=== PATIENT | male | born 1950 | race Caucasian/White ===

== ENCOUNTER 2017-12-17 17:07 | Emergency (ER) | payer OTHER, MEDICARE ==
[2017-12-17] MEDS ORDERED: Sodium Chloride 0.9% 1000 ML 1,000 ML IV STA (17:53)
[2017-12-17] MEDS ORDERED: Sodium Chloride 0.9% 1000 ML 1,000 ML ONE (17:56)
--- NOTE | 2017-12-17 17:59 | ERPHSYRPT ---
- History of Present Illness Source: patient Exam Limitations: no limitations Patient Subjective Stated Complaint: Pt states "I was diagnosed with the flu and it is just getting worse. I have 2 of those flu pills left and I am not any better." Triage Nursing Assessment: Pt alert and oriented X 3, skin pwd. Pt ambulates with an upright steady gait, able to speak in clear full sentences. no apparent respiratory distress Timing/Duration: day(s) (4 days) Severity: moderate Modifying Factors: Improves With: nothing Associated Symptoms: loss of appetite, malaise, weakness, No nausea, No vomiting , No abdominal pain, No shortness of breath, No heartburn, No diaphoresis, No cough, No chills, No chest pain, No fever, No headaches, No rash, No syncope, No seizure Hx Tetanus, Diphtheria Vaccination/Date Given: Yes Hx Influenza Vaccination/Date Given: No Hx Pneumococcal Vaccination/Date Given: No Immunizations Up to Date: Yes <RITO GLASGOW - Last Filed: 12/17/17 19:05> <KELSIE GILLETTE - Last Filed: 12/17/17 21:12> - History of Present Illness Time Seen by Provider: 12/17/17 17:53 Physician History: 67-year-old white male who states that he was diagnosed with the flu approximately 4 days ago arrives stating that he just doesn't feel good he states he feels weak he feels like he is getting worse as compared to better after taking flu medication. He states he is not short of breath he has no abdominal pain he is not vomiting he states he is not nauseous he has no chest pain he states he has no fevers. He states he just doesn't feel good and his wonders whether he is dehydrated. Patient has 2 of his Tamiflu tablets left. Past medical history includes diabetes, coronary artery disease, high blood pressure. Past surgical history includes CABG and pacer (RITO GLASGOW) Allergies/Adverse Reactions: No Known Drug Allergies Allergy (Unverified 12/17/17 17:26) Home Medications: Amlodipine Besylate 10 mg [Norvasc 10 MG] 10 mg PO DAILY 12/17/17 [History] Aspirin 81 mg PO DAILY 12/17/17 [History] Atorvastatin Calcium [Lipitor] 80 mg PO DAILY 12/17/17 [History] Clopidogrel Bisulfate 75 mg [PLAVIX 75 MG Tablet] 75 mg PO DAILY 12/17/17 [History] Esomeprazole Magnesium [Nexium 24Hr] 20 mg PO DAILY 12/17/17 [History] Ferrous Sulfate 325 mg [Feosol 325 mg] 325 mg PO DAILY 12/17/17 [History] Glipizide 5 mg [Glucotrol 5 MG] 5 mg PO DAILY 12/17/17 [History] Metformin HCl 500 mg [Glucophage 500 MG] 500 mg PO BIDWM 12/17/17 [History ] Metoprolol Tartrate 25 mg PO DAILY 12/17/17 [History] Potassium Gluconate 99 mg PO DAILY 12/17/17 [History] Ramipril [Altace] 10 mg PO DAILY 12/17/17 [History] Triamterene/Hydrochlorothiazid [Triamterene-Hctz 37.5-25 mg Tb] 1 each PO DAILY 12/17/17 [History] - Review of Systems Constitutional: Malaise, Weakness, No Fever, No Chills, No Fatigue, No Lethargy , No Night Sweats, No Weight Loss Eyes: No Symptoms Ears, Nose, & Throat: No Symptoms, No Ear Pain, No Ear Discharge, No Hearing Changes, No Tinnitus, No Nose Pain, No Nose Congestion, No Nose Discharge, No Sinus Drainage, No Epistaxis, No Mouth Pain, No Mouth Swelling, No Loose Teeth, No Throat Pain, No Throat Swelling, No Hoarse, No Painful Swallowing, No Snoring , No Stridor Respiratory: No Cough, No Dyspnea Cardiac: No Chest Pain, No Edema, No Syncope Abdominal/Gastrointestinal: Other (patient states he just doesn't feel like eating), No Abdominal Pain, No Nausea, No Vomiting, No Diarrhea, No Constipation , No Hematemesis, No Hematochezia, No Melena, No Dysphagia, No Appetite Changes Genitourinary Symptoms: No Dysuria Musculoskeletal: No Back Pain, No Neck Pain Skin: No Rash Neurological: No Dizziness, No Focal Weakness, No Sensory Changes Psychological: No Symptoms Endocrine: No Symptoms All Other Systems: Reviewed and Negative <RITO GLASGOW - Last Filed: 12/17/17 19:05> - Past Medical History Pertinent Past Medical History: Yes Neurological History: No Pertinent History ENT History: No Pertinent History Cardiac History: Coronary Artery Disease, Hypertension Respiratory History: No Pertinent History Endocrine Medical History: Diabetes Type II Musculoskeletal History: No Pertinent History GI Medical History: No Pertinent History History: No Pertinent History Psycho-Social History: No Pertinent History Male Reproductive Disorders: No Pertinent History - Past Surgical History Past Surgical History: Yes Other Surgical History: cabg. pacemaker - Social History Smoking Status: Former smoker Exposure to second hand smoke: Yes Drug Use: none Patient Lives Alone: No <RITO GLASGOW Filed: 12/17/17 19:05> - Physical Exam General Appearance: no apparent distress, alert Eye Exam: PERRL/EOMI, eyes nml inspection Ears, Nose, Throat Exam: normal ENT inspection, TMs normal, pharynx normal, moist mucous membranes Neck Exam: normal inspection, non-tender, supple, full range of motion Respiratory Exam: normal breath sounds, lungs clear, No respiratory distress Cardiovascular Exam: regular rate/rhythm, normal heart sounds, normal peripheral pulses Gastrointestinal/Abdomen Exam: soft, normal bowel sounds, No tenderness, No mass Back Exam: normal inspection, normal range of motion, No CVA tenderness, No vertebral tenderness Extremity Exam: normal inspection, normal range of motion, pelvis stable Neurologic Exam: alert, oriented x 3, cooperative, normal mood/affect, nml cerebellar function, nml station & gait, sensation nml, No motor deficits Skin Exam: normal color, warm, dry, No rash Lymphatic Exam: No adenopathy SpO2 Interpretation: normal (94%) SpO2: 94 Oxygen Delivery: Room Air <RITO GLASGOW - [place] Filed: 12/17/17 19:05> - Nursing Vital Signs Nursing Vital Signs: Initial Vital Signs Temperature 97.3 F 12/17/17 17:19 Pulse Rate 82 12/17/17 17:19 Respiratory Rate 20 12/17/17 17:19 Blood Pressure 149/90 12/17/17 17:19 O2 Sat by Pulse Oximetry 94 L 12/17/17 17:19 Pain Scale Pain Intensity 0 - Course Nursing assessment & vital signs reviewed: Yes EKG Interpreted by Me: RATE (68 bpm), Other (av pacemaker 68 bm, no acute changes) - Radiology Exams Chest X-ray Interpretation: Interpreted by me, Other (no acute disease process) <RITO GLASGOW Last Filed: 12/17/17 19:05> Ordered Tests: Active Orders 24 hr Category Date Time Status EKG-ER Only STAT Care 12/17/17 17:53 Active IV Insertion STAT Care 12/17/17 17:53 Active CHEST 1 VIEW (PORTABLE) Stat Exams 12/17/17 17:53 Completed CBC W DIFF Stat Lab 12/17/17 18:05 Completed CMP Stat Lab 12/17/17 18:05 Completed TROPONIN Q3H Lab 12/17/17 18:05 Completed TROPONIN Q3H Lab 12/17/17 21:15 Ordered TROPONIN Q3H Lab 12/18/17 00:15 Ordered TROPONIN Q3H Lab 12/18/17 03:15 Ordered TROPONIN Q3H Lab 12/18/17 06:15 Ordered UA W/ MICROSCOPIC Stat Lab 12/17/17 20:30 Completed Medication Summary Discontinued Medications Generic Name Dose Route Start Last Admin Trade Name Freq PRN Reason Stop Dose Admin Sodium Chloride 1,000 mls @ 999 mls/hr 12/17/17 17:53 12/17/17 18:07 Sodium Chloride 0.9% 1000 Ml IV 12/17/17 18:53 999 mls/hr .Q1H1M STA Administration Sodium Chloride Confirm 12/17/17 17:56 Sodium Chloride 0.9% 1000 Ml Administered 12/17/17 17:57 Dose 1,000 mls @ ud .ROUTE .STK-MED ONE Lab/Rad Data: Laboratory Result Diagrams 12/17/17 18:05 12/17/17 18:05 Laboratory Results 12/17/17 12/17/17 12/17/17 Range/Units 20:30 18:05 18:05 WBC (4.0-10.5) K/mm3 RBC (4.1-5.6) M/mm3 Hgb (12.5-18.0) gm/dl Hct (42-50) % MCV (78-100) fl MCH (26-32) pg MCHC (32-36) g/dl RDW (11.5-14.0) % Plt Count (150-450) K/mm3 MPV (6-9.5) fl Gran % (36.0-66.0) % Lymphocytes % (24.0-44.0) % Monocytes % (0.0-12.0) % Eosinophils % (0.00-5.0) % Basophils % (0.0-0.4) % Basophils # (0-0.4) Sodium 136 (136-145) mEq/L Potassium 3.7 (3.5-5.1) mEq/L Chloride 105 (98-107) mEq/L Carbon Dioxide 22.5 (21-32) mEq/L Anion Gap 12.6 (5-15) MEQ/L BUN 28 H (9-20) mg/dL Creatinine 1.36 H (0.55-1.30) mg/dl Estimated GFR 56 ML/MIN Glucose 99 (70-110) MG/DL Calcium 9.5 (8.5-10.1) mg/dL Total Bilirubin 0.60 (0.2-1.0) mg/dL AST 20 (15-37) U/L ALT 17 (12-78) U/L Alkaline Phosphatase 87 (46-116) U/L Troponin I < 0.017 (0.000-0.056) ng/ml Serum Total Protein 7.0 (6.4-8.2) gm/dL Albumin 3.5 (3.4-5.0) g/dL Ur Collection Type CCMS Urine Color YELLOW (YELLOW) Urine Appearance CLEAR (CLEAR) Urine pH 6.0 (5-6) Ur Specific [place] 1.010 (1.005-1.025) Urine Protein 30 (Negative) Urine Ketones NEGATIVE (NEGATIVE) Urine Blood NEGATIVE (0-5) Cristobal/ul Urine Nitrite NEGATIVE (NEGATIVE) Urine Bilirubin NEGATIVE (NEGATIVE) Urine Urobilinogen NORMAL (0-1) mg/dL Ur Leukocyte Esterase NEGATIVE (NEGATIVE) Urine Microscopic WBC 0-2 (0-5) /HPF Hyaline Casts 2-5 (0-2) /LPF Urine Mucus SLIGHT (NEGATIVE) /HPF Urine Sperm PRESENT (NEGATIVE) /HPF Urine Culture Reflexed NO (NO) Urine Glucose NEGATIVE (NEGATIVE) mg/dL Specimen Received 12-17-17204912/17/17 Range/Units 18:05 WBC 6.7 (4.0-10.5) K/mm3 RBC 4.80 (4.1-5.6) M/mm3 Hgb 14.7 (12.5-18.0) gm/dl Hct 42.9 (42-50) % MCV 89.4 (78-100) fl MCH 30.6 (26-32) pg MCHC 34.3 (32-36) g/dl RDW 13.1 (11.5-14.0) % Plt Count 170 (150-450) K/mm3 MPV 10.4 H (6-9.5) fl Gran % 64.1 (36.0-66.0) % Lymphocytes % 24.8 (24.0-44.0) % Monocytes % 9.2 (0.0-12.0) % Eosinophils % 1.8 (0.00-5.0) % Basophils % 0.1 (0.0-0.4) % Basophils # 0.01 (0-0.4) Sodium (136-145) mEq/L Potassium (3.5-5.1) mEq/L Chloride (98-107) mEq/L Carbon Dioxide (21-32) mEq/L Anion Gap (5-15) MEQ/L BUN (9-20) mg/dL Creatinine (0.55-1.30) mg/dl Estimated GFR ML/MIN Glucose (70-110) MG/DL Calcium (8.5-10.1) mg/dL Total Bilirubin (0.2-1.0) mg/dL AST (15-37) U/L ALT (12-78) U/L Alkaline Phosphatase (46-116) U/L Troponin I (0.000-0.056) ng/ml Serum Total Protein (6.4-8.2) gm/dL Albumin (3.4-5.0) g/dL Ur Collection Type Urine Color (YELLOW) Urine Appearance (CLEAR) Urine pH (5-6) Ur Specific [place] (1.005-1.025) Urine Protein (Negative) Urine Ketones (NEGATIVE) Urine Blood (0-5) Cristobal/ul Urine Nitrite (NEGATIVE) Urine Bilirubin (NEGATIVE) Urine Urobilinogen (0-1) mg/dL Ur Leukocyte Esterase (NEGATIVE) Urine Microscopic WBC (0-5) /HPF Hyaline Casts (0-2) /LPF Urine Mucus (NEGATIVE) /HPF Urine Sperm (NEGATIVE) /HPF Urine Culture Reflexed (NO) Urine Glucose (NEGATIVE) mg/dL Specimen Received - Progress Progress: improved <RITO GLASGOW - Last Filed: 12/17/17 19:05> <KELSIE GILLETTE - Last Filed: 12/17/17 21:12> - Progress Progress Note: 12/17/17 17:57 This is a 67-year-old white male with history of diabetes coronary artery disease, high blood pressure he arrives with complaint of general malaise myalgias symptoms going on for 4 days. He was diagnosed with the flu 4 days ago he was placed on Tamiflu he feels like he is not improving. He denies shortness of breath denies chest pain he is not coughing he is not nauseous he has no vomiting he does state that he just doesn't feel like eating he doesn't feel good and he aches all over. Patient has 2 Tamiflu tablets left. Will go ahead and obtain CBC CMP urinalysis EKG and a chest Will give patient 1 L of normal saline he does feel like he is dehydrated 12/17/17 19:04 Patient's labs essentially normal EKG no acute changes paced rhythm chest x-ray no acute disease process noted. Patient still has not produced a urine has told the nurse that he will produce one when he is ready. Patient will be turned over to Dr. Gillette secondary to shift change. (RITO GLASGOW) 12/17/17 21:10 The UA is within normal limits. The patient feels better after receiving NS fluids. I have explained to the patient that the weakness was secondary to influenza. Pt was advised to increase water intake and finish the tamiflu. ( KELSIE GILLETTE) <RITO GLASGOW - Last Filed: 12/17/17 19:05> - Departure Time of Disposition: 21:11 Departure Disposition: Home Critical Care Time: No <KELSIE GILLETTE - Last Filed: 12/17/17 21:12> - Departure Clinical Impression: Influenza Condition: Stable Referrals: VICTORIA WALTON [Primary Care Provider] - Instructions: Flu, Adult (DC) Additional Instructions: Follow up with your primary care doctor if you should continue to feel weak. Stay well hydrated and finish the tamiflu.
[2017-12-17 18:11] LABS: BASOPHIL % 0.1 % (0.0-0.4); Basophil (Absolute #) 0.01 (0-0.4); Eosinophil % 1.8 % (0.00-5.0); Eosinophil (Absolute #) 0.12 (0-0.5); Granulocyte Absolute (ANC) 4.32 (1.4-6.9); Granulocytes % 64.1 % (36.0-66.0); Hematocrit 42.9 % (42-50); Hemoglobin 14.7 gm/dl (12.5-18.0); Lymphocyte (Absolute #) 1.67 (1.0-4.6); Lymphocytes % 24.8 % (24.0-44.0); Mean Cell Volume 89.4 fl (78-100); Mean Corpuscular Hemoglobin 30.6 pg (26-32); Mean Corpuscular Hgb Concent. 34.3 g/dl (32-36); Mean Platelet Volume 10.4 fl (6-9.5); Monocyte (Absolute #) 0.62 (0.0-1.3); Monocytes % 9.2 % (0.0-12.0); Platelet Count 170 K/mm3 (150-450); Red Cell Distribution Width 13.1 % (11.5-14.0); White Blood Count 6.7 K/mm3 (4.0-10.5)
[2017-12-17 18:12] VITALS: PULSE 88
[2017-12-17 18:40] LABS: ALBUMIN 3.5 g/dL (3.4-5.0); ANION GAP 12.6 MEQ/L (5-15); BILIRUBIN,TOTAL 0.6 mg/dL (0.2-1.0); Calcium 9.5 mg/dL (8.5-10.1); Carbon Dioxide 22.5 mEq/L (21-32); Creatinine 1 1.36 mg/dl (0.55-1.30); Potassium 3.7 mEq/L (3.5-5.1)
--- NOTE | 2017-12-17 20:42 | XRAY ---
Indication: Flu symptoms. Comparison: December 13, 2017. Portable chest less inflated today crowding the lung bases. Remaining lungs clear. Heart is not enlarged again with left-sided dual-lead pacemaker. Impression: Nonacute chest.
[2017-12-17 20:52] LABS: Appearance CLEAR (CLEAR); Bilirubin NEGATIVE (NEGATIVE); Blood NEGATIVE Ery/ul (0-5); Glucose NEGATIVE (NEGATIVE); Ketones NEGATIVE (NEGATIVE); Leukocyte Esterase NEGATIVE (NEGATIVE); Nitrite NEGATIVE (NEGATIVE); Protein,Urine Dip 30 (Negative); Urobilinogen NORMAL mg/dL (0-1)
[2017-12-17 20:53] LABS: Mucus SLIGHT /HPF (NEGATIVE); Sperm PRESENT /HPF (NEGATIVE); WBC 0-2 /HPF (0-5)
[2017-12-17 21:12] VITALS: BP 132/90; O2SAT 98
== END 2017-12-17 21:19 | disposition expired ==
LOC: ED 17:07
DX: J11.1 Influenza due to unidentified influenza virus with other respiratory manifestations (principal); I10 Essential (primary) hypertension; E11.9 Type 2 diabetes mellitus without complications; Z79.4 Long term (current) use of insulin; I25.810 Atherosclerosis of coronary artery bypass graft(s) without angina pectoris; Z95.0 Presence of cardiac pacemaker; Z79.899 Other long term (current) drug therapy
CPT/HCPCS: 36000; 36415; 71045; 80053; 81000; 84484; 85025; 93005; 96360; 99284

== ENCOUNTER 2022-05-27 09:15 | Day surgery (SDC) | payer MEDICARE, OTHER ==
--- NOTE | 2022-05-21 13:04 | HP ---
DATE OF SURGERY: 05/27/2022 HISTORY OF PRESENT ILLNESS: The patient is a 71-year-old male presented with complaints of bright red rectal bleeding for a couple months. It happens with bowel movements. He has had some abdominal pain. He went to the emergency room and had some diverticulitis. He reports that the pain is better now. He has been on some Carafate. He had CT scan showing some gastric thickening. His last colonoscopy was in 1996. PAST MEDICAL HISTORY: Hypertension, diabetes, pacemaker, coronary artery disease, diabetes. PAST SURGICAL HISTORY: Coronary artery bypass graft. Right inguinal hernia repair. Umbilical hernia repair. ALLERGIES: NKDA. MEDICATIONS: Ramipril, terazosin, atorvastatin, magnesium, metoprolol, Zetia, amlodipine, aspirin, Xarelto, sucralfate, Fenofibrate, pantoprazole, metformin, glipizide. FAMILY HISTORY: Heart disease, hypertension, diabetes. SOCIAL HISTORY: Former smoker. REVIEW OF SYSTEMS: CONSTITUTIONAL: Denies fever or chills. CHEST: Denies shortness of breath. CVS: Denies chest pain. ABDOMEN: Denies abdominal pain. PHYSICAL EXAMINATION: GENERAL: No acute distress. CHEST: Nonlabored. No shortness of breath. CVS: Regular rate and rhythm. ABDOMEN: Soft. IMPRESSION: Bright red rectal bleeding, abnormal CT scan with gastric thickening and recent episode of diverticulitis. PLAN: EGD and colonoscopy with Dr. Porter Matson. As dictated by Ginette Moore NP.
[2022-05-27] MEDS: Lactated Ringers 1,000 ML IV SCH ×2 (09:40→10:58)
[2022-05-27] MEDS ORDERED: Lactated Ringers 1,000 ML IV ONE ×2 (10:56→11:58)
[2022-05-27] MEDS ORDERED: DIPRIVAN 200 MG/20 ML IV ONE (11:56)
[2022-05-27] MEDS ORDERED: Versed 2 MG/2 ML Injection ONE (11:56)
[2022-05-27 13:15] VITALS: BP 161/75; PULSE 66; O2SAT 99
--- NOTE | 2022-05-28 07:53 | OP ---
SURGERY DATE/TIME: 05/27/2022 1200 PREOPERATIVE DIAGNOSIS: 1) Recent diverticulitis. 2) Recent blood per rectum. 3) Ultrasound showing gastric wall thickening. POSTOPERATIVE DIAGNOSES: 1) EGD a 1 inch hiatal hernia, presbyesophagus. 2) Colonoscopy limited to 40 cm because of severe diverticulosis. 3) A 4 cm rectal polyp taken with a hot snare. PROCEDURES: 1) EGD. 2) Colonoscopy complete to cecum with hot polypectomy x2. Anticipated follow up exam in five years. SURGEON: Porter Matson M.D. ANESTHESIA: General. COMPLICATIONS: None. CONDITION: Stable. INDICATION: The patient presents for above indications. DESCRIPTION OF PROCEDURE: Patient taken to endoscopy. Left lateral decubitus position. Scope introduced. Pharyngoesophageal junction normal. Esophagus normal down to gastroesophageal junction. A 1 inch hiatal hernia. There was presbyesophagus. There were no contractions to the esophagus today. Fundus, body, antrum normal. Pylorus normal. Duodenal bulb normal. Second portion normal. The scope withdrawn looped upon itself. A 1 inch hiatal hernia. Anal digital examination satisfactory. Scope introduced. Scope advanced 40 cm to the cecum. There was marked annulation. There was severe diverticulosis. Pulling the scope back out there was a 4 cm rectal polyp. It was taken with a hot snare totally taken off. We await the pathology of this. We will probably order a barium enema at some point after the rectal thing has healed up. The patient tolerated the procedure satisfactorily.
== END 2022-05-27 13:18 | disposition home or self-care (01) ==
LOC: SDC 09:15
PROVIDERS: ATTEND Surgery
DX: K57.30 Diverticulosis of large intestine without perforation or abscess without bleeding (principal); K62.1 Rectal polyp; K44.9 Diaphragmatic hernia without obstruction or gangrene; K57.92 Diverticulitis of intestine, part unspecified, without perforation or abscess without bleeding; K92.1 Melena; K31.89 Other diseases of stomach and duodenum; E11.9 Type 2 diabetes mellitus without complications; K22.89 Other specified disease of esophagus
CPT/HCPCS: 82947; 88305; J2250; J2704

== ENCOUNTER 2022-06-03 22:55 | Observation (INO) | payer MEDICARE, OTHER ==
[2022-06-03] MEDS ORDERED: MORPHINE SULFATE 4 MG INJ IV ONE (23:16)
[2022-06-03] MEDS ORDERED: Zofran 4 MG/2 ML VIAL IV ONE (23:16)
--- NOTE | 2022-06-03 23:25 | ERPHSYRPT ---
- History of Present Illness Time Seen by Provider: 06/03/22 22:58 Historian: patient, family Exam Limitations: no limitations Patient Subjective Stated Complaint: pt states he has been having abdominal pain x2 days. he was diagnosed with diverticulitis 04/12/[address] [facility]. states he ate a meal consisting of corn two days ago, and since then has had abdominal pain, nausea and indigestion Triage Nursing Assessment: pt is alert and oriented. abdomen is soft but tender when palpated on middle abdominal area. pt states he has pain 10/10 in abdomen and is nauseated and is experiencing indigestion. Physician History: 71 years old male with history of coronary artery disease status post CABG, pacemaker placement currently on Xarelto, hypertension, hyperlipidemia, diabetes mellitus, recent EGD/colonoscopy, off-and-on abdominal pain for 3 weeks and had a diverticulitis almost a month and a half presented with lower abdominal pain for 2 days dull cramping moderate intensity without any significant aggravating or relieving factors and located with nausea/dry heaving but no vomiting. Denies any constipation or diarrhea. No hematochezia/melena. Timing/Duration: day(s) (2), constant, gradual onset, worse Activities at Onset: rest Quality: cramping Abdominal Pain Onset Location: LLQ, suprapubic Pain Radiation: no radiation Severity of Pain-Max: moderate Severity of Pain-Current: moderate Modifying Factors: Improves With: nothing Associated Symptoms: nausea Allergies/Adverse Reactions: No Known Drug Allergies Allergy (Verified 05/27/22 09:38) Home Medications: Amlodipine Besylate 10 mg [Norvasc 10 MG] 5 mg PO BID 12/17/17 [History] Atorvastatin Calcium [Lipitor] 80 mg PO DAILY 12/17/17 [History] Glipizide 5 mg [Glucotrol 5 MG] 5 mg PO DAILY 12/17/17 [History] Metformin HCl 500 mg [Glucophage 500 MG] 500 mg PO DAILY 12/17/17 [History] Metoprolol Tartrate 3 tab PO BID 12/17/17 [History] ramipriL [Altace] 10 mg PO BID 12/17/17 [History] Fenofibrate 48 mg PO DAILY 05/18/22 [History] Magnesium Oxide 400 mg [Mag-Ox 400] 400 mg PO BID 05/18/22 [History] PANTOPRAZOLE 40 mg Tablet [Protonix 40MG Tablet] 40 mg PO DAILY 05/18/22 [History] Sucralfate 1 gm [Carafate 1 GM] 1 gm PO QID 05/18/22 [History] Terazosin HCl 5 mg PO BID 05/18/22 [History] Hx Tetanus, Diphtheria Vaccination/Date Given: Yes Hx Influenza Vaccination/Date Given: No Hx Pneumococcal Vaccination/Date Given: No Travel Risk - International Travel Have you traveled outside of the country in past 3 weeks: No - Coronavirus Screening Are you exhibiting any of the following symptoms?: No - Vaccine Status Have you recieved a Covid-19 vaccination: No - Review of Systems Constitutional: No Symptoms Eyes: No Symptoms Ears, Nose, & Throat: No Symptoms Respiratory: No Symptoms Cardiac: No Symptoms Abdominal/Gastrointestinal: Abdominal Pain, Nausea Genitourinary Symptoms: No Symptoms Musculoskeletal: No Symptoms Skin: No Symptoms, Skin Lesions Endocrine: No Symptoms Hematologic/Lymphatic: No Symptoms Immunological/Allergic: No Symptoms - Past Medical History Pertinent Past Medical History: Yes Neurological History: No Pertinent History ENT History: No Pertinent History Cardiac History: Coronary Artery Disease, Hypertension Respiratory History: No Pertinent History Endocrine Medical History: Diabetes Type II Musculoskeletal History: No Pertinent History GI Medical History: No Pertinent History History: No Pertinent History Psycho-Social History: No Pertinent History Male Reproductive Disorders: No Pertinent History - Past Surgical History Past Surgical History: Yes Neuro Surgical History: No Pertinent History Cardiac: CABG, Pacemaker Respiratory: No Pertinent History Gastrointestinal: Hernia Repair Genitourinary: No Pertinent History Male Surgical History: No Pertinent History Other Surgical History: cabg. pacemaker - Social History Smoking Status: Former smoker Exposure to second hand smoke: No Drug Use: none Patient Lives Alone: No - Nursing Vital Signs Nursing Vital Signs: Initial Vital Signs Temperature 97.4 F 06/03/22 23:01 Pulse Rate 78 06/03/22 23:01 Respiratory Rate 18 06/03/22 23:01 Blood Pressure 190/90 06/03/22 23:01 O2 Sat by Pulse Oximetry 99 06/03/22 23:01 Pain Scale Pain Intensity 10 - Physical Exam General Appearance: no apparent distress, alert Eye Exam: PERRL/EOMI Ears, Nose, Throat Exam: normal ENT inspection Neck Exam: normal inspection, supple, full range of motion Respiratory Exam: normal breath sounds, lungs clear Cardiovascular Exam: regular rate/rhythm, normal heart sounds Gastrointestinal/Abdomen Exam: soft, normal bowel sounds, tenderness (Left lower quadrant/suprapubic area) Back Exam: normal inspection Extremity Exam: normal inspection, normal range of motion Neurologic Exam: alert, oriented x 3, cooperative Skin Exam: normal color SpO2 Interpretation: normal SpO2: 99 O2 Delivery: Room Air Ordered Tests: Active Orders 24 hr Category Date Time Status IV Insertion STAT Care 06/03/22 23:16 Ordered NPO (ED) STAT Care 06/03/22 23:16 Ordered ABDOMEN AND PELVIS W/0 CONTRAS [CT] Stat Exams 06/03/22 23:16 Ordered CBC W DIFF Stat Lab 06/03/22 23:16 Ordered CMP Stat Lab 06/03/22 23:16 Ordered LIPASE Stat Lab 06/03/22 23:16 Ordered Lactic Acid Stat Lab 06/03/22 23:16 Ordered UA W/RFX CULTURE Stat Lab 06/03/22 Ordered Medication Summary Discontinued Medications Generic Name Dose Route Start Last Admin Trade Name Cyq PRN Reason Stop Dose Admin Morphine Sulfate 4 mg 06/03/22 23:16 Morphine Sulfate 4 Mg/Ml Injection IV 06/03/22 23:17 STAT ONE Ondansetron HCl 4 mg 06/03/22 23:16 Ondansetron Hcl 4 Mg/2 Ml Vial IV 06/03/22 23:17 STAT ONE - Departure Referrals: VICTORIA WALTON [Primary Care Provider] - Follow up/PCP as directed
[2022-06-03] MEDS ORDERED: Zofran 4 MG/2 ML VIAL ONE (23:26)
[2022-06-03] MEDS ORDERED: MORPHINE SULFATE 4 MG INJ ONE (23:27)
[2022-06-03 23:33] LABS: Absolute Neutrophil Ct (ANC) 3.21 x10^3/uL (1.4-6.9); Basophil (Absolute #) 0.02 x10^3/uL (0-0.4); Eosinophil % 0.5 % (0.00-5.0); Eosinophil (Absolute #) 0.02 x10^3/uL (0-0.5); Hematocrit 32.6 % (42-50); Hemoglobin 10.6 g/dL (12.5-18.0); Lymphocytes % 20.9 % (24.0-44.0); Mean Corpuscular Hemoglobin 30.9 pg (26-32); Mean Corpuscular Hgb Concent. 32.5 g/dL (32-36); Mean Platelet Volume 10.1 fL (7.5-11.0); Monocyte (Absolute #) 0.15 x10^3/uL (0.0-1.3); Monocytes % 3.5 % (0.0-12.0); Neutrophil % 74.4 % (36.0-66.0); Platelet Count 182 x10^3/uL (150-450); Red Blood Count 3.43 x10^6/uL (4.1-5.6); Red Cell Distribution Width 13.2 % (11.5-14.0); White Blood Count 4.3 x10^3/uL (4.0-10.5)
[2022-06-03 23:46] LABS: ALBUMIN 3.6 g/dL (3.5-5.0); ALKALINE PHOSPHATASE 70 U/L (38-126); ANION GAP 11.4 MEQ/L (5-15); BLOOD UREA NITROGEN 10 mg/dL (9-20); CHLORIDE 104 mmol/L (98-107); Calcium 9.7 mg/dL (8.4-10.2); Carbon Dioxide 25 mmol/L (22-30); Creatinine 1 0.86 mg/dL (0.66-1.25); EST GLOMERULAR FILTRATION RATE > 60.0 ML/MIN; Glucose 123 mg/dL (74-106); LIPASE 646 U/L (23-300); Potassium 3.6 mmol/L (3.5-5.1); SGOT/AST 17 U/L (17-59); SGPT/ALT 11 U/L (0-50); SODIUM 137 mmol/L (137-145); Total Protein 6.3 g/dL (6.3-8.2)
[2022-06-04 00:05] LABS: Appearance CLEAR (CLEAR); Bilirubin NEGATIVE (NEGATIVE); Glucose NEGATIVE (NEGATIVE); Ketones NEGATIVE (NEGATIVE)
[2022-06-04 00:06] LABS: Dipstick done @ ? MAIN LAB; Nitrite NEGATIVE (NEGATIVE); Ph 7.5 (5-6); Protein,Urine Dip 100 (Negative); RBC NEGATIVE Ery/ul (0-5); Specific Gravity >=1.030 (1.005-1.025); Urobilinogen 0.2 mg/dL (0-1)
[2022-06-04 00:07] LABS: Epithelial Cells RARE /HPF (FEW); Mucus SLIGHT /HPF (NEGATIVE); RBC 0-2 /HPF (0-2)
[2022-06-04 00:18] LABS: Bacteria NONE SEEN /HPF (NEGATIVE); Urine Cultured Indicated? NO
[2022-06-04] MEDS ORDERED: PIPERACILLIN/TAZOBACTAM IV ONE (02:03)
[2022-06-04] MEDS ORDERED: MORPHINE SULFATE 4 MG INJ ONE (02:03)
[2022-06-04] MEDS ORDERED: Sodium Chloride 100ML MINI-BAG PLUS 100 ML IV ONE (02:04)
[2022-06-04 03:05] LABS: INFLUENZA A NEGATIVE (NEGATIVE); INFLUENZA B NEGATIVE (NEGATIVE); RESPIRATORY SYNCTIAL VIRUS NEGATIVE (Negative); SARS-CoV-2 Xpert Express NEGATIVE (NEGATIVE)
[2022-06-04] MEDS ORDERED: Zofran 4 MG/2 ML VIAL IV PRN (03:56)
[2022-06-04] MEDS ORDERED: TYLENOL 325 MG PO PRN (03:58)
[2022-06-04] MEDS ORDERED: PROTONIX 40 MG IV IV SCH (04:00)
[2022-06-04] MEDS: Sodium Chloride 0.9% 1000 ML 1,000 ML IV SCH ×2 (04:52→14:01)
[2022-06-04] MEDS ORDERED: HUMULIN R SQ PRN (07:30)
[2022-06-04] MEDS: MORPHINE SULFATE 4 MG INJ IV PRN (07:55)
[2022-06-04] MEDS: PIPERACILLIN/TAZOBACTAM 3.375 GM in Sodium Chloride 100ML MINI-BAG PLUS 100 ML IV SCH ×3 (08:01→18:27)
--- NOTE | 2022-06-04 09:19 | XRAY ---
Indication: Abdomen pain and blood in stool. Status post "polyp removal" one week ago. History diverticulitis. Multiple contiguous axial images obtained through the abdomen and pelvis without contrast. Comparison: None Lung bases demonstrates pulmonary emphysema, mild pulmonary edema, and small bibasilar effusions. Heart is enlarged concerning for cardiac decompensation/CHF. Small fluid-filled hiatal hernia favoring GERD. Stomach is mildly fluid distended. Greater curvature of the stomach demonstrates wall thickening up to 2 cm in thickness either incomplete distention versus gastritis versus mass. Noncontrasted stomach and bowel loops appear nonobstructed with normal air-filled appendix. Scattered descending and sigmoid diverticulosis. Mid to proximal sigmoid colon demonstrates circumferential wall thickening with minimal pericolonic stranding either diverticulitis/colitis versus mass. Tiny pelvic and abdominal free fluid. No walled off fluid collection or free air. Gallbladder normally distended with a few tiny gallstones. Incidental tiny splenic calcified granulomas, nonobstructing bilateral renal micro-calculi, and left renal cysts largest 2.2 cm upper pole. Enlarged prostate gland impresses on the base of the bladder. Remaining liver, pancreas, spleen, adrenal glands, kidneys, ureters, and bladder are unremarkable for noncontrast exam. Extensive diffuse scattered vascular calcifications including intrarenal arteries. No AAA. Osseous structures intact with mild osteopenia and mild degenerative changes throughout the thoracolumbar spine and both hips. Impression: 1. Scattered colonic diverticulosis. Sigmoid bowel wall thickening with minimal pericolonic stranding either diverticulitis/colitis versus mass. 2. Fluid filled stomach with greater curvature wall thickening either incomplete distention versus gastritis versus mass. Endoscopy may yield further information. 3. Cardiomegaly with pulmonary edema and small bibasilar effusions favoring cardiac decompensation/CHF. Tiny abdomen/pelvic free fluid may be related. Superimposed pneumonia not completely excluded. 4. Small fluid-filled hiatal hernia favoring GERD. 5. Incidental gallstones, nonobstructing bilateral renal micro-calculi, left renal cysts, enlarged prostate gland, extensive arteriosclerotic disease, and chronic bony findings. Comment: Preliminary interpretation made by [facility]. No critical discrepancy.
--- NOTE | 2022-06-04 11:05 | XRAY ---
Indication: Abdomen pain. Two-dimensional gallbladder sonogram performed. Comparison: None Pancreas not well-seen due to overlying bowel gas. Gallbladder normally distended with a few small gallstones, largest 1.5 cm. No abnormal gallbladder wall thickening or pericholecystic fluid. Common bile duct measures 4.7 mm. Remaining visualized liver and right kidney are sonographically unremarkable. Right kidney measures 9.8 cm in length. Impression: Cholelithiasis without cholecystitis. Nonvisualization pancreas.
[2022-06-04] MEDS: FLAGYL 500 MG IVPB 500 MG/100 ML BAG IV SCH ×3 (12:14→23:44)
[2022-06-04] MEDS: ZOCOR 20MG PO SCH (14:02)
[2022-06-04] MEDS: Lopressor 25MG Tab PO SCH ×2 (14:02→21:33)
[2022-06-04] MEDS: HYTRIN 1 MG PO SCH ×2 (14:02→21:31)
[2022-06-04] MEDS: MAG-OX 400 PO SCH ×2 (14:03→21:33)
[2022-06-04] MEDS: XARELTO 10 MG TABLET PO SCH (14:03)
[2022-06-04] MEDS: Carafate 1 GM PO SCH ×3 (14:04→21:33)
[2022-06-04] MEDS: NORVASC 5 MG PO SCH ×2 (14:04→21:33)
[2022-06-04] MEDS: Glucotrol 5 MG PO SCH (14:05)
[2022-06-04] MEDS: Glucophage 500 MG PO SCH (14:05)
[2022-06-04] MEDS: Tricor 145 MG PO SCH (15:51)
[2022-06-04] MEDS ORDERED: NON-FORMULARY ITEM (Ramipril [Altace] 10 MG Capsule) PO SCH (22:00)
[2022-06-04] MEDS ORDERED: NON-FORMULARY ITEM (Terazosin Hcl [Terazosin Hcl] 5 MG Capsule) PO SCH (22:00)
[2022-06-04] MEDS ORDERED: NON-FORMULARY ITEM (Amlodipine Besylate 10 Mg [Norvasc 10 Mg] 10 MG Tablet) PO SCH (22:00)
[2022-06-05] MEDS: PIPERACILLIN/TAZOBACTAM 3.375 GM in Sodium Chloride 100ML MINI-BAG PLUS 100 ML IV SCH ×4 (00:40→19:28)
[2022-06-05] MEDS: MORPHINE SULFATE 4 MG INJ IV PRN (00:51)
[2022-06-05] MEDS: Sodium Chloride 0.9% 1000 ML 1,000 ML IV SCH ×3 (03:32→23:46)
[2022-06-05 04:49] LABS: Hematocrit 30.8 % (42-50); Mean Cell Volume 93.3 fL (78-100); Mean Corpuscular Hemoglobin 30.3 pg (26-32); Mean Corpuscular Hgb Concent. 32.5 g/dL (32-36); Platelet Count 171 x10^3/uL (150-450); Red Cell Distribution Width 13.6 % (11.5-14.0); White Blood Count 4.2 x10^3/uL (4.0-10.5)
[2022-06-05 05:26] LABS: ALBUMIN 2.9 g/dL (3.5-5.0); ALKALINE PHOSPHATASE 56 U/L (38-126); ANION GAP 9.4 MEQ/L (5-15); BLOOD UREA NITROGEN 11 mg/dL (9-20); CHLORIDE 110 mmol/L (98-107); Calcium 9.1 mg/dL (8.4-10.2); Carbon Dioxide 22 mmol/L (22-30); Creatinine 1 1.06 mg/dL (0.66-1.25); EST GLOMERULAR FILTRATION RATE > 60.0 ML/MIN; Glucose 81 mg/dL (74-106); LIPASE 1110 U/L (23-300); Potassium 3.4 mmol/L (3.5-5.1); SGOT/AST 13 U/L (17-59); SGPT/ALT 8 U/L (0-50); SODIUM 137 mmol/L (137-145); Total Protein 5.3 g/dL (6.3-8.2)
[2022-06-05] MEDS: FLAGYL 500 MG IVPB 500 MG/100 ML BAG IV SCH ×4 (06:34→23:19)
[2022-06-05] MEDS: Glucophage 500 MG PO SCH (08:31)
[2022-06-05] MEDS: Glucotrol 5 MG PO SCH (08:31)
--- NOTE | 2022-06-05 09:52 | PCM.NOTE ---
Date and Time: 06/05/22950 Subjective Assessment: Patient admitted for tx diverticulitis. Lipase =1,110 today. OBJECTIVE DATA Vital Signs: Vital Signs - 24 hr Temp Pulse Resp BP Pulse Ox 06/05/22 08:00 98.2 F 73 19 162/74 93 L 06/05/22 04:00 98.6 F 67 18 162/72 96 06/04/22 23:34 98.2 F 62 18 144/67 96 06/04/22 19:19 98.0 F 61 20 139/67 95 06/04/22 16:00 97.8 F 63 20 146/69 94 L 06/04/22 12:00 97.7 F 61 20 164/74 95 Pain Assessment - Last Documented Pain Intensity 0 Pain Scale Used 0-10 Pain Scale Intake and Output: Intake & Output 06/02/22 06/03/22 06/04/22 06/05/22 11:59 11:59 11:59 11:59 Intake Total 0 3913 Output Total 900 3550 Balance -900 363 Weight 73.8 kg 72.8 kg Lab Results: Lab Results-Last 24 Hours 06/04/22 06/04/22 06/04/22 Range/Units 09:38 09:38 11:24 WBC (4.0-10.5) x10^3/uL RBC (4.1-5.6) x10^6/uL Hgb (12.5-18.0) g/dL Hct (42-50) % MCV (78-100) fL MCH (26-32) pg MCHC (32-36) g/dL RDW (11.5-14.0) % Plt Count (150-450) x10^3/uL MPV (7.5-11.0) fL Sodium (137-145) mmol/L Potassium (3.5-5.1) mmol/L Chloride (98-107) mmol/L Carbon Dioxide (22-30) mmol/L Anion Gap (5-15) MEQ/L BUN (9-20) mg/dL Creatinine (0.66-1.25) mg/dL Estimated GFR ML/MIN Glucose (74-106) mg/dL POC Glucometer 76 (74 to 106) mg/dL Hemoglobin A1c 7.05 H (4.5-6.0) % Calcium (8.4-10.2) mg/dL Total Bilirubin (0.2-1.3) mg/dL AST (17-59) U/L ALT (0-50) U/L Alkaline Phosphatase (38-126) U/L Serum Total Protein (6.3-8.2) g/dL Albumin (3.5-5.0) g/dL Lipase 446 H (23-300) U/L 06/04/22 06/04/22 06/05/22 Range/Units 15:51 20:52 04:30 WBC 4.2 (4.0-10.5) x10^3/uL RBC 3.30 L (4.1-5.6) x10^6/uL Hgb 10.0 L (12.5-18.0) g/dL Hct 30.8 L (42-50) % MCV 93.3 (78-100) fL MCH 30.3 (26-32) pg MCHC 32.5 (32-36) g/dL RDW 13.6 (11.5-14.0) % Plt Count 171 (150-450) x10^3/uL MPV 10.0 (7.5-11.0) fL Sodium (137-145) mmol/L Potassium (3.5-5.1) mmol/L Chloride (98-107) mmol/L Carbon Dioxide (22-30) mmol/L Anion Gap (5-15) MEQ/L BUN (9-20) mg/dL Creatinine (0.66-1.25) mg/dL Estimated GFR ML/MIN Glucose (74-106) mg/dL POC Glucometer 81 84 (74 to 106) mg/dL Hemoglobin A1c (4.5-6.0) % Calcium (8.4-10.2) mg/dL Total Bilirubin (0.2-1.3) mg/dL AST (17-59) U/L ALT (0-50) U/L Alkaline Phosphatase (38-126) U/L Serum Total Protein (6.3-8.2) g/dL Albumin (3.5-5.0) g/dL Lipase (23-300) U/L 06/05/22 06/05/22 Range/Units 04:30 07:50 WBC (4.0-10.5) x10^3/uL RBC (4.1-5.6) x10^6/uL Hgb (12.5-18.0) g/dL Hct (42-50) % MCV (78-100) fL MCH (26-32) pg MCHC (32-36) g/dL RDW (11.5-14.0) % Plt Count (150-450) x10^3/uL MPV (7.5-11.0) fL Sodium 137 (137-145) mmol/L Potassium 3.4 L (3.5-5.1) mmol/L Chloride 110 H (98-107) mmol/L Carbon Dioxide 22 (22-30) mmol/L Anion Gap 9.4 (5-15) MEQ/L BUN 11 (9-20) mg/dL Creatinine 1.06 (0.66-1.25) mg/dL Estimated GFR > 60.0 ML/MIN Glucose 81 (74-106) mg/dL POC Glucometer 82 (74 to 106) mg/dL Hemoglobin A1c (4.5-6.0) % Calcium 9.1 (8.4-10.2) mg/dL Total Bilirubin 0.50 (0.2-1.3) mg/dL AST 13 L (17-59) U/L ALT 8 (0-50) U/L Alkaline Phosphatase 56 (38-126) U/L Serum Total Protein 5.3 L (6.3-8.2) g/dL Albumin 2.9 L (3.5-5.0) g/dL Lipase 1110 H (23-300) U/L Radiology Exams: Radiology Procedures Category Date Time Status ABDOMEN AND PELVIS W/0 CONTRAS [CT] Stat Exams 06/03/22 23:36 Completed GALLBLADDER [US] Urgent Exams 06/04/22 11:29 Completed
[2022-06-05] MEDS ORDERED: PROTONIX 40 MG IV IV SCH (10:00)
[2022-06-05] MEDS ORDERED: NON-FORMULARY ITEM (Atorvastatin Calcium [Lipitor] 80 MG Tablet) PO SCH (10:00)
[2022-06-05] MEDS ORDERED: NON-FORMULARY ITEM (Rivaroxaban [Xarelto] 15 MG Tablet) PO SCH (10:00)
[2022-06-05] MEDS ORDERED: FENOFIBRATE 50 MG PO SCH (10:00)
[2022-06-05] MEDS: XARELTO 10 MG TABLET PO SCH (10:02)
[2022-06-05] MEDS: ZOCOR 20MG PO SCH (10:02)
[2022-06-05] MEDS: Tricor 145 MG PO SCH (10:04)
[2022-06-05] MEDS: NORVASC 5 MG PO SCH ×2 (10:07→21:17)
[2022-06-05] MEDS: Lopressor 25MG Tab PO SCH ×2 (10:07→21:19)
[2022-06-05] MEDS: Protonix 40MG Tablet PO SCH (10:07)
[2022-06-05] MEDS: MAG-OX 400 PO SCH ×2 (10:07→21:17)
[2022-06-05] MEDS: Carafate 1 GM PO SCH ×4 (10:07→21:17)
[2022-06-05] MEDS: HYTRIN 1 MG PO SCH ×2 (10:18→21:17)
[2022-06-05] MEDS ORDERED: Sodium Chloride 0.9% W/ 20 mEq KCl/LITER 1,000 ML IV SCH (23:45)
[2022-06-06] MEDS: PIPERACILLIN/TAZOBACTAM 3.375 GM in Sodium Chloride 100ML MINI-BAG PLUS 100 ML IV SCH ×3 (00:28→12:21)
[2022-06-06 05:18] LABS: Absolute Neutrophil Ct (ANC) 3.27 x10^3/uL (1.4-6.9); Basophil (Absolute #) 0.02 x10^3/uL (0-0.4); Eosinophil % 3.6 % (0.00-5.0); Eosinophil (Absolute #) 0.17 x10^3/uL (0-0.5); Hematocrit 29.8 % (42-50); Hemoglobin 9.7 g/dL (12.5-18.0); Lymphocyte (Absolute #) 0.82 x10^3/uL (1.0-4.6); Lymphocytes % 17.6 % (24.0-44.0); Mean Corpuscular Hemoglobin 30.6 pg (26-32); Mean Corpuscular Hgb Concent. 32.6 g/dL (32-36); Monocyte (Absolute #) 0.37 x10^3/uL (0.0-1.3); Monocytes % 7.9 % (0.0-12.0); Neutrophil % 70.3 % (36.0-66.0); Platelet Count 169 x10^3/uL (150-450); Red Blood Count 3.17 x10^6/uL (4.1-5.6); Red Cell Distribution Width 13.4 % (11.5-14.0); White Blood Count 4.7 x10^3/uL (4.0-10.5)
[2022-06-06 05:24] LABS: ALBUMIN 2.8 g/dL (3.5-5.0); ALKALINE PHOSPHATASE 53 U/L (38-126); AMYLASE 201 U/L (30-110); ANION GAP 10.2 MEQ/L (5-15); BLOOD UREA NITROGEN 10 mg/dL (9-20); CHLORIDE 111 mmol/L (98-107); Calcium 8.9 mg/dL (8.4-10.2); Carbon Dioxide 19 mmol/L (22-30); Creatinine 1 1.03 mg/dL (0.66-1.25); EST GLOMERULAR FILTRATION RATE > 60.0 ML/MIN; Glucose 70 mg/dL (74-106); LIPASE 767 U/L (23-300); Potassium 3.2 mmol/L (3.5-5.1); SGOT/AST 12 U/L (17-59); SGPT/ALT 7 U/L (0-50); SODIUM 138 mmol/L (137-145); Total Protein 5.3 g/dL (6.3-8.2)
[2022-06-06] MEDS: FLAGYL 500 MG IVPB 500 MG/100 ML BAG IV SCH ×2 (05:35→12:21)
[2022-06-06] MEDS: Carafate 1 GM PO SCH ×2 (06:46→11:45)
[2022-06-06] MEDS: MAG-OX 400 PO SCH (09:02)
[2022-06-06] MEDS: XARELTO 10 MG TABLET PO SCH (09:02)
[2022-06-06] MEDS: Glucophage 500 MG PO SCH (09:03)
[2022-06-06] MEDS: Lopressor 25MG Tab PO SCH (09:03)
[2022-06-06] MEDS: Protonix 40MG Tablet PO SCH (09:03)
[2022-06-06] MEDS: NORVASC 5 MG PO SCH (09:03)
[2022-06-06] MEDS: Tricor 145 MG PO SCH (09:03)
[2022-06-06] MEDS: Glucotrol 5 MG PO SCH (09:03)
[2022-06-06] MEDS: ZOCOR 20MG PO SCH (09:03)
--- NOTE | 2022-06-06 10:38 | PCM.DS ---
Discharge Summary Date of Admission: 06/04/22 03:17 Date of Discharge: 06/06/22 Admitting Physician: HUMAIRA WALKER Consults: Consults on Case 06/05/22 10:03 Consult Surgery ROUTINE Primary Care Provider: VICTORIA WALTON Allergies Allergies No Known Drug Allergies Allergy (Verified 05/27/22 09:38) Hospital Summary - Vitals & Intake/Output Vital Signs: Vital Signs Temperature 97.8 F 06/06/22 07:33 Pulse Rate 69 06/06/22 07:33 Respiratory Rate 18 06/06/22 07:33 Blood Pressure 156/72 06/06/22 07:33 O2 Sat by Pulse Oximetry 95 06/06/22 07:33 Intake & Output: Intake & Output 06/03/22 06/04/22 06/05/22 06/06/22 11:59 11:59 11:59 11:59 Intake Total 0 3913 4120 Output Total 900 3550 2350 Balance -772 803 7901 Weight 73.8 kg 72.8 kg 74.7 kg - Lab Result Diagrams: 06/06/22 04:35 06/06/22 04:35 Lab Results-Last 24 Hrs: Lab Results-Last 24 Hours 06/05/22 06/05/22 06/05/22 Range/Units 12:13 16:42 20:53 WBC (4.0-10.5) x10^3/uL RBC (4.1-5.6) x10^6/uL Hgb (12.5-18.0) g/dL Hct (42-50) % MCV (78-100) fL MCH (26-32) pg MCHC (32-36) g/dL RDW (11.5-14.0) % Plt Count (150-450) x10^3/uL MPV (7.5-11.0) fL Gran % (36.0-66.0) % Immature Gran % (Auto) (0.00-0.4) % Nucleat RBC Rel Count (0.00-0.1) % Eos # (Auto) (0-0.5) x10^3/uL Immature Gran # (Auto) (0.00-0.03) x10^3u/L Absolute Lymphs (auto) (1.0-4.6) x10^3/uL Absolute Monos (auto) (0.0-1.3) x10^3/uL Absolute Nucleated RBC (0.00-0.01) x10^3u/L Lymphocytes % (24.0-44.0) % Monocytes % (0.0-12.0) % Eosinophils % (0.00-5.0) % Basophils % (0.0-0.4) % Absolute Granulocytes (1.4-6.9) x10^3/uL Basophils # (0-0.4) x10^3/uL Sodium (137-145) mmol/L Potassium (3.5-5.1) mmol/L Chloride (98-107) mmol/L Carbon Dioxide (22-30) mmol/L Anion Gap (5-15) MEQ/L BUN (9-20) mg/dL Creatinine (0.66-1.25) mg/dL Estimated GFR ML/MIN Glucose (74-106) mg/dL POC Glucometer 51 L 63 L 94 (74 to 106) mg/dL Calcium (8.4-10.2) mg/dL Total Bilirubin (0.2-1.3) mg/dL AST (17-59) U/L ALT (0-50) U/L Alkaline Phosphatase (38-126) U/L Serum Total Protein (6.3-8.2) g/dL Albumin (3.5-5.0) g/dL Amylase (30-110) U/L Lipase (23-300) U/L 06/06/22 06/06/22 06/06/22 Range/Units 04:35 04:35 06:49 WBC 4.7 (4.0-10.5) x10^3/uL RBC 3.17 L (4.1-5.6) x10^6/uL Hgb 9.7 L (12.5-18.0) g/dL Hct 29.8 L (42-50) % MCV 94.0 (78-100) fL MCH 30.6 (26-32) pg MCHC 32.6 (32-36) g/dL RDW 13.4 (11.5-14.0) % Plt Count 169 (150-450) x10^3/uL MPV 10.0 (7.5-11.0) fL Gran % 70.3 H (36.0-66.0) % Immature Gran % (Auto) 0.2 (0.00-0.4) % Nucleat RBC Rel Count 0.0 (0.00-0.1) % Eos # (Auto) 0.17 (0-0.5) x10^3/uL Immature Gran # (Auto) 0.01 (0.00-0.03) x10^3u/L Absolute Lymphs (auto) 0.82 L (1.0-4.6) x10^3/uL Absolute Monos (auto) 0.37 (0.0-1.3) x10^3/uL Absolute Nucleated RBC 0.00 (0.00-0.01) x10^3u/L Lymphocytes % 17.6 L (24.0-44.0) % Monocytes % 7.9 (0.0-12.0) % Eosinophils % 3.6 (0.00-5.0) % Basophils % 0.4 (0.0-0.4) % Absolute Granulocytes 3.27 (1.4-6.9) x10^3/uL Basophils # 0.02 (0-0.4) x10^3/uL Sodium 138 (137-145) mmol/L Potassium 3.2 L (3.5-5.1) mmol/L Chloride 111 H (98-107) mmol/L Carbon Dioxide 19 L (22-30) mmol/L Anion Gap 10.2 (5-15) MEQ/L BUN 10 (9-20) mg/dL Creatinine 1.03 (0.66-1.25) mg/dL Estimated GFR > 60.0 ML/MIN Glucose 70 L (74-106) mg/dL POC Glucometer 73 L (74 to 106) mg/dL Calcium 8.9 (8.4-10.2) mg/dL Total Bilirubin 0.40 (0.2-1.3) mg/dL AST 12 L (17-59) U/L ALT 7 (0-50) U/L Alkaline Phosphatase 53 (38-126) U/L Serum Total Protein 5.3 L (6.3-8.2) g/dL Albumin 2.8 L (3.5-5.0) g/dL Amylase 201 H (30-110) U/L Lipase 767 H (23-300) U/L Micro Results-Entire Visit: Accuchecks Date 06/06/22 Time 06:49 - Radiology Exams Ordered Rad Exams-Entire Visit: Radiology Procedures Category Date Time Status GALLBLADDER [US] Urgent Exams 06/04/22 11:29 Completed - Discharge Disposition: Home, Self-Care Condition: Fair Prescriptions: No Action Metformin HCl 500 mg [Glucophage 500 MG] 500 mg PO DAILY ramipriL [Altace] 10 mg PO BID Metoprolol Tartrate 75 mg PO BID Glipizide 5 mg [Glucotrol 5 MG] 5 mg PO DAILY Atorvastatin Calcium [Lipitor] 80 mg PO DAILY Amlodipine Besylate 10 mg [Norvasc 10 MG] 5 mg PO BID Fenofibrate 48 mg PO DAILY Sucralfate 1 gm [Carafate 1 GM] 1 gm PO QID Magnesium Oxide 400 mg [Mag-Ox 400] 400 mg PO BID Terazosin HCl 5 mg PO BID PANTOPRAZOLE 40 mg Tablet [Protonix 40MG Tablet] 40 mg PO DAILY Rivaroxaban [Xarelto] 15 mg PO DAILY #0 Follow up with: VICTORIA WALTON [Primary Care Provider] -
[2022-06-06] MEDS: HYTRIN 1 MG PO SCH (10:54)
[2022-06-06 11:24] VITALS: BP 158/72; PULSE 62; O2SAT 94
--- NOTE | 2022-06-07 11:36 | CONS ---
CONSULT DATE: 06/06/2022 HISTORY: Macho Garsia is seen on 06/06/2022 at bedside. He was feeling much better. He is on full liquids. His abdomen is soft. He initially had quite a bit of lower abdominal discomfort. His lipase has went up to, I believe, a 1,000. He is on Xarelto. He does have stone disease. He is not particularly anxious about discontinuing his anticoagulation a few days and getting his gallbladder out. He is more interested in probably getting this as an outpatient. His case was discussed with Dr. Rod on cell phone. IMPRESSION: I believe the patient probably did have sigmoid diverticulitis initially. He subsequently had pancreatitis. He does have gallstones so this is probably a gallstone pancreatitis. His bilirubin is normal. He is on anticoagulation. There is not a bailon for his gallbladder to come out although it probably should come out within the next few months. We will see how he does. He can either have this done when he is in the hospital or he can go home and stop his anticoagulation and have this done as an outpatient.
== END 2022-06-06 12:37 | disposition home or self-care (01) ==
LOC: ED 22:55 → MED SURG 06-04 03:17
PROVIDERS: ADMIT Family Medicine; ATTEND Family Medicine
DX: K57.92 Diverticulitis of intestine, part unspecified, without perforation or abscess without bleeding (principal); K85.90 Acute pancreatitis without necrosis or infection, unspecified; I25.10 Atherosclerotic heart disease of native coronary artery without angina pectoris; I10 Essential (primary) hypertension; E11.9 Type 2 diabetes mellitus without complications; Z79.01 Long term (current) use of anticoagulants; Z79.899 Other long term (current) drug therapy; Z20.828 Contact with and (suspected) exposure to other viral communicable diseases
CPT/HCPCS: 0241U; 36000; 36415; 74176; 76705; 80053; 81015; 82150; 82947; 83036; 83605; 83690; 85025; 85027; 96374; 96375; 99283; G0378; J2270; J2405; A9270-GY

== ENCOUNTER 2023-03-14 16:55 | Emergency (ER) | payer MEDICARE, OTHER ==
--- NOTE | 2023-03-14 16:58 | ERPHSYRPT ---
- History of Present Illness Time Seen by Provider: 03/14/23 16:58 Source: patient Exam Limitations: no limitations Physician History: This is a 72-year-old white male who has had a feeding tube in place for several months. It was placed for feeding at nighttime. It is a GJ feeding tube this 18 Singaporean. The family called Dr. Lee out of [facility] who is patient's doctor caring for this patient. I spoke with Dr. Lee and he stated that it was an 18 Singaporean GJ-tube that was placed by radiology. The patient's spouse called yesterday when the feeding tube was dislodged and they told them to put the tube back in which they did. They were expecting a follow- up call today and no call came so they came to this emergency room assuming that we were going to formally put a tube in place. I spoke with Dr. Delarosa he was hopeful that we could just place an 18 Singaporean tube to keep the tract open and he will have the office call the patient tomorrow. To set up a procedure to perform a placement of a more formal feeding tube. Patient has a history of h ypertension, hyperlipidemia, diabetes, gastroesophageal reflux disease and coronary artery disease. Timing/Duration: yesterday Severity: mild Associated Symptoms: denies symptoms Allergies/Adverse Reactions: No Known Drug Allergies Allergy (Verified 03/14/23 17:09) Home Medications: Amlodipine Besylate 10 mg [Norvasc 10 MG] 5 mg PO BID 12/17/17 [History] Atorvastatin Calcium [Lipitor] 80 mg PO DAILY 12/17/17 [History] Glipizide 5 mg [Glucotrol 5 MG] 5 mg PO DAILY 12/17/17 [History] Metformin HCl 500 mg [Glucophage 500 MG] 500 mg PO DAILY 12/17/17 [History] Metoprolol Tartrate 75 mg PO BID 12/17/17 [History] ramipriL [Altace] 10 mg PO BID 12/17/17 [History] Fenofibrate 48 mg PO DAILY 05/18/22 [History] Magnesium Oxide 400 mg [Mag-Ox 400] 400 mg PO BID 05/18/22 [History] PANTOPRAZOLE 40 mg Tablet [Protonix 40MG Tablet] 40 mg PO DAILY 05/18/22 [History] Sucralfate 1 gm [Carafate 1 GM] 1 gm PO QID 05/18/22 [History] Terazosin HCl 5 mg PO BID 05/18/22 [History] Hx Tetanus, Diphtheria Vaccination/Date Given: Yes Hx Influenza Vaccination/Date Given: No Hx Pneumococcal Vaccination/Date Given: No Travel Risk - International Travel Have you traveled outside of the country in past 3 weeks: No - Coronavirus Screening Are you exhibiting any of the following symptoms?: No Close contact with a COVID-19 positive Pt in past 14-21 Days: No - Vaccine Status Have you recieved a Covid-19 vaccination: No - Review of Systems Constitutional: No Symptoms Eyes: No Symptoms Ears, Nose, & Throat: No Symptoms Respiratory: No Symptoms Cardiac: No Symptoms Abdominal/Gastrointestinal: No Symptoms, Other (Feeding tube ostomy opening without drainage or cellulitis) Genitourinary Symptoms: No Symptoms Musculoskeletal: No Symptoms Skin: No Symptoms Neurological: No Symptoms Psychological: No Symptoms Endocrine: No Symptoms Hematologic/Lymphatic: No Symptoms Immunological/Allergic: No Symptoms All Other Systems: Reviewed and Negative - Past Medical History Pertinent Past Medical History: Yes Neurological History: No Pertinent History ENT History: No Pertinent History Cardiac History: Coronary Artery Disease, Hypertension Respiratory History: No Pertinent History Endocrine Medical History: Diabetes Type II Musculoskeletal History: No Pertinent History GI Medical History: No Pertinent History History: No Pertinent History Psycho-Social History: No Pertinent History Male Reproductive Disorders: No Pertinent History - Past Surgical History Past Surgical History: Yes Neuro Surgical History: No Pertinent History Cardiac: CABG, Pacemaker Respiratory: No Pertinent History Gastrointestinal: Hernia Repair Genitourinary: No Pertinent History Male Surgical History: No Pertinent History Other Surgical History: cabg. pacemaker - Social History Smoking Status: Former smoker Exposure to second hand smoke: No Drug Use: none Patient Lives Alone: No - Nursing Vital Signs Nursing Vital Signs: Initial Vital Signs Temperature 98 F 03/14/23 17:10 Pulse Rate 63 03/14/23 17:10 Respiratory Rate 18 03/14/23 17:10 Blood Pressure 110/64 03/14/23 17:10 O2 Sat by Pulse Oximetry 99 03/14/23 17:10 Pain Scale Pain Intensity 0 - Physical Exam General Appearance: no apparent distress, alert, anxiety Eye Exam: PERRL/EOMI, eyes nml inspection Ears, Nose, Throat Exam: normal ENT inspection, moist mucous membranes Neck Exam: normal inspection, non-tender, supple, full range of motion Respiratory Exam: normal breath sounds, lungs clear, airway intact, No chest tenderness, No respiratory distress Gastrointestinal/Abdomen Exam: soft, normal bowel sounds, tenderness, other (Feeding tube ostomy site left upper quadrant without cellulitis or gastric/intestinal content.) Rectal Exam: not done Back Exam: normal inspection, normal range of motion, No CVA tenderness, No vertebral tenderness Extremity Exam: normal inspection, normal range of motion, pelvis stable Neurologic Exam: alert, oriented x 3, cooperative, intelligence specialist II-XII nml as tested, normal mood/affect, nml cerebellar function, nml station & gait, sensation nml Skin Exam: normal color, warm, dry Lymphatic Exam: No adenopathy SpO2 Interpretation: normal O2 Delivery: Room Air Procedures - Additional Procedures Additional Procedures: gastric tube replacement Ordered Tests: Active Orders 24 hr Category Date Time Status KUB Stat Exams 03/14/23 18:13 Ordered - Progress Progress: re-examined Progress Note: 03/14/23 18:18 This patient's medical issue is 1 of low complexity. The level of complexity and the work-up performed was based on review of the patient's past medical history, medication list, drug allergy list, history of present illness and the findings on physical examination. The feeding tube that was present and nearly completely sticking out of the patient's ostomy in the left upper quadrant was removed and we swiftly placed an 18 Singaporean Ji catheter and inflated the balloon with 5 mL of water. We flushed the catheter and it flowed readily and we were able to remove fluid readily as well. I am awaiting the KUB with 10 to 15 mL contrast infusion through the feeding tube. The feeding tube is secured to the skin with a feeding tube security system. Patient and his spouse were told to call the office of Dr. Kovacs tomorrow morning between 9 and 10 if they do not hear from them this evening or first thing in the morning. 03/14/23 18:30 KUB performed and interpreted by me with instillation of 25 mL of Gastrografin shows that the Ji catheter is in the intestinal track without extravasation. Patient's was told that he could start back the tube feeds tonight at a low rate 50 to 75 mL/h and he may infuse his hydrocodone liquid pain medicine. Counseled pt/family regarding: diagnosis, need for follow-up, rad results Medical Desision Making - Independent Historian Additional History obtained from: Spouse - Diagnostic Testing Radiological Interpretation: Interpreted by me - Risk of complications Low Risk: Low risk of morbidity from additional dx testing or treatment - Departure Departure Disposition: Home Clinical Impression: Feeding tube dysfunction Condition: Stable Critical Care Time: No Referrals: VICTORIA WALTON [Primary Care Provider] - Follow up/PCP as directed Additional Instructions: ProTect of the feeding tube. May use low rate and low volume feeds tonight. Give 50 to 75 mL instead of the 405 mL tube feeds tonight. May also infuse/instill hydrocodone liquid pain medicine as prescribed. Follow-up with Dr. Kovacs at his office tomorrow morning 03/15/2023 for further management and further instructions.
[2023-03-14 18:15] VITALS: BP 162/74; PULSE 60; O2SAT 98
--- NOTE | 2023-03-15 08:39 | XRAY ---
Indication: PEG tube replacement. Limited KUB obtained following 25 cc injection of Gastrografin through PEG tube. Gastrografin collects in gastric lumen and descending duodenum confirming balloon tip in gastric lumen. No abnormal extravasation.
== END 2023-03-14 18:51 | disposition home or self-care (01) ==
LOC: ED 16:55
DX: K94.23 Gastrostomy malfunction (principal); I10 Essential (primary) hypertension; E78.5 Hyperlipidemia, unspecified; E11.9 Type 2 diabetes mellitus without complications; Z79.84 Long term (current) use of oral hypoglycemic drugs; Z79.899 Other long term (current) drug therapy; Z28.310 Unvaccinated for COVID-19
CPT/HCPCS: 43762; 74018; 99283; L0625

== ENCOUNTER 2023-05-18 06:30 | Emergency (ER) | payer MEDICARE, OTHER ==
[2023-05-18 07:36] LABS: Absolute Neutrophil Ct (ANC) 7.41 x10^3/uL (1.4-6.9); BASOPHIL % 0.1 % (0.0-0.4); Basophil (Absolute #) 0.01 x10^3/uL (0-0.4); Eosinophil % 0.4 % (0.00-5.0); Eosinophil (Absolute #) 0.03 x10^3/uL (0-0.5); Hematocrit 32.5 % (42-50); Hemoglobin 10.8 g/dL (12.5-18.0); IMMATURE GRAN # 0.05 x10^3u/L (0.00-0.03); IMMATURE GRAN % 0.6 % (0.00-0.4); Lymphocyte (Absolute #) 0.53 x10^3/uL (1.0-4.6); Lymphocytes % 6.3 % (24.0-44.0); Mean Cell Volume 95.3 fL (78-100); Mean Corpuscular Hemoglobin 31.7 pg (26-32); Mean Corpuscular Hgb Concent. 33.2 g/dL (32-36); Mean Platelet Volume 9.8 fL (7.5-11.0); Monocyte (Absolute #) 0.45 x10^3/uL (0.0-1.3); Monocytes % 5.3 % (0.0-12.0); Neutrophil % 87.3 % (36.0-66.0); Platelet Count 172 x10^3/uL (150-450); Red Blood Count 3.41 x10^6/uL (4.1-5.6); Red Cell Distribution Width 13.2 % (11.5-14.0); White Blood Count 8.5 x10^3/uL (4.0-10.5)
[2023-05-18 07:50] LABS: ALBUMIN 3.4 g/dL (3.5-5.0); ALKALINE PHOSPHATASE 69 U/L (38-126); AMYLASE 38 U/L (30-110); ANION GAP 13.7 MEQ/L (5-15); BLOOD UREA NITROGEN 37 mg/dL (9-20); CHLORIDE 104 mmol/L (98-107); CK-Creatinine Phosphokinase 30 U/L (55-170); Calcium 9.1 mg/dL (8.4-10.2); Carbon Dioxide 26 mmol/L (22-30); Creatinine 1 0.89 mg/dL (0.66-1.25); EST GLOMERULAR FILTRATION RATE > 60.0 ML/MIN; Glucose 143 mg/dL (74-106); LIPASE 54 U/L (23-300); Potassium 4.1 mmol/L (3.5-5.1); SGOT/AST 28 U/L (17-59); SGPT/ALT 26 U/L (0-50); SODIUM 139 mmol/L (137-145); Total Protein 6.1 g/dL (6.3-8.2)
[2023-05-18 07:51] LABS: INR 1.08 (0.8-3.0); PROTIME 11.7 SECONDS (9.4-12.5); PTT 25.4 SECONDS (25.1-36.5)
--- NOTE | 2023-05-18 07:55 | ERPHSYRPT ---
- History of Present Illness Source: patient Exam Limitations: other (Poor historian) Patient Subjective Stated Complaint: fall, back pain Triage Nursing Assessment: Pt brought in by ems, alert and oriented x3, pt is very rosebud. Pt fell at approx 0230 when getting up to bathroom and laid on the floor until 0530 when his found him. and son got pt up off the floor. Pt c/o mid back pain. Pt also has a total of 4 skin tears to Rt forearm. #1 3 cm x 1 cm. #2 0.8 cm x 0.3 cm. #3 0.2 cm x 0.2 cm. #4 1.2 cm x 0.5 cm to rt medial forearm Physician History: 72 yo WM brought into ER by [facility] presents w fall between 1:30-2:30AM while getting up to use the restroom. Pt states that he lost his balance. He laid on the kitchen floor until found by . Pt complains of T and L-spine pain which is moderate. He does not know if there was LOC but does deny GIL. Chest pain/focal weakness/fever/abdominal pain/dysuria/hematuria/melena/hematochezia are all denied. Pt has multiple medical problems, including DM/HTN/Pacer/CABG/FL/chronic pancreatitis/G-tube. Occurred: other (1:30-2:30AM) Reason for Fall: lost balance Injuries/Pain Location: back Loss of Consciousness: other (Unknown) Quality: aching Severity of Pain-Max: moderate Severity of Pain-Current: moderate Modifying Factors: Improves With: movement Associated Symptoms (Fall): denies symptoms Allergies/Adverse Reactions: No Known Drug Allergies Allergy (Verified 05/18/23 07:00) Home Medications: Amlodipine Besylate 10 mg [Norvasc 10 MG] 2.5 mg PO DAILY 12/17/17 [History] Atorvastatin Calcium [Lipitor] 80 mg PO DAILY 12/17/17 [History] Glipizide 5 mg [Glucotrol 5 MG] 5 mg PO DAILY 12/17/17 [History] Metformin HCl 500 mg [Glucophage 500 MG] 500 mg PO DAILY 12/17/17 [Histor y] Metoprolol Tartrate 100 mg PO DAILY 12/17/17 [History] ramipriL [Altace] 10 mg PO BID 12/17/17 [History] Fenofibrate 48 mg PO DAILY 05/18/22 [History] Magnesium Oxide 400 mg [Mag-Ox 400] 400 mg PO BID 05/18/22 [History] Terazosin HCl 5 mg PO BID 05/18/22 [History] Hx Tetanus, Diphtheria Vaccination/Date Given: Yes Hx Influenza Vaccination/Date Given: Yes Hx Pneumococcal Vaccination/Date Given: No Travel Risk - International Travel Have you traveled outside of the country in past 3 weeks: No - Coronavirus Screening Are you exhibiting any of the following symptoms?: No Close contact with a COVID-19 positive Pt in past 14-21 Days: No - Vaccine Status Have you recieved a Covid-19 vaccination: No - Review of Systems Constitutional: No Symptoms Eyes: No Symptoms Ears, Nose, & Throat: No Symptoms Respiratory: No Symptoms Cardiac: No Symptoms Abdominal/Gastrointestinal: No Symptoms Genitourinary Symptoms: No Symptoms Musculoskeletal: No Symptoms, Back Pain Skin: No Symptoms Neurological: No Symptoms Psychological: No Symptoms Endocrine: No Symptoms Hematologic/Lymphatic: No Symptoms Immunological/Allergic: No Symptoms - Past Medical History Pertinent Past Medical History: Yes Neurological History: No Pertinent History ENT History: No Pertinent History Cardiac History: Coronary Artery Disease, Hypertension, Myocardial Infarction ([place]) Respiratory History: No Pertinent History Endocrine Medical History: Diabetes Type II Musculoskeletal History: No Pertinent History GI Medical History: Pancreatitis History: No Pertinent History Psycho-Social History: No Pertinent History Male Reproductive Disorders: No Pertinent History - Past Surgical History Past Surgical History: Yes Neuro Surgical History: No Pertinent History Cardiac: CABG, Pacemaker Respiratory: No Pertinent History Gastrointestinal: Hernia Repair Genitourinary: No Pertinent History Male Surgical History: No Pertinent History Other Surgical History: cabg. pacemaker - Social History Smoking Status: Former smoker How long have you smoked: 50 yrs Exposure to second hand smoke: No Drug Use: none Patient Lives Alone: No - Nursing Vital Signs Nursing Vital Signs: Initial Vital Signs Temperature 97.1 F 05/18/23 06:42 Pulse Rate 78 05/18/23 06:42 Respiratory Rate 20 05/18/23 06:42 Blood Pressure 165/78 05/18/23 06:42 O2 Sat by Pulse Oximetry 97 05/18/23 06:42 Pain Scale Pain Intensity 7 Hypertensive - Melly Coma Score Best Eye Response ([place]): (4) open spontaneously Best Verbal Response ([place]): (5) oriented Best Motor Response ([place]): (6) obeys commands Melly Total: 15 - Physical Exam General Appearance: no apparent distress Head Injury: no evidence of injury Eye Exam: PERRL/EOMI, eyes nml inspection ENT Exam: airway nml, evidence of ENT injury, No clear fluid (ears), No clear fluid (nose) Neck Exam: supple, trachea midline, full range of motion, other (C-spine NTTP) Respiratory/Chest Exam: chest tenderness, normal breath sounds, No respiratory distress Cardiovascular Exam: normal heart sounds, regular rate/rhythm, normal peripheral pulses, No murmur Gastrointestinal Exam: soft, normal bowel sounds, other (G-tube in place), No tenderness Back Exam: vertebral tenderness (Mild T and L-spine TTP) Extremity Exam: pelvis stable Peripheral Pulses: carotid (R): 2+, carotid (L): 2+ Neurologic Exam: alert, oriented x 3, cooperative, probation agent II-XII nml as tested, normal mood/affect, sensation nml Skin Exam: normal color, warm, dry SpO2 Interpretation: normal SpO2: 97 O2 Delivery: Room Air - Course Nursing assessment & vital signs reviewed: Yes EKG Interpreted by Me: RATE (NSR/Prolonged QT-QTc/RBBB/1st degree AV block/No acute ST segment changes) - CT Exams Head CT Interpretation: Discussed w/radiologist (Nothing acute) Cervical Spine CT Interpretation: Discussed w/radiologist (CT C-spine nothing acute) Chest CT Interpretation: Discussed w/radiologist (T12 compression fx) Abdomen/Pelvis CT Interpretation: Discussed w/radiologist (T12 compresion fx's) Ordered Tests: Active Orders 24 hr Category Date Time Status EKG-ER Only STAT Care 05/18/23 07:17 Completed ABDOMEN AND PELVIS W/0 CONTRAS [CT] Stat Exams 05/18/23 07:16 Completed CERVICAL SPINE WO CONTRAST [CT] Stat Exams 05/18/23 07:16 Completed CHEST WITHOUT CONTRAST [CT] Stat Exams 05/18/23 07:16 Completed HEAD WITHOUT CONTRAST [CT] Stat Exams 05/18/23 07:16 Completed KNEE (3 VIEWS) Stat Exams 05/18/23 10:03 Completed KNEE (3 VIEWS) Stat Exams 05/18/23 10:03 Completed AMYLASE Stat Lab 05/18/23 07:30 Completed CBC W DIFF Stat Lab 05/18/23 07:30 Completed CK-Creatinine Phosphokinase Stat Lab 05/18/23 07:30 Completed CMP Stat Lab 05/18/23 07:30 Completed LIPASE Stat Lab 05/18/23 07:30 Completed PROTIME WITH INR Stat Lab 05/18/23 07:30 Completed PTT Stat Lab 05/18/23 07:30 Completed TROPONIN Q4H Lab 05/18/23 07:30 Completed TROPONIN Q4H Lab 05/18/23 10:00 Completed TROPONIN Q4H Lab 05/18/23 15:30 Ordered UA W/RFX UR CULTURE Stat Lab 05/18/23 10:42 Completed Urine Triage Profile Stat Lab 05/18/23 10:42 Completed Medication Summary Discontinued Medications Generic Name Dose Route Start Last Admin Trade Name Freq PRN Reason Stop Dose Admin Fentanyl Citrate 25 mcg 05/18/23 10:44 05/18/23 10:46 Fentanyl Citrate 100 Mcg/2 Ml* Vial IV 05/18/23 10:45 25 mcg STAT ONE Administration Fentanyl Citrate Confirm 05/18/23 10:45 Fentanyl Citrate 100 Mcg/2 Ml* Vial Administered 05/18/23 10:46 Dose 100 mcg .ROUTE .STK-MED ONE Ondansetron HCl 4 mg 05/18/23 10:44 05/18/23 10:46 Ondansetron Hcl 4 Mg/2 Ml Vial IV 05/18/23 10:45 4 mg STAT ONE Administration Ondansetron HCl Confirm 05/18/23 10:45 Ondansetron Hcl 4 Mg/2 Ml Vial Administered 05/18/23 10:46 Dose 4 mg .ROUTE .STK-MED ONE Lab/Rad Data: Laboratory Result Diagrams 05/18/23 07:30 05/18/23 07:30 Laboratory Results 05/18/23 05/18/23 05/18/23 Range/Units 10:42 10:42 10:00 WBC (4.0-10.5) x10^3/uL RBC (4.1-5.6) x10^6/uL Hgb (12.5-18.0) g/dL Hct (42-50) % MCV (78-100) fL MCH (26-32) pg MCHC (32-36) g/dL RDW (11.5-14.0) % Plt Count (150-450) x10^3/uL MPV (7.5-11.0) fL Gran % (36.0-66.0) % Immature Gran % (Auto) (0.00-0.4) % Nucleat RBC Rel Count (0.00-0.1) % Eos # (Auto) (0-0.5) x10^3/uL Immature Gran # (Auto) (0.00-0.03) x10^3u/L Absolute Lymphs (auto) (1.0-4.6) x10^3/uL Absolute Monos (auto) (0.0-1.3) x10^3/uL Absolute Nucleated RBC (0.00-0.01) x10^3u/L Lymphocytes % (24.0-44.0) % Monocytes % (0.0-12.0) % Eosinophils % (0.00-5.0) % Basophils % (0.0-0.4) % Absolute Granulocytes (1.4-6.9) x10^3/uL Basophils # (0-0.4) x10^3/uL PT (9.4-12.5) SECONDS INR (0.8-3.0) APTT (25.1-36.5) SECONDS Sodium (137-145) mmol/L Potassium (3.5-5.1) mmol/L Chloride (98-107) mmol/L Carbon Dioxide (22-30) mmol/L Anion Gap (5-15) MEQ/L BUN (9-20) mg/dL Creatinine (0.66-1.25) mg/dL Estimated GFR ML/MIN Glucose (74-106) mg/dL Calcium (8.4-10.2) mg/dL Total Bilirubin (0.2-1.3) mg/dL AST (17-59) U/L ALT (0-50) U/L Alkaline Phosphatase (38-126) U/L Creatine Kinase (55-170) U/L Troponin I 0.017 (0.000-0.034) ng/mL Serum Total Protein (6.3-8.2) g/dL Albumin (3.5-5.0) g/dL Amylase (30-110) U/L Lipase (23-300) U/L Urine Color Yellow (Yellow) Urine Appearance Clear (Clear) Urine pH 6.0 (4.6-8.0) Ur Specific [place] 1.020 (1.005-1.030) Urine Protein 100 A (Negative) Urine Glucose (UA) Negative (Negative) mg/dL Urine Ketones Trace A (Negative) Urine Blood Negative (Negative) Urine Nitrite Negative (Negative) Urine Bilirubin Negative (Negative) Urine Urobilinogen 1.0 A (0.2) mg/dL Ur Leukocyte Esterase Negative (Negative) U Hyaline Cast (Auto) NONE SEEN (0-2) /LPF Urine Microscopic RBC 0-2 (0-5) /HPF Urine Microscopic WBC 0-2 (0-5) /HPF Ur Epithelial Cells None Seen (None Seen) /HPF Urine Bacteria None Seen (None Seen) /HPF Urine Culture Reflexed NO (NO) Urine Opiates Level NEGATIVE (NEGATIVE) Ur Methadone NEGATIVE (NEGATIVE) Urine Barbiturates NEGATIVE (NEGATIVE) Ur Phencyclidine (PCP) NEGATIVE (NEGATIVE) Urine Amphetamine NEGATIVE (NEGATIVE) U Benzodiazepine Level NEGATIVE (NEGATIVE) Urine Cocaine NEGATIVE (NEGATIVE) Urine Marijuana (THC) NEGATIVE (NEGATIVE) Slides for Path Review 05/18/23 05/18/23 05/18/23 Range/Units 07:30 07:30 07:30 WBC (4.0-10.5) x10^3/uL RBC (4.1-5.6) x10^6/uL Hgb (12.5-18.0) g/dL Hct (42-50) % MCV (78-100) fL MCH (26-32) pg MCHC (32-36) g/dL RDW (11.5-14.0) % Plt Count (150-450) x10^3/uL MPV (7.5-11.0) fL Gran % (36.0-66.0) % Immature Gran % (Auto) (0.00-0.4) % Nucleat RBC Rel Count (0.00-0.1) % Eos # (Auto) (0-0.5) x10^3/uL Immature Gran # (Auto) (0.00-0.03) x10^3u/L Absolute Lymphs (auto) (1.0-4.6) x10^3/uL Absolute Monos (auto) (0.0-1.3) x10^3/uL Absolute Nucleated RBC (0.00-0.01) x10^3u/L Lymphocytes % (24.0-44.0) % Monocytes % (0.0-12.0) % Eosinophils % (0.00-5.0) % Basophils % (0.0-0.4) % Absolute Granulocytes (1.4-6.9) x10^3/uL Basophils # (0-0.4) x10^3/uL PT 11.7 (9.4-12.5) SECONDS INR 1.08 (0.8-3.0) APTT 25.4 (25.1-36.5) SECONDS Sodium 139 (137-145) mmol/L Potassium 4.1 (3.5-5.1) mmol/L Chloride 104 (98-107) mmol/L Carbon Dioxide 26 (22-30) mmol/L Anion Gap 13.7 (5-15) MEQ/L BUN 37 H (9-20) mg/dL Creatinine 0.89 (0.66-1.25) mg/dL Estimated GFR > 60.0 ML/MIN Glucose 143 H (74-106) mg/dL Calcium 9.1 (8.4-10.2) mg/dL Total Bilirubin 0.70 (0.2-1.3) mg/dL AST 28 (17-59) U/L ALT 26 (0-50) U/L Alkaline Phosphatase 69 (38-126) U/L Creatine Kinase 30 L (55-170) U/L Troponin I 0.017 (0.000-0.034) ng/mL Serum Total Protein 6.1 L (6.3-8.2) g/dL Albumin 3.4 L (3.5-5.0) g/dL Amylase 38 (30-110) U/L Lipase 54 (23-300) U/L Urine Color (Yellow) Urine Appearance (Clear) Urine pH (4.6-8.0) Ur Specific [place] (1.005-1.030) Urine Protein (Negative) Urine Glucose (UA) (Negative) mg/dL Urine Ketones (Negative) Urine Blood (Negative) Urine Nitrite (Negative) Urine Bilirubin (Negative) Urine Urobilinogen (0.2) mg/dL Ur Leukocyte Esterase (Negative) U Hyaline Cast (Auto) (0-2) /LPF Urine Microscopic RBC (0-5) /HPF Urine Microscopic WBC (0-5) /HPF Ur Epithelial Cells (None Seen) /HPF Urine Bacteria (None Seen) /HPF Urine Culture Reflexed (NO) Urine Opiates Level (NEGATIVE) Ur Methadone (NEGATIVE) Urine Barbiturates (NEGATIVE) Ur Phencyclidine (PCP) (NEGATIVE) Urine Amphetamine (NEGATIVE) U Benzodiazepine Level (NEGATIVE) Urine Cocaine (NEGATIVE) Urine Marijuana (THC) (NEGATIVE) Slides for Path Review 05/18/23 Range/Units 07:30 WBC 8.5 (4.0-10.5) x10^3/uL RBC 3.41 L (4.1-5.6) x10^6/uL Hgb 10.8 L (12.5-18.0) g/dL Hct 32.5 L (42-50) % MCV 95.3 (78-100) fL MCH 31.7 (26-32) pg MCHC 33.2 (32-36) g/dL RDW 13.2 (11.5-14.0) % Plt Count 172 (150-450) x10^3/uL MPV 9.8 (7.5-11.0) fL Gran % 87.3 H (36.0-66.0) % Immature Gran % (Auto) 0.6 H (0.00-0.4) % Nucleat RBC Rel Count 0.0 (0.00-0.1) % Eos # (Auto) 0.03 (0-0.5) x10^3/uL Immature Gran # (Auto) 0.05 H (0.00-0.03) x10^3u/L Absolute Lymphs (auto) 0.53 L (1.0-4.6) x10^3/uL Absolute Monos (auto) 0.45 (0.0-1.3) x10^3/uL Absolute Nucleated RBC 0.00 (0.00-0.01) x10^3u/L Lymphocytes % 6.3 L (24.0-44.0) % Monocytes % 5.3 (0.0-12.0) % Eosinophils % 0.4 (0.00-5.0) % Basophils % 0.1 (0.0-0.4) % Absolute Granulocytes 7.41 H (1.4-6.9) x10^3/uL Basophils # 0.01 (0-0.4) x10^3/uL PT (9.4-12.5) SECONDS INR (0.8-3.0) APTT (25.1-36.5) SECONDS Sodium (137-145) mmol/L Potassium (3.5-5.1) mmol/L Chloride (98-107) mmol/L Carbon Dioxide (22-30) mmol/L Anion Gap (5-15) MEQ/L BUN (9-20) mg/dL Creatinine (0.66-1.25) mg/dL Estimated GFR ML/MIN Glucose (74-106) mg/dL Calcium (8.4-10.2) mg/dL Total Bilirubin (0.2-1.3) mg/dL AST (17-59) U/L ALT (0-50) U/L Alkaline Phosphatase (38-126) U/L Creatine Kinase (55-170) U/L Troponin I (0.000-0.034) ng/mL Serum Total Protein (6.3-8.2) g/dL Albumin (3.5-5.0) g/dL Amylase (30-110) U/L Lipase (23-300) U/L Urine Color (Yellow) Urine Appearance (Clear) Urine pH (4.6-8.0) Ur Specific [place] (1.005-1.030) Urine Protein (Negative) Urine Glucose (UA) (Negative) mg/dL Urine Ketones (Negative) Urine Blood (Negative) Urine Nitrite (Negative) Urine Bilirubin (Negative) Urine Urobilinogen (0.2) mg/dL Ur Leukocyte Esterase (Negative) U Hyaline Cast (Auto) (0-2) /LPF Urine Microscopic RBC (0-5) /HPF Urine Microscopic WBC (0-5) /HPF Ur Epithelial Cells (None Seen) /HPF Urine Bacteria (None Seen) /HPF Urine Culture Reflexed (NO) Urine Opiates Level (NEGATIVE) Ur Methadone (NEGATIVE) Urine Barbiturates (NEGATIVE) Ur Phencyclidine (PCP) (NEGATIVE) Urine Amphetamine (NEGATIVE) U Benzodiazepine Level (NEGATIVE) Urine Cocaine (NEGATIVE) Urine Marijuana (THC) (NEGATIVE) Slides for Path Review YES - Progress Progress Note: 05/18/23 11:11 Nursing note and vital signs reviewed No food or housing insecurities noted All labs reviewed and shared w pt All CT results reviewed and shared w pt XR results reviewed and shared w pt Additional history per 1L NS bolus started by EMS and finished in ER 25mcg IV Fentanyl/4mg IV Zofran Pt takes 5mg Oxycodone/5ml prn prescribed in [place] but is out at this time. He was given Hydrocodone 30ml Rx but told that he would have to call his pain physician for Oxycodone refill. 05/18/23 13:38 Counseled pt/family regarding: lab results, diagnosis, need for follow-up, rad results - Departure Departure Disposition: Home Clinical Impression: Compression fracture of body of thoracic vertebra Condition: Stable Critical Care Time: No Referrals: VICTORIA WALTON [Primary Care Provider] - Follow up/PCP as directed Instructions: Vertebral Compression Fracture (DC), Preventing falls in adults Additional Instructions: Pain meds as needed(Call your physician to re-new your pain meds) Stool softener with pain meds Ice to contused areas for 12-24 hours Follow up with your family Prescriptions: Oxycodone HCl 5 mg PO BID PRN PRN #30 ml MDD 10 PRN Reason: Pain
--- NOTE | 2023-05-18 08:44 | XRAY ---
Indication: Status post fall. Multiple contiguous axial images obtained through the head without contrast. Comparison: None Age-appropriate global atrophy. No acute intracranial hemorrhage, abnormal extra-axial fluid collection, or mass effect. Fourth ventricle is midline without hydrocephalus. Bony calvarium intact. Visualized paranasal sinuses and mastoid air cells are clear. Impression: Normal CT head without contrast exam for patient's age.
--- NOTE | 2023-05-18 08:48 | XRAY ---
Indication: Status post fall. Multiple contiguous axial images obtained through the cervical spine. Sagittal and coronal reformatted images obtained. Comparison: None Osseous structures demineralized. Incidental 5 mm T1 bone island. Axial images are negative for acute fracture, suspicious bony lesions, or spinal canal stenosis. Mild/moderate C3-C7 degenerative endplate spurring and mild/moderate multilevel bilateral degenerative facet arthropathy. Additional moderate atlantoaxial degenerative changes. Sagittal and coronal reformatted images demonstrates C5-C7 disc space narrowing and 1-2 mm C7 anterolisthesis on T1. No acute compression fracture or jumped facet. Normal appearing craniocervical junction. Visualized noncontrasted soft tissues demonstrates moderate bilateral carotid and minimal right vertebral artery calcifications. CT head and CT chest reported separately. Impression: 1. Negative acute fracture. 2. Chronic findings including osteopenia, multilevel degenerative spondylosis, minimal grade 1 C7 listhesis, T1 bone island, and arteriosclerotic calcifications.
--- NOTE | 2023-05-18 08:52 | XRAY ---
Indication: Status post fall. Multiple contiguous axial images obtained through the chest without contrast. Comparison: None Lungs demonstrates mild pulmonary emphysema, tiny right lower lobe calcified granuloma, with mild bilateral dependent atelectasis. No suspicious pulmonary mass/nodule, infiltrate, effusion, or pneumothorax. Heart not enlarged with CABG and left dual-lead pacemaker. Aorta is moderately arteriosclerotic without aneurysm. No pathologic mediastinal lymphadenopathy. Bony thorax intact demonstrates T12 superior/inferior acute endplate fractures with approximately 25-50% height loss. No spinal canal or foraminal encroachment. Elsewhere osteopenia, minimal degenerative changes throughout the spine, and sternotomy wires. CT abdomen/pelvis reported separately. Impression: 1. T12 acute fracture as detailed. 2. Chronic findings including pulmonary emphysema, arteriosclerotic disease, chronic bony findings, and old granulomatous disease.
--- NOTE | 2023-05-18 09:00 | XRAY ---
Indication: Status post fall. Multiple contiguous axial images obtained through the abdomen and pelvis without contrast. Comparison: June 03, 2022 CT chest reported separately. New PEG tube with balloon in gastric lumen. Tip of the tube terminates in proximal jejunum. Noncontrasted stomach and bowel loops appear nonobstructed. Again scattered descending and sigmoid diverticulosis without diverticulitis. Interval cholecystectomy. No free fluid/air. Stable left renal cysts, enlarged prostate gland, and splenic calcified granulomas. Again extensive scattered arteriosclerotic calcifications including both main renal and intrarenal arteries. No AAA. Remaining liver, pancreas, spleen, adrenal glands, kidneys, ureters, and bladder are unremarkable for noncontrast exam. Osseous structures demonstrate new superior/inferior T12 endplate fracture with approximately 25-50% height loss. No spinal canal or foraminal encroachment. Elsewhere stable osteopenia and mild degenerative changes both hips. Impression: 1. New T12 acute fracture as detailed. 2. New PEG tube with tip terminating in proximal jejunum. 3. Chronic findings including colonic diverticulosis, left renal cysts, enlarged prostate gland, arteriosclerotic disease, chronic bony findings, and old granulomatous disease.
[2023-05-18 09:08] LABS: Slide Review 1 YES
--- NOTE | 2023-05-18 10:30 | XRAY ---
Indication: Pain following fall. Comparison: None 3 view left knee demonstrates osteopenia, mild tricompartmental degenerative changes, extensive vascular calcifications, and proximal lower leg vascular clips. No other bony, articular, or soft tissue abnormalities.
--- NOTE | 2023-05-18 10:33 | XRAY ---
Indication: Pain following fall. Comparison: None 3 view right knee demonstrates osteopenia, mild tricompartmental degenerative changes, and extensive vascular calcifications. No other bony, articular, or soft tissue abnormalities.
[2023-05-18] MEDS ORDERED: Zofran 4 MG/2 ML VIAL IV ONE (10:44)
[2023-05-18] MEDS ORDERED: SUBLIMAZE 100 MCG/2 ML IV ONE (10:44)
[2023-05-18] MEDS ORDERED: Zofran 4 MG/2 ML VIAL ONE (10:45)
[2023-05-18] MEDS ORDERED: SUBLIMAZE 100 MCG/2 ML ONE (10:45)
[2023-05-18 10:51] VITALS: O2SAT 97
[2023-05-18 11:21] VITALS: BP 183/91; PULSE 80
[2023-05-18 12:26] LABS: Appearance Clear (Clear); Bacteria None Seen /HPF (None Seen); Bilirubin Negative (Negative); Blood Negative (Negative); Epithelial Cells None Seen /HPF (None Seen); Glucose, Urine Negative (Negative); Hyaline Casts NONE SEEN /LPF (0-2); Ketones Trace (Negative); Leukocyte Esterase Negative (Negative); Nitrite Negative (Negative); Protein,Urine Dip 100 (Negative); RBC 0-2 /HPF (0-5); WBC 0-2 /HPF (0-5)
[2023-05-18 12:28] LABS: ADD URINE CULTURE? NO (NO)
[2023-05-18 12:45] LABS: Amphetamine,Urine NEGATIVE (NEGATIVE); Barbiturate,Urine NEGATIVE (NEGATIVE); Benzodiazepine,Urine NEGATIVE (NEGATIVE); Cocaine,Urine NEGATIVE (NEGATIVE); Methadone,Urine NEGATIVE (NEGATIVE); Opiate,Urine NEGATIVE (NEGATIVE); PCP,Urine NEGATIVE (NEGATIVE); THC,Urine NEGATIVE (NEGATIVE)
== END 2023-05-18 11:15 | disposition home or self-care (01) ==
LOC: ED 06:30
DX: S22.088A Other fracture of T11-T12 vertebra, initial encounter for closed fracture (principal); W01.0XXA Fall on same level from slipping, tripping and stumbling without subsequent striking against object, initial encounter; Y92.000 Kitchen of unspecified non-institutional (private) residence as the place of occurrence of the external cause; M54.6 Pain in thoracic spine; M54.50 Low back pain, unspecified; E11.9 Type 2 diabetes mellitus without complications; I10 Essential (primary) hypertension; Z79.84 Long term (current) use of oral hypoglycemic drugs; Z79.891 Long term (current) use of opiate analgesic; Z79.899 Other long term (current) drug therapy; Z93.1 Gastrostomy status; Z28.310 Unvaccinated for COVID-19; I25.10 Atherosclerotic heart disease of native coronary artery without angina pectoris; I25.2 Old myocardial infarction
CPT/HCPCS: 36000; 36415; 70450; 71250; 72125; 73562; 74176; 80053; 80307; 81001; 82150; 82550; 83690; 84484; 85025; 85610; 85730; 93005; 96374; 96375; 99284; J2405; J3010

== ENCOUNTER 2023-09-11 10:03 | Emergency (ER) | payer MEDICARE, OTHER ==
[2023-09-11 10:34] VITALS: TEMP 97.7
--- NOTE | 2023-09-11 10:51 | ERPHSYRPT ---
- History of Present Illness Time Seen by Provider: 09/11/23 10:35 Source: patient, family Exam Limitations: no limitations Patient Subjective Stated Complaint: Patient states that he rolled over on his feeding tube yesterday around 12noon and pulled it out of his abdomen. Patient attempted to place in back in himself but couldn't get it in past the partially inflated bulb. He has not used his tube for his enteral feedings yesterday or today. He states he took a drink of water earlier and it leaked out of his abdomen around the tube. Triage Nursing Assessment: Patient brought back to ER in a W/C. He was able to transfer self from chair to bed. He is alert and oriented; hard of hearing with one hearing aid present. Tube (22 belarusian with 7-10cc bulb) taped to abdomen with gauze dressing intact around insertion site of abdomen. Dressing is currently C/D/I. Tube is currently displaced; bulb is laying on outer abdomen of patient and is not anoched inside of abdomen. Skin tone normal. Physician History: 73yo M presents to the ED after pulling his GJ tube out. Patient states that he rolled over on his feeding tube yesterday around noon and pulled it out of his abdomen. Patient attempted to place in back in himself but couldn't get it in past the partially inflated bulb. He has not used his tube for his enteral feedings yesterday or today. He states he took a drink of water earlier and it leaked out of his abdomen around the tube. No bleeding from the opening. There is some drainage from the area. No erythema surrounding the site. Timing/Duration: yesterday Associated Symptoms: denies symptoms Allergies/Adverse Reactions: No Known Drug Allergies Allergy (Verified 09/11/23 10:20) Home Medications: Amlodipine Besylate 10 mg [Norvasc 10 MG] 2.5 mg PO DAILY 12/17/17 [History] Atorvastatin Calcium [Lipitor] 80 mg PO DAILY 12/17/17 [History] Glipizide 5 mg [Glucotrol 5 MG] 5 mg PO DAILY 12/17/17 [History] Metformin HCl 500 mg [Glucophage 500 MG] 500 mg PO DAILY 12/17/17 [History] Metoprolol Tartrate 100 mg PO DAILY 12/17/17 [History] ramipriL [Altace] 10 mg PO BID 12/17/17 [History] Fenofibrate 48 mg PO DAILY 05/18/22 [History] Magnesium Oxide 400 mg [Mag-Ox 400] 400 mg PO BID 05/18/22 [History] Terazosin HCl 5 mg PO BID 05/18/22 [History] Hx Tetanus, Diphtheria Vaccination/Date Given: Yes Hx Influenza Vaccination/Date Given: Yes Hx Pneumococcal Vaccination/Date Given: No (unsure) Immunizations Up to Date: Yes Travel Risk - International Travel Have you traveled outside of the country in past 3 weeks: No - Coronavirus Screening Are you exhibiting any of the following symptoms?: No Close contact with a COVID-19 positive Pt in past 14-21 Days: No - Vaccine Status Have you recieved a Covid-19 vaccination: No - Review of Systems All Other Systems: Reviewed and Negative - Past Medical History Pertinent Past Medical History: Yes Neurological History: No Pertinent History ENT History: No Pertinent History Cardiac History: Coronary Artery Disease, Hypertension, Myocardial Infarction (DC) Respiratory History: No Pertinent History Endocrine Medical History: Diabetes Type II Musculoskeletal History: No Pertinent History GI Medical History: Pancreatitis History: No Pertinent History Psycho-Social History: No Pertinent History Male Reproductive Disorders: No Pertinent History - Past Surgical History Past Surgical History: Yes Neuro Surgical History: No Pertinent History Cardiac: CABG, Pacemaker Respiratory: No Pertinent History Gastrointestinal: Hernia Repair Genitourinary: No Pertinent History Male Surgical History: No Pertinent History Other Surgical History: cabg, feeding tube placement (still current) by Dr. Delarosa ([facility]), pacemaker - Social History Smoking Status: Former smoker How long have you smoked: 50 yrs Exposure to second hand smoke: No Drug Use: none Patient Lives Alone: No - Nursing Vital Signs Nursing Vital Signs: Initial Vital Signs Temperature 97.7 F 09/11/23 10:04 Pulse Rate 71 09/11/23 10:04 Respiratory Rate 12 09/11/23 10:04 Blood Pressure 181/87 09/11/23 10:04 O2 Sat by Pulse Oximetry 99 09/11/23 10:04 Pain Scale Pain Intensity 5 - Physical Exam General Appearance: no apparent distress Respiratory Exam: airway intact, No respiratory distress Cardiovascular Exam: capillary refill <2 sec, No edema Gastrointestinal/Abdomen Exam: soft, other (GJ tube dislodged, no bleeding, no signs of infection), No tenderness SpO2: 100 Procedures - Additional Procedures Additional Procedures: gastric tube replacement Progress: GJ tube removal/G tube replacement 10cc slip tip syringe used to fully deflate balloon. After balloon was deflated the remaining tube was removed and inspected to ensure that it remained intact which it was. After removal a 20 belarusian G tube was then placed w/o difficulty and 20cc of NaCl was injected into the balloon port to fully inflate the balloon per claim professional protocol. After inflated the balloon was retracted up against the wall of the stomach and the external flange was moved flush with the skin to hold the tube in place. - Course Nursing assessment & vital signs reviewed: Yes - Progress Progress: improved Progress Note: is under the care of Dr. Lee at GI. Dr. Espinosa was correspondence school teacher for the GI group and returned my call reguarding the patient. He discussed the case with Dr. Lee who asked that we remove the current tube and replace with a G tube to keep the opening patent. Patient tolerated the exchange well and will f/u with Dr. Lee at the beginning of the week. Discussed with Dr.: Other (Jesús, GI) Counseled pt/family regarding: need for follow-up Medical Desision Making - Diagnostic Testing Diagnostic test were ordered, analyzed, and reviewed by me: No - Risk of complications Low Risk: Low risk of morbidity from additional dx testing or treatment - Departure Departure Disposition: Home Clinical Impression: Dislodged gastrostomy tube, Feeding tube dysfunction Condition: Good Critical Care Time: No Referrals: VICTORIA WALTON [Primary Care Provider] - Follow up/PCP as directed Instructions: How to Care for Your Gastrostomy Tube
[2023-09-11 11:05] VITALS: BP 179/80; PULSE 65; RESP 8
[2023-09-11 11:53] VITALS: O2SAT 100
== END 2023-09-11 12:00 | disposition home or self-care (01) ==
LOC: ED 10:03
DX: K94.23 Gastrostomy malfunction (principal); I10 Essential (primary) hypertension; E11.9 Type 2 diabetes mellitus without complications; Z79.84 Long term (current) use of oral hypoglycemic drugs; Z79.899 Other long term (current) drug therapy; Z28.310 Unvaccinated for COVID-19
CPT/HCPCS: 43762; 99281

== ENCOUNTER 2023-12-01 15:11 | Inpatient (IN) | payer MEDICARE, OTHER ==
[2023-12-01] MEDS ORDERED: DUONEB 0.5-3 MG/3 ml Neb IH ONE ×2 (15:19→15:30)
[2023-12-01] MEDS ORDERED: Lasix 40 MG/4 ML IV ONE (15:35)
--- NOTE | 2023-12-01 15:52 | XRAY ---
Indication: Short of breath. Comparison: December 17, 2017 Portable chest again demonstrates CABG with left pacemaker, osteopenia, and bony degenerative changes. New cardiomegaly, central vascular congestion, pulmonary edema, and small bibasilar effusions favoring cardiac decompensation/CHF. Superimposed pneumonia not completely excluded.
[2023-12-01 16:10] LABS: Absolute Neutrophil Ct (ANC) 3.46 x10^3/uL (1.4-6.9); BASOPHIL % 0.4 % (0.0-0.4); Basophil (Absolute #) 0.02 x10^3/uL (0-0.4); Eosinophil % 1.6 % (0.00-5.0); Eosinophil (Absolute #) 0.08 x10^3/uL (0-0.5); Hematocrit 28.1 % (42-50); Hemoglobin 8.6 g/dL (12.5-18.0); IMMATURE GRAN # 0.03 x10^3u/L (0.00-0.03); IMMATURE GRAN % 0.6 % (0.00-0.4); Lymphocyte (Absolute #) 0.97 x10^3/uL (1.0-4.6); Lymphocytes % 19.9 % (24.0-44.0); Mean Cell Volume 100.7 fL (78-100); Mean Corpuscular Hemoglobin 30.8 pg (26-32); Mean Corpuscular Hgb Concent. 30.6 g/dL (32-36); Mean Platelet Volume 9.8 fL (7.5-11.0); Monocyte (Absolute #) 0.31 x10^3/uL (0.0-1.3); Monocytes % 6.4 % (0.0-12.0); Neutrophil % 71.1 % (36.0-66.0); Platelet Count 247 x10^3/uL (150-450); Red Blood Count 2.79 x10^6/uL (4.1-5.6); Red Cell Distribution Width 14.4 % (11.5-14.0); White Blood Count 4.9 x10^3/uL (4.0-10.5)
[2023-12-01 16:32] LABS: ALBUMIN 3.3 g/dL (3.5-5.0); ANION GAP 10.4 MEQ/L (5-15); BILIRUBIN,TOTAL 0.7 mg/dL (0.2-1.3); Calcium 9.3 mg/dL (8.4-10.2); Creatinine 1 1.02 mg/dL (0.66-1.25); EST GLOMERULAR FILTRATION RATE 78.1 ML/MIN; MAGNESIUM 1.8 mg/dL (1.6-2.3); Total Protein 6.2 g/dL (6.3-8.2)
--- NOTE | 2023-12-01 16:44 | XRAY ---
Indication: Left-sided pain. Multiple contiguous axial images obtained through the abdomen and pelvis without contrast. Comparison: May 18, 2023 Lung bases now demonstrates cardiomegaly and incompletely visualized moderate bilateral effusions with bibasilar compressive atelectasis favoring cardiac decompensation/CHF. Also new diffuse anasarca. Noncontrasted stomach and bowel loops appear nonobstructed. Previous PEG tube has been removed. Again scattered descending and sigmoid diverticulosis. Mid to distal sigmoid colon now demonstrates mild bowel wall thickening with intraluminal narrowing that warrants additional workup for colonic mass. New small perihepatic fluid. No walled off fluid collection or free air. Stable chronic pancreatitis calcifications, left renal cysts, enlarged prostate gland, and tiny hepatic/splenic calcified granulomas. Again extensive arteriosclerotic calcifications including both main and intrarenal arteries. No AAA. Remaining liver, pancreas, spleen, adrenal glands, kidneys, ureters, and bladder are unremarkable for noncontrast exam. Osseous structures again demonstrates osteopenia, progressive worsening remote T12 compression fracture, and mild degenerative changes both hips. Impression: 1. New cardiomegaly, bilateral pleural effusions, and diffuse anasarca favoring cardiac decompensation/CHF. Tiny perihepatic fluid may be related. 2. New sigmoid colon bowel wall thickening with intraluminal narrowing. Malignancy not complete excluded. Direct endoscopy recommended. 3. Again chronic findings including colonic diverticulosis, left renal cysts, enlarged prostate gland, extensive arteriosclerotic disease, chronic bony findings, and old granulomatous disease.
[2023-12-01 16:47] LABS: INFLUENZA A NEGATIVE (NEGATIVE); INFLUENZA B NEGATIVE (NEGATIVE); RESPIRATORY SYNCTIAL VIRUS NEGATIVE (NEGATIVE); SARS-CoV-2 Xpert Express NEGATIVE (NEGATIVE)
[2023-12-01] MEDS ORDERED: Lasix 40 MG/4 ML ONE (17:18)
[2023-12-01] MEDS ORDERED: Lasix 20 MG/2 ML ONE (17:23)
--- NOTE | 2023-12-01 17:25 | ERPHSYRPT ---
- History of Present Illness Time Seen by Provider: 12/01/23 15:18 Source: patient, family Exam Limitations: no limitations Patient Subjective Stated Complaint: pt c/o of shortness of breath, kenneth lower ext edema, LLQ pain Triage Nursing Assessment: Pt brought to the ER by his , hypertensive, hypoxic, rates pain in abdomen as an 8/10, placed pt on 2L NC upon arrival due to sat's at 89%, kenneth lower ext edema which is a new problem, pulses normal, skin n/w/d, pain in the LLQ, pt had a feeding tube up until around giving, has gained approx 40 lbs since Physician History: 73 years old male with multiple medical problems including coronary artery disease CABG, pacemaker placement, congestive heart failure on Xarelto, hypertension, hyperlipidemia, COPD presented in the ER with chief complaint of increasing shortness of breath and bilateral lower extremity swelling. Patient reports shortness of breath getting worse with activity initially and now short of breath even resting. Patient oxygen saturation is around 89% on presentation, placed on 2 L oxygen and is around 94%. Patient reports a weight gain of almost 35 to 40 pounds over the course of a week and a half. Patient reports diffuse swelling of lower extremities and also having pain left lower quadrant area for the last few days without any nausea vomiting or diarrhea. Denies any chest pain or palpitations. No fever chills or sick contact reported. Allergies/Adverse Reactions: No Known Drug Allergies Allergy (Verified 12/01/23 15:38) Home Medications: Amlodipine Besylate 10 mg [Norvasc 10 MG] 2.5 mg PO DAILY 12/17/17 [History] Atorvastatin Calcium [Lipitor] 80 mg PO DAILY 12/17/17 [History] ramipriL [Altace] 10 mg PO BID 12/17/17 [History] Fenofibrate 48 mg PO DAILY 05/18/22 [History] Magnesium Oxide 400 mg [Mag-Ox 400] 400 mg PO BID 05/18/22 [History] Terazosin HCl 5 mg PO BID 05/18/22 [History] Escitalopram Oxalate [Lexapro] 10 mg PO DAILY 12/01/23 [History] Ezetimibe [Zetia] 10 mg PO DAILY 12/01/23 [History] Lipase/Protease/Amylase [Jelani Christie 36,000 Units Capsule] 1 each PO BIDPRN PRN 12/01/23 [History] Lipase/Protease/Amylase [Jelani Christie 36,000 Units Capsule] 2 each PO TIDWMEALS 12/01/23 [History] Metformin HCl [Metformin HCl ER] 500 mg PO DAILY 12/01/23 [History] Metoprolol Succinate 100 mg [Toprol Xl 100 MG] 100 mg PO DAILY 12/01/23 [History] Oxycodone HCl/Acetaminophen [Oxycodone-Acetaminophen 5-325] 1 each PO TIDPRN PRN 12/01/23 [History] Rivaroxaban [Xarelto] 15 mg PO HS 12/01/23 [History] Hx Tetanus, Diphtheria Vaccination/Date Given: Yes Hx Influenza Vaccination/Date Given: Yes Hx Pneumococcal Vaccination/Date Given: No Travel Risk - International Travel Have you traveled outside of the country in past 3 weeks: No - Coronavirus Screening Are you exhibiting any of the following symptoms?: No Close contact with a COVID-19 positive Pt in past 14-21 Days: No - Vaccine Status Have you recieved a Covid-19 vaccination: No - Review of Systems Constitutional: Fatigue Eyes: No Symptoms Ears, Nose, & Throat: No Symptoms Respiratory: Dyspnea, Dyspnea on Exertion (HO) Cardiac: Edema Abdominal/Gastrointestinal: Abdominal Pain Genitourinary Symptoms: No Symptoms Musculoskeletal: Arthralgias Skin: No Symptoms Neurological: No Symptoms Endocrine: No Symptoms Hematologic/Lymphatic: No Symptoms - Past Medical History Pertinent Past Medical History: Yes Neurological History: No Pertinent History ENT History: No Pertinent History Cardiac History: Coronary Artery Disease, Hypertension, Myocardial Infarction (NH) Respiratory History: No Pertinent History Endocrine Medical History: Diabetes Type II Musculoskeletal History: No Pertinent History GI Medical History: Pancreatitis History: No Pertinent History Psycho-Social History: No Pertinent History Male Reproductive Disorders: No Pertinent History - Past Surgical History Past Surgical History: Yes Neuro Surgical History: No Pertinent History Cardiac: CABG, Pacemaker Respiratory: No Pertinent History Gastrointestinal: Hernia Repair Genitourinary: No Pertinent History Male Surgical History: No Pertinent History Other Surgical History: feeding tube placement and removal - Social History Smoking Status: Former smoker How long have you smoked: 50 yrs Exposure to second hand smoke: No Drug Use: none Patient Lives Alone: No - Nursing Vital Signs Nursing Vital Signs: Initial Vital Signs Temperature 97.6 F 12/01/23 15:17 Pulse Rate 81 12/01/23 15:17 Blood Pressure 180/92 12/01/23 15:17 O2 Sat by Pulse Oximetry 89 L 12/01/23 15:17 Pain Scale Pain Intensity 0 - Rye Coma Score Best Eye Response (Rye): (4) open spontaneously Best Verbal Response (Melly): (5) oriented Best Motor Response (Rye): (6) obeys commands Melly Total: 15 - Physical Exam General Appearance: no apparent distress, alert Head Injury: no evidence of injury Eye Exam: bilateral eye: normal inspection, PERRL, EOMI ENT Exam: airway nml, No evidence of ENT injury, No dental injury Neck Exam: supple, trachea midline, full range of motion Cardiovascular/Respiratory Exam: regular rate/rhythm, no respiratory distress, decreased breath sounds Gastrointestinal/Abdominal Exam: soft, no distention, guarding, tenderness (Left lower quadrant) Back Exam: normal inspection Extremity Exam: pedal edema (3+ bilaterally), swelling Mental Status Exam: alert, oriented x 3, 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 Exam: normal speech, PERRL Motor/Sensory Exam: no motor deficit Skin Exam: normal color SpO2 Interpretation: O2 applied SpO2: 95 O2 Delivery: Nasal Cannula Ordered Tests: Medication Summary Generic Name Dose Route Start Last Admin Trade Name Freq PRN Reason Stop Dose Admin Ezetimibe 10 mg 12/02/23 10:00 12/03/23 10:58 Ezetimibe 10 Mg Tab PO 01/01/24 09:59 10 mg DAILY GURU Administration Escitalopram Oxalate 10 mg 12/02/23 10:00 12/03/23 10:58 Escitalopram Oxalate 10 Mg Tablet PO 01/01/24 09:59 10 mg DAILY GURU Administration Fenofibrate 72.5 mg 12/02/23 10:00 12/03/23 10:58 Fenofibrate,Micronized 145 Mg Tablet PO 01/01/24 09:59 72.5 mg DAILY GURU Administration Furosemide 40 mg 12/04/23 10:00 Furosemide 40 Mg/4 Ml Vial IV 01/03/24 09:59 DAILY GURU Hydralazine HCl 5 mg 12/03/23 16:42 12/03/23 17:16 Hydralazine Hcl 20 Mg/Ml Vial IV 01/02/24 16:41 5 mg [id number] PRN Administration HYPERTENSION Insulin Human Lispro 0 unit 12/02/23 05:27 Insulin Lispro 1 Unit SQ 01/01/24 05:26 UD PRN HYPERGLYCEMIA Lisinopril 40 mg 12/02/23 10:00 12/03/23 10:57 Lisinopril 20 Mg Tablet PO 01/01/24 09:59 40 mg BID GURU Administration Magnesium Oxide 400 mg 12/02/23 10:00 12/03/23 10:58 Magnesium Oxide 400 Mg Tablet PO 01/01/24 09:59 400 mg BID GURU Administration Metoprolol Succinate 100 mg 12/02/23 10:00 12/03/23 10:58 Metoprolol Succinate 100 Mg Tablet.Sa PO 01/01/24 09:59 100 mg DAILY GURU Administration Ondansetron HCl 4 mg 12/02/23 13:26 12/03/23 16:28 Ondansetron Hcl 4 Mg/2 Ml Vial IV 01/01/24 13:25 4 mg Q6H PRN PRN Administration NAUSEA/VOMITING Oxycodone/Acetaminophen 1 tab 12/02/23 17:03 12/03/23 16:27 Oxycodone Hcl/Apap 5 Mg/325 Mg Tablet PO 12/07/23 17:02 1 tab Q6H/PRN PRN Administration PAIN Creon 36,000 Unit 2 each 12/02/23 12:00 12/03/23 17:52 Capsule PO 01/01/24 11:59 Not Given TIDWM [facility] Potassium Chloride 20 meq 12/02/23 10:00 12/03/23 10:59 Potassium Chloride Tab 10 Meq Tab PO 01/01/24 09:59 20 meq BID GURU Administration Prochlorperazine Edisylate 10 mg 12/03/23 16:47 Prochlorperazine Edisylate 10 Mg/2 Ml Vial IV 01/02/24 16:46 Q6H PRN PRN NAUSEA/VOMITING Rivaroxaban 15 mg 12/02/23 22:00 12/02/23 21:17 Rivaroxaban 10 Mg Tablet PO 01/01/24 21:59 15 mg HS GURU Administration Simvastatin 40 mg 12/02/23 10:00 12/03/23 10:58 Simvastatin 20 Mg Tablet PO 01/01/24 09:59 40 mg DAILY GURU Administration Terazosin HCl 5 mg 12/02/23 10:00 12/03/23 10:58 Terazosin Hcl 1 Mg Cap PO 01/01/24 09:59 5 mg BID GURU Administration Discontinued Medications Generic Name Dose Route Start Last Admin Trade Name Missy PRN Reason Stop Dose Admin Albuterol/Ipratropium 3 ml 12/01/23 15:19 12/01/23 15:35 Ipratropium/Albuterol Sulfate 3 Ml Ampul.Neb IH 12/01/23 15:20 3 ml STAT ONE Administration Albuterol/Ipratropium Confirm 12/01/23 15:30 Ipratropium/Albuterol Sulfate 3 Ml Ampul.Neb Administered 12/01/23 15:31 Dose 3 ml IH .STK-MED ONE Amlodipine Besylate 2.5 mg 12/02/23 10:00 12/02/23 10:17 Amlodipine Besylate 5 Mg Tablet PO 01/01/24 09:59 2.5 mg DAILY GURU Administration Furosemide 40 mg 12/01/23 15:35 12/01/23 17:19 Furosemide 40 Mg/4 Ml Vial IV 12/01/23 15:36 40 mg STAT ONE Administration Furosemide 20 mg 12/02/23 10:00 12/01/23 17:23 Furosemide 20 Mg/Vial IV 01/01/24 09:59 20 mg DAILY GURU Administration Furosemide Confirm 12/01/23 17:18 Furosemide 40 Mg/4 Ml Vial Administered 12/01/23 17:19 Dose 40 mg .ROUTE .STK-MED ONE Furosemide Confirm 12/01/23 17:23 Furosemide 20 Mg/Vial Administered 12/01/23 17:24 Dose 20 mg .ROUTE .STK-MED ONE Furosemide 40 mg 12/01/23 23:45 12/02/23 04:25 Furosemide 40 Mg/4 Ml Vial IV 12/31/23 23:44 Not Given Q12H GURU Furosemide 40 mg 12/02/23 10:00 12/03/23 11:02 Furosemide 40 Mg/4 Ml Vial IV 12/31/23 23:44 40 mg Q12HT GURU Administration Miscellaneous Information 1 each 12/02/23 07:30 Medication Intervention 1 Each Each 01/01/24 07:29 .RN TO CHECK GURU Non-Formulary Medication 500 mg 12/02/23 10:00 Metformin Hcl PO 02/11/24 09:59 DAILY GURU Oxycodone/Acetaminophen 1 tab 12/01/23 23:31 12/02/23 09:38 Oxycodone Hcl/Apap 5 Mg/325 Mg Tablet PO 12/06/23 23:30 1 tab TIDPRN PRN Administration PAIN Polyethylene Glycol/Electrolytes 4,000 ml 12/02/23 16:45 12/02/23 17:20 Sod Sulf/Sod/Nahco3/Kcl/Peg's 4000 Ml Bottle PO 12/02/23 16:46 4,000 ml ONCE@1400 ONE Administration Lab/Rad Data: Laboratory Result Diagrams 12/02/23 04:30 12/02/23 04:30 Laboratory Results 12/02/23 12/02/23 12/02/23 Range/Units 04:50 04:30 04:30 WBC 4.6 (4.0-10.5) x10^3/uL RBC 2.62 L (4.1-5.6) x10^6/uL Hgb 8.0 L (12.5-18.0) g/dL Hct 26.2 L (42-50) % MCV 100.0 (78-100) fL MCH 30.5 (26-32) pg MCHC 30.5 L (32-36) g/dL RDW 14.3 H (11.5-14.0) % Plt Count 214 (150-450) x10^3/uL MPV 9.5 (7.5-11.0) fL Gran % 70.9 H (36.0-66.0) % Immature Gran % (Auto) 0.4 (0.00-0.4) % Nucleat RBC Rel Count 0.0 (0.00-0.1) % Eos # (Auto) 0.06 (0-0.5) x10^3/uL Immature Gran # (Auto) 0.02 (0.00-0.03) x10^3u/L Absolute Lymphs (auto) 0.89 L (1.0-4.6) x10^3/uL Absolute Monos (auto) 0.35 (0.0-1.3) x10^3/uL Absolute Nucleated RBC 0.00 (0.00-0.01) x10^3u/L Lymphocytes % 19.4 L (24.0-44.0) % Monocytes % 7.6 (0.0-12.0) % Eosinophils % 1.3 (0.00-5.0) % Basophils % 0.4 (0.0-0.4) % Absolute Granulocytes 3.24 (1.4-6.9) x10^3/uL Basophils # 0.02 (0-0.4) x10^3/uL Sodium (137-145) mmol/L Potassium (3.5-5.1) mmol/L Chloride (98-107) mmol/L Carbon Dioxide (22-30) mmol/L Anion Gap (5-15) MEQ/L BUN (9-20) mg/dL Creatinine (0.66-1.25) mg/dL Estimated GFR ML/MIN Glucose (74-106) mg/dL POC Glucometer (74 to 106) mg/dL Hemoglobin A1c 6.19 H (4.5-6.0) % Lactic Acid (0.4-2.0) Calcium (8.4-10.2) mg/dL Magnesium 1.8 (1.6-2.3) mg/dL Total Bilirubin (0.2-1.3) mg/dL AST (17-59) U/L ALT (0-50) U/L Alkaline Phosphatase (38-126) U/L Troponin I (0.000-0.034) ng/mL NT-Pro-B Natriuret Pep (<300) pg/mL Serum Total Protein (6.3-8.2) g/dL Albumin (3.5-5.0) g/dL Influenza Type A Ag (NEGATIVE) Influenza Type B Ag (NEGATIVE) RSV (PCR) (NEGATIVE) SARS-CoV-2 (PCR) (NEGATIVE) 12/02/23 12/01/23 12/01/23 Range/Units 04:30 23:45 21:44 WBC (4.0-10.5) x10^3/uL RBC (4.1-5.6) x10^6/uL Hgb (12.5-18.0) g/dL Hct (42-50) % MCV (78-100) fL MCH (26-32) pg MCHC (32-36) g/dL RDW (11.5-14.0) % Plt Count (150-450) x10^3/uL MPV (7.5-11.0) fL Gran % (36.0-66.0) % Immature Gran % (Auto) (0.00-0.4) % Nucleat RBC Rel Count (0.00-0.1) % Eos # (Auto) (0-0.5) x10^3/uL Immature Gran # (Auto) (0.00-0.03) x10^3u/L Absolute Lymphs (auto) (1.0-4.6) x10^3/uL Absolute Monos (auto) (0.0-1.3) x10^3/uL Absolute Nucleated RBC (0.00-0.01) x10^3u/L Lymphocytes % (24.0-44.0) % Monocytes % (0.0-12.0) % Eosinophils % (0.00-5.0) % Basophils % (0.0-0.4) % Absolute Granulocytes (1.4-6.9) x10^3/uL Basophils # (0-0.4) x10^3/uL Sodium 135 L (137-145) mmol/L Potassium 3.7 (3.5-5.1) mmol/L Chloride 107 (98-107) mmol/L Carbon Dioxide 23 (22-30) mmol/L Anion Gap 8.9 (5-15) MEQ/L BUN 18 (9-20) mg/dL Creatinine 1.10 (0.66-1.25) mg/dL Estimated GFR 71.3 ML/MIN Glucose 107 H (74-106) mg/dL POC Glucometer 134 H (74 to 106) mg/dL Hemoglobin A1c (4.5-6.0) % Lactic Acid (0.4-2.0) Calcium 9.0 (8.4-10.2) mg/dL Magnesium (1.6-2.3) mg/dL Total Bilirubin 0.60 (0.2-1.3) mg/dL AST 15 L (17-59) U/L ALT 9 (0-50) U/L Alkaline Phosphatase 68 (38-126) U/L Troponin I < 0.012 (0.000-0.034) ng/mL NT-Pro-B Natriuret Pep (<300) pg/mL Serum Total Protein 5.3 L (6.3-8.2) g/dL Albumin 2.9 L (3.5-5.0) g/dL Influenza Type A Ag (NEGATIVE) Influenza Type B Ag (NEGATIVE) RSV (PCR) (NEGATIVE) SARS-CoV-2 (PCR) (NEGATIVE) 12/01/23 12/01/23 12/01/23 Range/Units 20:05 15:53 15:45 WBC (4.0-10.5) x10^3/uL RBC (4.1-5.6) x10^6/uL Hgb (12.5-18.0) g/dL Hct (42-50) % MCV (78-100) fL MCH (26-32) pg MCHC (32-36) g/dL RDW (11.5-14.0) % Plt Count (150-450) x10^3/uL MPV (7.5-11.0) fL Gran % (36.0-66.0) % Immature Gran % (Auto) (0.00-0.4) % Nucleat RBC Rel Count (0.00-0.1) % Eos # (Auto) (0-0.5) x10^3/uL Immature Gran # (Auto) (0.00-0.03) x10^3u/L Absolute Lymphs (auto) (1.0-4.6) x10^3/uL Absolute Monos (auto) (0.0-1.3) x10^3/uL Absolute Nucleated RBC (0.00-0.01) x10^3u/L Lymphocytes % (24.0-44.0) % Monocytes % (0.0-12.0) % Eosinophils % (0.00-5.0) % Basophils % (0.0-0.4) % Absolute Granulocytes (1.4-6.9) x10^3/uL Basophils # (0-0.4) x10^3/uL Sodium (137-145) mmol/L Potassium (3.5-5.1) mmol/L Chloride (98-107) mmol/L Carbon Dioxide (22-30) mmol/L Anion Gap (5-15) MEQ/L BUN (9-20) mg/dL Creatinine (0.66-1.25) mg/dL Estimated GFR ML/MIN Glucose (74-106) mg/dL POC Glucometer (74 to 106) mg/dL Hemoglobin A1c (4.5-6.0) % Lactic Acid (0.4-2.0) Calcium (8.4-10.2) mg/dL Magnesium (1.6-2.3) mg/dL Total Bilirubin (0.2-1.3) mg/dL AST (17-59) U/L ALT (0-50) U/L Alkaline Phosphatase (38-126) U/L Troponin I < 0.012 < 0.012 (0.000-0.034) ng/mL NT-Pro-B Natriuret Pep (<300) pg/mL Serum Total Protein (6.3-8.2) g/dL Albumin (3.5-5.0) g/dL Influenza Type A Ag NEGATIVE (NEGATIVE) Influenza Type B Ag NEGATIVE (NEGATIVE) RSV (PCR) NEGATIVE (NEGATIVE) SARS-CoV-2 (PCR) NEGATIVE (NEGATIVE) 12/01/23 12/01/23 12/01/23 Range/Units 15:45 15:45 15:38 WBC 4.9 (4.0-10.5) x10^3/uL RBC 2.79 L (4.1-5.6) x10^6/uL Hgb 8.6 L (12.5-18.0) g/dL Hct 28.1 L (42-50) % MCV 100.7 H (78-100) fL MCH 30.8 (26-32) pg MCHC 30.6 L (32-36) g/dL RDW 14.4 H (11.5-14.0) % Plt Count 247 (150-450) x10^3/uL MPV 9.8 (7.5-11.0) fL Gran % 71.1 H (36.0-66.0) % Immature Gran % (Auto) 0.6 H (0.00-0.4) % Nucleat RBC Rel Count 0.0 (0.00-0.1) % Eos # (Auto) 0.08 (0-0.5) x10^3/uL Immature Gran # (Auto) 0.03 (0.00-0.03) x10^3u/L Absolute Lymphs (auto) 0.97 L (1.0-4.6) x10^3/uL Absolute Monos (auto) 0.31 (0.0-1.3) x10^3/uL Absolute Nucleated RBC 0.00 (0.00-0.01) x10^3u/L Lymphocytes % 19.9 L (24.0-44.0) % Monocytes % 6.4 (0.0-12.0) % Eosinophils % 1.6 (0.00-5.0) % Basophils % 0.4 (0.0-0.4) % Absolute Granulocytes 3.46 (1.4-6.9) x10^3/uL Basophils # 0.02 (0-0.4) x10^3/uL Sodium 137 (137-145) mmol/L Potassium 4.0 (3.5-5.1) mmol/L Chloride 109 H (98-107) mmol/L Carbon Dioxide 21 L (22-30) mmol/L Anion Gap 10.4 (5-15) MEQ/L BUN 18 (9-20) mg/dL Creatinine 1.02 (0.66-1.25) mg/dL Estimated GFR 78.1 ML/MIN Glucose 108 H (74-106) mg/dL POC Glucometer (74 to 106) mg/dL Hemoglobin A1c (4.5-6.0) % Lactic Acid 1.2 (0.4-2.0) Calcium 9.3 (8.4-10.2) mg/dL Magnesium 1.8 (1.6-2.3) mg/dL Total Bilirubin 0.70 (0.2-1.3) mg/dL AST 20 (17-59) U/L ALT 10 (0-50) U/L Alkaline Phosphatase 74 (38-126) U/L Troponin I (0.000-0.034) ng/mL NT-Pro-B Natriuret Pep 62768 (<300) pg/mL Serum Total Protein 6.2 L (6.3-8.2) g/dL Albumin 3.3 L (3.5-5.0) g/dL Influenza Type A Ag (NEGATIVE) Influenza Type B Ag (NEGATIVE) RSV (PCR) (NEGATIVE) SARS-CoV-2 (PCR) (NEGATIVE) - Progress Progress: improved, re-examined Progress Note: 12/01/23 17:35 33 years old is evaluated for increasing shortness of breath and bilateral lower extremity swelling with a weight gain of almost 35 to 40 pounds in the last week and a half. Patient was borderline hypoxic with sats around 89% on presentation, placed on 2 L oxygen and is around 94%. He is also given breathing treatment. Patient has bilateral lower extremity 3+ pitting edema and also some swelling of the abdominal wall. He is having anasarca kind of picture and given 60 of IV Lasix. Chest x-ray showed decompensated CHF cardiomegaly. I have obtained CT abdomen pelvis as well which showed findings of CHF and anasarca and also some sigmoid wall thickening/narrowing of the lumen which could be a malignancy which needs further evaluation with scope. Patient is feeling better on reevaluation. Workup showed normal white count, hemoglobin of 8.6 with a baseline around 10 which I believe is secondary to hemodilution. Chemistries fairly unremarkable with normal troponin but a BNP of 20 K. Patient is anticoagulated on Xarelto, do not think needs PE workup. Discussed with Dr. Estrada, reviewed history, workup and agreed with admission. I have discussed the results of workup with patient and family hand plan of admission which they understand and agree. 12/01/23 17:[address] Other (Dr. Estrada hospitalist) Will see patient in: hospital (observation) Counseled pt/family regarding: lab results, diagnosis, rad results Medical Desision Making - Independent Historian Additional History obtained from: Spouse - Discussion of managment Care discussed with:: hospitalist Reviewed:: Test results Agreed on:: Treatment plan, place in obs Will see patient: in hospital - Diagnostic Testing Diagnostic test were ordered, analyzed, and reviewed by me: Yes Radiological Interpretation: Reviewed by me - Risk of complications The pt has a high risk of morbidity or mortality based on: Decision regarding hospitilization or escalation of hosp level of care - Departure Departure Disposition: Observation Clinical Impression: CHF exacerbation, Colonic mass, Anasarca Condition: Stable Critical Care Time: No
--- NOTE | 2023-12-01 23:27 | PCM.HP ---
History of Present Illness - Chief Complaint Chief Complaint: Acute CHF Exacerbation Date: 12/01/23 History of Present Illness: Mr. Garsia is a 73 year-old gentleman with CAD s/p CABG, HTN, HLD, DM2, COPD, chornic anemia and CHF (unknown diastolic/diastolic, EF) who presents wt acute hypoxemic respiratory failure. He admits to four days of progressive shortness of breath (both at rest and with exertion) along with weight gain and lower extremity swelling. He also admits to several days of LLQ pain. Upon arrival, his laboratory data was remarkable for anemia while imaging revealed diffuse anasarca, volume overload, and sigmoid colon thickening. On my examination, he is resting comfortably denying any current fevers, chills, nausea, vomiting, diarrhea, syncope, presyncope, visual changes, orthopnea, PND, odynophagia, dysphagia, chest pain, shortness of breath, belly pain, dysuria, hematuria, melena, hematochezia, or neurological changes. All other systems were reviewed and were negative. - Review of Systems Constitutional: No Fever, No Chills Eyes: No Symptoms Ears, Nose, & Throat: No Symptoms Respiratory: No Cough, No Short Of Breath Cardiac: No Chest Pain, No Edema, No Syncope Abdominal/Gastrointestinal: No Abdominal Pain, No Nausea, No Vomiting, No Diarrhea Genitourinary Symptoms: No Dysuria Musculoskeletal: No Back Pain, No Neck Pain Skin: No Rash Neurological: No Dizziness, No Focal Weakness, No Sensory Changes Psychological: No Symptoms Endocrine: No Symptoms Hematologic/Lymphatic: No Symptoms Immunological/Allergic: No Symptoms Medications & Allergies Home Medications: Home Medication List Amlodipine Besylate 10 mg [Norvasc 10 MG] 2.5 mg PO DAILY 12/17/17 [History Confirmed 12/01/23] Atorvastatin Calcium [Lipitor] 80 mg PO DAILY 12/17/17 [History Confirmed 12/01/23] ramipriL [Altace] 10 mg PO BID 12/17/17 [History Confirmed 12/01/23] Fenofibrate 48 mg PO DAILY 05/18/22 [History Confirmed 12/01/23] Magnesium Oxide 400 mg [Mag-Ox 400] 400 mg PO BID 05/18/22 [History Confirmed 12/01/23] Terazosin HCl 5 mg PO BID 05/18/22 [History Confirmed 12/01/23] Escitalopram Oxalate [Lexapro] 10 mg PO DAILY 12/01/23 [History Confirmed 12/01/23] Ezetimibe [Zetia] 10 mg PO DAILY 12/01/23 [History Confirmed 12/01/23] Lipase/Protease/Amylase [Jelani Christie 36,000 Units Capsule] 1 each PO BIDPRN PRN 12/01/23 [History Confirmed 12/01/23] Lipase/Protease/Amylase [Jelani Christie 36,000 Units Capsule] 2 each PO TIDWMEALS 12/01/23 [History Confirmed 12/01/23] Metformin HCl [Metformin HCl ER] 500 mg PO DAILY 12/01/23 [History Confirmed 12/01/23] Metoprolol Succinate 100 mg [Toprol Xl 100 MG] 100 mg PO DAILY 12/01/23 [History Confirmed 12/01/23] Oxycodone HCl/Acetaminophen [Oxycodone-Acetaminophen 5-325] 1 each PO TIDPRN PRN 12/01/23 [History Confirmed 12/01/23] Rivaroxaban [Xarelto] 15 mg PO HS 12/01/23 [History Confirmed 12/01/23] Allergies/Adverse Reactions: Allergies Allergy/AdvReac Type Severity Reaction Status Date / Time No Known Drug Allergies Allergy Verified 12/01/23 15:38 - Past Medical History Past Medical History: Yes Neurological History: No Pertinent History ENT History: Cataracts Cardiac History: Coronary Artery Disease, Hypertension, Myocardial Infarction (NE) Respiratory History: Sleep Apnea Endocrine Medical History: Diabetes Type II Musculoskelatal History: No Pertinent History GI Medical History: Pancreatitis History: No Pertinent History Pyscho-Social History: No Pertinent History Male Reproductive Disorders: No Pertinent History - Past Surgical History Past Surgical History: Yes Neuro Surgical History: No Pertinent History Cardiac History: CABG, Pacemaker Respiratory Surgery: No Pertinent History GI Surgical History: Cholecystectomy, Hernia Repair Genitourinary Surgical Hx: No Pertinent History Musculskeletal Surgical Hx: Other Male Surgical History: No Pertinent History Other Surgical History: Feeding tube placement and removal, left arm surgery. - Social History Smoking Status: Former smoker How long have you smoked: 50 yrs Exposure to second hand smoke: No Alcohol: None Drug Use: none - Physical Exam Vital Signs: Vital Signs - 24 hr Temp Pulse Resp BP BP Pulse Ox 12/01/23 20:00 97.3 F 95 H 19 160/81 94 L 12/01/23 19:07 79 18 96 12/01/23 18:32 92 L 12/01/23 18:17 97.2 F 97 H 20 158/82 91 L 12/01/23 17:39 95 12/01/23 17:30 26 H 162/89 91 L 12/01/23 17:22 77 18 171/90 91 L 12/01/23 17:21 81 18 94 L 12/01/23 17:20 86 28 H 93 L 12/01/23 17:10 75 18 94 L 12/01/23 17:00 86 23 92 L 12/01/23 16:50 78 24 92 L 12/01/23 16:42 77 16 95 12/01/23 15:46 89 18 93 L 12/01/23 15:20 89 L 12/01/23 15:17 97.6 F 81 180/92 89 L General Appearance: no apparent distress, alert Neurologic Exam: alert, oriented x 3, cooperative, normal mood/affect, nml cerebellar function, nml station & gait, sensation nml, No motor deficits Eye Exam: PERRL/EOMI, eyes nml inspection Ears, Nose, Throat Exam: normal ENT inspection, TMs normal, pharynx normal, moist mucous membranes Neck Exam: normal inspection, non-tender, supple, full range of motion Respiratory Exam: normal breath sounds, lungs clear, No respiratory distress Cardiovascular Exam: regular rate/rhythm, normal heart sounds, normal peripheral pulses Gastrointestinal/Abdomen Exam: soft, normal bowel sounds, tenderness, No mass Back Exam: normal inspection, normal range of motion, No CVA tenderness, No vertebral tenderness Extremity Exam: normal inspection, normal range of motion, pelvis stable, other (2+ PITTING EDEMA) Skin Exam: normal color, warm, dry, No rash Lymphatic Exam: No adenopathy Results - Labs Lab/Micro Results: Lab Results-Last 24 Hours 12/01/23 12/01/23 12/01/23 Range/Units 15:38 15:45 15:45 WBC 4.9 (4.0-10.5) x10^3/uL RBC 2.79 L (4.1-5.6) x10^6/uL Hgb 8.6 L (12.5-18.0) g/dL Hct 28.1 L (42-50) % MCV 100.7 H (78-100) fL MCH 30.8 (26-32) pg MCHC 30.6 L (32-36) g/dL RDW 14.4 H (11.5-14.0) % Plt Count 247 (150-450) x10^3/uL MPV 9.8 (7.5-11.0) fL Gran % 71.1 H (36.0-66.0) % Immature Gran % (Auto) 0.6 H (0.00-0.4) % Nucleat RBC Rel Count 0.0 (0.00-0.1) % Eos # (Auto) 0.08 (0-0.5) x10^3/uL Immature Gran # (Auto) 0.03 (0.00-0.03) x10^3u/L Absolute Lymphs (auto) 0.97 L (1.0-4.6) x10^3/uL Absolute Monos (auto) 0.31 (0.0-1.3) x10^3/uL Absolute Nucleated RBC 0.00 (0.00-0.01) x10^3u/L Lymphocytes % 19.9 L (24.0-44.0) % Monocytes % 6.4 (0.0-12.0) % Eosinophils % 1.6 (0.00-5.0) % Basophils % 0.4 (0.0-0.4) % Absolute Granulocytes 3.46 (1.4-6.9) x10^3/uL Basophils # 0.02 (0-0.4) x10^3/uL Sodium 137 (137-145) mmol/L Potassium 4.0 (3.5-5.1) mmol/L Chloride 109 H (98-107) mmol/L Carbon Dioxide 21 L (22-30) mmol/L Anion Gap 10.4 (5-15) MEQ/L BUN 18 (9-20) mg/dL Creatinine 1.02 (0.66-1.25) mg/dL Estimated GFR 78.1 ML/MIN Glucose 108 H (74-106) mg/dL POC Glucometer (74 to 106) mg/dL Lactic Acid 1.2 (0.4-2.0) Calcium 9.3 (8.4-10.2) mg/dL Magnesium 1.8 (1.6-2.3) mg/dL Total Bilirubin 0.70 (0.2-1.3) mg/dL AST 20 (17-59) U/L ALT 10 (0-50) U/L Alkaline Phosphatase 74 (38-126) U/L Troponin I (0.000-0.034) ng/mL NT-Pro-B Natriuret Pep 91060 (<300) pg/mL Serum Total Protein 6.2 L (6.3-8.2) g/dL Albumin 3.3 L (3.5-5.0) g/dL Influenza Type A Ag (NEGATIVE) Influenza Type B Ag (NEGATIVE) RSV (PCR) (NEGATIVE) SARS-CoV-2 (PCR) (NEGATIVE) 12/01/23 12/01/23 12/01/23 Range/Units 15:45 15:53 20:05 WBC (4.0-10.5) x10^3/uL RBC (4.1-5.6) x10^6/uL Hgb (12.5-18.0) g/dL Hct (42-50) % MCV (78-100) fL MCH (26-32) pg MCHC (32-36) g/dL RDW (11.5-14.0) % Plt Count (150-450) x10^3/uL MPV (7.5-11.0) fL Gran % (36.0-66.0) % Immature Gran % (Auto) (0.00-0.4) % Nucleat RBC Rel Count (0.00-0.1) % Eos # (Auto) (0-0.5) x10^3/uL Immature Gran # (Auto) (0.00-0.03) x10^3u/L Absolute Lymphs (auto) (1.0-4.6) x10^3/uL Absolute Monos (auto) (0.0-1.3) x10^3/uL Absolute Nucleated RBC (0.00-0.01) x10^3u/L Lymphocytes % (24.0-44.0) % Monocytes % (0.0-12.0) % Eosinophils % (0.00-5.0) % Basophils % (0.0-0.4) % Absolute Granulocytes (1.4-6.9) x10^3/uL Basophils # (0-0.4) x10^3/uL Sodium (137-145) mmol/L Potassium (3.5-5.1) mmol/L Chloride (98-107) mmol/L Carbon Dioxide (22-30) mmol/L Anion Gap (5-15) MEQ/L BUN (9-20) mg/dL Creatinine (0.66-1.25) mg/dL Estimated GFR ML/MIN Glucose (74-106) mg/dL POC Glucometer (74 to 106) mg/dL Lactic Acid (0.4-2.0) Calcium (8.4-10.2) mg/dL Magnesium (1.6-2.3) mg/dL Total Bilirubin (0.2-1.3) mg/dL AST (17-59) U/L ALT (0-50) U/L Alkaline Phosphatase (38-126) U/L Troponin I < 0.012 < 0.012 (0.000-0.034) ng/mL NT-Pro-B Natriuret Pep (<300) pg/mL Serum Total Protein (6.3-8.2) g/dL Albumin (3.5-5.0) g/dL Influenza Type A Ag NEGATIVE (NEGATIVE) Influenza Type B Ag NEGATIVE (NEGATIVE) RSV (PCR) NEGATIVE (NEGATIVE) SARS-CoV-2 (PCR) NEGATIVE (NEGATIVE) 12/01/23 Range/Units 21:44 WBC (4.0-10.5) x10^3/uL RBC (4.1-5.6) x10^6/uL Hgb (12.5-18.0) g/dL Hct (42-50) % MCV (78-100) fL MCH (26-32) pg MCHC (32-36) g/dL RDW (11.5-14.0) % Plt Count (150-450) x10^3/uL MPV (7.5-11.0) fL Gran % (36.0-66.0) % Immature Gran % (Auto) (0.00-0.4) % Nucleat RBC Rel Count (0.00-0.1) % Eos # (Auto) (0-0.5) x10^3/uL Immature Gran # (Auto) (0.00-0.03) x10^3u/L Absolute Lymphs (auto) (1.0-4.6) x10^3/uL Absolute Monos (auto) (0.0-1.3) x10^3/uL Absolute Nucleated RBC (0.00-0.01) x10^3u/L Lymphocytes % (24.0-44.0) % Monocytes % (0.0-12.0) % Eosinophils % (0.00-5.0) % Basophils % (0.0-0.4) % Absolute Granulocytes (1.4-6.9) x10^3/uL Basophils # (0-0.4) x10^3/uL Sodium (137-145) mmol/L Potassium (3.5-5.1) mmol/L Chloride (98-107) mmol/L Carbon Dioxide (22-30) mmol/L Anion Gap (5-15) MEQ/L BUN (9-20) mg/dL Creatinine (0.66-1.25) mg/dL Estimated GFR ML/MIN Glucose (74-106) mg/dL POC Glucometer 134 H (74 to 106) mg/dL Lactic Acid (0.4-2.0) Calcium (8.4-10.2) mg/dL Magnesium (1.6-2.3) mg/dL Total Bilirubin (0.2-1.3) mg/dL AST (17-59) U/L ALT (0-50) U/L Alkaline Phosphatase (38-126) U/L Troponin I (0.000-0.034) ng/mL NT-Pro-B Natriuret Pep (<300) pg/mL Serum Total Protein (6.3-8.2) g/dL Albumin (3.5-5.0) g/dL Influenza Type A Ag (NEGATIVE) Influenza Type B Ag (NEGATIVE) RSV (PCR) (NEGATIVE) SARS-CoV-2 (PCR) (NEGATIVE) - Radiology Impressions Radiology Exams & Impressions: Radiology Procedures Category Date Time Status ABDOMEN AND PELVIS W/0 CONTRAS [CT] Stat Exams 12/01/23 16:05 Completed CHEST 1 VIEW (PORTABLE) Stat Exams 12/01/23 15:19 Completed - Other Procedures and Tests Respiratory Therapy 12/01/23 18:06 Oxygen Nasal Cannula 2 lpm Assessment/Plan (1) CHF exacerbation Current Visit: Yes Status: Acute Assessment & Plan: ASSESSMENT 1. Acute Hypoxemic Respiratory Failure 2. Acute CHF Exacerbation 3. Non-Anion Gap Metabolic Acidosis 4. Sigmoid Colon Thickening 5. Coronary Artery Disease s/p CABG 6. Type II Diabetes Mellitus 7. Hypertension 8. Hyperlipidemia 9. COPD 10. Chronic Anemia PLAN 1. Diuresis; strict I/O; 1500cc fluid restriction 2. Monitor Cr and HCO3 3. Echo in AM 4. Sigmoid colon thickening needs follow-up with possible GI involvement; no GI symptoms 5. Continue cardiac medications 6. Continue diabetic regimen Xarelto The entirety of this encounter was done via telemedicine Kamari Bond MD Pulmonary and Critical Care Medicine Code(s): I50.9 - HEART FAILURE, UNSPECIFIED Telemedicine Encounter - Telemedicine Encounter Telemedicine Encounter: The entirety of this encounter was performed via Telemedicine"
[2023-12-01] MEDS ORDERED: PERCOCET TABLET 5/325MG PO PRN (23:31)
[2023-12-01] MEDS ORDERED: Lasix 40 MG/4 ML IV SCH (23:45)
[2023-12-02 04:53] LABS: Absolute Neutrophil Ct (ANC) 3.24 x10^3/uL (1.4-6.9); BASOPHIL % 0.4 % (0.0-0.4); Basophil (Absolute #) 0.02 x10^3/uL (0-0.4); Eosinophil % 1.3 % (0.00-5.0); Eosinophil (Absolute #) 0.06 x10^3/uL (0-0.5); Hematocrit 26.2 % (42-50); IMMATURE GRAN # 0.02 x10^3u/L (0.00-0.03); IMMATURE GRAN % 0.4 % (0.00-0.4); Lymphocyte (Absolute #) 0.89 x10^3/uL (1.0-4.6); Lymphocytes % 19.4 % (24.0-44.0); Mean Corpuscular Hemoglobin 30.5 pg (26-32); Mean Corpuscular Hgb Concent. 30.5 g/dL (32-36); Mean Platelet Volume 9.5 fL (7.5-11.0); Monocyte (Absolute #) 0.35 x10^3/uL (0.0-1.3); Monocytes % 7.6 % (0.0-12.0); Neutrophil % 70.9 % (36.0-66.0); Platelet Count 214 x10^3/uL (150-450); Red Blood Count 2.62 x10^6/uL (4.1-5.6); Red Cell Distribution Width 14.3 % (11.5-14.0); White Blood Count 4.6 x10^3/uL (4.0-10.5)
--- NOTE | 2023-12-02 05:20 | PCM.NOTE ---
Date and Time: 12/02/23512 Subjective Assessment: Mr. Garsia is a 73 year-old gentleman with CAD s/p CABG, HTN, HLD, DM2, COPD, chornic anemia and CHF (unknown diastolic/diastolic, EF) who presents wtih acute hypoxemic respiratory failure. He admits to four days of progressive shortness of breath (both at rest and with exertion) along with weight gain and lower extremity swelling. He also admits to several days of LLQ pain. Upon arrival, his laboratory data was remarkable for anemia while imaging revealed diffuse anasarca, volume overload, and sigmoid colon thickening. Patient admitted for acute CHF exacerbation with anasarca. CT imaging New cardiomegaly, bilateral pleural effusions, and diffuse anasarca favoring cardiac decompensation/CHF. Tiny perihepatic fluid may be related.New sigmoid colon bowel wall thickening with intraluminal narrowing. Malignancy not complete excluded. Direct endoscopy recommended. Surgery has been consulted for evaluation and possible scopes. 12/02: Met with patient bedside. Endorses continued LLQ pain and shortness of breath. Patient is RA at baseline now requiring 2L NC with spo2 @ 92%. Lung sounds coarse on auscultation. BLE with noted 2+ pitting edema. Discussed CT findings showing CHF with anasarca as well as bowel thickening. Surgery [place] [id number]. Plan for aggressive diuresis, abd US. Cardiology has been consulted as well, will obtain records. <RADAMES LUGO - Last Filed: 12/02/23 12:08> Date and Time: 12/02/232302 <WAYNE ROCHA - Last Filed: 12/02/23 23:05> - Review of Systems Constitutional: Weakness Eyes: No Symptoms Ears, Nose, & Throat: No Symptoms Respiratory: Cough, Short Of Breath Cardiac: Edema (BLE +2 pitting) Abdominal/Gastrointestinal: Abdominal Pain (LLQ) Genitourinary Symptoms: No Symptoms Musculoskeletal: No Symptoms Skin: No Symptoms Neurological: No Symptoms Psychological: No Symptoms Endocrine: No Symptoms Hematologic/Lymphatic: Anemia <RADAMES LUGO - Last Filed: 12/02/23 12:08> Objective Exam General Appearance: no apparent distress Neurologic Exam: alert, oriented x 3, cooperative Skin Exam: normal color, other (BLE 2+ pitting edema) Eye Exam: PERRL Ears, Nose, Throat Exam: normal ENT inspection Neck Exam: normal inspection Respiratory Exam: crackles/rales (coarse bilaterally) Cardiovascular Exam: regular rate/rhythm, normal heart sounds, edema (BLE +2 pitting) Gastrointestinal/Abdomen Exam: soft, normal bowel sounds, tenderness (TTP LLQ) Extremity Exam: swelling Back Exam: normal inspection Male Genitalia Exam: deferred Rectal Exam: deferred <RADAMES LUGO - Last Filed: 12/02/23 12:08> OBJECTIVE DATA Vital Signs: Vital Signs - 24 hr Temp Pulse Resp BP BP Pulse Ox 12/02/23 04:00 97.7 F 97 H 21 172/76 95 12/02/23 00:00 98.2 F 97 H 24 174/80 94 L 12/01/23 20:00 97.3 F 95 H 19 160/81 94 L 12/01/23 19:07 79 18 96 12/01/23 18:32 92 L 12/01/23 18:17 97.2 F 97 H 20 158/82 91 L 12/01/23 17:39 95 12/01/23 17:30 26 H 162/89 91 L 12/01/23 17:22 77 18 171/90 91 L 12/01/23 17:21 81 18 94 L 12/01/23 17:20 86 28 H 93 L 12/01/23 17:10 75 18 94 L 12/01/23 17:00 86 23 92 L 12/01/23 16:50 78 24 92 L 12/01/23 16:42 77 16 95 12/01/23 15:46 89 18 93 L 12/01/23 15:20 89 L 12/01/23 15:17 97.6 F 81 180/92 89 L Pain Assessment - Last Documented Pain Intensity 0 Intake and Output: Intake & Output 11/29/23 11/30/23 12/01/23 12/02/23 11:59 11:59 11:59 11:59 Output Total 1450 Balance -1450 Weight 76.7 kg Lab Results: Lab Results-Last 24 Hours 12/01/23 12/01/23 12/01/23 Range/Units 15:38 15:45 15:45 WBC 4.9 (4.0-10.5) x10^3/uL RBC 2.79 L (4.1-5.6) x10^6/uL Hgb 8.6 L (12.5-18.0) g/dL Hct 28.1 L (42-50) % MCV 100.7 H (78-100) fL MCH 30.8 (26-32) pg MCHC 30.6 L (32-36) g/dL RDW 14.4 H (11.5-14.0) % Plt Count 247 (150-450) x10^3/uL MPV 9.8 (7.5-11.0) fL Gran % 71.1 H (36.0-66.0) % Immature Gran % (Auto) 0.6 H (0.00-0.4) % Nucleat RBC Rel Count 0.0 (0.00-0.1) % Eos # (Auto) 0.08 (0-0.5) x10^3/uL Immature Gran # (Auto) 0.03 (0.00-0.03) x10^3u/L Absolute Lymphs (auto) 0.97 L (1.0-4.6) x10^3/uL Absolute Monos (auto) 0.31 (0.0-1.3) x10^3/uL Absolute Nucleated RBC 0.00 (0.00-0.01) x10^3u/L Lymphocytes % 19.9 L (24.0-44.0) % Monocytes % 6.4 (0.0-12.0) % Eosinophils % 1.6 (0.00-5.0) % Basophils % 0.4 (0.0-0.4) % Absolute Granulocytes 3.46 (1.4-6.9) x10^3/uL Basophils # 0.02 (0-0.4) x10^3/uL Sodium 137 (137-145) mmol/L Potassium 4.0 (3.5-5.1) mmol/L Chloride 109 H (98-107) mmol/L Carbon Dioxide 21 L (22-30) mmol/L Anion Gap 10.4 (5-15) MEQ/L BUN 18 (9-20) mg/dL Creatinine 1.02 (0.66-1.25) mg/dL Estimated GFR 78.1 ML/MIN Glucose 108 H (74-106) mg/dL POC Glucometer (74 to 106) mg/dL Lactic Acid 1.2 (0.4-2.0) Calcium 9.3 (8.4-10.2) mg/dL Magnesium 1.8 (1.6-2.3) mg/dL Total Bilirubin 0.70 (0.2-1.3) mg/dL AST 20 (17-59) U/L ALT 10 (0-50) U/L Alkaline Phosphatase 74 (38-126) U/L Troponin I (0.000-0.034) ng/mL NT-Pro-B Natriuret Pep 20042 (<300) pg/mL Serum Total Protein 6.2 L (6.3-8.2) g/dL Albumin 3.3 L (3.5-5.0) g/dL Influenza Type A Ag (NEGATIVE) Influenza Type B Ag (NEGATIVE) RSV (PCR) (NEGATIVE) SARS-CoV-2 (PCR) (NEGATIVE) 12/01/23 12/01/23 12/01/23 Range/Units 15:45 15:53 20:05 WBC (4.0-10.5) x10^3/uL RBC (4.1-5.6) x10^6/uL Hgb (12.5-18.0) g/dL Hct (42-50) % MCV (78-100) fL MCH (26-32) pg MCHC (32-36) g/dL RDW (11.5-14.0) % Plt Count (150-450) x10^3/uL MPV (7.5-11.0) fL Gran % (36.0-66.0) % Immature Gran % (Auto) (0.00-0.4) % Nucleat RBC Rel Count (0.00-0.1) % Eos # (Auto) (0-0.5) x10^3/uL Immature Gran # (Auto) (0.00-0.03) x10^3u/L Absolute Lymphs (auto) (1.0-4.6) x10^3/uL Absolute Monos (auto) (0.0-1.3) x10^3/uL Absolute Nucleated RBC (0.00-0.01) x10^3u/L Lymphocytes % (24.0-44.0) % Monocytes % (0.0-12.0) % Eosinophils % (0.00-5.0) % Basophils % (0.0-0.4) % Absolute Granulocytes (1.4-6.9) x10^3/uL Basophils # (0-0.4) x10^3/uL Sodium (137-145) mmol/L Potassium (3.5-5.1) mmol/L Chloride (98-107) mmol/L Carbon Dioxide (22-30) mmol/L Anion Gap (5-15) MEQ/L BUN (9-20) mg/dL Creatinine (0.66-1.25) mg/dL Estimated GFR ML/MIN Glucose (74-106) mg/dL POC Glucometer (74 to 106) mg/dL Lactic Acid (0.4-2.0) Calcium (8.4-10.2) mg/dL Magnesium (1.6-2.3) mg/dL Total Bilirubin (0.2-1.3) mg/dL AST (17-59) U/L ALT (0-50) U/L Alkaline Phosphatase (38-126) U/L Troponin I < 0.012 < 0.012 (0.000-0.034) ng/mL NT-Pro-B Natriuret Pep (<300) pg/mL Serum Total Protein (6.3-8.2) g/dL Albumin (3.5-5.0) g/dL Influenza Type A Ag NEGATIVE (NEGATIVE) Influenza Type B Ag NEGATIVE (NEGATIVE) RSV (PCR) NEGATIVE (NEGATIVE) SARS-CoV-2 (PCR) NEGATIVE (NEGATIVE) 12/01/23 12/01/23 12/02/23 Range/Units 21:44 23:45 04:30 WBC 4.6 (4.0-10.5) x10^3/uL RBC 2.62 L (4.1-5.6) x10^6/uL Hgb 8.0 L (12.5-18.0) g/dL Hct 26.2 L (42-50) % MCV 100.0 (78-100) fL MCH 30.5 (26-32) pg MCHC 30.5 L (32-36) g/dL RDW 14.3 H (11.5-14.0) % Plt Count 214 (150-450) x10^3/uL MPV 9.5 (7.5-11.0) fL Gran % 70.9 H (36.0-66.0) % Immature Gran % (Auto) 0.4 (0.00-0.4) % Nucleat RBC Rel Count 0.0 (0.00-0.1) % Eos # (Auto) 0.06 (0-0.5) x10^3/uL Immature Gran # (Auto) 0.02 (0.00-0.03) x10^3u/L Absolute Lymphs (auto) 0.89 L (1.0-4.6) x10^3/uL Absolute Monos (auto) 0.35 (0.0-1.3) x10^3/uL Absolute Nucleated RBC 0.00 (0.00-0.01) x10^3u/L Lymphocytes % 19.4 L (24.0-44.0) % Monocytes % 7.6 (0.0-12.0) % Eosinophils % 1.3 (0.00-5.0) % Basophils % 0.4 (0.0-0.4) % Absolute Granulocytes 3.24 (1.4-6.9) x10^3/uL Basophils # 0.02 (0-0.4) x10^3/uL Sodium (137-145) mmol/L Potassium (3.5-5.1) mmol/L Chloride (98-107) mmol/L Carbon Dioxide (22-30) mmol/L Anion Gap (5-15) MEQ/L BUN (9-20) mg/dL Creatinine (0.66-1.25) mg/dL Estimated GFR ML/MIN Glucose (74-106) mg/dL POC Glucometer 134 H (74 to 106) mg/dL Lactic Acid (0.4-2.0) Calcium (8.4-10.2) mg/dL Magnesium (1.6-2.3) mg/dL Total Bilirubin (0.2-1.3) mg/dL AST (17-59) U/L ALT (0-50) U/L Alkaline Phosphatase (38-126) U/L Troponin I < 0.012 (0.000-0.034) ng/mL NT-Pro-B Natriuret Pep (<300) pg/mL Serum Total Protein (6.3-8.2) g/dL Albumin (3.5-5.0) g/dL Influenza Type A Ag (NEGATIVE) Influenza Type B Ag (NEGATIVE) RSV (PCR) (NEGATIVE) SARS-CoV-2 (PCR) (NEGATIVE) Radiology Exams: Radiology Procedures Category Date Time Status ABDOMEN AND PELVIS W/0 CONTRAS [CT] Stat Exams 12/01/23 16:05 Completed CHEST 1 VIEW (PORTABLE) Stat Exams 12/01/23 15:19 Completed ECHO W/2D AND DOPPLER [US] Routine Exams 12/01/23 23:34 Ordered <RADAMES LUGO - Last Filed: 12/02/23 12:08> Vital Signs: Vital Signs - 24 hr Temp Pulse Resp BP Pulse Ox 12/02/23 19:48 97.7 F 77 19 187/79 90 L 12/02/23 19:05 93 L 12/02/23 16:00 98.1 F 80 16 144/70 94 L 12/02/23 11:47 97.8 F 82 16 165/78 96 12/02/23 07:32 92 L 12/02/23 06:53 98.4 F 84 16 147/69 93 L 12/02/23 04:00 97.7 F 97 H 21 172/76 95 12/02/23 00:00 98.2 F 97 H 24 174/80 94 L Pain Assessment - Last Documented Pain Intensity 0 Pain Scale Used 0-10 Pain Scale Intake and Output: Intake & Output 11/30/23 12/01/23 12/02/23 12/03/23 11:59 11:59 11:59 11:59 Intake Total 600 1110 Output Total 4400 1050 Balance -3800 60 Weight 72.5 kg Lab Results: Lab Results-Last 24 Hours 12/01/23 12/02/23 12/02/23 Range/Units 23:45 04:30 04:30 WBC 4.6 (4.0-10.5) x10^3/uL RBC 2.62 L (4.1-5.6) x10^6/uL Hgb 8.0 L (12.5-18.0) g/dL Hct 26.2 L (42-50) % MCV 100.0 (78-100) fL MCH 30.5 (26-32) pg MCHC 30.5 L (32-36) g/dL RDW 14.3 H (11.5-14.0) % Plt Count 214 (150-450) x10^3/uL MPV 9.5 (7.5-11.0) fL Gran % 70.9 H (36.0-66.0) % Immature Gran % (Auto) 0.4 (0.00-0.4) % Nucleat RBC Rel Count 0.0 (0.00-0.1) % Eos # (Auto) 0.06 (0-0.5) x10^3/uL Immature Gran # (Auto) 0.02 (0.00-0.03) x10^3u/L Absolute Lymphs (auto) 0.89 L (1.0-4.6) x10^3/uL Absolute Monos (auto) 0.35 (0.0-1.3) x10^3/uL Absolute Nucleated RBC 0.00 (0.00-0.01) x10^3u/L Lymphocytes % 19.4 L (24.0-44.0) % Monocytes % 7.6 (0.0-12.0) % Eosinophils % 1.3 (0.00-5.0) % Basophils % 0.4 (0.0-0.4) % Absolute Granulocytes 3.24 (1.4-6.9) x10^3/uL Basophils # 0.02 (0-0.4) x10^3/uL Sodium 135 L (137-145) mmol/L Potassium 3.7 (3.5-5.1) mmol/L Chloride 107 (98-107) mmol/L Carbon Dioxide 23 (22-30) mmol/L Anion Gap 8.9 (5-15) MEQ/L BUN 18 (9-20) mg/dL Creatinine 1.10 (0.66-1.25) mg/dL Estimated GFR 71.3 ML/MIN Glucose 107 H (74-106) mg/dL POC Glucometer (74 to 106) mg/dL Hemoglobin A1c (4.5-6.0) % Calcium 9.0 (8.4-10.2) mg/dL Magnesium (1.6-2.3) mg/dL Total Bilirubin 0.60 (0.2-1.3) mg/dL AST 15 L (17-59) U/L ALT 9 (0-50) U/L Alkaline Phosphatase 68 (38-126) U/L Troponin I < 0.012 (0.000-0.034) ng/mL Serum Total Protein 5.3 L (6.3-8.2) g/dL Albumin 2.9 L (3.5-5.0) g/dL 12/02/23 12/02/23 12/02/23 Range/Units 04:30 04:50 07:27 WBC (4.0-10.5) x10^3/uL RBC (4.1-5.6) x10^6/uL Hgb (12.5-18.0) g/dL Hct (42-50) % MCV (78-100) fL MCH (26-32) pg MCHC (32-36) g/dL RDW (11.5-14.0) % Plt Count (150-450) x10^3/uL MPV (7.5-11.0) fL Gran % (36.0-66.0) % Immature Gran % (Auto) (0.00-0.4) % Nucleat RBC Rel Count (0.00-0.1) % Eos # (Auto) (0-0.5) x10^3/uL Immature Gran # (Auto) (0.00-0.03) x10^3u/L Absolute Lymphs (auto) (1.0-4.6) x10^3/uL Absolute Monos (auto) (0.0-1.3) x10^3/uL Absolute Nucleated RBC (0.00-0.01) x10^3u/L Lymphocytes % (24.0-44.0) % Monocytes % (0.0-12.0) % Eosinophils % (0.00-5.0) % Basophils % (0.0-0.4) % Absolute Granulocytes (1.4-6.9) x10^3/uL Basophils # (0-0.4) x10^3/uL Sodium (137-145) mmol/L Potassium (3.5-5.1) mmol/L Chloride (98-107) mmol/L Carbon Dioxide (22-30) mmol/L Anion Gap (5-15) MEQ/L BUN (9-20) mg/dL Creatinine (0.66-1.25) mg/dL Estimated GFR ML/MIN Glucose (74-106) mg/dL POC Glucometer 103 (74 to 106) mg/dL Hemoglobin A1c 6.19 H (4.5-6.0) % Calcium (8.4-10.2) mg/dL Magnesium 1.8 (1.6-2.3) mg/dL Total Bilirubin (0.2-1.3) mg/dL AST (17-59) U/L ALT (0-50) U/L Alkaline Phosphatase (38-126) U/L Troponin I (0.000-0.034) ng/mL Serum Total Protein (6.3-8.2) g/dL Albumin (3.5-5.0) g/dL 12/02/23 12/02/23 12/02/23 Range/Units 11:22 16:10 21:05 WBC (4.0-10.5) x10^3/uL RBC (4.1-5.6) x10^6/uL Hgb (12.5-18.0) g/dL Hct (42-50) % MCV (78-100) fL MCH (26-32) pg MCHC (32-36) g/dL RDW (11.5-14.0) % Plt Count (150-450) x10^3/uL MPV (7.5-11.0) fL Gran % (36.0-66.0) % Immature Gran % (Auto) (0.00-0.4) % Nucleat RBC Rel Count (0.00-0.1) % Eos # (Auto) (0-0.5) x10^3/uL Immature Gran # (Auto) (0.00-0.03) x10^3u/L Absolute Lymphs (auto) (1.0-4.6) x10^3/uL Absolute Monos (auto) (0.0-1.3) x10^3/uL Absolute Nucleated RBC (0.00-0.01) x10^3u/L Lymphocytes % (24.0-44.0) % Monocytes % (0.0-12.0) % Eosinophils % (0.00-5.0) % Basophils % (0.0-0.4) % Absolute Granulocytes (1.4-6.9) x10^3/uL Basophils # (0-0.4) x10^3/uL Sodium (137-145) mmol/L Potassium (3.5-5.1) mmol/L Chloride (98-107) mmol/L Carbon Dioxide (22-30) mmol/L Anion Gap (5-15) MEQ/L BUN (9-20) mg/dL Creatinine (0.66-1.25) mg/dL Estimated GFR ML/MIN Glucose (74-106) mg/dL POC Glucometer 108 H 141 H 134 H (74 to 106) mg/dL Hemoglobin A1c (4.5-6.0) % Calcium (8.4-10.2) mg/dL Magnesium (1.6-2.3) mg/dL Total Bilirubin (0.2-1.3) mg/dL AST (17-59) U/L ALT (0-50) U/L Alkaline Phosphatase (38-126) U/L Troponin I (0.000-0.034) ng/mL Serum Total Protein (6.3-8.2) g/dL Albumin (3.5-5.0) g/dL Radiology Exams: Radiology Procedures Category Date Time Status ABDOMEN AND PELVIS W/0 CONTRAS [CT] Stat Exams 12/01/23 16:05 Completed CHEST 1 VIEW (PORTABLE) Stat Exams 12/01/23 15:19 Completed ECHO W/2D AND DOPPLER [US] Routine Exams 12/02/23 10:18 Taken Multi-Disciplinary Progress Notes: Multi-Disciplinary Progress Notes 12/02/23 15:03 Case Management Note by Rosemarie Webster IF PATIENT REQUIRES OXYGEN AT DC- HE WOULD LIKE TO USE SEGUNDO- ORDER FORM PLACED ON CHART FOR WEEKEND USE Initialized on 12/02/23 15:03 - END OF NOTE <WAYNE ROCHA - Last Filed: 12/02/23 23:05> Assessment/Plan (1) CHF exacerbation Current Visit: Yes Status: Acute Assessment & Plan: -. Diuresis; strict I/O; 1500cc fluid restriction -BNP [id number] -Consult cardiology -optimize electrolytes K>4 Mg>2 -Echo pending -supplemental oxygen for goal spo2 >92%, RA at baseline Continue cardiac medications Code(s): I50.9 - HEART FAILURE, UNSPECIFIED (2) Anasarca Current Visit: Yes Status: Acute Assessment & Plan: -Most likely secondary to CHF exac -CT showing Impression: 1. New cardiomegaly, bilateral pleural effusions, and diffuse anasarca favoring cardiac decompensation/CHF. Tiny perihepatic fluid may be related. 2. New sigmoid colon bowel wall thickening with intraluminal narrowing. Malignancy not complete excluded. Direct endoscopy recommended. 3. Again chronic findings including colonic diverticulosis, left renal cysts, enlarged prostate gland, extensive arteriosclerotic disease, chronic bony findings, and old granulomatous disease -Continue aggressive diuresis -fluid restriction Code(s): R60.1 - GENERALIZED EDEMA (3) Acute hypoxic respiratory failure Current Visit: Yes Status: Acute Assessment & Plan: -supplemental oxygen with goal >92% -RT consult -nebs/inh Code(s): J96.01 - ACUTE RESPIRATORY FAILURE WITH HYPOXIA (4) CAD (coronary artery disease) Current Visit: Yes Status: Acute Assessment & Plan: -noted, continue home meds Code(s): I25.10 - ATHSCL HEART DISEASE OF [place]' CORONARY ARTERY W/O ANG PCTRS (5) Diabetes mellitus Current Visit: Yes Status: Acute Assessment & Plan: -SSI -Hold metformin due to ct -ADA diet -A1c Code(s): E11.9 - TYPE 2 DIABETES MELLITUS WITHOUT COMPLICATIONS (6) HTN (hypertension) Current Visit: Yes Status: Acute Assessment & Plan: -continue appropriate home meds Code(s): I10 - ESSENTIAL (PRIMARY) HYPERTENSION (7) HLD (hyperlipidemia) Current Visit: Yes Status: Acute Assessment & Plan: -continue home meds Code(s): E78.5 - HYPERLIPIDEMIA, UNSPECIFIED (8) Anemia Current Visit: Yes Status: Acute Assessment & Plan: -Monitor hgb daily, transfuse if hgb <7 Code(s): D64.9 - ANEMIA, UNSPECIFIED (9) Colonic mass Current Visit: Yes Status: Acute Assessment & Plan: CT findings with New sigmoid colon bowel wall thickening with intraluminal narrowing. Malignancy not complete excluded. Direct endoscopy recommended. -Surgery consult Code(s): K63.89 - OTHER SPECIFIED DISEASES OF INTESTINE <RADAMES LUGO - Last Filed: 12/02/23 12:08> URIEL Encounter - URIEL Encounter Attestation URIEL Encounter Attestation: "IhavepersonallyseenandSHEYLA Sesay andhavediscussed pertinent aspects of their care with Radames Pineda agree with the history, physical exam (any modifications based on my personal exam will be noted below), assessment, and plan as outlined in original note. Please see immediately below for my summary of findings and additional assessment and plan along with any meaningful corrections/explanations to the Subjective/Objective portions of the URIEL note will be noted." My portion of the encounter took place via telemedicine. -Lower extremity swelling is improving with less dyspnea. H/o EF 25-30% few years ago but denies any hospitalization for exacerbations. Obtain last outpatient cardiology note and consult cardiology. Continue diuresis. <WAYNE ROCHA - Last Filed: 12/02/23 23:05>
[2023-12-02] MEDS ORDERED: HUMALOG SQ PRN (05:27)
[2023-12-02 05:33] LABS: ALBUMIN 2.9 g/dL (3.5-5.0); ANION GAP 8.9 MEQ/L (5-15); BILIRUBIN,TOTAL 0.6 mg/dL (0.2-1.3); Creatinine 1 1.1 mg/dL (0.66-1.25); EST GLOMERULAR FILTRATION RATE 71.3 ML/MIN; Potassium 3.7 mmol/L (3.5-5.1); Total Protein 5.3 g/dL (6.3-8.2)
[2023-12-02] MEDS ORDERED: MEDICATION INTERVENTION MC SCH (07:30)
[2023-12-02] MEDS ORDERED: NON-FORMULARY ITEM (Lipase/Protease/Amylase [Creon Dr 36,000 Unit Capsule] 1 EACH Capsule. PO SCH (08:00)
[2023-12-02] MEDS ORDERED: NON-FORMULARY ITEM (Metformin Hcl 500 MG Tab.Er.24h) PO SCH (10:00)
[2023-12-02] MEDS ORDERED: NORVASC 5 MG PO SCH (10:00)
[2023-12-02] MEDS ORDERED: Lasix 20 MG/2 ML IV SCH (10:00)
[2023-12-02] MEDS: Klor Con PO SCH ×2 (10:16→21:19)
[2023-12-02] MEDS: HYTRIN 1 MG PO SCH ×2 (10:16→21:18)
[2023-12-02] MEDS: Tricor 145 MG PO SCH (10:17)
[2023-12-02] MEDS: Toprol Xl 100 MG PO SCH (10:17)
[2023-12-02] MEDS: Zestril 20 MG PO SCH ×2 (10:17→20:14)
[2023-12-02] MEDS: Lexapro PO SCH (10:17)
[2023-12-02] MEDS: MAG-OX 400 PO SCH ×2 (10:17→21:17)
[2023-12-02] MEDS: ZOCOR 20MG PO SCH (10:17)
[2023-12-02] MEDS: Zetia 10 MG PO SCH (10:18)
[2023-12-02] MEDS: Lasix 40 MG/4 ML IV SCH ×2 (10:21→21:19)
[2023-12-02] MEDS: PATIENT OWN MEDICATION PO SCH ×2 (11:45→16:32)
[2023-12-02] MEDS: Zofran 4 MG/2 ML VIAL IV PRN (13:33)
[2023-12-02] MEDS ORDERED: Golytely Solution 4000 ML PO ONE (16:45)
[2023-12-02] MEDS: PERCOCET TABLET 5/325MG PO PRN (17:14)
[2023-12-02] MEDS: XARELTO 10 MG TABLET PO SCH (21:17)
--- NOTE | 2023-12-03 05:09 | PCM.NOTE ---
Date and Time: 12/03/23 0507 Subjective Assessment: Mr. Garsia is a 73 year-old gentleman with CAD s/p CABG, HTN, HLD, DM2, COPD, chornic anemia and CHF (unknown diastolic/diastolic, EF) who presents wtih acute hypoxemic respiratory failure. He admits to four days of progressive shortness of breath (both at rest and with exertion) along with weight gain and lower extremity swelling. He also admits to several days of LLQ pain. Upon arrival, his laboratory data was remarkable for anemia while imaging revealed diffuse anasarca, volume overload, and sigmoid colon thickening. Patient admitted for acute CHF exacerbation with anasarca. CT imaging New cardiomegaly, bilateral pleural effusions, and diffuse anasarca favoring cardiac decompensation/CHF. Tiny perihepatic fluid may be related.New sigmoid colon bowel wall thickening with intraluminal narrowing. Malignancy not complete excluded. Direct endoscopy recommended. Surgery has been consulted for evaluation and possible scopes. 12/02: Met with patient bedside. Endorses continued LLQ pain and shortness of breath. Patient is RA at baseline now requiring 2L NC with spo2 @ 92%. Lung sounds coarse on auscultation. BLE with noted 2+ pitting edema. Discussed CT findings showing CHF with anasarca as well as bowel thickening. Surgery [place] [address]. Plan for aggressive diuresis. Cardiology has been consulted as well, will obtain records. 12/03: Patient endorsing improvement in shortness of breath and BLE. Still with LLQ pain which he rates 6/10 on numerical pain scale. Lung sounds diminished, no longer coarse on auscultation. He is requiring 2L of oxygen. Surgery consulted, plan for possible scopes today. Patient has been prepped. <RADAMES LUGO - Last Filed: 12/03/23 08:54> Date and Time: 12/03/232209 <WAYNE ROCHA - Last Filed: 12/03/23 22:12> - Review of Systems Constitutional: No Symptoms Eyes: No Symptoms Ears, Nose, & Throat: No Symptoms Respiratory: Short Of Breath Cardiac: No Symptoms Abdominal/Gastrointestinal: Abdominal Pain Genitourinary Symptoms: No Symptoms Musculoskeletal: No Symptoms Neurological: No Symptoms Psychological: No Symptoms Endocrine: No Symptoms Hematologic/Lymphatic: No Symptoms Immunological/Allergic: No Symptoms <RADAMES LUGO - Last Filed: 12/03/23 08:54> Objective Exam General Appearance: no apparent distress Neurologic Exam: alert, oriented x 3, cooperative Skin Exam: normal color Eye Exam: PERRL Ears, Nose, Throat Exam: normal ENT inspection, moist mucous membranes Neck Exam: normal inspection Respiratory Exam: diminished breath sounds Cardiovascular Exam: regular rate/rhythm, normal heart sounds Gastrointestinal/Abdomen Exam: soft, normal bowel sounds Extremity Exam: normal inspection Back Exam: normal inspection <RADAMES LUGO - Last Filed: 12/03/23 08:54> OBJECTIVE DATA Vital Signs: Vital Signs - 24 hr Temp Pulse Resp BP Pulse Ox 12/03/23 03:36 97.3 F 72 18 148/71 93 L 12/02/23 23:34 98.5 F 82 19 168/74 92 L 12/02/23 19:48 97.7 F 77 19 187/79 90 L 12/02/23 19:05 93 L 12/02/23 16:00 98.1 F 80 16 144/70 94 L 12/02/23 11:47 97.8 F 82 16 165/78 96 12/02/23 07:32 92 L 12/02/23 06:53 98.4 F 84 16 147/69 93 L Pain Assessment - Last Documented Pain Intensity 3 Pain Scale Used 0-10 Pain Scale Intake and Output: Intake & Output 11/30/23 12/01/23 12/02/23 12/03/23 11:59 11:59 11:59 11:59 Intake Total 600 1110 Output Total 4400 1350 Balance -3800 -240 Weight 72.5 kg Lab Results: Lab Results-Last 24 Hours 12/02/23 12/02/23 12/02/23 Range/Units 04:30 04:30 04:50 Sodium 135 L (137-145) mmol/L Potassium 3.7 (3.5-5.1) mmol/L Chloride 107 (98-107) mmol/L Carbon Dioxide 23 (22-30) mmol/L Anion Gap 8.9 (5-15) MEQ/L BUN 18 (9-20) mg/dL Creatinine 1.10 (0.66-1.25) mg/dL Estimated GFR 71.3 ML/MIN Glucose 107 H (74-106) mg/dL POC Glucometer (74 to 106) mg/dL Hemoglobin A1c 6.19 H (4.5-6.0) % Calcium 9.0 (8.4-10.2) mg/dL Magnesium 1.8 (1.6-2.3) mg/dL Total Bilirubin 0.60 (0.2-1.3) mg/dL AST 15 L (17-59) U/L ALT 9 (0-50) U/L Alkaline Phosphatase 68 (38-126) U/L Serum Total Protein 5.3 L (6.3-8.2) g/dL Albumin 2.9 L (3.5-5.0) g/dL 12/02/23 12/02/23 12/02/23 Range/Units 07:27 11:22 16:10 Sodium (137-145) mmol/L Potassium (3.5-5.1) mmol/L Chloride (98-107) mmol/L Carbon Dioxide (22-30) mmol/L Anion Gap (5-15) MEQ/L BUN (9-20) mg/dL Creatinine (0.66-1.25) mg/dL Estimated GFR ML/MIN Glucose (74-106) mg/dL POC Glucometer 103 108 H 141 H (74 to 106) mg/dL Hemoglobin A1c (4.5-6.0) % Calcium (8.4-10.2) mg/dL Magnesium (1.6-2.3) mg/dL Total Bilirubin (0.2-1.3) mg/dL AST (17-59) U/L ALT (0-50) U/L Alkaline Phosphatase (38-126) U/L Serum Total Protein (6.3-8.2) g/dL Albumin (3.5-5.0) g/dL 12/02/23 Range/Units 21:05 Sodium (137-145) mmol/L Potassium (3.5-5.1) mmol/L Chloride (98-107) mmol/L Carbon Dioxide (22-30) mmol/L Anion Gap (5-15) MEQ/L BUN (9-20) mg/dL Creatinine (0.66-1.25) mg/dL Estimated GFR ML/MIN Glucose (74-106) mg/dL POC Glucometer 134 H (74 to 106) mg/dL Hemoglobin A1c (4.5-6.0) % Calcium (8.4-10.2) mg/dL Magnesium (1.6-2.3) mg/dL Total Bilirubin (0.2-1.3) mg/dL AST (17-59) U/L ALT (0-50) U/L Alkaline Phosphatase (38-126) U/L Serum Total Protein (6.3-8.2) g/dL Albumin (3.5-5.0) g/dL Radiology Exams: Radiology Procedures Category Date Time Status ABDOMEN AND PELVIS W/0 CONTRAS [CT] Stat Exams 12/01/23 16:05 Completed CHEST 1 VIEW (PORTABLE) Stat Exams 12/01/23 15:19 Completed ECHO W/2D AND DOPPLER [US] Routine Exams 12/02/23 10:18 Taken Multi-Disciplinary Progress Notes: Multi-Disciplinary Progress Notes 12/02/23 15:03 Case Management Note by Rosemarie Webster IF PATIENT REQUIRES OXYGEN AT DC- HE WOULD LIKE TO USE [facility]- ORDER FORM PLACED ON CHART FOR WEEKEND USE Initialized on 12/02/23 15:03 - END OF NOTE <RADAMES LUGO - Last Filed: 12/03/23 08:54> Vital Signs: Vital Signs - 24 hr Temp Pulse Resp BP Pulse Ox 12/03/23 20:00 97.7 F 73 18 140/65 92 L 12/03/23 19:23 95 12/03/23 18:45 95 12/03/23 16:00 97.5 F 82 18 183/85 94 L 12/03/23 12:00 97.3 F 89 14 156/78 91 L 12/03/23 10:56 94 L 12/03/23 08:10 90 L 12/03/23 08:00 97.9 F 74 13 165/74 90 L 12/03/23 07:47 97.3 F 72 18 148/71 93 L 12/03/23 03:36 97.3 F 72 18 148/71 93 L 12/02/23 23:34 98.5 F 82 19 168/74 92 L Pain Assessment - Last Documented Pain Intensity 4 Pain Scale Used 0-10 Pain Scale Intake and Output: Intake & Output 12/01/23 12/02/23 12/03/23 12/04/23 11:59 11:59 11:59 11:59 Intake Total 600 1110 480 Output Total 4400 1700 550 Balance -3800 -590 -70 Weight 72.5 kg 72.5 kg Lab Results: Lab Results-Last 24 Hours 12/03/23 12/03/23 12/03/23 Range/Units 05:23 05:23 05:23 WBC 5.5 (4.0-10.5) x10^3/uL RBC 2.82 L (4.1-5.6) x10^6/uL Hgb 8.6 L (12.5-18.0) g/dL Hct 28.2 L (42-50) % MCV 100.0 (78-100) fL MCH 30.5 (26-32) pg MCHC 30.5 L (32-36) g/dL RDW 14.4 H (11.5-14.0) % Plt Count 244 (150-450) x10^3/uL MPV 9.8 (7.5-11.0) fL Gran % 67.6 H (36.0-66.0) % Immature Gran % (Auto) 0.4 (0.00-0.4) % Nucleat RBC Rel Count 0.0 (0.00-0.1) % Eos # (Auto) 0.09 (0-0.5) x10^3/uL Immature Gran # (Auto) 0.02 (0.00-0.03) x10^3u/L Absolute Lymphs (auto) 1.29 (1.0-4.6) x10^3/uL Absolute Monos (auto) 0.37 (0.0-1.3) x10^3/uL Absolute Nucleated RBC 0.00 (0.00-0.01) x10^3u/L Lymphocytes % 23.3 L (24.0-44.0) % Monocytes % 6.7 (0.0-12.0) % Eosinophils % 1.6 (0.00-5.0) % Basophils % 0.4 (0.0-0.4) % Absolute Granulocytes 3.74 (1.4-6.9) x10^3/uL Basophils # 0.02 (0-0.4) x10^3/uL Sodium 137 (137-145) mmol/L Potassium 3.4 L (3.5-5.1) mmol/L Chloride 106 (98-107) mmol/L Carbon Dioxide 25 (22-30) mmol/L Anion Gap 8.9 (5-15) MEQ/L BUN 17 (9-20) mg/dL Creatinine 1.10 (0.66-1.25) mg/dL Estimated GFR 71.3 ML/MIN Glucose 101 (74-106) mg/dL POC Glucometer (74 to 106) mg/dL Calcium 9.0 (8.4-10.2) mg/dL Magnesium 1.9 (1.6-2.3) mg/dL Total Bilirubin 0.70 (0.2-1.3) mg/dL AST 18 (17-59) U/L ALT 10 (0-50) U/L Alkaline Phosphatase 71 (38-126) U/L Serum Total Protein 5.8 L (6.3-8.2) g/dL Albumin 3.2 L (3.5-5.0) g/dL 12/03/23 12/03/23 12/03/23 Range/Units 07:49 11:38 16:33 WBC (4.0-10.5) x10^3/uL RBC (4.1-5.6) x10^6/uL Hgb (12.5-18.0) g/dL Hct (42-50) % MCV (78-100) fL MCH (26-32) pg MCHC (32-36) g/dL RDW (11.5-14.0) % Plt Count (150-450) x10^3/uL MPV (7.5-11.0) fL Gran % (36.0-66.0) % Immature Gran % (Auto) (0.00-0.4) % Nucleat RBC Rel Count (0.00-0.1) % Eos # (Auto) (0-0.5) x10^3/uL Immature Gran # (Auto) (0.00-0.03) x10^3u/L Absolute Lymphs (auto) (1.0-4.6) x10^3/uL Absolute Monos (auto) (0.0-1.3) x10^3/uL Absolute Nucleated RBC (0.00-0.01) x10^3u/L Lymphocytes % (24.0-44.0) % Monocytes % (0.0-12.0) % Eosinophils % (0.00-5.0) % Basophils % (0.0-0.4) % Absolute Granulocytes (1.4-6.9) x10^3/uL Basophils # (0-0.4) x10^3/uL Sodium (137-145) mmol/L Potassium (3.5-5.1) mmol/L Chloride (98-107) mmol/L Carbon Dioxide (22-30) mmol/L Anion Gap (5-15) MEQ/L BUN (9-20) mg/dL Creatinine (0.66-1.25) mg/dL Estimated GFR ML/MIN Glucose (74-106) mg/dL POC Glucometer 96 112 H 144 H (74 to 106) mg/dL Calcium (8.4-10.2) mg/dL Magnesium (1.6-2.3) mg/dL Total Bilirubin (0.2-1.3) mg/dL AST (17-59) U/L ALT (0-50) U/L Alkaline Phosphatase (38-126) U/L Serum Total Protein (6.3-8.2) g/dL Albumin (3.5-5.0) g/dL 12/03/23 Range/Units 21:27 WBC (4.0-10.5) x10^3/uL RBC (4.1-5.6) x10^6/uL Hgb (12.5-18.0) g/dL Hct (42-50) % MCV (78-100) fL MCH (26-32) pg MCHC (32-36) g/dL RDW (11.5-14.0) % Plt Count (150-450) x10^3/uL MPV (7.5-11.0) fL Gran % (36.0-66.0) % Immature Gran % (Auto) (0.00-0.4) % Nucleat RBC Rel Count (0.00-0.1) % Eos # (Auto) (0-0.5) x10^3/uL Immature Gran # (Auto) (0.00-0.03) x10^3u/L Absolute Lymphs (auto) (1.0-4.6) x10^3/uL Absolute Monos (auto) (0.0-1.3) x10^3/uL Absolute Nucleated RBC (0.00-0.01) x10^3u/L Lymphocytes % (24.0-44.0) % Monocytes % (0.0-12.0) % Eosinophils % (0.00-5.0) % Basophils % (0.0-0.4) % Absolute Granulocytes (1.4-6.9) x10^3/uL Basophils # (0-0.4) x10^3/uL Sodium (137-145) mmol/L Potassium (3.5-5.1) mmol/L Chloride (98-107) mmol/L Carbon Dioxide (22-30) mmol/L Anion Gap (5-15) MEQ/L BUN (9-20) mg/dL Creatinine (0.66-1.25) mg/dL Estimated GFR ML/MIN Glucose (74-106) mg/dL POC Glucometer 97 (74 to 106) mg/dL Calcium (8.4-10.2) mg/dL Magnesium (1.6-2.3) mg/dL Total Bilirubin (0.2-1.3) mg/dL AST (17-59) U/L ALT (0-50) U/L Alkaline Phosphatase (38-126) U/L Serum Total Protein (6.3-8.2) g/dL Albumin (3.5-5.0) g/dL Radiology Exams: Radiology Procedures Category Date Time Status CHEST 2 VIEWS (PA AND LAT) Routine Exams 12/04/23 07:00 Ordered ECHO W/2D AND DOPPLER [US] Routine Exams 12/02/23 10:18 Taken <WAYNE ROCHA - Last Filed: 12/03/23 22:12> Assessment/Plan (1) CHF exacerbation Current Visit: Yes Status: Acute Assessment & Plan: -History of EF 20-25% -. Diuresis; strict I/O; 1500cc fluid restriction -BNP -Consult cardiology -optimize electrolytes K>4 Mg>2 -Echo pending -supplemental oxygen for goal spo2 >92%, RA at baseline Continue cardiac medications 12/03: -Cardiology consulted, will continue diuresis/fluid restriction -BLE edema improved Code(s): I50.9 - HEART FAILURE, UNSPECIFIED (2) Anasarca Current Visit: Yes Status: Acute Assessment & Plan: -Most likely secondary to CHF exac -CT showing Impression: 1. New cardiomegaly, bilateral pleural effusions, and diffuse anasarca favoring cardiac decompensation/CHF. Tiny perihepatic fluid may be related. 2. New sigmoid colon bowel wall thickening with intraluminal narrowing. Malignancy not complete excluded. Direct endoscopy recommended. 3. Again chronic findings including colonic diverticulosis, left renal cysts, enlarged prostate gland, extensive arteriosclerotic disease, chronic bony findings, and old granulomatous disease -Continue aggressive diuresis -fluid restriction Code(s): R60.1 - GENERALIZED EDEMA (3) Acute hypoxic respiratory failure Current Visit: Yes Status: Acute Assessment & Plan: -supplemental oxygen with goal >92% -RT consult -nebs/inh Code(s): J96.01 - ACUTE RESPIRATORY FAILURE WITH HYPOXIA (4) CAD (coronary artery disease) Current Visit: Yes Status: Acute Assessment & Plan: -noted, continue home meds Code(s): I25.10 - ATHSCL HEART DISEASE OF [place] CORONARY ARTERY W/O ANG PCTRS (5) Diabetes mellitus Current Visit: Yes Status: Acute Assessment & Plan: -SSI -Hold metformin due to ct -ADA diet -A1c 12/03: -A1c at 6.19, blood glucose levels controlled, patient NPO will monitor blood glucose levels Code(s): E11.9 - TYPE 2 DIABETES MELLITUS WITHOUT COMPLICATIONS (6) HTN (hypertension) Current Visit: Yes Status: Acute Assessment & Plan: -continue appropriate home meds Code(s): I10 - ESSENTIAL (PRIMARY) HYPERTENSION (7) HLD (hyperlipidemia) Current Visit: Yes Status: Acute Assessment & Plan: -continue home meds Code(s): E78.5 - HYPERLIPIDEMIA, UNSPECIFIED (8) Anemia Current Visit: Yes Status: Acute Assessment & Plan: -Monitor hgb daily, transfuse if hgb <7 12/03: -Stable Code(s): D64.9 - ANEMIA, UNSPECIFIED (9) Colonic mass Current Visit: Yes Status: Acute Assessment & Plan: CT findings with New sigmoid colon bowel wall thickening with intraluminal narrowing. Malignancy not complete excluded. Direct endoscopy recommended. -Surgery consult 12/03: -Plan for EGD/colonoscopy today Code(s): I50.9 - HEART FAILURE, UNSPECIFIED (2) Anasarca Current Visit: Yes Status: Acute Code(s): R60.1 - GENERALIZED EDEMA (3) Acute hypoxic respiratory failure Current Visit: Yes Status: Acute Code(s): J96.01 - ACUTE RESPIRATORY FAILURE WITH HYPOXIA (4) CAD (coronary artery disease) Current Visit: Yes Status: Acute Code(s): I25.10 - ATHSCL HEART DISEASE OF [place] CORONARY ARTERY W/O ANG PCTRS (5) Diabetes mellitus Current Visit: Yes Status: Acute Code(s): E11.9 - TYPE 2 DIABETES MELLITUS WITHOUT COMPLICATIONS (6) HTN (hypertension) Current Visit: Yes Status: Acute Code(s): I10 - ESSENTIAL (PRIMARY) HYPERTENSION (7) HLD (hyperlipidemia) Current Visit: Yes Status: Acute Code(s): E78.5 - HYPERLIPIDEMIA, UNSPECIFIED (8) Anemia Current Visit: Yes Status: Acute Code(s): D64.9 - ANEMIA, UNSPECIFIED (9) Colonic mass Current Visit: Yes Status: Acute Code(s): K63.89 - OTHER SPECIFIED DISEASES OF INTESTINE <RADAMES LUGO - Last Filed: 12/03/23 08:54> URIEL Encounter - URIEL Encounter Attestation URIEL Encounter Attestation: "YannickpersonalSHEYLA Lewis andhavediscussed pertinent aspects of their care with Radames Pineda agree with the history, physical exam (any modifications based on my personal exam will be noted below), assessment, and plan as outlined in original note. Please see immediately below for my summary of findings and additional assessment and plan along with any meaningful corrections/explanations to the Subjective/Objective portions of the URIEL note will be noted." My portion of the encounter took place via telemedicine. -Feels good today with improved breathing and decreased lower extremity edema. I think we can switch him to oral diuretic tomorrow. Surgery evaluating him for colonic thickening seen on CT. <WAYNE ROCHA - Last Filed: 12/03/23 22:12>
[2023-12-03 07:42] LABS: Absolute Neutrophil Ct (ANC) 3.74 x10^3/uL (1.4-6.9); BASOPHIL % 0.4 % (0.0-0.4); Basophil (Absolute #) 0.02 x10^3/uL (0-0.4); Eosinophil % 1.6 % (0.00-5.0); Eosinophil (Absolute #) 0.09 x10^3/uL (0-0.5); Hematocrit 28.2 % (42-50); Hemoglobin 8.6 g/dL (12.5-18.0); IMMATURE GRAN # 0.02 x10^3u/L (0.00-0.03); IMMATURE GRAN % 0.4 % (0.00-0.4); Lymphocyte (Absolute #) 1.29 x10^3/uL (1.0-4.6); Lymphocytes % 23.3 % (24.0-44.0); Mean Corpuscular Hemoglobin 30.5 pg (26-32); Mean Corpuscular Hgb Concent. 30.5 g/dL (32-36); Mean Platelet Volume 9.8 fL (7.5-11.0); Monocyte (Absolute #) 0.37 x10^3/uL (0.0-1.3); Monocytes % 6.7 % (0.0-12.0); Neutrophil % 67.6 % (36.0-66.0); Platelet Count 244 x10^3/uL (150-450); Red Blood Count 2.82 x10^6/uL (4.1-5.6); Red Cell Distribution Width 14.4 % (11.5-14.0); White Blood Count 5.5 x10^3/uL (4.0-10.5)
[2023-12-03 07:51] LABS: ALBUMIN 3.2 g/dL (3.5-5.0); ANION GAP 8.9 MEQ/L (5-15); BILIRUBIN,TOTAL 0.7 mg/dL (0.2-1.3); Creatinine 1 1.1 mg/dL (0.66-1.25); EST GLOMERULAR FILTRATION RATE 71.3 ML/MIN; Potassium 3.4 mmol/L (3.5-5.1); Total Protein 5.8 g/dL (6.3-8.2)
[2023-12-03] MEDS: PATIENT OWN MEDICATION PO SCH ×4 (08:23→17:52)
[2023-12-03] MEDS: PERCOCET TABLET 5/325MG PO PRN ×3 (08:32→22:41)
[2023-12-03] MEDS: Zofran 4 MG/2 ML VIAL IV PRN ×2 (10:12→16:28)
[2023-12-03] MEDS: Zestril 20 MG PO SCH ×2 (10:57→22:39)
[2023-12-03] MEDS: HYTRIN 1 MG PO SCH ×2 (10:58→22:38)
[2023-12-03] MEDS: Toprol Xl 100 MG PO SCH (10:58)
[2023-12-03] MEDS: MAG-OX 400 PO SCH ×2 (10:58→22:38)
[2023-12-03] MEDS: Zetia 10 MG PO SCH (10:58)
[2023-12-03] MEDS: Tricor 145 MG PO SCH (10:58)
[2023-12-03] MEDS: Lexapro PO SCH (10:58)
[2023-12-03] MEDS: ZOCOR 20MG PO SCH (10:58)
[2023-12-03] MEDS: Klor Con PO SCH ×2 (10:59→22:39)
[2023-12-03] MEDS: Lasix 40 MG/4 ML IV SCH (11:02)
[2023-12-03] MEDS ORDERED: APRESOLINE 20 MG/ML INJ IV PRN (16:42)
[2023-12-03] MEDS ORDERED: Compazine 10 MG/2 ML IV PRN (16:47)
--- NOTE | 2023-12-03 19:58 | PCM.CONS ---
History of Present Illness - Reason for Consult Chief Complaint: CHF, ANASARCA, COLON MASS Requesting Provider: WAYNE ROCHA MD Consulting Provider: SAMANTHA ROBLES MD History of Present Illness: is a 73 year old male. hx per chart review, d/w RN and patient. 73yo male difficult to get a precise history from him he was diagnosed with chronic pancreatitic in [place] and had cholecystectomy around 2 years ago. since that time he has chronic abdominal pain only better with narcotic where he can do activities of daily living with the pain pill but it hurts too bad otherwise. he also endorses LLQ abdominal pain over that entire period and presents with abdominal pain and swelling. he can't really differentiate this pain from the pain previously. he states he had a colonoscopy around 2 years ago without anything concerning found. since admission he is down 5kg he was in [facility] CHF. he recently got repeat echo which has not been read and recent televisit with cardiology and the note is not available to us. no ilya blood per rectum. 73yo male presents with SOB, edematous, some llq abdominal pain. initial imaging with thickening at sigmoid colon. he has been able to move his bowels. is not frankly having bloody bowel movements in the hsopital. he has multiple liter diuresis so far. "- History of Present Illness Time Seen by Provider: 12/01/23 15:18 Source: patient, family Exam Limitations: no limitations Patient Subjective Stated Complaint: pt c/o of shortness of breath, kenneth lower ext edema, LLQ pain Triage Nursing Assessment: Pt brought to the ER by his , hypertensive, hypoxic, rates pain in abdomen as an 8/10, placed pt on 2L NC upon arrival due to sat's at 89%, kenneth lower ext edema which is a new problem, pulses normal, skin n/w/d, pain in the LLQ, pt had a feeding tube up until around Thanksgiving, has gained approx 40 lbs since Physician History: 73 years old male with multiple medical problems including coronary artery disease CABG, pacemaker placement, congestive heart failure on Xarelto, hypertension, hyperlipidemia, COPD presented in the ER with chief complaint of increasing shortness of breath and bilateral lower extremity swelling. Patient reports shortness of breath getting worse with activity initially and now short of breath even resting. Patient oxygen saturation is around 89% on presentation, placed on 2 L oxygen and is around 94%. Patient reports a weight gain of almost 35 to 40 pounds over the course of a week and a half. Patient reports diffuse swelling of lower extremities and also having pain left lower quadrant area for the last few days without any nausea vomiting or diarrhea. Denies any chest pain or palpitations. No fever chills or sick contact reported. Allergies/Adverse Reactions: No Known Drug Allergies Allergy (Verified 12/01/23 15:38) Home Medications: Amlodipine Besylate 10 mg [Norvasc 10 MG] 2.5 mg PO DAILY 12/17/17 [History] Atorvastatin Calcium [Lipitor] 80 mg PO DAILY 12/17/17 [History] ramipriL [Altace] 10 mg PO BID 12/17/17 [History] Fenofibrate 48 mg PO DAILY 05/18/22 [History] Magnesium Oxide 400 mg [Mag-Ox 400] 400 mg PO BID 05/18/22 [History] Terazosin HCl 5 mg PO BID 05/18/22 [History] Escitalopram Oxalate [Lexapro] 10 mg PO DAILY 12/01/23 [History] Ezetimibe [Zetia] 10 mg PO DAILY 12/01/23 [History] Lipase/Protease/Amylase [Jelani Christie 36,000 Units Capsule] 1 each PO BIDPRN PRN [History] Lipase/Protease/Amylase [Jelani Dr 36,000 Units Capsule] 2 each PO TIDWMEALS 12/01/23 [History] Metformin HCl [Metformin HCl ER] 500 mg PO DAILY 12/01/23 [History] Metoprolol Succinate 100 mg [Toprol Xl 100 MG] 100 mg PO DAILY 12/01/23 [History] Oxycodone HCl/Acetaminophen [Oxycodone-Acetaminophen 5-325] 1 each PO TIDPRN PRN 12/01/23 [History] Rivaroxaban [Xarelto] 15 mg PO HS 12/01/23 [History] Hx Tetanus, Diphtheria Vaccination/Date Given: Yes Hx Influenza Vaccination/Date Given: Yes Hx Pneumococcal Vaccination/Date Given: No Travel Risk - International Travel Have you traveled outside of the country in past 3 weeks: No - Coronavirus Screening Are you exhibiting any of the following symptoms?: No Close contact with a COVID-19 positive Pt in past 14-21 Days: No - Vaccine Status Have you recieved a Covid-19 vaccination: No - Review of Systems Constitutional: Fatigue Eyes: No Symptoms Ears, Nose, & Throat: No Symptoms Respiratory: Dyspnea, Dyspnea on Exertion (HO) Cardiac: Edema Abdominal/Gastrointestinal: Abdominal Pain Genitourinary Symptoms: No Symptoms Musculoskeletal: Arthralgias Skin: No Symptoms Neurological: No Symptoms Endocrine: No Symptoms Hematologic/Lymphatic: No Symptoms - Past Medical History Pertinent Past Medical History: Yes Neurological History: No Pertinent History ENT History: No Pertinent History Cardiac History: Coronary Artery Disease, Hypertension, Myocardial Infarction ([place]) Respiratory History: No Pertinent History Endocrine Medical History: Diabetes Type II Musculoskeletal History: No Pertinent History GI Medical History: Pancreatitis History: No Pertinent History Psycho-Social History: No Pertinent History Male Reproductive Disorders: No Pertinent History - Past Surgical History Past Surgical History: Yes Neuro Surgical History: No Pertinent History Cardiac: CABG, Pacemaker Respiratory: No Pertinent History Gastrointestinal: Hernia Repair Genitourinary: No Pertinent History Male Surgical History: No Pertinent History Other Surgical History: feeding tube placement and removal - Social History Smoking Status: Former smoker How long have you smoked: 50 yrs Exposure to second hand smoke: No Drug Use: none Patient Lives Alone: No - Nursing Vital Signs Nursing Vital Signs: " Medications & Allergies Home Medications: Home Medication List Amlodipine Besylate 10 mg [Norvasc 10 MG] 2.5 mg PO DAILY 12/17/17 [History Confirmed 12/01/23] Atorvastatin Calcium [Lipitor] 80 mg PO DAILY 12/17/17 [History Confirmed 12/01/23] ramipriL [Altace] 10 mg PO BID 12/17/17 [History Confirmed 12/01/23] Fenofibrate 48 mg PO DAILY 05/18/22 [History Confirmed 12/01/23] Magnesium Oxide 400 mg [Mag-Ox 400] 400 mg PO BID 05/18/22 [History Conf irmed 12/01/23] Terazosin HCl 5 mg PO BID 05/18/22 [History Confirmed 12/01/23] Escitalopram Oxalate [Lexapro] 10 mg PO DAILY 12/01/23 [History Confirmed 12/01/23] Ezetimibe [Zetia] 10 mg PO DAILY 12/01/23 [History Confirmed 12/01/23] Lipase/Protease/Amylase [Jelani Christie 36,000 Units Capsule] 1 each PO BIDPRN PRN 12/01/23 [History Confirmed 12/01/23] Lipase/Protease/Amylase [Jelani Christie 36,000 Units Capsule] 2 each PO TIDWMEALS 12/01/23 [History Confirmed 12/01/23] Metformin HCl [Metformin HCl ER] 500 mg PO DAILY 12/01/23 [History Confirmed 12/01/23] Metoprolol Succinate 100 mg [Toprol Xl 100 MG] 100 mg PO DAILY 12/01/23 [History Confirmed 12/01/23] Oxycodone HCl/Acetaminophen [Oxycodone-Acetaminophen 5-325] 1 each PO TIDPRN PRN 12/01/23 [History Confirmed 12/01/23] Rivaroxaban [Xarelto] 15 mg PO HS 12/01/23 [History Confirmed 12/01/23] Allergies/Adverse Reactions: Allergies Allergy/AdvReac Type Severity Reaction Status Date / Time No Known Drug Allergies Allergy Verified 12/01/23 15:38 - Past Medical History Past Medical History: Yes Neurological History: No Pertinent History ENT History: No Pertinent History Cardiac History: Coronary Artery Disease, Hypertension, Myocardial Infarction ([place]) Respiratory History: No Pertinent History Endocrine Medical History: Diabetes Type II Musculoskelatal History: No Pertinent History GI Medical History: Pancreatitis History: No Pertinent History Pyscho-Social History: No Pertinent History Male Reproductive Disorders: No Pertinent History - Past Surgical History Past Surgical History: Yes Neuro Surgical History: No Pertinent History Cardiac History: CABG, Pacemaker Respiratory Surgery: No Pertinent History GI Surgical History: Hernia Repair Genitourinary Surgical Hx: No Pertinent History Musculskeletal Surgical Hx: Other Male Surgical History: No Pertinent History Other Surgical History: feeding tube placement and removal - Social History Smoking Status: Former smoker How long have you smoked: 50 yrs Exposure to second hand smoke: No Alcohol: None Drug Use: none - Physical Exam Vital Signs: Vital Signs - 24 hr Temp Pulse Resp BP Pulse Ox 12/03/23 19:23 95 12/03/23 18:45 95 12/03/23 16:00 97.5 F 82 18 183/85 94 L 12/03/23 12:00 97.3 F 89 14 156/78 91 L 12/03/23 10:56 94 L 12/03/23 08:10 90 L 12/03/23 08:00 97.9 F 74 13 165/74 90 L 12/03/23 07:47 97.3 F 72 18 148/71 93 L 12/03/23 03:36 97.3 F 72 18 148/71 93 L 12/02/23 23:34 98.5 F 82 19 168/74 92 L General Appearance: no apparent distress Neurologic Exam: alert, oriented x 3 Eye Exam: eyes nml inspection, No scleral icterus Gastrointestinal/Abdomen Exam: soft Male Genitalia Exam: normal genitalia Rectal Exam: deferred Skin Exam: normal color, warm, dry (2+ edema. abd nd, soft, mild ttp llq and eipgastrium/hepatic. no r/g.) Results - Labs Lab/Micro Results: Lab Results-Last 24 Hours 12/02/23 12/03/23 12/03/23 Range/Units 21:05 05:23 05:23 WBC 5.5 (4.0-10.5) x10^3/uL RBC 2.82 L (4.1-5.6) x10^6/uL Hgb 8.6 L (12.5-18.0) g/dL Hct 28.2 L (42-50) % MCV 100.0 (78-100) fL MCH 30.5 (26-32) pg MCHC 30.5 L (32-36) g/dL RDW 14.4 H (11.5-14.0) % Plt Count 244 (150-450) x10^3/uL MPV 9.8 (7.5-11.0) fL Gran % 67.6 H (36.0-66.0) % Immature Gran % (Auto) 0.4 (0.00-0.4) % Nucleat RBC Rel Count 0.0 (0.00-0.1) % Eos # (Auto) 0.09 (0-0.5) x10^3/uL Immature Gran # (Auto) 0.02 (0.00-0.03) x10^3u/L Absolute Lymphs (auto) 1.29 (1.0-4.6) x10^3/uL Absolute Monos (auto) 0.37 (0.0-1.3) x10^3/uL Absolute Nucleated RBC 0.00 (0.00-0.01) x10^3u/L Lymphocytes % 23.3 L (24.0-44.0) % Monocytes % 6.7 (0.0-12.0) % Eosinophils % 1.6 (0.00-5.0) % Basophils % 0.4 (0.0-0.4) % Absolute Granulocytes 3.74 (1.4-6.9) x10^3/uL Basophils # 0.02 (0-0.4) x10^3/uL Sodium (137-145) mmol/L Potassium (3.5-5.1) mmol/L Chloride (98-107) mmol/L Carbon Dioxide (22-30) mmol/L Anion Gap (5-15) MEQ/L BUN (9-20) mg/dL Creatinine (0.66-1.25) mg/dL Estimated GFR ML/MIN Glucose (74-106) mg/dL POC Glucometer 134 H (74 to 106) mg/dL Calcium (8.4-10.2) mg/dL Magnesium 1.9 (1.6-2.3) mg/dL Total Bilirubin (0.2-1.3) mg/dL AST (17-59) U/L ALT (0-50) U/L Alkaline Phosphatase (38-126) U/L Serum Total Protein (6.3-8.2) g/dL Albumin (3.5-5.0) g/dL 12/03/23 12/03/23 12/03/23 Range/Units 05:23 07:49 11:38 WBC (4.0-10.5) x10^3/uL RBC (4.1-5.6) x10^6/uL Hgb (12.5-18.0) g/dL Hct (42-50) % MCV (78-100) fL MCH (26-32) pg MCHC (32-36) g/dL RDW (11.5-14.0) % Plt Count (150-450) x10^3/uL MPV (7.5-11.0) fL Gran % (36.0-66.0) % Immature Gran % (Auto) (0.00-0.4) % Nucleat RBC Rel Count (0.00-0.1) % Eos # (Auto) (0-0.5) x10^3/uL Immature Gran # (Auto) (0.00-0.03) x10^3u/L Absolute Lymphs (auto) (1.0-4.6) x10^3/uL Absolute Monos (auto) (0.0-1.3) x10^3/uL Absolute Nucleated RBC (0.00-0.01) x10^3u/L Lymphocytes % (24.0-44.0) % Monocytes % (0.0-12.0) % Eosinophils % (0.00-5.0) % Basophils % (0.0-0.4) % Absolute Granulocytes (1.4-6.9) x10^3/uL Basophils # (0-0.4) x10^3/uL Sodium 137 (137-145) mmol/L Potassium 3.4 L (3.5-5.1) mmol/L Chloride 106 (98-107) mmol/L Carbon Dioxide 25 (22-30) mmol/L Anion Gap 8.9 (5-15) MEQ/L BUN 17 (9-20) mg/dL Creatinine 1.10 (0.66-1.25) mg/dL Estimated GFR 71.3 ML/MIN Glucose 101 (74-106) mg/dL POC Glucometer 96 112 H (74 to 106) mg/dL Calcium 9.0 (8.4-10.2) mg/dL Magnesium (1.6-2.3) mg/dL Total Bilirubin 0.70 (0.2-1.3) mg/dL AST 18 (17-59) U/L ALT 10 (0-50) U/L Alkaline Phosphatase 71 (38-126) U/L Serum Total Protein 5.8 L (6.3-8.2) g/dL Albumin 3.2 L (3.5-5.0) g/dL 12/03/23 Range/Units 16:33 WBC (4.0-10.5) x10^3/uL RBC (4.1-5.6) x10^6/uL Hgb (12.5-18.0) g/dL Hct (42-50) % MCV (78-100) fL MCH (26-32) pg MCHC (32-36) g/dL RDW (11.5-14.0) % Plt Count (150-450) x10^3/uL MPV (7.5-11.0) fL Gran % (36.0-66.0) % Immature Gran % (Auto) (0.00-0.4) % Nucleat RBC Rel Count (0.00-0.1) % Eos # (Auto) (0-0.5) x10^3/uL Immature Gran # (Auto) (0.00-0.03) x10^3u/L Absolute Lymphs (auto) (1.0-4.6) x10^3/uL Absolute Monos (auto) (0.0-1.3) x10^3/uL Absolute Nucleated RBC (0.00-0.01) x10^3u/L Lymphocytes % (24.0-44.0) % Monocytes % (0.0-12.0) % Eosinophils % (0.00-5.0) % Basophils % (0.0-0.4) % Absolute Granulocytes (1.4-6.9) x10^3/uL Basophils # (0-0.4) x10^3/uL Sodium (137-145) mmol/L Potassium (3.5-5.1) mmol/L Chloride (98-107) mmol/L Carbon Dioxide (22-30) mmol/L Anion Gap (5-15) MEQ/L BUN (9-20) mg/dL Creatinine (0.66-1.25) mg/dL Estimated GFR ML/MIN Glucose (74-106) mg/dL POC Glucometer 144 H (74 to 106) mg/dL Calcium (8.4-10.2) mg/dL Magnesium (1.6-2.3) mg/dL Total Bilirubin (0.2-1.3) mg/dL AST (17-59) U/L ALT (0-50) U/L Alkaline Phosphatase (38-126) U/L Serum Total Protein (6.3-8.2) g/dL Albumin (3.5-5.0) g/dL Microbiology 12/01/23 15:56 Blood Culture - Preliminary Blood 12/01/23 15:50 Blood Culture - Preliminary Blood Accuchecks Date 12/03/23 Date 12/03/23 Date 12/03/23 Date 12/02/23 Time 16:38 Time 11:57 Time 07:59 Time 21:58 - Radiology Impressions Radiology Exams & Impressions: Radiology Procedures Category Date Time Status CHEST 2 VIEWS (PA AND LAT) Routine Exams 12/04/23 07:00 Ordered ECHO W/2D AND DOPPLER [US] Routine Exams 12/02/23 10:18 Taken Assessment/Plan (1) Diverticulitis Current Visit: No Status: Acute Assessment & Plan: 73yo male admitted with acute CHF, fluid overload, and LLQ abdominal pain ct sigmoid thickening most consistent with an uncomplicated diverticulitis. he does state he had a colonoscopy 2 years ago that was ok leaning against a sigmoid colon cancer. he has diuresed significantly 5kg over the last couple of days. he has mild tenderness on exam. discussed with anesthesia we do not have the recent echo read back and we do not have the recent cardiology visit note. his last ef was around 20-25%. -he will eventually need a colonoscopy -CLD now and tomorrow. hold off on any additional prep for the moment. -we will try and get his echo and cards info. if we can't really get that, we could consider a limited flexible sigmoidoscopy here versus outpatient endoscopy once he has cardiology clearance. Code(s): K57.92 - DVTRCLI OF INTEST, PART UNSP, W/O PERF OR ABSCESS W/O BLEED
[2023-12-03] MEDS: XARELTO 10 MG TABLET PO SCH (22:39)
--- NOTE | 2023-12-04 05:08 | PCM.NOTE ---
Date and Time: 12/04/23 0505 Subjective Assessment: Mr. Garsia is a 73 year-old gentleman with CAD s/p CABG, HTN, HLD, DM2, COPD, chornic anemia and CHF (unknown diastolic/diastolic, EF) who presents wt acute hypoxemic respiratory failure. He admits to four days of progressive shortness of breath (both at rest and with exertion) along with weight gain and lower extremity swelling. He also admits to several days of LLQ pain. Upon arrival, his laboratory data was remarkable for anemia while imaging revealed diffuse anasarca, volume overload, and sigmoid colon thickening. Patient admitted for acute CHF exacerbation with anasarca. CT imaging New cardiomegaly, bilateral pleural effusions, and diffuse anasarca favoring cardiac decompensation/CHF. Tiny perihepatic fluid may be related.New sigmoid colon bowel wall thickening with intraluminal narrowing. Malignancy not complete excluded. Direct endoscopy recommended. Surgery has been consulted for evaluation and possible scopes. 12/02: Met with patient bedside. Endorses continued LLQ pain and shortness of breath. Patient is RA at baseline now requiring 2L NC with spo2 @ 92%. Lung sounds coarse on auscultation. BLE with noted 2+ pitting edema. Discussed CT findings showing CHF with anasarca as well as bowel thickening. Surgery has been consulted for eval. BNP elevated at . Plan for aggressive diuresis. Cardiology has been consulted as well, will obtain records. 12/03: Patient endorsing improvement in shortness of breath and BLE. Still with LLQ pain which he rates 6/10 on numerical pain scale. Lung sounds diminished, no longer coarse on auscultation. He is requiring 2L of oxygen. Surgery consulted, plan for possible scopes today. Patient has been prepped. 12/04: Patient endorsing continued abdominal pain in LLQ rating 9/10 today. Discussed case with surgery ([facility]) and patient, plan for patient to follow up with cardiology next week, he will need cardiac clearance prior to scopes, will schedule with [facility] for follow up and scopes within 10 days once clearance is obtained. KUB ordered today for LLQ pain evaluation. Patient possibly can be discharged in the morning once pain is controlled. <RADAMES LUGO - Last Filed: 12/04/23 12:22> Date and Time: 12/04/232034 <WAYNE ROCHA - Last Filed: 12/04/23 20:37> - Review of Systems Constitutional: No Symptoms Eyes: No Symptoms Ears, Nose, & Throat: No Symptoms Respiratory: Short Of Breath Cardiac: No Symptoms Abdominal/Gastrointestinal: Abdominal Pain Genitourinary Symptoms: No Symptoms Musculoskeletal: No Symptoms Skin: No Symptoms Neurological: No Symptoms Psychological: No Symptoms Endocrine: No Symptoms Hematologic/Lymphatic: No Symptoms Immunological/Allergic: No Symptoms <RADAMES LUGO - Last Filed: 12/04/23 12:22> Objective Exam General Appearance: no apparent distress Neurologic Exam: alert, oriented x 3, cooperative Skin Exam: normal color Eye Exam: PERRL Ears, Nose, Throat Exam: normal ENT inspection Neck Exam: normal inspection Respiratory Exam: normal breath sounds, lungs clear Cardiovascular Exam: regular rate/rhythm, normal heart sounds, edema (BLE) Gastrointestinal/Abdomen Exam: soft, tenderness (TTP LLQ) Extremity Exam: swelling (BLE +1) Back Exam: normal inspection Male Genitalia Exam: deferred <RADAMES LUGO - Last Filed: 12/04/23 12:22> OBJECTIVE DATA Vital Signs: Vital Signs - 24 hr Temp Pulse Resp BP Pulse Ox 12/04/23 04:00 97.7 F 75 20 162/73 93 L 12/03/23 23:22 97.5 F 74 18 185/79 94 L 12/03/23 20:00 97.7 F 73 18 140/65 92 L 12/03/23 19:23 95 12/03/23 18:45 95 12/03/23 16:00 97.5 F 82 18 183/85 94 L 12/03/23 12:00 97.3 F 89 14 156/78 91 L 12/03/23 10:56 94 L 12/03/23 08:10 90 L 12/03/23 08:00 97.9 F 74 13 165/74 90 L 12/03/23 07:47 97.3 F 72 18 148/71 93 L Pain Assessment - Last Documented Pain Intensity 6 Pain Scale Used [facility] Intake and Output: Intake & Output 12/01/23 12/02/23 12/03/23 12/04/23 11:59 11:59 11:59 11:59 Intake Total 600 1110 840 Output Total 4400 1700 1150 Balance -3800 -590 -310 Weight 72.5 kg 72.5 kg Lab Results: Lab Results-Last 24 Hours 12/03/23 12/03/23 12/03/23 Range/Units 05:23 05:23 05:23 WBC 5.5 (4.0-10.5) x10^3/uL RBC 2.82 L (4.1-5.6) x10^6/uL Hgb 8.6 L (12.5-18.0) g/dL Hct 28.2 L (42-50) % MCV 100.0 (78-100) fL MCH 30.5 (26-32) pg MCHC 30.5 L (32-36) g/dL RDW 14.4 H (11.5-14.0) % Plt Count 244 (150-450) x10^3/uL MPV 9.8 (7.5-11.0) fL Gran % 67.6 H (36.0-66.0) % Immature Gran % (Auto) 0.4 (0.00-0.4) % Nucleat RBC Rel Count 0.0 (0.00-0.1) % Eos # (Auto) 0.09 (0-0.5) x10^3/uL Immature Gran # (Auto) 0.02 (0.00-0.03) x10^3u/L Absolute Lymphs (auto) 1.29 (1.0-4.6) x10^3/uL Absolute Monos (auto) 0.37 (0.0-1.3) x10^3/uL Absolute Nucleated RBC 0.00 (0.00-0.01) x10^3u/L Lymphocytes % 23.3 L (24.0-44.0) % Monocytes % 6.7 (0.0-12.0) % Eosinophils % 1.6 (0.00-5.0) % Basophils % 0.4 (0.0-0.4) % Absolute Granulocytes 3.74 (1.4-6.9) x10^3/uL Basophils # 0.02 (0-0.4) x10^3/uL Sodium 137 (137-145) mmol/L Potassium 3.4 L (3.5-5.1) mmol/L Chloride 106 (98-107) mmol/L Carbon Dioxide 25 (22-30) mmol/L Anion Gap 8.9 (5-15) MEQ/L BUN 17 (9-20) mg/dL Creatinine 1.10 (0.66-1.25) mg/dL Estimated GFR 71.3 ML/MIN Glucose 101 (74-106) mg/dL POC Glucometer (74 to 106) mg/dL Calcium 9.0 (8.4-10.2) mg/dL Magnesium 1.9 (1.6-2.3) mg/dL Total Bilirubin 0.70 (0.2-1.3) mg/dL AST 18 (17-59) U/L ALT 10 (0-50) U/L Alkaline Phosphatase 71 (38-126) U/L Serum Total Protein 5.8 L (6.3-8.2) g/dL Albumin 3.2 L (3.5-5.0) g/dL 12/03/23 12/03/23 12/03/23 Range/Units 07:49 11:38 16:33 WBC (4.0-10.5) x10^3/uL RBC (4.1-5.6) x10^6/uL Hgb (12.5-18.0) g/dL Hct (42-50) % MCV (78-100) fL MCH (26-32) pg MCHC (32-36) g/dL RDW (11.5-14.0) % Plt Count (150-450) x10^3/uL MPV (7.5-11.0) fL Gran % (36.0-66.0) % Immature Gran % (Auto) (0.00-0.4) % Nucleat RBC Rel Count (0.00-0.1) % Eos # (Auto) (0-0.5) x10^3/uL Immature Gran # (Auto) (0.00-0.03) x10^3u/L Absolute Lymphs (auto) (1.0-4.6) x10^3/uL Absolute Monos (auto) (0.0-1.3) x10^3/uL Absolute Nucleated RBC (0.00-0.01) x10^3u/L Lymphocytes % (24.0-44.0) % Monocytes % (0.0-12.0) % Eosinophils % (0.00-5.0) % Basophils % (0.0-0.4) % Absolute Granulocytes (1.4-6.9) x10^3/uL Basophils # (0-0.4) x10^3/uL Sodium (137-145) mmol/L Potassium (3.5-5.1) mmol/L Chloride (98-107) mmol/L Carbon Dioxide (22-30) mmol/L Anion Gap (5-15) MEQ/L BUN (9-20) mg/dL Creatinine (0.66-1.25) mg/dL Estimated GFR ML/MIN Glucose (74-106) mg/dL POC Glucometer 96 112 H 144 H (74 to 106) mg/dL Calcium (8.4-10.2) mg/dL Magnesium (1.6-2.3) mg/dL Total Bilirubin (0.2-1.3) mg/dL AST (17-59) U/L ALT (0-50) U/L Alkaline Phosphatase (38-126) U/L Serum Total Protein (6.3-8.2) g/dL Albumin (3.5-5.0) g/dL 12/03/23 Range/Units 21:27 WBC (4.0-10.5) x10^3/uL RBC (4.1-5.6) x10^6/uL Hgb (12.5-18.0) g/dL Hct (42-50) % MCV (78-100) fL MCH (26-32) pg MCHC (32-36) g/dL RDW (11.5-14.0) % Plt Count (150-450) x10^3/uL MPV (7.5-11.0) fL Gran % (36.0-66.0) % Immature Gran % (Auto) (0.00-0.4) % Nucleat RBC Rel Count (0.00-0.1) % Eos # (Auto) (0-0.5) x10^3/uL Immature Gran # (Auto) (0.00-0.03) x10^3u/L Absolute Lymphs (auto) (1.0-4.6) x10^3/uL Absolute Monos (auto) (0.0-1.3) x10^3/uL Absolute Nucleated RBC (0.00-0.01) x10^3u/L Lymphocytes % (24.0-44.0) % Monocytes % (0.0-12.0) % Eosinophils % (0.00-5.0) % Basophils % (0.0-0.4) % Absolute Granulocytes (1.4-6.9) x10^3/uL Basophils # (0-0.4) x10^3/uL Sodium (137-145) mmol/L Potassium (3.5-5.1) mmol/L Chloride (98-107) mmol/L Carbon Dioxide (22-30) mmol/L Anion Gap (5-15) MEQ/L BUN (9-20) mg/dL Creatinine (0.66-1.25) mg/dL Estimated GFR ML/MIN Glucose (74-106) mg/dL POC Glucometer 97 (74 to 106) mg/dL Calcium (8.4-10.2) mg/dL Magnesium (1.6-2.3) mg/dL Total Bilirubin (0.2-1.3) mg/dL AST (17-59) U/L ALT (0-50) U/L Alkaline Phosphatase (38-126) U/L Serum Total Protein (6.3-8.2) g/dL Albumin (3.5-5.0) g/dL Radiology Exams: Radiology Procedures Category Date Time Status CHEST 2 VIEWS (PA AND LAT) Routine Exams 12/04/23 07:00 Ordered ECHO W/2D AND DOPPLER [US] Routine Exams 12/02/23 10:18 Taken <RADAMES LUGO - Last Filed: 12/04/23 12:22> Vital Signs: Vital Signs - 24 hr Temp Pulse Resp BP Pulse Ox 12/04/23 19:56 97.6 F 86 20 151/72 93 L 12/04/23 19:51 93 L 12/04/23 16:00 97.6 F 72 18 166/80 95 12/04/23 12:00 97.4 F 76 17 167/77 95 12/04/23 08:00 97 F 75 16 147/73 92 L 12/04/23 04:00 97.7 F 75 20 162/73 93 L 12/03/23 23:22 97.5 F 74 18 185/79 94 L Pain Assessment - Last Documented Pain Intensity 4 Pain Scale Used 0-10 Pain Scale Intake and Output: Intake & Output 12/02/23 12/03/23 12/04/23 12/05/23 11:59 11:59 11:59 11:59 Intake Total 600 1110 900 180 Output Total 4400 1700 1150 975 Balance -3800 -590 -250 -795 Weight 72.5 kg 72.5 kg 67 kg Lab Results: Lab Results-Last 24 Hours 12/03/23 12/04/23 12/04/23 Range/Units 21:27 06:00 06:00 WBC 4.8 (4.0-10.5) x10^3/uL RBC 2.57 L (4.1-5.6) x10^6/uL Hgb 8.0 L (12.5-18.0) g/dL Hct 25.6 L (42-50) % MCV 99.6 (78-100) fL MCH 31.1 (26-32) pg MCHC 31.3 L (32-36) g/dL RDW 14.3 H (11.5-14.0) % Plt Count 214 (150-450) x10^3/uL MPV 9.6 (7.5-11.0) fL Gran % 68.1 H (36.0-66.0) % Immature Gran % (Auto) 0.2 (0.00-0.4) % Nucleat RBC Rel Count 0.0 (0.00-0.1) % Eos # (Auto) 0.09 (0-0.5) x10^3/uL Immature Gran # (Auto) 0.01 (0.00-0.03) x10^3u/L Absolute Lymphs (auto) 1.07 (1.0-4.6) x10^3/uL Absolute Monos (auto) 0.34 (0.0-1.3) x10^3/uL Absolute Nucleated RBC 0.00 (0.00-0.01) x10^3u/L Lymphocytes % 22.3 L (24.0-44.0) % Monocytes % 7.1 (0.0-12.0) % Eosinophils % 1.9 (0.00-5.0) % Basophils % 0.4 (0.0-0.4) % Absolute Granulocytes 3.26 (1.4-6.9) x10^3/uL Basophils # 0.02 (0-0.4) x10^3/uL Sodium 137 (137-145) mmol/L Potassium 3.5 (3.5-5.1) mmol/L Chloride 107 (98-107) mmol/L Carbon Dioxide 25 (22-30) mmol/L Anion Gap 8.7 (5-15) MEQ/L BUN 13 (9-20) mg/dL Creatinine 1.04 (0.66-1.25) mg/dL Estimated GFR 76.3 ML/MIN Glucose 85 (74-106) mg/dL POC Glucometer 97 (74 to 106) mg/dL Calcium 8.8 (8.4-10.2) mg/dL Magnesium 2.0 (1.6-2.3) mg/dL Total Bilirubin 0.60 (0.2-1.3) mg/dL AST 15 L (17-59) U/L ALT 8 (0-50) U/L Alkaline Phosphatase 66 (38-126) U/L NT-Pro-B Natriuret Pep 47538 (<300) pg/mL Serum Total Protein 5.4 L (6.3-8.2) g/dL Albumin 2.8 L (3.5-5.0) g/dL 12/04/23 12/04/23 12/04/23 Range/Units 07:48 11:41 16:42 WBC (4.0-10.5) x10^3/uL RBC (4.1-5.6) x10^6/uL Hgb (12.5-18.0) g/dL Hct (42-50) % MCV (78-100) fL MCH (26-32) pg MCHC (32-36) g/dL RDW (11.5-14.0) % Plt Count (150-450) x10^3/uL MPV (7.5-11.0) fL Gran % (36.0-66.0) % Immature Gran % (Auto) (0.00-0.4) % Nucleat RBC Rel Count (0.00-0.1) % Eos # (Auto) (0-0.5) x10^3/uL Immature Gran # (Auto) (0.00-0.03) x10^3u/L Absolute Lymphs (auto) (1.0-4.6) x10^3/uL Absolute Monos (auto) (0.0-1.3) x10^3/uL Absolute Nucleated RBC (0.00-0.01) x10^3u/L Lymphocytes % (24.0-44.0) % Monocytes % (0.0-12.0) % Eosinophils % (0.00-5.0) % Basophils % (0.0-0.4) % Absolute Granulocytes (1.4-6.9) x10^3/uL Basophils # (0-0.4) x10^3/uL Sodium (137-145) mmol/L Potassium (3.5-5.1) mmol/L Chloride (98-107) mmol/L Carbon Dioxide (22-30) mmol/L Anion Gap (5-15) MEQ/L BUN (9-20) mg/dL Creatinine (0.66-1.25) mg/dL Estimated GFR ML/MIN Glucose (74-106) mg/dL POC Glucometer 89 99 152 H (74 to 106) mg/dL Calcium (8.4-10.2) mg/dL Magnesium (1.6-2.3) mg/dL Total Bilirubin (0.2-1.3) mg/dL AST (17-59) U/L ALT (0-50) U/L Alkaline Phosphatase (38-126) U/L NT-Pro-B Natriuret Pep (<300) pg/mL Serum Total Protein (6.3-8.2) g/dL Albumin (3.5-5.0) g/dL Radiology Exams: Radiology Procedures Category Date Time Status CHEST 2 VIEWS (PA AND LAT) Routine Exams 12/04/23 07:00 Completed KUB Stat Exams 12/04/23 11:45 Completed Multi-Disciplinary Progress Notes: Multi-Disciplinary Progress Notes 12/04/23 10:23 Respiratory Note by Kristine Lim RESTING ROOM AIR SAT 87%. PLACED ON 3L NC SATS 92%. Initialized on 12/04/23 10:23 - END OF NOTE <WAYNE ROCHA - Last Filed: 12/04/23 20:37> Assessment/Plan (1) CHF exacerbation Current Visit: Yes Status: Acute Assessment & Plan: -History of EF 20-25% -. Diuresis; strict I/O; 1500cc fluid restriction -BNP 12285 -Consult cardiology -optimize electrolytes K>4 Mg>2 -Echo pending -supplemental oxygen for goal spo2 >92%, RA at baseline Continue cardiac medications 12/03: -Cardiology consulted, will continue diuresis/fluid restriction -BLE edema improved 12/04: -CXR showing improvement in CHF with minimal residual effusions -SOB improved -Attempt to wean oxygen today -Follow up in one week with cards for clearance (scopes) -ECHO pending -Continue diuresis, lasix reduced to daily Code(s): I50.9 - HEART FAILURE, UNSPECIFIED (2) Anasarca Current Visit: Yes Status: Acute Assessment & Plan: -Most likely secondary to CHF exac -CT showing Impression: 1. New cardiomegaly, bilateral pleural effusions, and diffuse anasarca favoring cardiac decompensation/CHF. Tiny perihepatic fluid may be related. 2. New sigmoid colon bowel wall thickening with intraluminal narrowing. Malignancy not complete excluded. Direct endoscopy recommended. 3. Again chronic findings including colonic diverticulosis, left renal cysts, enlarged prostate gland, extensive arteriosclerotic disease, chronic bony findings, and old granulomatous disease -Continue aggressive diuresis -fluid restriction 12/04: -See CHF Code(s): R60.1 - GENERALIZED EDEMA (3) Acute hypoxic respiratory failure Current Visit: Yes Status: Acute Assessment & Plan: -supplemental oxygen with goal >92% -RT consult -nebs/inh Code(s): J96.01 - ACUTE RESPIRATORY FAILURE WITH HYPOXIA (4) CAD (coronary artery disease) Current Visit: Yes Status: Acute Assessment & Plan: -noted, continue home meds Code(s): I25.10 - ATHSCL HEART DISEASE OF [place] CORONARY ARTERY W/O ANG PCTRS (5) Diabetes mellitus Current Visit: Yes Status: Acute Assessment & Plan: -SSI -Hold metformin due to ct -ADA diet -A1c 12/03: -A1c at 6.19, blood glucose levels controlled, patient NPO will monitor blood glucose levels Code(s): E11.9 - TYPE 2 DIABETES MELLITUS WITHOUT COMPLICATIONS (6) HTN (hypertension) Current Visit: Yes Status: Acute Assessment & Plan: -continue appropriate home meds Code(s): I10 - ESSENTIAL (PRIMARY) HYPERTENSION (7) HLD (hyperlipidemia) Current Visit: Yes Status: Acute Assessment & Plan: -continue home meds Code(s): E78.5 - HYPERLIPIDEMIA, UNSPECIFIED (8) Anemia Current Visit: Yes Status: Acute Assessment & Plan: -Monitor hgb daily, transfuse if hgb <7 12/03: -Stable Code(s): D64.9 - ANEMIA, UNSPECIFIED (9) Colonic mass Current Visit: Yes Status: Acute Assessment & Plan: CT findings with New sigmoid colon bowel wall thickening with intraluminal narrowing. Malignancy not complete excluded. Direct endoscopy recommended. -Surgery consult 12/03: -Plan for EGD/colonoscopy today 12/04: -Patient will need clearance prior to scopes per surgery, can do this as op once he obtains it from cards follow up Code(s): I50.9 - HEART FAILURE, UNSPECIFIED (2) Anasarca Current Visit: Yes Status: Acute Code(s): R60.1 - GENERALIZED EDEMA (3) Acute hypoxic respiratory failure Current Visit: Yes Status: Acute Code(s): J96.01 - ACUTE RESPIRATORY FAILURE WITH HYPOXIA (4) CAD (coronary artery disease) Current Visit: Yes Status: Acute Code(s): I25.10 - ATHSCL HEART DISEASE OF [place] CORONARY ARTERY W/O ANG PCTRS (5) Diabetes mellitus Current Visit: Yes Status: Acute Code(s): E11.9 - TYPE 2 DIABETES MELLITUS WITHOUT COMPLICATIONS (6) HTN (hypertension) Current Visit: Yes Status: Acute Code(s): I10 - ESSENTIAL (PRIMARY) HYPERTENSION (7) HLD (hyperlipidemia) Current Visit: Yes Status: Acute Code(s): E78.5 - HYPERLIPIDEMIA, UNSPECIFIED (8) Anemia Current Visit: Yes Status: Acute Code(s): D64.9 - ANEMIA, UNSPECIFIED (9) Colonic mass Current Visit: Yes Status: Acute Code(s): K63.89 - OTHER SPECIFIED DISEASES OF INTESTINE <RADAMES LUGO - Last Filed: 12/04/23 12:22> URIEL Encounter - URIEL Encounter Attestation URIEL Encounter Attestation: "SHEYLA Alcala andhavediscussed pertinent aspects of their care with Radames Pineda agree with the history, p hysical exam (any modifications based on my personal exam will be noted below), assessment, and plan as outlined in original note. Please see immediately below for my summary of findings and additional assessment and plan along with any meaningful corrections/explanations to the Subjective/Objective portions of the URIEL note will be noted." My portion of the encounter took place via telemedicine. -Patient reported worsening LLQ pain today. KUB unremarkable. I suspect his symptoms are from the bowel prep. His CHF has improved and he will need to be discharged on a diuretic (new Rx). He will need cardiology clearance prior to a diagnostic colonoscopy for sigmoid colon thickening. <WAYNE ROCHA - Last Filed: 12/04/23 20:37>
[2023-12-04] MEDS: PERCOCET TABLET 5/325MG PO PRN (06:34)
[2023-12-04 06:36] LABS: Absolute Neutrophil Ct (ANC) 3.26 x10^3/uL (1.4-6.9); BASOPHIL % 0.4 % (0.0-0.4); Basophil (Absolute #) 0.02 x10^3/uL (0-0.4); Eosinophil % 1.9 % (0.00-5.0); Eosinophil (Absolute #) 0.09 x10^3/uL (0-0.5); Hematocrit 25.6 % (42-50); IMMATURE GRAN # 0.01 x10^3u/L (0.00-0.03); IMMATURE GRAN % 0.2 % (0.00-0.4); Lymphocyte (Absolute #) 1.07 x10^3/uL (1.0-4.6); Lymphocytes % 22.3 % (24.0-44.0); Mean Cell Volume 99.6 fL (78-100); Mean Corpuscular Hemoglobin 31.1 pg (26-32); Mean Corpuscular Hgb Concent. 31.3 g/dL (32-36); Mean Platelet Volume 9.6 fL (7.5-11.0); Monocyte (Absolute #) 0.34 x10^3/uL (0.0-1.3); Monocytes % 7.1 % (0.0-12.0); Neutrophil % 68.1 % (36.0-66.0); Platelet Count 214 x10^3/uL (150-450); Red Blood Count 2.57 x10^6/uL (4.1-5.6); Red Cell Distribution Width 14.3 % (11.5-14.0); White Blood Count 4.8 x10^3/uL (4.0-10.5)
[2023-12-04 07:07] LABS: ALBUMIN 2.8 g/dL (3.5-5.0); ANION GAP 8.7 MEQ/L (5-15); BILIRUBIN,TOTAL 0.6 mg/dL (0.2-1.3); Calcium 8.8 mg/dL (8.4-10.2); Creatinine 1 1.04 mg/dL (0.66-1.25); EST GLOMERULAR FILTRATION RATE 76.3 ML/MIN; Potassium 3.5 mmol/L (3.5-5.1); Total Protein 5.4 g/dL (6.3-8.2)
[2023-12-04] MEDS: PATIENT OWN MEDICATION PO SCH ×3 (09:27→18:22)
--- NOTE | 2023-12-04 09:28 | XRAY ---
Indication: Preop exam. Comparison: December 01, 2023 Portable chest improved with resolved cardiomegaly, vascular congestion, and pulmonary edema. Diminished bibasilar effusions with minimal residual. No new cardiopulmonary abnormalities. Again incidental CABG and left pacemaker. Impression: Cardiac decompensation/CHF improvement with minimal residual bibasilar effusions.
[2023-12-04] MEDS: Toprol Xl 100 MG PO SCH (10:14)
[2023-12-04] MEDS: Zestril 20 MG PO SCH ×2 (10:14→21:27)
[2023-12-04] MEDS: Tricor 145 MG PO SCH (10:14)
[2023-12-04] MEDS: Klor Con PO SCH ×2 (10:14→21:27)
[2023-12-04] MEDS: Lexapro PO SCH (10:14)
[2023-12-04] MEDS: MAG-OX 400 PO SCH ×2 (10:14→21:29)
[2023-12-04] MEDS: ZOCOR 20MG PO SCH (10:14)
[2023-12-04] MEDS: Lasix 40 MG/4 ML IV SCH (10:15)
[2023-12-04] MEDS: HYTRIN 1 MG PO SCH ×2 (10:15→21:27)
[2023-12-04] MEDS: Zetia 10 MG PO SCH (10:15)
[2023-12-04] MEDS ORDERED: PERCOCET TABLET 5/325MG PO PRN (11:49)
--- NOTE | 2023-12-04 13:36 | XRAY ---
CLINICAL HISTORY:abdominal pain COMPARISON:None TECHNIQUE:X-ray abdomen-AP views FINDINGS: There is no evidence to suggest bowel obstruction. No free air under both domes of the diaphragm. The right renal outline is not clearly delineated as obscured by the bowel gas shadows. The left renal outline and left psoas shadow are faintly visualized. Multiple scattered calcific densities in the abdomen could suggest vascular calcifications. Calcification of the iliac vessels noted. Surgical clips seen in the right upper quadrant represent prior surgical intervention. Two ellipsoid-shaped radiodense opacities are seen projecting on the right iliac bone could represent radiopaque medicated pills. Needs to be correlated with a history of any medication ingestion. Osteopenic bones. IMPRESSION: Nonobstructive bowel gas pattern. Additional findings as described. Clinical correlation is suggested. Electronically Signed by: Glenn Luna MD. (12/04/2023 13:31:44 EST)
[2023-12-04] MEDS: Hydromorphone 1 mg/ml Injection IV PRN (15:12)
[2023-12-04] MEDS: PIPERACILLIN/TAZOBACTAM 3.375 GM in Sodium Chloride 100ML MINI-BAG PLUS 100 ML IV SCH (18:24)
[2023-12-04] MEDS: FLAGYL 500 MG IVPB 500 MG/100 ML BAG IV SCH (19:16)
[2023-12-04] MEDS: XARELTO 10 MG TABLET PO SCH (21:27)
[2023-12-04] MEDS: NORCO 5/325 MG PO PRN (21:35)
[2023-12-05] MEDS: PIPERACILLIN/TAZOBACTAM 3.375 GM in Sodium Chloride 100ML MINI-BAG PLUS 100 ML IV SCH ×3 (00:15→12:23)
[2023-12-05] MEDS: FLAGYL 500 MG IVPB 500 MG/100 ML BAG IV SCH ×3 (00:59→11:45)
[2023-12-05] MEDS: NORCO 5/325 MG PO PRN ×2 (04:35→09:08)
[2023-12-05 05:11] LABS: Absolute Neutrophil Ct (ANC) 3.31 x10^3/uL (1.4-6.9); BASOPHIL % 0.4 % (0.0-0.4); Basophil (Absolute #) 0.02 x10^3/uL (0-0.4); Eosinophil % 1.4 % (0.00-5.0); Eosinophil (Absolute #) 0.07 x10^3/uL (0-0.5); Hematocrit 26.1 % (42-50); Hemoglobin 8.1 g/dL (12.5-18.0); IMMATURE GRAN # 0.01 x10^3u/L (0.00-0.03); IMMATURE GRAN % 0.2 % (0.00-0.4); Lymphocyte (Absolute #) 1.19 x10^3/uL (1.0-4.6); Lymphocytes % 24.1 % (24.0-44.0); Mean Platelet Volume 9.5 fL (7.5-11.0); Monocyte (Absolute #) 0.33 x10^3/uL (0.0-1.3); Monocytes % 6.7 % (0.0-12.0); Neutrophil % 67.2 % (36.0-66.0); Platelet Count 234 x10^3/uL (150-450); Red Blood Count 2.61 x10^6/uL (4.1-5.6); Red Cell Distribution Width 14.5 % (11.5-14.0); White Blood Count 4.9 x10^3/uL (4.0-10.5)
[2023-12-05 05:43] LABS: ALBUMIN 2.7 g/dL (3.5-5.0); BILIRUBIN,TOTAL 0.6 mg/dL (0.2-1.3); Calcium 8.9 mg/dL (8.4-10.2); Creatinine 1 1.13 mg/dL (0.66-1.25); EST GLOMERULAR FILTRATION RATE 69.1 ML/MIN; MAGNESIUM 2.2 mg/dL (1.6-2.3); Total Protein 5.2 g/dL (6.3-8.2)
[2023-12-05 05:44] LABS: Potassium 4.1 mmol/L (3.5-5.1)
[2023-12-05 05:46] LABS: ANION GAP 10.1 MEQ/L (5-15)
[2023-12-05] MEDS: Tricor 145 MG PO SCH (09:09)
[2023-12-05] MEDS: HYTRIN 1 MG PO SCH (09:09)
[2023-12-05] MEDS: MAG-OX 400 PO SCH (09:10)
[2023-12-05] MEDS: PATIENT OWN MEDICATION PO SCH ×2 (09:10→11:47)
[2023-12-05] MEDS: Zestril 20 MG PO SCH (09:11)
[2023-12-05] MEDS: Toprol Xl 100 MG PO SCH (09:11)
[2023-12-05] MEDS: Klor Con PO SCH (09:12)
[2023-12-05] MEDS: ZOCOR 20MG PO SCH (09:12)
[2023-12-05] MEDS: Zetia 10 MG PO SCH (09:12)
[2023-12-05] MEDS: Lexapro PO SCH (09:12)
[2023-12-05] MEDS: Lasix 40 MG/4 ML IV SCH (09:13)
[2023-12-05] MEDS ORDERED: Mylicon 80MG PO SCH (10:00)
--- NOTE | 2023-12-05 11:27 | PCM.DS ---
Discharge Summary Date of Admission: 12/02/23 05:13 Date of Discharge: 12/05/2023 Admitting Physician: WAYNE ROCHA MD Consults: Consults on Case 12/02/23 05:21 Consult Surgery ROUTINE 12/02/23 11:09 Consult Cardiology ROUTINE Primary Care Provider: VICTORIA WALTON Allergies Allergies No Known Drug Allergies Allergy (Verified 12/01/23 15:38) Hospital Summary - Hospital Course Hospital Course: Mr. Garsia is a 73 year-old gentleman with CAD s/p CABG, HTN, HLD, DM2, COPD, chornic anemia and CHF (unknown diastolic/diastolic, EF). He presented wt acute hypoxemic respiratory failure. He admits to four days of progressive shortness of breath (both at rest and with exertion) along with weight gain and lower extremity swelling. He also admits to several days of LLQ pain. Upon arrival, his laboratory data was remarkable for anemia while imaging revealed diffuse anasarca, volume overload, and sigmoid colon thickening. Patient admitted for acute CHF exacerbation with anasarca. CT imaging New cardiomegaly, bilateral pleural effusions, and diffuse anasarca favoring cardiac decompensation/CHF. Tiny perihepatic fluid may be related.New sigmoid colon bowel wall thickening with intraluminal narrowing. Malignancy not complete excluded. Direct endoscopy recommended. Surgery was consulted for evaluation. They would like to f/u with pt OP. He was also seen by cardiology and it was recomended he f/u OP in 1 week week and will need cardiac clearance prior to procedure. Will have RT eval for home O2 need. He reports he is feeling better since antibiotics started yesterday for diverticulitis. He did have some pain after eating breakfast this AM. gas-x started d/t increased gas seen on KUB. This has also helped his pain. Edema has resolved. He will be able to d/c today after echo completed, This is to be read OP by cardiology. He denies any further concerns at this time. - Vitals & Intake/Output Vital Signs: Vital Signs Temperature 97.3 F 12/05/23 07:38 Pulse Rate 93 H 12/05/23 07:38 Respiratory Rate 20 12/05/23 07:38 Blood Pressure 150/64 12/05/23 07:38 O2 Sat by Pulse Oximetry 93 L 12/05/23 07:43 Intake & Output: Intake & Output 12/02/23 12/03/23 12/04/23 12/05/23 11:59 11:59 11:59 11:59 Intake Total 600 1110 900 740 Output Total 4400 1700 1150 1500 Balance -3800 -590 -250 -760 Weight 72.5 kg 72.5 kg 67 kg - Lab Result Diagrams: 12/05/23 04:36 12/05/23 04:36 Lab Results-Last 24 Hrs: Lab Results-Last 24 Hours 12/04/23 12/04/23 12/04/23 Range/Units 11:41 16:42 21:20 WBC (4.0-10.5) x10^3/uL RBC (4.1-5.6) x10^6/uL Hgb (12.5-18.0) g/dL Hct (42-50) % MCV (78-100) fL MCH (26-32) pg MCHC (32-36) g/dL RDW (11.5-14.0) % Plt Count (150-450) x10^3/uL MPV (7.5-11.0) fL Gran % (36.0-66.0) % Immature Gran % (Auto) (0.00-0.4) % Nucleat RBC Rel Count (0.00-0.1) % Eos # (Auto) (0-0.5) x10^3/uL Immature Gran # (Auto) (0.00-0.03) x10^3u/L Absolute Lymphs (auto) (1.0-4.6) x10^3/uL Absolute Monos (auto) (0.0-1.3) x10^3/uL Absolute Nucleated RBC (0.00-0.01) x10^3u/L Lymphocytes % (24.0-44.0) % Monocytes % (0.0-12.0) % Eosinophils % (0.00-5.0) % Basophils % (0.0-0.4) % Absolute Granulocytes (1.4-6.9) x10^3/uL Basophils # (0-0.4) x10^3/uL Sodium (137-145) mmol/L Potassium (3.5-5.1) mmol/L Chloride (98-107) mmol/L Carbon Dioxide (22-30) mmol/L Anion Gap (5-15) MEQ/L BUN (9-20) mg/dL Creatinine (0.66-1.25) mg/dL Estimated GFR ML/MIN Glucose (74-106) mg/dL POC Glucometer 99 152 H 184 H (74 to 106) mg/dL Calcium (8.4-10.2) mg/dL Magnesium (1.6-2.3) mg/dL Total Bilirubin (0.2-1.3) mg/dL AST (17-59) U/L ALT (0-50) U/L Alkaline Phosphatase (38-126) U/L Serum Total Protein (6.3-8.2) g/dL Albumin (3.5-5.0) g/dL 12/05/23 12/05/23 12/05/23 Range/Units 04:36 04:36 07:19 WBC 4.9 (4.0-10.5) x10^3/uL RBC 2.61 L (4.1-5.6) x10^6/uL Hgb 8.1 L (12.5-18.0) g/dL Hct 26.1 L (42-50) % MCV 100.0 (78-100) fL MCH 31.0 (26-32) pg MCHC 31.0 L (32-36) g/dL RDW 14.5 H (11.5-14.0) % Plt Count 234 (150-450) x10^3/uL MPV 9.5 (7.5-11.0) fL Gran % 67.2 H (36.0-66.0) % Immature Gran % (Auto) 0.2 (0.00-0.4) % Nucleat RBC Rel Count 0.0 (0.00-0.1) % Eos # (Auto) 0.07 (0-0.5) x10^3/uL Immature Gran # (Auto) 0.01 (0.00-0.03) x10^3u/L Absolute Lymphs (auto) 1.19 (1.0-4.6) x10^3/uL Absolute Monos (auto) 0.33 (0.0-1.3) x10^3/uL Absolute Nucleated RBC 0.00 (0.00-0.01) x10^3u/L Lymphocytes % 24.1 (24.0-44.0) % Monocytes % 6.7 (0.0-12.0) % Eosinophils % 1.4 (0.00-5.0) % Basophils % 0.4 (0.0-0.4) % Absolute Granulocytes 3.31 (1.4-6.9) x10^3/uL Basophils # 0.02 (0-0.4) x10^3/uL Sodium 139 (137-145) mmol/L Potassium 4.1 (3.5-5.1) mmol/L Chloride 108 H (98-107) mmol/L Carbon Dioxide 25 (22-30) mmol/L Anion Gap 10.1 (5-15) MEQ/L BUN 16 (9-20) mg/dL Creatinine 1.13 (0.66-1.25) mg/dL Estimated GFR 69.1 ML/MIN Glucose 125 H (74-106) mg/dL POC Glucometer 125 H (74 to 106) mg/dL Calcium 8.9 (8.4-10.2) mg/dL Magnesium 2.2 (1.6-2.3) mg/dL Total Bilirubin 0.60 (0.2-1.3) mg/dL AST 16 L (17-59) U/L ALT 8 (0-50) U/L Alkaline Phosphatase 61 (38-126) U/L Serum Total Protein 5.2 L (6.3-8.2) g/dL Albumin 2.7 L (3.5-5.0) g/dL Micro Results-Entire Visit: Microbiology 12/01/23 15:56 Blood Culture - Preliminary Blood 12/01/23 15:50 Blood Culture - Preliminary Blood Accuchecks Date 12/05/23 Date 12/04/23 Date 12/04/23 Time 07:33 Time 17:04 Time 13:03 - Radiology Exams Ordered Rad Exams-Entire Visit: Radiology Procedures Category Date Time Status CHEST 2 VIEWS (PA AND LAT) Routine Exams 12/04/23 07:00 Completed KUB Stat Exams 12/04/23 11:45 Completed - Procedures and Test Procedures and Tests throughout Hospitalization: Therapy Orders & Screens 12/01/23 15:46 Respiratory Therapy Assessment DAILY Comment: 12/01/23 18:06 Oxygen Nasal Cannula 2 lpm Comment: Respiratory Therapy Consult ONCE Comment: Reason For Exam: 12/05/23 11:21 RT 6 Minute Walk ROUTINE Comment: need for home o2 Diagnosis: CHF, ANASARCA, COLON MASS Discharge Exam General Appearance: no apparent distress, alert Neurologic Exam: alert, oriented x 3, cooperative, normal mood/affect, nml cerebellar function, sensation nml, No motor deficits Eye Exam: PERRL, EOMI, eyes nml inspection Ears, Nose, Throat Exam: normal ENT inspection, pharynx normal, moist mucous membranes Neck Exam: normal inspection, non-tender, supple, full range of motion Respiratory Exam: normal breath sounds, lungs clear, No respiratory distress Cardiovascular Exam: regular rate/rhythm, normal heart sounds Gastrointestinal/Abdomen Exam: soft, No tenderness, No mass Male Genitalia Exam: deferred Rectal Exam: deferred Back Exam: normal inspection, normal range of motion, No CVA tenderness, No vertebral tenderness Extremity Exam: normal inspection, normal range of motion Skin Exam: normal color, warm, dry Final Diagnosis/Problem List - Final Discharge Diagnosis/Problem (1) CHF exacerbation Current Visit: Yes Status: Acute Assessment & Plan: - echo 12/05/23- to be read Op by cardiology - -supplemental oxygen for goal spo2 >92%, RA at baseline - RT eval for home O2 need - Cardiology consulted 12/03 - cont lasix - Follow up in one week with cards for clearance (scopes) - EF 46% per tech- still needs read by cardiology Code(s): I50.9 - HEART FAILURE, UNSPECIFIED (2) Acute hypoxic respiratory failure Current Visit: Yes Status: Acute Assessment & Plan: -supplemental oxygen with goal >92% -RT consult -nebs/inh - Rt eval for home O2 need Code(s): J96.01 - ACUTE RESPIRATORY FAILURE WITH HYPOXIA (3) Anasarca Current Visit: Yes Status: Acute Assessment & Plan: -Most likely secondary to CHF exac -CT showing Impression: 1. New cardiomegaly, bilateral pleural effusions, and diffuse anasarca favoring cardiac decompensation/CHF. Tiny perihepatic fluid may be related. 2. New sigmoid colon bowel wall thickening with intraluminal narrowing. Malignancy not complete excluded. Direct endoscopy recommended. 3. Again chronic findings including colonic diverticulosis, left renal cysts, enlarged prostate gland, extensive arteriosclerotic disease, chronic bony findings, and old granulomatous disease - received lasix - resolved Code(s): R60.1 - GENERALIZED EDEMA (4) Anemia Current Visit: Yes Status: Acute Assessment & Plan: - Hgb 8.1 - stable - Will need to f/u with [facility] op for colonoscopy once cardiac clearance OK's by cardiology Code(s): D64.9 - ANEMIA, UNSPECIFIED (5) CAD (coronary artery disease) Current Visit: Yes Status: Chronic Assessment & Plan: -noted, continue home meds Code(s): I25.10 - ATHSCL HEART DISEASE OF [place] CORONARY ARTERY W/O ANG PCTRS (6) Colonic mass Current Visit: Yes Status: Acute Assessment & Plan: CT findings with New sigmoid colon bowel wall thickening with intraluminal narrowing. Malignancy not complete excluded. Direct endoscopy recommended. -Surgery consult -Patient will need clearance prior to scopes per surgery, can do this as op once he obtains it from cards follow up Code(s): K63.89 - OTHER SPECIFIED DISEASES OF INTESTINE (7) Diabetes mellitus Current Visit: Yes Status: Acute Assessment & Plan: -SSI -ADA diet -A1c at 6.19, blood glucose levels controlled, Code(s): E11.9 - TYPE 2 DIABETES MELLITUS WITHOUT COMPLICATIONS (8) HLD (hyperlipidemia) Current Visit: Yes Status: Acute Assessment & Plan: -continue home meds Code(s): E78.5 - HYPERLIPIDEMIA, UNSPECIFIED (9) HTN (hypertension) Current Visit: Yes Status: Acute Code(s): I10 - ESSENTIAL (PRIMARY) HYPERTENSION (10) Diverticulitis Current Visit: No Status: Acute Assessment & Plan: - Flagyl and zosyn started 12/04/23 - will d/c with Cipro and flagyl - F/U with GS for further eval OP Code(s): K57.92 - DVTRCLI OF INTEST, PART UNSP, W/O PERF OR ABSCESS W/O BLEED - Discharge Discharge Date: 12/05/23 Disposition: Home, Self-Care Condition: Stable Prescriptions: Continue ramipriL [Altace] 10 mg PO BID Atorvastatin Calcium [Lipitor] 80 mg PO DAILY Amlodipine Besylate 10 mg [Norvasc 10 MG] 2.5 mg PO DAILY Fenofibrate 48 mg PO DAILY Magnesium Oxide 400 mg [Mag-Ox 400] 400 mg PO BID Terazosin HCl 5 mg PO BID Lipase/Protease/Amylase [Jelani Christie 36,000 Unit Capsule] 2 each PO TIDWMEALS Metoprolol Succinate 100 mg [Toprol Xl 100 MG] 100 mg PO DAILY Ezetimibe [Zetia] 10 mg PO DAILY Oxycodone HCl/Acetaminophen [Oxycodone-Acetaminophen 5-325] 1 each PO TIDPRN PRN PRN Reason: Pain Escitalopram Oxalate [Lexapro] 10 mg PO DAILY Lipase/Protease/Amylase [Jelani Christie 36,000 Unit Capsule] 1 each PO BIDPRN PRN PRN Reason: TAKES WITH SNACKS Metformin HCl [Metformin HCl ER] 500 mg PO DAILY Rivaroxaban [Xarelto] 15 mg PO HS Additional Instructions: Please follow a BRAT diet until feeling better. May buy OTC Gas-x if continued gas pain. Will need cardiac clearance before going to surgery appointment. Follow up with: SAMANTHA ROBLES MD [ACTIVE STAFF] - 12/13/23 2:50 pm (APPOINTMENT WILL BE AT [facility]. ) VICTORIA WALTON [Primary Care Provider] - 12/14/23 1:15 pm
[2023-12-05 12:09] VITALS: BP 149/70; PULSE 69; RESP 13; TEMP 97.7; O2SAT 95
[2023-12-05] MEDS: Hydromorphone 1 mg/ml Injection IV PRN (12:17)
--- NOTE | 2023-12-06 15:15 | ECHO ---
DATE OF PROCEDURE: 12/02/2023 CLINICAL INFORMATION: Congestive heart failure exacerbation. The M-mode 2D, and Doppler echocardiogram including color flow Doppler shows the left ventricle is normal in size. There is moderate asymmetric left ventricular hypertrophy involving the septum. The left ventricular systolic function is mildly decreased. The ejection fraction is calculated to be 46%. The right ventricle is normal. There is a pacing electrode in the right ventricle extending into the right atrium. The left atrium is moderately dilated. The interatrial septum is intact. The right atrium is normal. The aortic valve opens well. There is mitral valve leaflet thickening associated with mild to moderate mitral regurgitation. There is mild tricuspid regurgitation. The right ventricular systolic pressure is calculated to be 43 mm of [place]. The pulmonic valve is not well visualized. The aortic root is normal. There is no pericardial effusion present. IMPRESSION: 1) MILD DECREASE IN LEFT VENTRICULAR SYSTOLIC FUNCTION. 2) MODERATE ASYMMETRIC LEFT VENTRICULAR HYPERTROPHY INVOLVING THE SEPTUM. 3) MODERATE LEFT ATRIAL DILATATION. 4) RIGHT VENTRICULAR PACING ELECTRODE. 5) MILD TO MODERATE MITRAL REGURGITATION. 6) MILD TRICUSPID REGURGITATION. 7) MODERATE PULMONARY HYPERTENSION.
== END 2023-12-05 15:50 | disposition home or self-care (01) | DRG 292 ==
LOC: ED 15:11 → MED SURG 17:54 → OBSVTOIN 12-02 05:13
PROVIDERS: ADMIT Internal Medicine; ATTEND Internal Medicine
DX: I11.0 Hypertensive heart disease with heart failure (principal); K57.92 Diverticulitis of intestine, part unspecified, without perforation or abscess without bleeding; I50.9 Heart failure, unspecified; R60.1 Generalized edema; D64.9 Anemia, unspecified; I25.10 Atherosclerotic heart disease of native coronary artery without angina pectoris; K63.89 Other specified diseases of intestine; E11.9 Type 2 diabetes mellitus without complications; E78.5 Hyperlipidemia, unspecified; J44.9 Chronic obstructive pulmonary disease, unspecified; I25.2 Old myocardial infarction; Z79.01 Long term (current) use of anticoagulants; Z79.899 Other long term (current) drug therapy; Z95.0 Presence of cardiac pacemaker; Z20.828 Contact with and (suspected) exposure to other viral communicable diseases
CPT/HCPCS: 0241U; 36000; 36415; 71045; 71046; 74018; 74176; 80053; 82947; 83036; 83605; 83690; 83735; 83880; 84484; 85025; 87040; 93005; 93041; 93268; 93306; 94640; 94760; 94762; 96374; 96376; 99285; G0378; Q3014; J0360; J1170; J1817; J1940; J2405; A9270-GY

== ENCOUNTER 2024-01-15 19:36 | Inpatient (IN) | payer MEDICARE, OTHER ==
[2024-01-15 21:20] LABS: Absolute Neutrophil Ct (ANC) 4.93 x10^3/uL (1.4-6.9); BASOPHIL % 0.2 % (0.0-0.4); Basophil (Absolute #) 0.01 x10^3/uL (0-0.4); Eosinophil % 0.3 % (0.00-5.0); Eosinophil (Absolute #) 0.02 x10^3/uL (0-0.5); Hematocrit 31.7 % (42-50); Hemoglobin 9.7 g/dL (12.5-18.0); IMMATURE GRAN # 0.02 x10^3u/L (0.00-0.03); IMMATURE GRAN % 0.3 % (0.00-0.4); Lymphocyte (Absolute #) 0.83 x10^3/uL (1.0-4.6); Lymphocytes % 13.7 % (24.0-44.0); Mean Cell Volume 96.6 fL (78-100); Mean Corpuscular Hemoglobin 29.6 pg (26-32); Mean Corpuscular Hgb Concent. 30.6 g/dL (32-36); Mean Platelet Volume 10.9 fL (7.5-11.0); Monocyte (Absolute #) 0.26 x10^3/uL (0.0-1.3); Monocytes % 4.3 % (0.0-12.0); Neutrophil % 81.2 % (36.0-66.0); Platelet Count 218 x10^3/uL (150-450); Red Blood Count 3.28 x10^6/uL (4.1-5.6); Red Cell Distribution Width 13.3 % (11.5-14.0); White Blood Count 6.1 x10^3/uL (4.0-10.5)
[2024-01-15 21:25] LABS: ALBUMIN 3.6 g/dL (3.5-5.0); ANION GAP 8.8 MEQ/L (5-15); BILIRUBIN,TOTAL 0.4 mg/dL (0.2-1.3); Calcium 9.3 mg/dL (8.4-10.2); Creatinine 1 1.05 mg/dL (0.66-1.25); EST GLOMERULAR FILTRATION RATE 75.4 ML/MIN; Potassium 4.1 mmol/L (3.5-5.1)
[2024-01-15 21:28] LABS: INR 1.11 (0.8-3.0); PTT 26.5 SECONDS (25.1-36.5)
--- NOTE | 2024-01-15 21:36 | ERPHSYRPT ---
- History of Present Illness Time Seen by Provider: 01/15/24 21:00 Historian: patient Exam Limitations: no limitations Patient Subjective Stated Complaint: Having pain in abdominal area, feeling short of breath, pressure on chest, nausea, and gagging. Triage Nursing Assessment: Patient states that for the last few days he has been having abdominal pain on the right side of abdomen and upper epigastric area. States is feeling nauseated and has been gagging a few times. Feeling short of breath and like there is a pressure on his chest. Physician History: 73yo m presents for abdominal pain last 1wk. Pt states that he has oxycodone at home that he has been taking w/ some relief. Pt states the pain is band-like across the lower portion of the abdomen. Pt reports poor PO intake, nausea, no vomiting, no diarrhea. Pt does endorse some sob and chest discomfort on the left side of the chest and into the shoulder. Pt is currently on xarelto Allergies/Adverse Reactions: No Known Drug Allergies Allergy (Verified 01/15/24 20:47) Home Medications: Amlodipine Besylate 10 mg [Norvasc 10 MG] 2.5 mg PO DAILY 12/17/17 [History] Atorvastatin Calcium [Lipitor] 80 mg PO DAILY 12/17/17 [History] ramipriL [Altace] 10 mg PO BID 12/17/17 [History] Fenofibrate 48 mg PO DAILY 05/18/22 [History] Magnesium Oxide 400 mg [Mag-Ox 400] 400 mg PO BID 05/18/22 [History] Terazosin HCl 5 mg PO BID 05/18/22 [History] Escitalopram Oxalate [Lexapro] 10 mg PO DAILY 12/01/23 [History] Ezetimibe [Zetia] 10 mg PO DAILY 12/01/23 [History] Metformin HCl [Metformin HCl ER] 500 mg PO DAILY 12/01/23 [History] Metoprolol Succinate 100 mg [Toprol Xl 100 MG] 100 mg PO DAILY 12/01/23 [History] Oxycodone HCl/Acetaminophen [Oxycodone-Acetaminophen 5-325] 1 each PO TIDPRN PRN 12/01/23 [History] Rivaroxaban [Xarelto] 15 mg PO HS 12/01/23 [History] Esomeprazole Magnesium [Nexium] 20 mg PO DAILY 01/15/24 [History] [place]-3 Fatty Acids/Fish Oil [Fish Oil 1,000 mg Capsule] 1,000 mg PO DAILY 01/15/24 [History] Hx Tetanus, Diphtheria Vaccination/Date Given: Yes Hx Influenza Vaccination/Date Given: Yes Hx Pneumococcal Vaccination/Date Given: No Travel Risk - International Travel Have you traveled outside of the country in past 3 weeks: No - Coronavirus Screening Symptoms: Cough: New Onset, Shortness of Breath, Vomiting/Diarrhea, Headaches/Body Aches/Fatigue Close contact with a COVID-19 positive Pt in past 14-21 Days: No - Vaccine Status Have you recieved a Covid-19 vaccination: No - Past Medical History Pertinent Past Medical History: Yes Neurological History: No Pertinent History ENT History: No Pertinent History Cardiac History: Coronary Artery Disease, Hypertension, Myocardial Infarction (MT) Respiratory History: No Pertinent History Endocrine Medical History: Diabetes Type II Musculoskeletal History: No Pertinent History GI Medical History: Pancreatitis History: No Pertinent History Psycho-Social History: No Pertinent History Male Reproductive Disorders: No Pertinent History - Past Surgical History Past Surgical History: Yes Neuro Surgical History: No Pertinent History Cardiac: CABG, Pacemaker Respiratory: No Pertinent History Gastrointestinal: Hernia Repair Genitourinary: No Pertinent History Musculoskeletal: Other Male Surgical History: No Pertinent History Other Surgical History: feeding tube placement and removal - Social History Smoking Status: Former smoker How long have you smoked: 50 yrs Exposure to second hand smoke: No Drug Use: none Patient Lives Alone: No - Nursing Vital Signs Nursing Vital Signs: Initial Vital Signs Temperature 97.7 F 01/15/24 19:37 Pulse Rate 85 01/15/24 19:37 Respiratory Rate 20 01/15/24 19:37 Blood Pressure 173/101 01/15/24 19:37 O2 Sat by Pulse Oximetry 91 L 01/15/24 19:37 Pain Scale Pain Intensity 5 - Physical Exam SpO2: 94 - Course EKG Interpreted by Me: RATE (96), Right Bundle Branch Block, Non-specific ST Changes (no suggestion of ischemic changes, PVCs noted) Ordered Tests: Active Orders 24 hr Category Date Time Status ABDOMEN AND PELVIS W CONTRAST [CT] Stat Exams 01/15/24 22:48 Completed CHEST 1 VIEW (PORTABLE) Stat Exams 01/15/24 21:12 Taken CHEST WITHOUT CONTRAST [CT] Stat Exams 01/15/24 23:28 Completed CBC W DIFF Stat Lab 01/15/24 20:45 Completed CMP Stat Lab 01/15/24 20:45 Completed NT PRO BNPII Stat Lab 01/15/24 20:45 Completed PROTIME WITH INR Stat Lab 01/15/24 20:45 Completed PTT Stat Lab 01/15/24 20:45 Completed TROPONIN Q4H Lab 01/15/24 20:45 Completed TROPONIN Q4H Lab 01/16/24 01:15 Completed TROPONIN Q4H Lab 01/16/24 05:15 Ordered Medication Summary Generic Name Dose Route Start Last Admin Trade Name Freq PRN Reason Stop Dose Admin Furosemide 20 mg 01/16/24 23:15 01/16/24 00:29 Furosemide 20 Mg/Vial IV 01/16/24 23:16 20 mg DAILY ONE Administration Discontinued Medications Generic Name Dose Route Start Last Admin Trade Name Freq PRN Reason Stop Dose Admin Furosemide Confirm 01/16/24 00:20 Furosemide 20 Mg/Vial Administered 01/16/24 00:21 Dose 20 mg .ROUTE .STTripping-MED ONE Lab/Rad Data: Laboratory Result Diagrams 01/15/24 20:45 01/15/24 20:45 Laboratory Results 01/16/24 01/15/24 01/15/24 Range/Units 01:15 21:27 20:45 WBC (4.0-10.5) x10^3/uL RBC (4.1-5.6) x10^6/uL Hgb (12.5-18.0) g/dL Hct (42-50) % MCV (78-100) fL MCH (26-32) pg MCHC (32-36) g/dL RDW (11.5-14.0) % Plt Count (150-450) x10^3/uL MPV (7.5-11.0) fL Gran % (36.0-66.0) % Immature Gran % (Auto) (0.00-0.4) % Nucleat RBC Rel Count (0.00-0.1) % Eos # (Auto) (0-0.5) x10^3/uL Immature Gran # (Auto) (0.00-0.03) x10^3u/L Absolute Lymphs (auto) (1.0-4.6) x10^3/uL Absolute Monos (auto) (0.0-1.3) x10^3/uL Absolute Nucleated RBC (0.00-0.01) x10^3u/L Lymphocytes % (24.0-44.0) % Monocytes % (0.0-12.0) % Eosinophils % (0.00-5.0) % Basophils % (0.0-0.4) % Absolute Granulocytes (1.4-6.9) x10^3/uL Basophils # (0-0.4) x10^3/uL PT (9.4-12.5) SECONDS INR (0.8-3.0) APTT (25.1-36.5) SECONDS Sodium (137-145) mmol/L Potassium (3.5-5.1) mmol/L Chloride (98-107) mmol/L Carbon Dioxide (22-30) mmol/L Anion Gap (5-15) MEQ/L BUN (9-20) mg/dL Creatinine (0.66-1.25) mg/dL Estimated GFR ML/MIN Glucose (74-106) mg/dL Calcium (8.4-10.2) mg/dL Total Bilirubin (0.2-1.3) mg/dL AST (17-59) U/L ALT (0-50) U/L Alkaline Phosphatase (38-126) U/L Troponin I 0.014 0.015 (0.000-0.034) ng/mL NT-Pro-B Natriuret Pep 63354 (<300) pg/mL Serum Total Protein (6.3-8.2) g/dL Albumin (3.5-5.0) g/dL Influenza Type A Ag NEGATIVE (NEGATIVE) Influenza Type B Ag NEGATIVE (NEGATIVE) RSV (PCR) NEGATIVE (NEGATIVE) SARS-CoV-2 (PCR) NEGATIVE (NEGATIVE) 01/15/24 01/15/24 01/15/24 Range/Units 20:45 20:45 20:45 WBC 6.1 (4.0-10.5) x10^3/uL RBC 3.28 L (4.1-5.6) x10^6/uL Hgb 9.7 L (12.5-18.0) g/dL Hct 31.7 L (42-50) % MCV 96.6 (78-100) fL MCH 29.6 (26-32) pg MCHC 30.6 L (32-36) g/dL RDW 13.3 (11.5-14.0) % Plt Count 218 (150-450) x10^3/uL MPV 10.9 (7.5-11.0) fL Gran % 81.2 H (36.0-66.0) % Immature Gran % (Auto) 0.3 (0.00-0.4) % Nucleat RBC Rel Count 0.0 (0.00-0.1) % Eos # (Auto) 0.02 (0-0.5) x10^3/uL Immature Gran # (Auto) 0.02 (0.00-0.03) x10^3u/L Absolute Lymphs (auto) 0.83 L (1.0-4.6) x10^3/uL Absolute Monos (auto) 0.26 (0.0-1.3) x10^3/uL Absolute Nucleated RBC 0.00 (0.00-0.01) x10^3u/L Lymphocytes % 13.7 L (24.0-44.0) % Monocytes % 4.3 (0.0-12.0) % Eosinophils % 0.3 (0.00-5.0) % Basophils % 0.2 (0.0-0.4) % Absolute Granulocytes 4.93 (1.4-6.9) x10^3/uL Basophils # 0.01 (0-0.4) x10^3/uL PT 12.0 (9.4-12.5) SECONDS INR 1.11 (0.8-3.0) APTT 26.5 (25.1-36.5) SECONDS Sodium 134 L (137-145) mmol/L Potassium 4.1 (3.5-5.1) mmol/L Chloride 104 (98-107) mmol/L Carbon Dioxide 25 (22-30) mmol/L Anion Gap 8.8 (5-15) MEQ/L BUN 22 H (9-20) mg/dL Creatinine 1.05 (0.66-1.25) mg/dL Estimated GFR 75.4 ML/MIN Glucose 147 H (74-106) mg/dL Calcium 9.3 (8.4-10.2) mg/dL Total Bilirubin 0.40 (0.2-1.3) mg/dL AST 18 (17-59) U/L ALT 11 (0-50) U/L Alkaline Phosphatase 54 (38-126) U/L Troponin I (0.000-0.034) ng/mL NT-Pro-B Natriuret Pep (<300) pg/mL Serum Total Protein 6.0 L (6.3-8.2) g/dL Albumin 3.6 (3.5-5.0) g/dL Influenza Type A Ag (NEGATIVE) Influenza Type B Ag (NEGATIVE) RSV (PCR) (NEGATIVE) SARS-CoV-2 (PCR) (NEGATIVE) - Progress Progress: pain not gone completely Progress Note: 01/16/24 01:09 CT abd/pel: Gross bilateral pleural effusions with passive subsegmental collapse of both lower lobes.-same as prior study. Cardiomegaly. Mild ascites noted involving perihepatic space, there is perisplenic space and in the pelvis region-same as prior study. Multiple small uncomplicated diverticulosis involving descending and sigmoid colon.-same as prior study. 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 Unchanged from the prior. Prostate appears enlarged-static. No other acute interval changes is seen. 01/16/24 02:00 discussed admission to obs for CHF exacerbation w/ Dr Giang who accepts pleural effusions w/ consolidations found on CT chest - started IV rocephin Will see patient in: hospital (observation) Counseled pt/family regarding: lab results, diagnosis, need for follow-up, rad results Medical Desision Making - Discussion of managment Care discussed with:: hospitalist Reviewed:: Test results, Need for additional workup Agreed on:: need for follow-up, place in obs Will see patient: in hospital - Diagnostic Testing Diagnostic test were ordered, analyzed, and reviewed by me: Yes Radiological Interpretation: Reviewed by me, Teleradiologist Report - Risk of complications The pt has a mod risk of morbidity or mortality based on: Need for prescription drug management - Departure Departure Disposition: Observation Clinical Impression: Diverticulitis, Pleural effusion due to CHF (congestive heart failure) CHF exacerbation Qualifiers: Heart failure type: unspecified Qualified Code(s): I50.9 - Heart failure, unspecified Pneumonia Qualifiers: Pneumonia type: due to unspecified organism Laterality: bilateral Lung location: lower lobe of lung Qualified Code(s): J18.9 - Pneumonia, unspecified organism Condition: Stable Critical Care Time: No Referrals: VICTORIA WALTON [Primary Care Provider] - Follow up/PCP as directed Instructions: Heart Failure
[2024-01-15 21:37] LABS: TROPONIN 0.015 ng/mL (0.000-0.034)
[2024-01-15 22:05] LABS: INFLUENZA A NEGATIVE (NEGATIVE); INFLUENZA B NEGATIVE (NEGATIVE); RESPIRATORY SYNCTIAL VIRUS NEGATIVE (NEGATIVE); SARS-CoV-2 Xpert Express NEGATIVE (NEGATIVE)
[2024-01-16] MEDS ORDERED: Lasix 20 MG/2 ML ONE (00:20)
[2024-01-16] MEDS: Lasix 20 MG/2 ML IV ONE (00:29)
--- NOTE | 2024-01-16 00:51 | XRAY ---
CLINICAL HISTORY: abdominal pain TECHNIQUE: Contiguous axial images were obtained from the level of the diaphragm to the pubic symphysis with intravenous contrast . Coronal and sagittal reconstructions were likewise performed and indicated to increase the sensitivity for detecting clinically relevant pathology. If IV contrast material had not been administered, the likelihood of detecting abnormalities relevant to the patient's condition would have been substantially decreased. CT scan was performed according to ALARA (as low as reasonable achievable). ? COMPARISON: 12/01/2023 15:22:21 IC DESIGN ENGINEER FINDINGS: Gross bilateral pleural effusions with passive subsegmental collapse of both lower lobes. Moderate cardiomegaly. Diffuse atherosclerotic calcifications are noted involving abdominal aorta and its all branches. Mild ascites noted involving perihepatic space, there is perisplenic space and in the pelvis region. Multiple small uncomplicated diverticulosis involving descending and sigmoid colon. The liver is normal in size and attenuation. No focal liver lesions are seen. There is no intra or extrahepatic biliary ductal dilatation. Hepatic vasculature is patent. The gallbladder is surgically removed. The spleen, pancreas, and adrenal glands are unremarkable. The kidneys are normal in size and attenuation. There is no hydronephrosis or perinephric fat stranding. No renal calculi or renal masses are identified.Few simple cortical cysts arising from left kidney . The ureters are normal in caliber and no ureteral calculi are seen. The bladder is normal in contour. Pelvic viscera are unremarkable. No focal or diffuse bowel wall thickening or evidence of bowel obstruction is identified. Abdominal and pelvic vasculature is patent. No adenopathy or fluid collections are seen. Prostate appears enlarged in size measures about 46 x 55 x 42 mm. No aggressive appearing osseous lesions are identified. IMPRESSION: Gross bilateral pleural effusions with passive subsegmental collapse of both lower lobes.-same as prior study. Cardiomegaly. Mild ascites noted involving perihepatic space, there is perisplenic space and in the pelvis region-same as prior study. Multiple small uncomplicated diverticulosis involving descending and sigmoid colon.-same as prior study. 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 Unchanged from the prior. Prostate appears enlarged-static. No other acute interval changes is seen. Electronically Signed by: Dr. Javier Brannon MD. (01/16/2024 00:46:38 EST)
--- NOTE | 2024-01-16 01:29 | XRAY ---
CLINICAL HISTORY: SOB TECHNIQUE: Multiple axial sections of the chest were acquired without intravenous contrast administration. Sagittal and coronal reformatted images were obtained. COMPARISON: None. FINDINGS: Cardiac size is enlarged. No pericardial effusion. The unenhanced aorta appears within normal limits. No aneurysmal dilatation is noted. Diffuse atherosclerotic calcification is seen. Mild enlarged pulmonary trunk measuring 3.5 cm, right main pulmonary artery measuring 2.3 cm, and left pulmonary artery measuring 2.1 cm concerning possible arterial hypertension. There are multiple enlarged mediastinal lymph nodes. For reference, one of the largest supra-clinoid regions measures 1.8 x 1.1 cm. Patent trachea and mainstem bronchi. There is moderate bilateral pleural effusion, greater on the left. Ground glass haze with reticulation is noted in the posterior segments of the bilateral upper lobe and bilateral lower lobes. Focal atelectasis/clustered nodularity anteriorly in the right upper lobe. Multifocal areas of bilateral lower lobe subsegmental consolidation. Thickening of the horizontal fissure is noted. The 2 mm subpleural cyst is seen in the left upper lobe. Mild generalized interlobular septal thickening. Right upper lobe paraseptal emphysema. The sections from the abdomen demonstrate hepatic and splenic calcific foci. Thickened bilateral adrenal glands. Bilateral renal cysts. Mild ascites. The thyroid gland is normal. The patient is s/p median sternotomy. A dual-lead cardiac pacemaker is noted. On appropriate bone window settings, sclerosis and compression fracture of T12 without significant retropulsion or retrolisthesis. Multilevel spondylotic degenerative changes. In addition, there is focal sclerosis at the inferiolateral aspect of the left sixth rib. IMPRESSION: 1. Moderate bilateral pleural effusion with bilateral lower lobe subsegmental consolidation and diffuse interlobular septal thickening. Differential considerations would include infective etiology versus cardiogenic edema/CHF. Clinical correlation and follow-up are recommended. 2. Cardiomegaly with a mildly dilated pulmonary trunk, right and left pulmonary artery concerning for possible arterial hypertension. Please correlate clinically. 3. Multiple prominent and mildly enlarged mesenteric lymph nodes, presumably reactive. 4. 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 Electronically Signed by: Glenn Luna MD. (01/16/2024 01:24:45 EST)
[2024-01-16] MEDS ORDERED: ROCEPHIN 1 GM / 100 ML NaCl 1 GM/100 ML IVPB IV ONE (02:00)
[2024-01-16] MEDS: ROCEPHIN 1 GM / 100 ML NaCl 1 GM/100 ML IVPB IV ONE (02:04)
[2024-01-16] MEDS ORDERED: MORPHINE SULFATE 2 MG INJ ONE (02:07)
[2024-01-16] MEDS: MORPHINE SULFATE 2 MG INJ IV ONE (02:08)
--- NOTE | 2024-01-16 02:30 | PCM.HP ---
History of Present Illness - Chief Complaint Chief Complaint: Acute CHF History of Present Illness: is a 73 year old male with hx of DMII, HTN, CAD presented tonight wit c/o abdominal pain x 1 week. Pain is tight across lower half of abdomen, associated with poor appetite and nausea. No vomiting or diarrhea. Also endorsed SOB and left sided chest tightness. Denies fever, cough, sputum, dysuria, hematuria, syncope. In ER, imaging studies show BL pleural effusions, consolidation. Abd CT not remarkable. BNP 39K. Admitted for acute CHF I am seeing pt via telemedicine. He is resting, very hard of hearing. He is on 5Ls [place] O2. - Review of Systems Constitutional: No Symptoms, Fatigue Eyes: No Symptoms Ears, Nose, & Throat: No Symptoms Respiratory: Orthopnea, Short Of Breath Cardiac: Chest Pain, Edema, Orthopnea Abdominal/Gastrointestinal: Abdominal Pain, Nausea, Appetite Changes Genitourinary Symptoms: No Symptoms Musculoskeletal: No Symptoms Skin: No Symptoms Neurological: No Symptoms Psychological: No Symptoms Endocrine: No Symptoms Hematologic/Lymphatic: No Symptoms Immunological/Allergic: No Symptoms Medications & Allergies Home Medications: Home Medication List Amlodipine Besylate 10 mg [Norvasc 10 MG] 2.5 mg PO DAILY 12/17/17 [History Confirmed 01/16/24] Atorvastatin Calcium [Lipitor] 80 mg PO DAILY 12/17/17 [History Confirmed 01/16/24] ramipriL [Altace] 10 mg PO BID 12/17/17 [History Confirmed 01/16/24] Fenofibrate 48 mg PO DAILY 05/18/22 [History Confirmed 01/16/24] Magnesium Oxide 400 mg [Mag-Ox 400] 400 mg PO BID 05/18/22 [History Confirmed 01/16/24] Terazosin HCl 5 mg PO BID 05/18/22 [History Confirmed 01/16/24] Escitalopram Oxalate [Lexapro] 10 mg PO DAILY 12/01/23 [History Confirmed 01/16/24] Ezetimibe [Zetia] 10 mg PO DAILY 12/01/23 [History Confirmed 01/16/24] Metformin HCl [Metformin HCl ER] 500 mg PO DAILY 12/01/23 [History Confirmed 01/16/24] Metoprolol Succinate 100 mg [Toprol Xl 100 MG] 100 mg PO DAILY 12/01/23 [History Confirmed 01/16/24] Oxycodone HCl/Acetaminophen [Oxycodone-Acetaminophen 5-325] 1 each PO TIDPRN PRN 12/01/23 [History Confirmed 01/16/24] Rivaroxaban [Xarelto] 15 mg PO HS 12/01/23 [History Confirmed 01/16/24] Esomeprazole Magnesium [Nexium] 20 mg PO DAILY 01/15/24 [History Confirmed 01/16/24] [place]-3 Fatty Acids/Fish Oil [Fish Oil 1,000 mg Capsule] 1,000 mg PO DAILY 01/15/24 [History Confirmed 01/16/24] Allergies/Adverse Reactions: Allergies Allergy/AdvReac Type Severity Reaction Status Date / Time No Known Drug Allergies Allergy Verified 01/16/24 02:36 - Past Medical History Past Medical History: Yes Neurological History: No Pertinent History ENT History: No Pertinent History Cardiac History: Coronary Artery Disease, Hypertension, Myocardial Infarction ([place]) Respiratory History: No Pertinent History Endocrine Medical History: Diabetes Type II Musculoskelatal History: No Pertinent History GI Medical History: Pancreatitis History: No Pertinent History Pyscho-Social History: No Pertinent History Male Reproductive Disorders: No Pertinent History - Past Surgical History Past Surgical History: Yes Neuro Surgical History: No Pertinent History Cardiac History: CABG, Pacemaker Respiratory Surgery: No Pertinent History GI Surgical History: Hernia Repair Genitourinary Surgical Hx: No Pertinent History Musculskeletal Surgical Hx: Other Male Surgical History: No Pertinent History Other Surgical History: feeding tube placement and removal Significant Family History: no pertinent family hx - Social History Smoking Status: Former smoker How long have you smoked: 50 yrs Exposure to second hand smoke: No Alcohol: None Drug Use: none - Social Determinants of Health Will the patient participate in the screening: Yes Do you worry about a steady place to live?: No In the past 12 months,have you had to go without utilities?: No Have you or anyone in your house had to go without enough: No Transportation Issues: No Has anyone in your support network made you feel unsafe?: No Does the patient want assistance with any of the above?: No - Physical Exam Vital Signs: Vital Signs - 24 hr Temp Pulse Resp BP BP Pulse Ox 01/16/24 02:04 94 L 01/16/24 02:00 98 H 18 155/95 93 L 01/16/24 01:30 99 H 24 163/95 94 L 01/16/24 01:00 86 16 157/95 92 L 01/16/24 00:30 96 H 12 166/100 90 L 01/16/24 00:00 101 H 19 171/109 01/15/24 23:48 96 H 26 H 167/113 91 L 01/15/24 23:47 96 H 22 91 L 01/15/24 23:42 97 H 15 94 L 01/15/24 22:30 96 H 18 135/85 95 01/15/24 22:00 84 22 144/88 98 01/15/24 21:30 76 21 165/99 98 01/15/24 21:00 91 H 18 162/99 94 L 01/15/24 19:37 97.7 F 85 20 173/101 91 L General Appearance: mild distress Neurologic Exam: alert, oriented x 3, cooperative Eye Exam: PERRL/EOMI Ears, Nose, Throat Exam: normal ENT inspection Neck Exam: normal inspection, full range of motion Respiratory Exam: diminished breath sounds, rhonchi Cardiovascular Exam: regular rate/rhythm Gastrointestinal/Abdomen Exam: soft, normal bowel sounds Rectal Exam: deferred Back Exam: normal inspection Extremity Exam: normal inspection Skin Exam: normal color Results - Labs Lab/Micro Results: Lab Results-Last 24 Hours 01/15/24 01/15/24 01/15/24 Range/Units 20:45 20:45 20:45 WBC 6.1 (4.0-10.5) x10^3/uL RBC 3.28 L (4.1-5.6) x10^6/uL Hgb 9.7 L (12.5-18.0) g/dL Hct 31.7 L (42-50) % MCV 96.6 (78-100) fL MCH 29.6 (26-32) pg MCHC 30.6 L (32-36) g/dL RDW 13.3 (11.5-14.0) % Plt Count 218 (150-450) x10^3/uL MPV 10.9 (7.5-11.0) fL Gran % 81.2 H (36.0-66.0) % Immature Gran % (Auto) 0.3 (0.00-0.4) % Nucleat RBC Rel Count 0.0 (0.00-0.1) % Eos # (Auto) 0.02 (0-0.5) x10^3/uL Immature Gran # (Auto) 0.02 (0.00-0.03) x10^3u/L Absolute Lymphs (auto) 0.83 L (1.0-4.6) x10^3/uL Absolute Monos (auto) 0.26 (0.0-1.3) x10^3/uL Absolute Nucleated RBC 0.00 (0.00-0.01) x10^3u/L Lymphocytes % 13.7 L (24.0-44.0) % Monocytes % 4.3 (0.0-12.0) % Eosinophils % 0.3 (0.00-5.0) % Basophils % 0.2 (0.0-0.4) % Absolute Granulocytes 4.93 (1.4-6.9) x10^3/uL Basophils # 0.01 (0-0.4) x10^3/uL PT 12.0 (9.4-12.5) SECONDS INR 1.11 (0.8-3.0) APTT 26.5 (25.1-36.5) SECONDS Sodium 134 L (137-145) mmol/L Potassium 4.1 (3.5-5.1) mmol/L Chloride 104 (98-107) mmol/L Carbon Dioxide 25 (22-30) mmol/L Anion Gap 8.8 (5-15) MEQ/L BUN 22 H (9-20) mg/dL Creatinine 1.05 (0.66-1.25) mg/dL Estimated GFR 75.4 ML/MIN Glucose 147 H (74-106) mg/dL Calcium 9.3 (8.4-10.2) mg/dL Total Bilirubin 0.40 (0.2-1.3) mg/dL AST 18 (17-59) U/L ALT 11 (0-50) U/L Alkaline Phosphatase 54 (38-126) U/L Troponin I (0.000-0.034) ng/mL NT-Pro-B Natriuret Pep (<300) pg/mL Serum Total Protein 6.0 L (6.3-8.2) g/dL Albumin 3.6 (3.5-5.0) g/dL Influenza Type A Ag (NEGATIVE) Influenza Type B Ag (NEGATIVE) RSV (PCR) (NEGATIVE) SARS-CoV-2 (PCR) (NEGATIVE) 01/15/24 01/15/24 01/16/24 Range/Units 20:45 21:27 01:15 WBC (4.0-10.5) x10^3/uL RBC (4.1-5.6) x10^6/uL Hgb (12.5-18.0) g/dL Hct (42-50) % MCV (78-100) fL MCH (26-32) pg MCHC (32-36) g/dL RDW (11.5-14.0) % Plt Count (150-450) x10^3/uL MPV (7.5-11.0) fL Gran % (36.0-66.0) % Immature Gran % (Auto) (0.00-0.4) % Nucleat RBC Rel Count (0.00-0.1) % Eos # (Auto) (0-0.5) x10^3/uL Immature Gran # (Auto) (0.00-0.03) x10^3u/L Absolute Lymphs (auto) (1.0-4.6) x10^3/uL Absolute Monos (auto) (0.0-1.3) x10^3/uL Absolute Nucleated RBC (0.00-0.01) x10^3u/L Lymphocytes % (24.0-44.0) % Monocytes % (0.0-12.0) % Eosinophils % (0.00-5.0) % Basophils % (0.0-0.4) % Absolute Granulocytes (1.4-6.9) x10^3/uL Basophils # (0-0.4) x10^3/uL PT (9.4-12.5) SECONDS INR (0.8-3.0) APTT (25.1-36.5) SECONDS Sodium (137-145) mmol/L Potassium (3.5-5.1) mmol/L Chloride (98-107) mmol/L Carbon Dioxide (22-30) mmol/L Anion Gap (5-15) MEQ/L BUN (9-20) mg/dL Creatinine (0.66-1.25) mg/dL Estimated GFR ML/MIN Glucose (74-106) mg/dL Calcium (8.4-10.2) mg/dL Total Bilirubin (0.2-1.3) mg/dL AST (17-59) U/L ALT (0-50) U/L Alkaline Phosphatase (38-126) U/L Troponin I 0.015 0.014 (0.000-0.034) ng/mL NT-Pro-B Natriuret Pep 27241 (<300) pg/mL Serum Total Protein (6.3-8.2) g/dL Albumin (3.5-5.0) g/dL Influenza Type A Ag NEGATIVE (NEGATIVE) Influenza Type B Ag NEGATIVE (NEGATIVE) RSV (PCR) NEGATIVE (NEGATIVE) SARS-CoV-2 (PCR) NEGATIVE (NEGATIVE) - Radiology Impressions Radiology Exams & Impressions: Radiology Procedures Category Date Time Status ABDOMEN AND PELVIS W CONTRAST [CT] Stat Exams 01/15/24 22:48 Completed CHEST 1 VIEW (PORTABLE) Stat Exams 01/15/24 21:12 Taken CHEST WITHOUT CONTRAST [CT] Stat Exams 01/15/24 23:28 Completed Assessment/Plan (1) CHF exacerbation Current Visit: Yes Status: Acute Qualifiers: Heart failure type: unspecified Qualified Code(s): I50.9 - Heart failure, unspecified Assessment & Plan: Lasix 40mg IV TID. BNP 39K. CT chest shows effusions. Limit fluid intake < 1.5Ls/day. Will need Echo if available here. Trops 0.015 and 0.014. O2 protocol. Code(s): I50.9 - HEART FAILURE, UNSPECIFIED (2) Pleural effusion due to CHF (congestive heart failure) Current Visit: Yes Status: Acute Assessment & Plan: Likely 2/2 CHF. Diuretic will not be effective in removing this. Will need thoracentesis Code(s): I50.9 - HEART FAILURE, UNSPECIFIED (3) Pneumonia Current Visit: Yes Status: Acute Qualifiers: Pneumonia type: due to unspecified organism Laterality: bilateral Lung location: lower lobe of lung Qualified Code(s): J18.9 - Pneumonia, unspecified organism Assessment & Plan: Rocephin 1gm IV daily. Sputum and blood culture. Not septic on my exam Code(s): J18.9 - PNEUMONIA, UNSPECIFIED ORGANISM (4) Anemia Current Visit: No Status: Acute Assessment & Plan: Hgb 9.7, denies black or bloody stools. Check iron stores Code(s): D64.9 - ANEMIA, UNSPECIFIED (5) Diabetes mellitus Current Visit: No Status: Acute Assessment & Plan: ADA diet, accucheck, SSI. Check A1C Code(s): E11.9 - TYPE 2 DIABETES MELLITUS WITHOUT COMPLICATIONS (6) HTN (hypertension) Current Visit: No Status: Acute Assessment & Plan: Resume home medications. Hold CCB for now given its side effect of fluid retention Code(s): I10 - ESSENTIAL (PRIMARY) HYPERTENSION Telemedicine Encounter - Telemedicine Encounter Telemedicine Encounter: The entirety of this encounter was performed via Telemedicine" Pt gave me verbal consent to have this telemedicine visit
[2024-01-16] MEDS ORDERED: PERCOCET TABLET 5/325MG PO PRN (02:34)
[2024-01-16] MEDS ORDERED: HUMALOG SQ PRN (02:34)
[2024-01-16] MEDS: ROCEPHIN 1 GM / 100 ML NaCl 1 GM/100 ML IVPB IV SCH (04:03)
[2024-01-16 05:32] LABS: Hematocrit 29.3 % (42-50); Hemoglobin 9.1 g/dL (12.5-18.0); Mean Cell Volume 95.4 fL (78-100); Mean Corpuscular Hemoglobin 29.6 pg (26-32); Mean Corpuscular Hgb Concent. 31.1 g/dL (32-36); Mean Platelet Volume 10.8 fL (7.5-11.0); Platelet Count 208 x10^3/uL (150-450); Red Blood Count 3.07 x10^6/uL (4.1-5.6); Red Cell Distribution Width 13.6 % (11.5-14.0); White Blood Count 5.2 x10^3/uL (4.0-10.5)
[2024-01-16 06:05] LABS: ANION GAP 10.2 MEQ/L (5-15); BLOOD UREA NITROGEN 21 mg/dL (9-20); CHLORIDE 105 mmol/L (98-107); Calcium 9.1 mg/dL (8.4-10.2); Carbon Dioxide 24 mmol/L (22-30); Creatinine 1 0.95 mg/dL (0.66-1.25); Glucose 113 mg/dL (74-106); NT PRO BNPII > 30000 pg/mL (<300); PREALBUMIN 18.82 mg/dL (17.6-36.0); Potassium 3.8 mmol/L (3.5-5.1); SODIUM 135 mmol/L (137-145)
[2024-01-16] MEDS: Lasix 40 MG/4 ML IV SCH ×2 (06:32→12:29)
[2024-01-16] MEDS: PERCOCET TABLET 5/325MG PO PRN (06:47)
[2024-01-16] MEDS ORDERED: APRESOLINE 20 MG/ML INJ IV PRN (07:26)
[2024-01-16] MEDS ORDERED: MEDICATION INTERVENTION MC SCH (07:30)
--- NOTE | 2024-01-16 08:43 | XRAY ---
Indication: Short of breath. Comparison: December 04, 2023 Portable chest again demonstrates CABG and left dual-lead pacemaker. New cardiomegaly, pulmonary congestion, and moderate bilateral pleural effusions favoring cardiac decompensation/CHF. Superimposed pneumonia not completely excluded. Bony thorax intact.
[2024-01-16] MEDS: Docusate Sodium 100 MG PO SCH (09:50)
[2024-01-16] MEDS: ZOCOR 20MG PO SCH (09:50)
[2024-01-16] MEDS: Zetia 10 MG PO SCH (09:50)
[2024-01-16] MEDS: HYTRIN 1 MG PO SCH (09:51)
[2024-01-16] MEDS: FISH OIL 1,000 MG CAPSULE PO SCH (09:51)
[2024-01-16] MEDS: Lexapro PO SCH (09:52)
[2024-01-16] MEDS: Protonix 20MG Tablet PO SCH (09:52)
[2024-01-16] MEDS: MAG-OX 400 PO SCH (09:53)
[2024-01-16] MEDS: Toprol Xl 100 MG PO SCH (09:53)
[2024-01-16] MEDS: Zestril 20 MG PO SCH (09:53)
[2024-01-16] MEDS: Nicoderm CQ 21 MG TOP SCH (09:59)
[2024-01-16] MEDS ORDERED: NON-FORMULARY ITEM (Terazosin Hcl [Terazosin Hcl] 5 MG Capsule) PO SCH (10:00)
[2024-01-16] MEDS ORDERED: NON-FORMULARY ITEM (Ramipril [Altace] 10 MG Capsule) PO SCH (10:00)
[2024-01-16] MEDS ORDERED: NON-FORMULARY ITEM (Metformin Hcl 500 MG Tab.Er.24h) PO SCH (10:00)
[2024-01-16] MEDS ORDERED: FENOFIBRATE 50 MG PO SCH (10:00)
[2024-01-16] MEDS ORDERED: NON-FORMULARY ITEM (Esomeprazole Magnesium [Nexium] 20 MG Capsule.Dr) PO SCH (10:00)
[2024-01-16] MEDS ORDERED: NON-FORMULARY ITEM (Atorvastatin Calcium [Lipitor] 80 MG Tablet) PO SCH (10:00)
[2024-01-16] MEDS: HOLD METFORMIN PRODUCTS FOR 48 HOURS MC SCH (10:48)
[2024-01-16] MEDS: PIPERACILLIN/TAZOBACTAM 3.375 GM in Sodium Chloride 100ML MINI-BAG PLUS 100 ML IV SCH (11:51)
[2024-01-16] MEDS: XARELTO 10 MG TABLET PO SCH (21:53)
[2024-01-16] MEDS ORDERED: NON-FORMULARY ITEM (Rivaroxaban [Xarelto] 15 MG Tablet) PO SCH (22:00)
[2024-01-16] MEDS ORDERED: ROCEPHIN 1 GM / 100 ML NaCl 1 GM/100 ML IVPB IV SCH (22:00)
[2024-01-17 05:17] LABS: Hematocrit 30.1 % (42-50); Hemoglobin 9.3 g/dL (12.5-18.0); Mean Cell Volume 95.9 fL (78-100); Mean Corpuscular Hemoglobin 29.6 pg (26-32); Mean Corpuscular Hgb Concent. 30.9 g/dL (32-36); Mean Platelet Volume 10.6 fL (7.5-11.0); Platelet Count 202 x10^3/uL (150-450); Red Blood Count 3.14 x10^6/uL (4.1-5.6); Red Cell Distribution Width 13.6 % (11.5-14.0); White Blood Count 5.2 x10^3/uL (4.0-10.5)
[2024-01-17 05:34] LABS: ALBUMIN 3.3 g/dL (3.5-5.0); ANION GAP 10.2 MEQ/L (5-15); BILIRUBIN,TOTAL 0.5 mg/dL (0.2-1.3); Creatinine 1 1.07 mg/dL (0.66-1.25); EST GLOMERULAR FILTRATION RATE 73.7 ML/MIN; Potassium 3.1 mmol/L (3.5-5.1); Total Protein 5.6 g/dL (6.3-8.2)
[2024-01-17] MEDS: Sodium Chloride 0.9% 1000 ML 1,000 ML IV SCH (09:21)
[2024-01-17] MEDS: POTASSIUM CHLORIDE 20 mEq IN WATER 100ML 100 ML IV SCH (09:22)
[2024-01-17] MEDS: TYLENOL 325 MG PO PRN (09:31)
[2024-01-17] MEDS: PHENERGAN 25 MG PO PRN (09:32)
--- NOTE | 2024-01-17 10:41 | XRAY ---
Indication: Abdominal pain. Comparison: December 04, 2023 KUB again demonstrates nonspecific nonobstructed bowel gas pattern. New contrasted urinary bladder from CT abdomen/pelvis with contrast 2 days ago. Extensive scattered vascular calcifications. Osseous structures again demonstrates osteopenia and degenerative changes with new T12 compression fracture.
[2024-01-17] MEDS: Miralax Powder 17GM PACKET PO SCH (12:34)
[2024-01-17 13:04] LABS: Appearance Clear (Clear); Bacteria None Seen /HPF (None Seen); Bilirubin Negative (Negative); Blood Negative (Negative); Epithelial Cells None Seen /HPF (None Seen); Glucose, Urine Negative (Negative); Hyaline Casts NONE SEEN /LPF (0-2); Ketones Negative (Negative); Leukocyte Esterase Negative (Negative); Nitrite Negative (Negative); Protein,Urine Dip Trace (Negative); RBC 0-2 /HPF (0-5); Urobilinogen 0.2 mg/dL (0.2); WBC 0-2 /HPF (0-5)
[2024-01-17 13:06] LABS: ADD URINE CULTURE? NO (NO)
--- NOTE | 2024-01-17 13:33 | PCM.NOTE ---
Date and Time: 01/17/24 4248 Subjective Assessment: is a 73 year old male with hx of DMII, HTN, CAD. He presented 01/16/24 with c/o abdominal pain x 1 week. Pain is tight across lower half of abdomen, associated with poor appetite and nausea. No vomiting or diarrhea. Also endorsed SOB and left sided chest tightness. In ER, imaging studies show BL pleural effusions, consolidation. Abd CT not remarkable. BNP 39K. Admitted for acute CHF. He again is c/o abd. pain and KUB shows gas. Gas -x added. Encouraged pt to get up in chair. UA negative for infection. K+ 3.1 and replaced today. Pt states he has not had a BM since Tuesday. Miralax added. He is getting Colace BID. Procal negative so IV antibiotics stopped. Continue IV lasix for CHF. He is on baseline oxygen at 3lNC. Trop x3 negative. He denies CP, SOB, N/V/D. - Review of Systems Constitutional: No Fever, No Chills Eyes: No Symptoms Ears, Nose, & Throat: No Symptoms Respiratory: No Cough, No Short Of Breath Cardiac: No Chest Pain, No Edema, No Syncope Abdominal/Gastrointestinal: Abdominal Pain, Constipation, No Nausea, No Vomiting, No Diarrhea Genitourinary Symptoms: No Dysuria Musculoskeletal: No Back Pain, No Neck Pain Skin: No Rash Neurological: No Dizziness, No Focal Weakness, No Sensory Changes Psychological: No Symptoms Endocrine: No Symptoms Hematologic/Lymphatic: No Symptoms Immunological/Allergic: No Symptoms Objective Exam General Appearance: no apparent distress, alert Neurologic Exam: alert, oriented x 3, cooperative, normal mood/affect, nml cerebellar function, sensation nml, No motor deficits Skin Exam: normal color, warm, dry Eye Exam: PERRL, EOMI, eyes nml inspection Ears, Nose, Throat Exam: normal ENT inspection, pharynx normal, moist mucous membranes Neck Exam: normal inspection, non-tender, supple, full range of motion Respiratory Exam: normal breath sounds, lungs clear, No respiratory distress Cardiovascular Exam: regular rate/rhythm, normal heart sounds Gastrointestinal/Abdomen Exam: soft, No tenderness, No mass Extremity Exam: normal inspection, normal range of motion Back Exam: normal inspection, normal range of motion, No CVA tenderness, No vertebral tenderness Male Genitalia Exam: deferred Rectal Exam: deferred OBJECTIVE DATA Vital Signs: Vital Signs - 24 hr Temp Pulse Resp BP Pulse Ox 01/17/24 12:00 97.7 F 78 19 152/77 99 01/17/24 07:59 97.5 F 62 18 144/76 95 01/17/24 07:01 95 01/17/24 04:00 96.9 F 78 16 169/88 97 01/16/24 23:22 97.3 F 70 16 144/81 99 01/16/24 19:05 97.7 F 91 H 18 150/75 99 01/16/24 18:40 93 L 01/16/24 15:53 97.6 F 73 16 145/90 95 Pain Assessment - Last Documented Pain Intensity 9 Pain Scale Used 0-10 Pain Scale Intake and Output: Intake & Output 01/15/24 01/16/24 01/17/24 01/18/24 11:59 11:59 11:59 11:59 Intake Total 1060 Output Total 700 1950 Balance -700 -890 Weight 63.5 kg Lab Results: Lab Results-Last 24 Hours 01/16/24 01/16/24 01/16/24 Range/Units 11:30 15:53 21:32 WBC (4.0-10.5) x10^3/uL RBC (4.1-5.6) x10^6/uL Hgb (12.5-18.0) g/dL Hct (42-50) % MCV (78-100) fL MCH (26-32) pg MCHC (32-36) g/dL RDW (11.5-14.0) % Plt Count (150-450) x10^3/uL MPV (7.5-11.0) fL Sodium (137-145) mmol/L Potassium (3.5-5.1) mmol/L Chloride (98-107) mmol/L Carbon Dioxide (22-30) mmol/L Anion Gap (5-15) MEQ/L BUN (9-20) mg/dL Creatinine (0.66-1.25) mg/dL Estimated GFR ML/MIN Glucose (74-106) mg/dL POC Glucometer 128 H 131 H (74 to 106) mg/dL Calcium (8.4-10.2) mg/dL Total Bilirubin (0.2-1.3) mg/dL AST (17-59) U/L ALT (0-50) U/L Alkaline Phosphatase (38-126) U/L Serum Total Protein (6.3-8.2) g/dL Albumin (3.5-5.0) g/dL Urine Color Yellow (Yellow) Urine Appearance Clear (Clear) Urine pH 7.0 (4.6-8.0) Ur Specific [place] 1.010 (1.005-1.030) Urine Protein Trace A (Negative) Urine Glucose (UA) Negative (Negative) mg/dL Urine Ketones Negative (Negative) Urine Blood Negative (Negative) Urine Nitrite Negative (Negative) Urine Bilirubin Negative (Negative) Urine Urobilinogen 0.2 (0.2) mg/dL Ur Leukocyte Esterase Negative (Negative) U Hyaline Cast (Auto) NONE SEEN (0-2) /LPF Urine Microscopic RBC 0-2 (0-5) /HPF Urine Microscopic WBC 0-2 (0-5) /HPF Ur Epithelial Cells None Seen (None Seen) /HPF Urine Bacteria None Seen (None Seen) /HPF Urine Culture Reflexed NO (NO) 01/17/24 01/17/24 01/17/24 Range/Units 04:20 04:20 07:46 WBC 5.2 (4.0-10.5) x10^3/uL RBC 3.14 L (4.1-5.6) x10^6/uL Hgb 9.3 L (12.5-18.0) g/dL Hct 30.1 L (42-50) % MCV 95.9 (78-100) fL MCH 29.6 (26-32) pg MCHC 30.9 L (32-36) g/dL RDW 13.6 (11.5-14.0) % Plt Count 202 (150-450) x10^3/uL MPV 10.6 (7.5-11.0) fL Sodium 137 (137-145) mmol/L Potassium 3.1 L (3.5-5.1) mmol/L Chloride 101 (98-107) mmol/L Carbon Dioxide 29 (22-30) mmol/L Anion Gap 10.2 (5-15) MEQ/L BUN 19 (9-20) mg/dL Creatinine 1.07 (0.66-1.25) mg/dL Estimated GFR 73.7 ML/MIN Glucose 104 (74-106) mg/dL POC Glucometer 108 H (74 to 106) mg/dL Calcium 9.0 (8.4-10.2) mg/dL Total Bilirubin 0.50 (0.2-1.3) mg/dL AST 17 (17-59) U/L ALT 11 (0-50) U/L Alkaline Phosphatase 57 (38-126) U/L Serum Total Protein 5.6 L (6.3-8.2) g/dL Albumin 3.3 L (3.5-5.0) g/dL Urine Color (Yellow) Urine Appearance (Clear) Urine pH (4.6-8.0) Ur Specific [place] (1.005-1.030) Urine Protein (Negative) Urine Glucose (UA) (Negative) mg/dL Urine Ketones (Negative) Urine Blood (Negative) Urine Nitrite (Negative) Urine Bilirubin (Negative) Urine Urobilinogen (0.2) mg/dL Ur Leukocyte Esterase (Negative) U Hyaline Cast (Auto) (0-2) /LPF Urine Microscopic RBC (0-5) /HPF Urine Microscopic WBC (0-5) /HPF Ur Epithelial Cells (None Seen) /HPF Urine Bacteria (None Seen) /HPF Urine Culture Reflexed (NO) 01/17/24 Range/Units 11:59 WBC (4.0-10.5) x10^3/uL RBC (4.1-5.6) x10^6/uL Hgb (12.5-18.0) g/dL Hct (42-50) % MCV (78-100) fL MCH (26-32) pg MCHC (32-36) g/dL RDW (11.5-14.0) % Plt Count (150-450) x10^3/uL MPV (7.5-11.0) fL Sodium (137-145) mmol/L Potassium (3.5-5.1) mmol/L Chloride (98-107) mmol/L Carbon Dioxide (22-30) mmol/L Anion Gap (5-15) MEQ/L BUN (9-20) mg/dL Creatinine (0.66-1.25) mg/dL Estimated GFR ML/MIN Glucose (74-106) mg/dL POC Glucometer 116 H (74 to 106) mg/dL Calcium (8.4-10.2) mg/dL Total Bilirubin (0.2-1.3) mg/dL AST (17-59) U/L ALT (0-50) U/L Alkaline Phosphatase (38-126) U/L Serum Total Protein (6.3-8.2) g/dL Albumin (3.5-5.0) g/dL Urine Color (Yellow) Urine Appearance (Clear) Urine pH (4.6-8.0) Ur Specific [place] (1.005-1.030) Urine Protein (Negative) Urine Glucose (UA) (Negative) mg/dL Urine Ketones (Negative) Urine Blood (Negative) Urine Nitrite (Negative) Urine Bilirubin (Negative) Urine Urobilinogen (0.2) mg/dL Ur Leukocyte Esterase (Negative) U Hyaline Cast (Auto) (0-2) /LPF Urine Microscopic RBC (0-5) /HPF Urine Microscopic WBC (0-5) /HPF Ur Epithelial Cells (None Seen) /HPF Urine Bacteria (None Seen) /HPF Urine Culture Reflexed (NO) Radiology Exams: Radiology Procedures Category Date Time Status ABDOMEN AND PELVIS W CONTRAST [CT] Stat Exams 01/15/24 22:48 Completed CHEST 1 VIEW (PORTABLE) Stat Exams 01/15/24 21:12 Completed CHEST WITHOUT CONTRAST [CT] Stat Exams 01/15/24 23:28 Completed ECHO W/2D AND DOPPLER [US] Routine Exams 01/16/24 02:35 Taken KUB Routine Exams 01/17/24 09:31 Completed Multi-Disciplinary Progress Notes: Multi-Disciplinary Progress Notes 01/17/24 11:42 Case Management Note by Beatrice Christie S/W WITH PATIENT AND CALLED PATIENT . STATES HE HAS [facility]. HE PLANS TO RETURN HOME AT TIME OF DC WITH HIS SPOUSE AND [facility]. PATIENT HAS [facility]. THEY WERE NOTIFIED PATIENT HERE OBS. THEY WILL NEED NOTIFIED AT TIME OF DC AT [phone]. THEY WILL NEED FAXED THE DC INSTRUCTIONS, DC MEDLIST AND DC SUMMARY (IF AVAILABLE) TO [phone]. Initialized on 01/17/24 11:42 - END OF NOTE Assessment/Plan (1) CHF exacerbation Current Visit: Yes Status: Acute Qualifiers: Heart failure type: unspecified Qualified Code(s): I50.9 - Heart failure, unspecified Assessment & Plan: - Lasix TID - Sxs improved - Will need to f/u with cardiology OP - Trop x3 negative - BNP on admission 49662 - continue home meds - Echo EF less than 30 % per agricultural engineering technicians - echo from 06/07/15 shows EF 25-30% - pt would be a candidate for hospice - case management to discuss. - Trop x3 negative - Procal negative Code(s): I50.9 - HEART FAILURE, UNSPECIFIED (2) Hypokalemia Current Visit: Yes Status: Acute Assessment & Plan: - K+ 3.1 - replaced - trend Code(s): E87.6 - HYPOKALEMIA (3) Gas bloat syndrome Current Visit: Yes Status: Acute Assessment & Plan: - Gas-x added - as seen per KUB Code(s): K92.89 - OTHER SPECIFIED DISEASES OF THE DIGESTIVE SYSTEM (4) Pleural effusion due to CHF (congestive heart failure) Current Visit: Yes Status: Acute Assessment & Plan: CT chest IMPRESSION: 1. Moderate bilateral pleural effusion with bilateral lower lobe subsegmental consolidation and diffuse interlobular septal thickening. Differential considerations would include infective etiology versus cardiogenic edema/CHF. Clinical correlation and follow-up are recommended. 2. Cardiomegaly with a mildly dilated pulmonary trunk, right and left pulmonary artery concerning for possible arterial hypertension. Please correlate clinically. 3. Multiple prominent and mildly enlarged mesenteric lymph nodes, presumably reactive. 4. Sclerosis and compression fracture of T12. -Lasix TID - On baseline O2 3lNC Code(s): I50.9 - HEART FAILURE, UNSPECIFIED (5) CAD (coronary artery disease) Current Visit: No Status: Chronic Code(s): I25.10 - ATHSCL HEART DISEASE OF [place] CORONARY ARTERY W/O ANG PCTRS (6) Constipation Current Visit: Yes Status: Acute Assessment & Plan: - pt reports no BM since Tuesday - Miralax and colace - consider SS enema. - CT abd/pelvis: IMPRESSION: Gross bilateral pleural effusions with passive subsegmental collapse of both lower lobes.-same as prior study. Cardiomegaly. Mild ascites noted involving perihepatic space, there is perisplenic space and in the pelvis region-same as prior study. Multiple small uncomplicated diverticulosis involving descending and sigmoid colon.-same as prior study. 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 Unchanged from the prior. Prostate appears enlarged-static. No other acute interval changes is seen Code(s): K59.00 - CONSTIPATION, UNSPECIFIED (7) T12 compression fracture Current Visit: Yes Status: Acute Assessment & Plan: - As seen on chest CT - Pt has no c/o pain in this area - F/u Op VTE: Xarelto PPI: Protonix Next of KIN: D/C plan: tomorrow Code status: Full Code(s): S22.080A - WEDGE COMPRESSION FRACTURE OF T11-T12 VERTEBRA, INIT
[2024-01-17] MEDS: Mylicon 80MG PO SCH (14:39)
[2024-01-17 16:13] LABS: Hematocrit 30.9 % (42-50); Hemoglobin 9.6 g/dL (12.5-18.0)
[2024-01-17 22:04] LABS: ANION GAP 10.1 MEQ/L (5-15); BLOOD UREA NITROGEN 18 mg/dL (9-20); CHLORIDE 103 mmol/L (98-107); Calcium 8.9 mg/dL (8.4-10.2); Carbon Dioxide 28 mmol/L (22-30); Creatinine 1 1.09 mg/dL (0.66-1.25); EST GLOMERULAR FILTRATION RATE 72.1 ML/MIN; Glucose 101 mg/dL (74-106); NT PRO BNPII > 30000 pg/mL (<300); Potassium 3.9 mmol/L (3.5-5.1); SODIUM 138 mmol/L (137-145)
[2024-01-18 05:28] LABS: Hematocrit 27.6 % (42-50); Hemoglobin 8.3 g/dL (12.5-18.0); Mean Cell Volume 96.8 fL (78-100); Mean Corpuscular Hemoglobin 29.1 pg (26-32); Mean Corpuscular Hgb Concent. 30.1 g/dL (32-36); Mean Platelet Volume 10.3 fL (7.5-11.0); Platelet Count 199 x10^3/uL (150-450); Red Blood Count 2.85 x10^6/uL (4.1-5.6); Red Cell Distribution Width 13.5 % (11.5-14.0)
[2024-01-18 06:27] LABS: ALBUMIN 3.1 g/dL (3.5-5.0); ANION GAP 10.9 MEQ/L (5-15); BILIRUBIN,TOTAL 0.5 mg/dL (0.2-1.3); Calcium 8.9 mg/dL (8.4-10.2); Creatinine 1 1.01 mg/dL (0.66-1.25); MAGNESIUM 1.8 mg/dL (1.6-2.3); Potassium 3.6 mmol/L (3.5-5.1); Total Protein 5.4 g/dL (6.3-8.2)
[2024-01-18] MEDS: NITRO-BID 2% UD PACKETS TOP ONE (06:55)
--- NOTE | 2024-01-18 08:39 | XRAY ---
Indication: Pleural effusions. Comparison: January 15, 2024 PA/lateral chest improved with diminished cardiomegaly and vascular congestion. Previous bibasilar effusions/atelectasis have also moderately improved with mild residual. Again incidental CABG and left pacemaker. No new cardiopulmonary abnormalities.
[2024-01-18] MEDS: Glucophage XR 500 MG PO SCH (09:05)
[2024-01-18] MEDS: PROTONIX 40 MG IV IV ONE (10:26)
[2024-01-18] MEDS: MORPHINE SULFATE 2 MG INJ IV PRN (12:25)
[2024-01-18] MEDS: Compazine 10 MG/2 ML IV PRN (12:28)
[2024-01-18 13:11] LABS: Hematocrit 27.8 % (42-50); Hemoglobin 8.6 g/dL (12.5-18.0)
[2024-01-18 13:24] LABS: AMYLASE 56 U/L (30-110); LIPASE 46 U/L (23-300)
--- NOTE | 2024-01-18 14:51 | PCM.NOTE ---
Date and Time: 01/18/24 1446 Subjective Assessment: 01/17/24 is a 73 year old male with hx of DMII, HTN, CAD. He presented 01/16/24 with c/o abdominal pain x 1 week. Pain is tight across lower half of abdomen, associated with poor appetite and nausea. No vomiting or diarrhea. Also endorsed SOB and left sided chest tightness. In ER, imaging studies show BL pleural effusions, consolidation. Abd CT not remarkable. BNP 39K. Admitted for acute CHF. He again is c/o abd. pain and KUB shows gas. Gas -x added. Encouraged pt to get up in chair. UA negative for infection. K+ 3.1 and replaced today. Pt states he has not had a BM since Tuesday. Miralax added. He is getting Colace BID. Procal negative so IV antibiotics stopped. Continue IV lasix for CHF. He is on baseline oxygen at 3lNC. Trop x3 negative. He denies CP, SOB, N/V/D. 01/18/24 Pt resting in bed. He has the covers over his head. He explained he continues to have CP and abd. pain today. Per awake overnight monitor nurse pt had episdoes of non- sustained v-tach. Nitro paste applied. CXR improved and no need for thoracentesis. Later this morning pt developed a GI bleed with large amount of bloody stool. Surgery consulted and they are coming in at 16:30 to do a limited c-scope. Cardiology consulted for CP this AM. Pt overall not feeling well. Will continue cardiology recommendations. Trop x3 negative. Will monitor H& H Q6. - Review of Systems Constitutional: No Fever, No Chills Eyes: No Symptoms Ears, Nose, & Throat: No Symptoms Respiratory: No Cough, No Short Of Breath Cardiac: Chest Pain, No Edema, No Syncope Abdominal/Gastrointestinal: Abdominal Pain, Hematochezia, No Nausea, No Vomiting, No Diarrhea Genitourinary Symptoms: No Dysuria Musculoskeletal: No Back Pain, No Neck Pain Skin: No Rash Neurological: No Dizziness, No Focal Weakness, No Sensory Changes Psychological: No Symptoms Endocrine: No Symptoms Hematologic/Lymphatic: No Symptoms Immunological/Allergic: No Symptoms Objective Exam General Appearance: mild distress, alert, thin Neurologic Exam: alert, oriented x 3, cooperative, normal mood/affect, nml cerebellar function, sensation nml, No motor deficits Skin Exam: normal color, warm, dry Eye Exam: PERRL, EOMI, eyes nml inspection Ears, Nose, Throat Exam: normal ENT inspection, pharynx normal, moist mucous membranes Neck Exam: normal inspection, non-tender, supple, full range of motion Respiratory Exam: normal breath sounds, lungs clear, No respiratory distress Cardiovascular Exam: regular rate/rhythm, normal heart sounds Gastrointestinal/Abdomen Exam: soft, tenderness (generlalized), No mass Extremity Exam: normal inspection, normal range of motion Back Exam: normal inspection, normal range of motion, No CVA tenderness, No vertebral tenderness Male Genitalia Exam: deferred Rectal Exam: deferred OBJECTIVE DATA Vital Signs: Vital Signs - 24 hr Temp Pulse Resp BP Pulse Ox 01/18/24 12:00 97.2 F 67 16 160/79 99 01/18/24 08:00 98.2 F 65 18 123/63 99 01/18/24 06:21 99 01/18/24 04:00 98.1 F 65 18 161/82 98 01/17/24 23:56 98.4 F 87 20 155/84 96 01/17/24 20:00 97.7 F 73 20 150/80 99 01/17/24 19:15 97 01/17/24 16:00 97.6 F 75 19 160/87 99 Pain Assessment - Last Documented Pain Intensity 8 Pain Scale Used 0-10 Pain Scale Intake and Output: Intake & Output 01/16/24 01/17/24 01/18/24 01/19/24 11:59 11:59 11:59 11:59 Intake Total 1060 1401 Output Total 700 1950 1800 Balance -700 890 -399 Weight 63.5 kg 59.8 kg Lab Results: Lab Results-Last 24 Hours 01/17/24 01/17/24 01/17/24 Range/Units 15:59 16:10 21:28 WBC (4.0-10.5) x10^3/uL RBC (4.1-5.6) x10^6/uL Hgb 9.6 L (12.5-18.0) g/dL Hct 30.9 L (42-50) % MCV (78-100) fL MCH (26-32) pg MCHC (32-36) g/dL RDW (11.5-14.0) % Plt Count (150-450) x10^3/uL MPV (7.5-11.0) fL Sodium 138 (137-145) mmol/L Potassium 3.9 D (3.5-5.1) mmol/L Chloride 103 (98-107) mmol/L Carbon Dioxide 28 (22-30) mmol/L Anion Gap 10.1 (5-15) MEQ/L BUN 18 (9-20) mg/dL Creatinine 1.09 (0.66-1.25) mg/dL Estimated GFR 72.1 ML/MIN Glucose 101 (74-106) mg/dL POC Glucometer 133 H (74 to 106) mg/dL Calcium 8.9 (8.4-10.2) mg/dL Magnesium (1.6-2.3) mg/dL Total Bilirubin (0.2-1.3) mg/dL AST (17-59) U/L ALT (0-50) U/L Alkaline Phosphatase (38-126) U/L Troponin I (0.000-0.034) ng/mL NT-Pro-B Natriuret Pep > 96555 (<300) pg/mL Serum Total Protein (6.3-8.2) g/dL Albumin (3.5-5.0) g/dL Amylase (30-110) U/L Lipase (23-300) U/L 01/17/24 01/17/24 01/17/24 Range/Units 21:28 21:28 21:44 WBC (4.0-10.5) x10^3/uL RBC (4.1-5.6) x10^6/uL Hgb (12.5-18.0) g/dL Hct (42-50) % MCV (78-100) fL MCH (26-32) pg MCHC (32-36) g/dL RDW (11.5-14.0) % Plt Count (150-450) x10^3/uL MPV (7.5-11.0) fL Sodium (137-145) mmol/L Potassium (3.5-5.1) mmol/L Chloride (98-107) mmol/L Carbon Dioxide (22-30) mmol/L Anion Gap (5-15) MEQ/L BUN (9-20) mg/dL Creatinine (0.66-1.25) mg/dL Estimated GFR ML/MIN Glucose (74-106) mg/dL POC Glucometer 100 (74 to 106) mg/dL Calcium (8.4-10.2) mg/dL Magnesium 1.7 (1.6-2.3) mg/dL Total Bilirubin (0.2-1.3) mg/dL AST (17-59) U/L ALT (0-50) U/L Alkaline Phosphatase (38-126) U/L Troponin I 0.019 (0.000-0.034) ng/mL NT-Pro-B Natriuret Pep (<300) pg/mL Serum Total Protein (6.3-8.2) g/dL Albumin (3.5-5.0) g/dL Amylase (30-110) U/L Lipase (23-300) U/L 01/18/24 01/18/24 01/18/24 Range/Units 04:55 04:55 06:21 WBC 5.0 (4.0-10.5) x10^3/uL RBC 2.85 L (4.1-5.6) x10^6/uL Hgb 8.3 L (12.5-18.0) g/dL Hct 27.6 L (42-50) % MCV 96.8 (78-100) fL MCH 29.1 (26-32) pg MCHC 30.1 L (32-36) g/dL RDW 13.5 (11.5-14.0) % Plt Count 199 (150-450) x10^3/uL MPV 10.3 (7.5-11.0) fL Sodium 138 (137-145) mmol/L Potassium 3.6 (3.5-5.1) mmol/L Chloride 104 (98-107) mmol/L Carbon Dioxide 27 (22-30) mmol/L Anion Gap 10.9 (5-15) MEQ/L BUN 17 (9-20) mg/dL Creatinine 1.01 (0.66-1.25) mg/dL Estimated GFR 79.0 ML/MIN Glucose 100 (74-106) mg/dL POC Glucometer (74 to 106) mg/dL Calcium 8.9 (8.4-10.2) mg/dL Magnesium 1.8 (1.6-2.3) mg/dL Total Bilirubin 0.50 (0.2-1.3) mg/dL AST 17 (17-59) U/L ALT 11 (0-50) U/L Alkaline Phosphatase 49 (38-126) U/L Troponin I 0.018 (0.000-0.034) ng/mL NT-Pro-B Natriuret Pep (<300) pg/mL Serum Total Protein 5.4 L (6.3-8.2) g/dL Albumin 3.1 L (3.5-5.0) g/dL Amylase (30-110) U/L Lipase (23-300) U/L 01/18/24 01/18/24 01/18/24 Range/Units 07:41 09:03 11:43 WBC (4.0-10.5) x10^3/uL RBC (4.1-5.6) x10^6/uL Hgb (12.5-18.0) g/dL Hct (42-50) % MCV (78-100) fL MCH (26-32) pg MCHC (32-36) g/dL RDW (11.5-14.0) % Plt Count (150-450) x10^3/uL MPV (7.5-11.0) fL Sodium (137-145) mmol/L Potassium (3.5-5.1) mmol/L Chloride (98-107) mmol/L Carbon Dioxide (22-30) mmol/L Anion Gap (5-15) MEQ/L BUN (9-20) mg/dL Creatinine (0.66-1.25) mg/dL Estimated GFR ML/MIN Glucose (74-106) mg/dL POC Glucometer 103 111 H (74 to 106) mg/dL Calcium (8.4-10.2) mg/dL Magnesium (1.6-2.3) mg/dL Total Bilirubin (0.2-1.3) mg/dL AST (17-59) U/L ALT (0-50) U/L Alkaline Phosphatase (38-126) U/L Troponin I 0.016 (0.000-0.034) ng/mL NT-Pro-B Natriuret Pep (<300) pg/mL Serum Total Protein (6.3-8.2) g/dL Albumin (3.5-5.0) g/dL Amylase (30-110) U/L Lipase (23-300) U/L 01/18/24 01/18/24 01/18/24 Range/Units 13:00 13:00 13:00 WBC (4.0-10.5) x10^3/uL RBC (4.1-5.6) x10^6/uL Hgb 8.6 L (12.5-18.0) g/dL Hct 27.8 L (42-50) % MCV (78-100) fL MCH (26-32) pg MCHC (32-36) g/dL RDW (11.5-14.0) % Plt Count (150-450) x10^3/uL MPV (7.5-11.0) fL Sodium (137-145) mmol/L Potassium (3.5-5.1) mmol/L Chloride (98-107) mmol/L Carbon Dioxide (22-30) mmol/L Anion Gap (5-15) MEQ/L BUN (9-20) mg/dL Creatinine (0.66-1.25) mg/dL Estimated GFR ML/MIN Glucose (74-106) mg/dL POC Glucometer (74 to 106) mg/dL Calcium (8.4-10.2) mg/dL Magnesium (1.6-2.3) mg/dL Total Bilirubin (0.2-1.3) mg/dL AST (17-59) U/L ALT (0-50) U/L Alkaline Phosphatase (38-126) U/L Troponin I 0.014 (0.000-0.034) ng/mL NT-Pro-B Natriuret Pep (<300) pg/mL Serum Total Protein (6.3-8.2) g/dL Albumin (3.5-5.0) g/dL Amylase 56 (30-110) U/L Lipase 46 (23-300) U/L 01/18/24 Range/Units Unknown WBC (4.0-10.5) x10^3/uL RBC (4.1-5.6) x10^6/uL Hgb (12.5-18.0) g/dL Hct (42-50) % MCV (78-100) fL MCH (26-32) pg MCHC (32-36) g/dL RDW (11.5-14.0) % Plt Count (150-450) x10^3/uL MPV (7.5-11.0) fL Sodium (137-145) mmol/L Potassium (3.5-5.1) mmol/L Chloride (98-107) mmol/L Carbon Dioxide (22-30) mmol/L Anion Gap (5-15) MEQ/L BUN (9-20) mg/dL Creatinine (0.66-1.25) mg/dL Estimated GFR ML/MIN Glucose (74-106) mg/dL POC Glucometer (74 to 106) mg/dL Calcium (8.4-10.2) mg/dL Magnesium (1.6-2.3) mg/dL Total Bilirubin (0.2-1.3) mg/dL AST (17-59) U/L ALT (0-50) U/L Alkaline Phosphatase (38-126) U/L Troponin I (0.000-0.034) ng/mL NT-Pro-B Natriuret Pep > 13111 (<300) pg/mL Serum Total Protein (6.3-8.2) g/dL Albumin (3.5-5.0) g/dL Amylase (30-110) U/L Lipase (23-300) U/L Radiology Exams: Radiology Procedures Category Date Time Status CHEST 2 VIEWS (PA AND LAT) Routine Exams 01/18/24 05:53 Completed KUB Routine Exams 01/17/24 09:31 Completed Multi-Disciplinary Progress Notes: Multi-Disciplinary Progress Notes 01/18/24 13:48 Case Management Note by Beatrice Christie S/W PATIENT. STATES NOT FEELING WELL BUT NO CHANGE IN PLANS WHEN GOES HOME. TO GO HOME WITH [facility] Initialized on 01/18/24 13:48 - END OF NOTE Assessment/Plan (1) GI bleed Current Visit: Yes Status: Acute Assessment & Plan: - developed this am 01/18/24 - Xarelto held yesterday evening as pt might have needed thoracentestis today but CXR improved- not needed - Continue to hold Xarelto - SCD's - Surgery consulted- gave order for fleets enema and will do a limited c-scope at 1630 - H& H q6 - Protonix 80 IV x1 started then 40 IV BID Code(s): K92.2 - GASTROINTESTINAL HEMORRHAGE, UNSPECIFIED (2) CHF exacerbation Current Visit: Yes Status: Acute Qualifiers: Heart failure type: unspecified Qualified Code(s): I50.9 - Heart failure, unspecified Assessment & Plan: - Lasix TID - Sxs improved - Will need to f/u with cardiology OP - Trop x3 negative - BNP on admission [id number] - continue home meds - Echo EF less than 30 % per technology intern- reviewed by cardiology - echo from 06/07/15 shows EF 25-30% - pt would be a candidate for hospice - case management to discuss. - Trop x3 negative - Procal negative - cardiology consult 01/18 - per cardiology: start jardiance, Continue IV lasix, Keep K+ >4 and Mg+ >2- at d/c lasix 40mg PO Qam, will need OP stress test with Dr. Potts - K+ and Mg+ ordered now Code(s): I50.9 - HEART FAILURE, UNSPECIFIED (3) Hypokalemia Current Visit: Yes Status: Acute Assessment & Plan: - K+ 3.1 - replaced - trend Code(s): E87.6 - HYPOKALEMIA (4) Gas bloat syndrome Current Visit: Yes Status: Acute Assessment & Plan: - Gas-x added - as seen per KUB Code(s): K92.89 - OTHER SPECIFIED DISEASES OF THE DIGESTIVE SYSTEM (5) Pleural effusion due to CHF (congestive heart failure) Current Visit: Yes Status: Acute Assessment & Plan: CT chest IMPRESSION: 1. Moderate bilateral pleural effusion with bilateral lower lobe subsegmental consolidation and diffuse interlobular septal thickening. Differential considerations would include infective etiology versus cardiogenic edema/CHF. Clinical correlation and follow-up are recommended. 2. Cardiomegaly with a mildly dilated pulmonary trunk, right and left pulmonary artery concerning for possible arterial hypertension. Please correlate clinically. 3. Multiple prominent and mildly enlarged mesenteric lymph nodes, presumably reactive. 4. Sclerosis and compression fracture of T12. -Lasix TID - On baseline O2 3lNC - fluid restriction - Xarelto held 01/18 - CXR PA/lateral chest improved with diminished cardiomegaly and vascular congestion. Previous bibasilar effusions/atelectasis have also moderately improved with mild residual. Again incidental CABG and left pacemaker. No new cardiopulmonary abnormalities - No need for thoracentesis at this time - On baseline oxygen Code(s): I50.9 - HEART FAILURE, UNSPECIFIED (6) CAD (coronary artery disease) Current Visit: No Status: Chronic Assessment & Plan: - Trop x3 negative 01/18 - cardiology consult- see above orders under CHF - developed CP last night and nitro paste started Code(s): I25.10 - ATHSCL HEART DISEASE OF [place] CORONARY ARTERY W/O ANG PCTRS (7) Constipation Current Visit: Yes Status: Resolved Assessment & Plan: - pt reports no BM since Tuesday - Miralax and colace - consider SS enema. - CT abd/pelvis: IMPRESSION: Gross bilateral pleural effusions with passive subsegmental collapse of both lower lobes.-same as prior study. Cardiomegaly. Mild ascites noted involving perihepatic space, there is perisplenic space and in the pelvis region-same as prior study. Multiple small uncomplicated diverticulosis involving descending and sigmoid colon.-same as prior study. 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 Unchanged from the prior. Prostate appears enlarged-static. No other acute interval changes is seen 01/18 - resolved Code(s): K59.00 - CONSTIPATION, UNSPECIFIED (8) T12 compression fracture Current Visit: Yes Status: Acute Assessment & Plan: - As seen on chest CT - Pt has no c/o pain in this area - F/u Op VTE: SCD's PPI: Protonix Next of KIN: D/C plan: 1-2 days Code status: Full Code(s): S22.080A - WEDGE COMPRESSION FRACTURE OF T11-T12 VERTEBRA, INIT
[2024-01-18] MEDS: Lactated Ringers 1,000 ML IV SCH (16:05)
[2024-01-18] MEDS ORDERED: DIPRIVAN 200 MG/20 ML IV ONE (16:55)
[2024-01-18] MEDS ORDERED: Xylocaine-Mpf 2% 5 Ml Vial ONE (16:56)
[2024-01-18] MEDS: Klor Con PO ONE (17:00)
[2024-01-18] MEDS ORDERED: PHENYLEPHRINE HCL ONE (17:03)
[2024-01-18] MEDS ORDERED: Amidate 20 MG/10 ML IV ONE (17:05)
[2024-01-18 18:24] LABS: Hematocrit 30.7 % (42-50); Hemoglobin 9.5 g/dL (12.5-18.0)
[2024-01-18] MEDS: POTASSIUM CHLORIDE 20 mEq IN WATER 100ML 100 ML IV SCH (18:32)
[2024-01-18] MEDS: JARDIANCE PO SCH (18:32)
[2024-01-18] MEDS: MAG-OX 400 PO ONE (20:46)
[2024-01-18] MEDS: PROTONIX 40 MG IV IV SCH (20:46)
[2024-01-18] MEDS ORDERED: PIPERACILLIN/TAZOBACTAM IV ONE (21:17)
[2024-01-18] MEDS ORDERED: Sodium Chloride 100ML MINI-BAG PLUS 100 ML IV ONE (21:17)
[2024-01-18] MEDS: PIPERACILLIN/TAZOBACTAM 4.5 GM in Sodium Chloride 100ML MINI-BAG PLUS 100 ML IV SCH (21:22)
[2024-01-18] MEDS ORDERED: XARELTO 10 MG TABLET PO SCH (22:00)
[2024-01-19 05:07] LABS: Hematocrit 28.3 % (42-50); Hemoglobin 8.7 g/dL (12.5-18.0); Mean Cell Volume 96.6 fL (78-100); Mean Corpuscular Hemoglobin 29.7 pg (26-32); Mean Corpuscular Hgb Concent. 30.7 g/dL (32-36); Platelet Count 185 x10^3/uL (150-450); Red Blood Count 2.93 x10^6/uL (4.1-5.6); Red Cell Distribution Width 13.4 % (11.5-14.0)
[2024-01-19 05:43] LABS: ALBUMIN 3.2 g/dL (3.5-5.0); ANION GAP 6.6 MEQ/L (5-15); BILIRUBIN,TOTAL 0.6 mg/dL (0.2-1.3); Calcium 8.9 mg/dL (8.4-10.2); Creatinine 1 1.1 mg/dL (0.66-1.25); EST GLOMERULAR FILTRATION RATE 71.3 ML/MIN; Total Protein 5.4 g/dL (6.3-8.2)
[2024-01-19] MEDS ORDERED: PIPERACILLIN/TAZOBACTAM IV ONE (05:52)
[2024-01-19] MEDS ORDERED: Sodium Chloride 100ML MINI-BAG PLUS 100 ML IV ONE ×2 (05:52→05:54)
--- NOTE | 2024-01-19 09:26 | PCM.NOTE ---
Date and Time: 01/19/24921 Subjective Assessment: 01/17/24 is a 73 year old male with hx of DMII, HTN, CAD. He presented 01/16/24 with c/o abdominal pain x 1 week. Pain is tight across lower half of abdomen, associated with poor appetite and nausea. No vomiting or diarrhea. Also endorsed SOB and left sided chest tightness. In ER, imaging studies show BL pleural effusions, consolidation. Abd CT not remarkable. BNP 39K. Admitted for acute CHF. He again is c/o abd. pain and KUB shows gas. Gas -x added. Encouraged pt to get up in chair. UA negative for infection. K+ 3.1 and replaced today. Pt states he has not had a BM since Tuesday. Miralax added. He is getting Colace BID. Procal negative so IV antibiotics stopped. Continue IV lasix for CHF. He is on baseline oxygen at 3lNC. Trop x3 negative. He denies CP, SOB, N/V/D. 01/18/24 Pt resting in bed. He has the covers over his head. He explained he continues to have CP and abd. pain today. [facility] pt had episdoes of non- sustained v-tach. Nitro paste applied. CXR improved and no need for thoracentesis. Later this morning pt developed a GI bleed with large amount of bloody stool. Surgery consulted and they are coming in at 16:30 to do a limited c-scope. Cardiology consulted for CP this AM. Pt overall not feeling well. Will continue cardiology recommendations. Trop x3 negative. Will monitor H& H Q6. 01/19/24 Pt resting in bed. He explains he is finally starting to feel better. He continues to have some abd. pain. According to report from nurse last night pt did have an active bleed last night r/t diverticuli. Zosyn started last night. Hgb stable at 8.7. Pt reports he did continue to have bloody stools overnight. If sxs continue to improve will most likely d/c tomorrow. - Review of Systems Constitutional: No Fever, No Chills Eyes: No Symptoms Ears, Nose, & Throat: No Symptoms Respiratory: No Cough, No Short Of Breath Cardiac: No Chest Pain, No Edema, No Syncope Abdominal/Gastrointestinal: Abdominal Pain, Hematochezia, No Nausea, No Vomiting, No Diarrhea Genitourinary Symptoms: No Dysuria Musculoskeletal: No Back Pain, No Neck Pain Skin: No Rash Neurological: No Dizziness, No Focal Weakness, No Sensory Changes Psychological: No Symptoms Endocrine: No Symptoms Hematologic/Lymphatic: No Symptoms Immunological/Allergic: No Symptoms Objective Exam General Appearance: no apparent distress, alert Neurologic Exam: alert, oriented x 3, cooperative, normal mood/affect, nml cerebellar function, sensation nml, No motor deficits Skin Exam: normal color, warm, dry Eye Exam: PERRL, EOMI, eyes nml inspection Ears, Nose, Throat Exam: normal ENT inspection, pharynx normal, moist mucous membranes Neck Exam: normal inspection, non-tender, supple, full range of motion Respiratory Exam: normal breath sounds, lungs clear, No respiratory distress Cardiovascular Exam: regular rate/rhythm, normal heart sounds Gastrointestinal/Abdomen Exam: soft, tenderness (generalized with palpation), No mass Extremity Exam: normal inspection, normal range of motion Back Exam: normal inspection, normal range of motion, No CVA tenderness, No vertebral tenderness Male Genitalia Exam: deferred Rectal Exam: deferred OBJECTIVE DATA Vital Signs: Vital Signs - 24 hr Temp Pulse Resp BP Pulse Ox 01/19/24 07:41 96.2 F 80 18 154/82 99 01/19/24 07:35 98 01/19/24 03:41 97.3 F 62 19 139/77 99 01/18/24 21:15 97.7 F 63 18 152/74 100 01/18/24 20:20 97.5 F 64 18 120/58 95 01/18/24 19:15 97.3 F 65 16 151/75 100 01/18/24 18:45 97.7 F 88 16 169/92 100 01/18/24 18:15 97.9 F 90 16 168/93 90 L 01/18/24 16:00 97.5 F 60 18 162/76 99 01/18/24 15:06 97.2 F 67 16 160/79 99 01/18/24 12:00 97.2 F 67 16 160/79 99 Pain Assessment - Last Documented Pain Intensity 4 Pain Scale Used 0-10 Pain Scale Intake and Output: Intake & Output 01/16/24 01/17/24 01/18/24 01/19/24 11:59 11:59 11:59 11:59 Intake Total 1060 1401 320 Output Total 700 1952 1800 940 Balance -972 -890 -866 -950 Weight 63.5 kg 59.8 kg 59.8 kg Lab Results: Lab Results-Last 24 Hours 01/18/24 01/18/24 01/18/24 Range/Units 09:03 11:43 13:00 WBC (4.0-10.5) x10^3/uL RBC (4.1-5.6) x10^6/uL Hgb (12.5-18.0) g/dL Hct (42-50) % MCV (78-100) fL MCH (26-32) pg MCHC (32-36) g/dL RDW (11.5-14.0) % Plt Count (150-450) x10^3/uL MPV (7.5-11.0) fL Sodium (137-145) mmol/L Potassium (3.5-5.1) mmol/L Chloride (98-107) mmol/L Carbon Dioxide (22-30) mmol/L Anion Gap (5-15) MEQ/L BUN (9-20) mg/dL Creatinine (0.66-1.25) mg/dL Estimated GFR ML/MIN Glucose (74-106) mg/dL POC Glucometer 111 H (74 to 106) mg/dL Calcium (8.4-10.2) mg/dL Total Bilirubin (0.2-1.3) mg/dL AST (17-59) U/L ALT (0-50) U/L Alkaline Phosphatase (38-126) U/L Troponin I 0.016 0.014 (0.000-0.034) ng/mL NT-Pro-B Natriuret Pep (<300) pg/mL Serum Total Protein (6.3-8.2) g/dL Albumin (3.5-5.0) g/dL Amylase (30-110) U/L Lipase (23-300) U/L 01/18/24 01/18/24 01/18/24 Range/Units 13:00 13:00 16:19 WBC (4.0-10.5) x10^3/uL RBC (4.1-5.6) x10^6/uL Hgb 8.6 L (12.5-18.0) g/dL Hct 27.8 L (42-50) % MCV (78-100) fL MCH (26-32) pg MCHC (32-36) g/dL RDW (11.5-14.0) % Plt Count (150-450) x10^3/uL MPV (7.5-11.0) fL Sodium (137-145) mmol/L Potassium (3.5-5.1) mmol/L Chloride (98-107) mmol/L Carbon Dioxide (22-30) mmol/L Anion Gap (5-15) MEQ/L BUN (9-20) mg/dL Creatinine (0.66-1.25) mg/dL Estimated GFR ML/MIN Glucose (74-106) mg/dL POC Glucometer 95 (74 to 106) mg/dL Calcium (8.4-10.2) mg/dL Total Bilirubin (0.2-1.3) mg/dL AST (17-59) U/L ALT (0-50) U/L Alkaline Phosphatase (38-126) U/L Troponin I (0.000-0.034) ng/mL NT-Pro-B Natriuret Pep (<300) pg/mL Serum Total Protein (6.3-8.2) g/dL Albumin (3.5-5.0) g/dL Amylase 56 (30-110) U/L Lipase 46 (23-300) U/L 01/18/24 01/18/24 01/18/24 Range/Units 18:20 21:03 Unknown WBC (4.0-10.5) x10^3/uL RBC (4.1-5.6) x10^6/uL Hgb 9.5 L (12.5-18.0) g/dL Hct 30.7 L (42-50) % MCV (78-100) fL MCH (26-32) pg MCHC (32-36) g/dL RDW (11.5-14.0) % Plt Count (150-450) x10^3/uL MPV (7.5-11.0) fL Sodium (137-145) mmol/L Potassium (3.5-5.1) mmol/L Chloride (98-107) mmol/L Carbon Dioxide (22-30) mmol/L Anion Gap (5-15) MEQ/L BUN (9-20) mg/dL Creatinine (0.66-1.25) mg/dL Estimated GFR ML/MIN Glucose (74-106) mg/dL POC Glucometer 142 H (74 to 106) mg/dL Calcium (8.4-10.2) mg/dL Total Bilirubin (0.2-1.3) mg/dL AST (17-59) U/L ALT (0-50) U/L Alkaline Phosphatase (38-126) U/L Troponin I (0.000-0.034) ng/mL NT-Pro-B Natriuret Pep > 88373 (<300) pg/mL Serum Total Protein (6.3-8.2) g/dL Albumin (3.5-5.0) g/dL Amylase (30-110) U/L Lipase (23-300) U/L 01/19/24 01/19/24 01/19/24 Range/Units 05:02 05:02 07:15 WBC 6.0 (4.0-10.5) x10^3/uL RBC 2.93 L (4.1-5.6) x10^6/uL Hgb 8.7 L (12.5-18.0) g/dL Hct 28.3 L (42-50) % MCV 96.6 (78-100) fL MCH 29.7 (26-32) pg MCHC 30.7 L (32-36) g/dL RDW 13.4 (11.5-14.0) % Plt Count 185 (150-450) x10^3/uL MPV 10.0 (7.5-11.0) fL Sodium 136 L (137-145) mmol/L Potassium 4.0 (3.5-5.1) mmol/L Chloride 104 (98-107) mmol/L Carbon Dioxide 29 (22-30) mmol/L Anion Gap 6.6 (5-15) MEQ/L BUN 17 (9-20) mg/dL Creatinine 1.10 (0.66-1.25) mg/dL Estimated GFR 71.3 ML/MIN Glucose 83 (74-106) mg/dL POC Glucometer 84 (74 to 106) mg/dL Calcium 8.9 (8.4-10.2) mg/dL Total Bilirubin 0.60 (0.2-1.3) mg/dL AST 23 (17-59) U/L ALT 12 (0-50) U/L Alkaline Phosphatase 53 (38-126) U/L Troponin I (0.000-0.034) ng/mL NT-Pro-B Natriuret Pep (<300) pg/mL Serum Total Protein 5.4 L (6.3-8.2) g/dL Albumin 3.2 L (3.5-5.0) g/dL Amylase (30-110) U/L Lipase (23-300) U/L Radiology Exams: Radiology Procedures Category Date Time Status CHEST 2 VIEWS (PA AND LAT) Routine Exams 01/18/24 05:53 Completed KUB Routine Exams 01/17/24 09:31 Completed Multi-Disciplinary Progress Notes: Multi-Disciplinary Progress Notes 01/18/24 13:48 Case Management Note by Beatrice Christie S/W PATIENT. STATES NOT FEELING WELL BUT NO CHANGE IN PLANS WHEN GOES HOME. TO GO HOME WITH [facility] Initialized on 01/18/24 13:48 - END OF NOTE Assessment/Plan (1) GI bleed Current Visit: Yes Status: Acute Code(s): K92.2 - GASTROINTESTINAL HEMORRHAGE, UNSPECIFIED (2) CHF exacerbation Current Visit: Yes Status: Acute Qualifiers: Heart failure type: unspecified Qualified Code(s): I50.9 - Heart failure, unspecified Code(s): I50.9 - HEART FAILURE, UNSPECIFIED (3) Hypokalemia Current Visit: Yes Status: Acute Code(s): E87.6 - HYPOKALEMIA (4) Gas bloat syndrome Current Visit: Yes Status: Acute Code(s): K92.89 - OTHER SPECIFIED DISEASES OF THE DIGESTIVE SYSTEM (5) Pleural effusion due to CHF (congestive heart failure) Current Visit: Yes Status: Acute Code(s): I50.9 - HEART FAILURE, UNSPECIFIED (6) CAD (coronary artery disease) Current Visit: No Status: Chronic Code(s): I25.10 - ATHSCL HEART DISEASE OF [place] CORONARY ARTERY W/O ANG PCTRS (7) Constipation Current Visit: Yes Status: Resolved Code(s): K59.00 - CONSTIPATION, UNSPECIFIED (8) T12 compression fracture Current Visit: Yes Status: Acute Assessment & Plan: (1) GI bleed Current Visit: Yes Status: Acute Assessment & Plan: - developed this am 01/18/24 - Xarelto held yesterday evening as pt might have needed thoracentestis today but CXR improved- not needed - Continue to hold Xarelto - SCD's - Surgery consulted- gave order for fleets enema and will do a limited c-scope at 1630 - H& H q6 - Protonix 80 IV x1 started then 40 IV BID - Bleeding diverticuli seen per surgery - Zosyn started yesterday - sxs improving - Continued hematochezia last night per pt - Hgb stable 8.7 Code(s): K92.2 - GASTROINTESTINAL HEMORRHAGE, UNSPECIFIED (2) CHF exacerbation Current Visit: Yes Status: Acute Qualifiers: Heart failure type: unspecified Qualified Code(s): I50.9 - Heart failure, unspecified Assessment & Plan: - Lasix TID - Sxs improved - Will need to f/u with cardiology OP - Trop x3 negative - BNP on admission 22534 - continue home meds - Echo EF less than 30 % per certified ophthalmic technologist- reviewed by cardiology - echo from 06/07/15 shows EF 25-30% - pt would be a candidate for hospice - case management to discuss. - Trop x3 negative - Procal negative - cardiology consult 01/18 - per cardiology: start jardiance, Continue IV lasix, Keep K+ >4 and Mg+ >2- at d/c lasix 40mg PO Qam, will need OP stress test with Dr. Potts - K+ and Mg+ ordered now Code(s): I50.9 - HEART FAILURE, UNSPECIFIED (3) Hypokalemia Current Visit: Yes Status: Acute Assessment & Plan: - K+ 3.1 - replaced - trend - resolved Code(s): E87.6 - HYPOKALEMIA (4) Gas bloat syndrome Current Visit: Yes Status: Acute Assessment & Plan: - Gas-x added - as seen per KUB Code(s): K92.89 - OTHER SPECIFIED DISEASES OF THE DIGESTIVE SYSTEM (5) Pleural effusion due to CHF (congestive heart failure) Current Visit: Yes Status: Acute Assessment & Plan: CT chest IMPRESSION: 1. Moderate bilateral pleural effusion with bilateral lower lobe subsegmental consolidation and diffuse interlobular septal thickening. Differential considerations would include infective etiology versus cardiogenic edema/CHF. Clinical correlation and follow-up are recommended. 2. Cardiomegaly with a mildly dilated pulmonary trunk, right and left pulmonary artery concerning for possible arterial hypertension. Please correlate clinically. 3. Multiple prominent and mildly enlarged mesenteric lymph nodes, presumably reactive. 4. Sclerosis and compression fracture of T12. -Lasix TID - On baseline O2 3lNC - fluid restriction - Xarelto held 01/18 - CXR PA/lateral chest improved with diminished cardiomegaly and vascular congestion. Previous bibasilar effusions/atelectasis have also moderately improved with mild residual. Again incidental CABG and left pacemaker. No new cardiopulmonary abnormalities - No need for thoracentesis at this time - On baseline oxygen Code(s): I50.9 - HEART FAILURE, UNSPECIFIED (6) CAD (coronary artery disease) Current Visit: No Status: Chronic Assessment & Plan: - Trop x3 negative 01/18 - cardiology consult- see above orders under CHF - developed CP last night and nitro paste started Code(s): I25.10 - ATHSCL HEART DISEASE OF [place] CORONARY ARTERY W/O ANG PCTRS (7) Constipation Current Visit: Yes Status: Resolved Assessment & Plan: - pt reports no BM since Tuesday - Miralax and colace - consider SS enema. - CT abd/pelvis: IMPRESSION: Gross bilateral pleural effusions with passive subsegmental collapse of both lower lobes.-same as prior study. Cardiomegaly. Mild ascites noted involving perihepatic space, there is perisplenic space and in the pelvis region-same as prior study. Multiple small uncomplicated diverticulosis involving descending and sigmoid colon.-same as prior study. 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 Unchanged from the prior. Prostate appears enlarged-static. No other acute interval changes is seen 01/18 - resolved Code(s): K59.00 - CONSTIPATION, UNSPECIFIED (8) T12 compression fracture Current Visit: Yes Status: Acute Assessment & Plan: - As seen on chest CT - Pt has no c/o pain in this area - F/u Op with neurosurgery- will need appointment VTE: SCD's PPI: Protonix Next of KIN: D/C plan: 1-2 days Code status: Full Code(s): S22.080A - WEDGE COMPRESSION FRACTURE OF T11-T12 VERTEBRA, INIT Code(s): S22.080A - WEDGE COMPRESSION FRACTURE OF T11-T12 VERTEBRA, INIT
--- NOTE | 2024-01-19 09:59 | OP ---
SURGERY DATE/TIME: 01/18/2024 1710 PREOPERATIVE DIAGNOSIS: GI bleed. POSTOPERATIVE DIAGNOSIS: Diverticular bleed secondary diverticular disease and diverticulitis. PROCEDURES: 1) EGD. 2) Limited sigmoidoscopy 25 cm. SURGEON: Porter Matson M.D. ANESTHESIA: General. COMPLICATIONS: None. CONDITION: Stable. DESCRIPTION OF PROCEDURE: The patient taken to endoscopy. MAC sedation provided. He is high risk medically. Scope introduced. Pharyngoesophageal junction normal. Esophagus normal down to gastroesophageal junction. Rim of esophagitis grade 2 and a 1 inch hiatal hernia. Fundus, body and antrum normal. Pylorus normal. Duodenal bulb normal. Second portion normal. There is no blood on exam at all. Scope withdrawn. Anal digital examination there is old blood to 25 cm. There is significant diverticulosis, diverticulitis. There was narrowing, angulation and multiple diverticula. There is old blood consistent with diverticular bleed. The exam was stopped at 25 cm. I believe that the bleeding is secondary to diverticular bleed this is consistent with his clinical course. I do not recommend any additional advancement of this procedure at this time. IV antibiotics will be started. His course can be handled medically.
[2024-01-19] MEDS: MAG-OX 400 PO STA (11:52)
[2024-01-19] MEDS: PIPERACILLIN/TAZOBACTAM 4.5 GM in Sodium Chloride 100ML MINI-BAG PLUS 100 ML IV SCH (14:09)
--- NOTE | 2024-01-19 23:14 | PCM.NOTE ---
Date and Time: 01/19/242311 OBJECTIVE DATA Vital Signs: Vital Signs - 24 hr Temp Pulse Resp BP Pulse Ox 01/19/24 19:39 99 01/19/24 19:13 97.5 F 65 18 134/64 99 01/19/24 16:00 96.3 F 63 16 140/73 99 01/19/24 12:00 97.3 F 61 18 142/66 92 L 01/19/24 07:41 96.2 F 80 18 154/82 99 01/19/24 07:35 98 01/19/24 03:41 97.3 F 62 19 139/77 99 Pain Assessment - Last Documented Pain Intensity 3 Pain Scale Used 0-10 Pain Scale Intake and Output: Intake & Output 01/17/24 01/18/24 01/19/24 01/20/24 11:59 11:59 11:59 11:59 Intake Total 1060 1401 320 520 Output Total 1950 1800 1120 2050 Balance -296 -178 -549 -1972 Weight 59.8 kg 59.8 kg Lab Results: Lab Results-Last 24 Hours 01/19/24 01/19/24 01/19/24 Range/Units 05:02 05:02 05:02 WBC 6.0 (4.0-10.5) x10^3/uL RBC 2.93 L (4.1-5.6) x10^6/uL Hgb 8.7 L (12.5-18.0) g/dL Hct 28.3 L (42-50) % MCV 96.6 (78-100) fL MCH 29.7 (26-32) pg MCHC 30.7 L (32-36) g/dL RDW 13.4 (11.5-14.0) % Plt Count 185 (150-450) x10^3/uL MPV 10.0 (7.5-11.0) fL Sodium 136 L (137-145) mmol/L Potassium 4.0 (3.5-5.1) mmol/L Chloride 104 (98-107) mmol/L Carbon Dioxide 29 (22-30) mmol/L Anion Gap 6.6 (5-15) MEQ/L BUN 17 (9-20) mg/dL Creatinine 1.10 (0.66-1.25) mg/dL Estimated GFR 71.3 ML/MIN Glucose 83 (74-106) mg/dL POC Glucometer (74 to 106) mg/dL Calcium 8.9 (8.4-10.2) mg/dL Magnesium 1.9 (1.6-2.3) mg/dL Total Bilirubin 0.60 (0.2-1.3) mg/dL AST 23 (17-59) U/L ALT 12 (0-50) U/L Alkaline Phosphatase 53 (38-126) U/L Serum Total Protein 5.4 L (6.3-8.2) g/dL Albumin 3.2 L (3.5-5.0) g/dL 01/19/24 01/19/24 01/19/24 Range/Units 07:15 11:22 15:52 WBC (4.0-10.5) x10^3/uL RBC (4.1-5.6) x10^6/uL Hgb (12.5-18.0) g/dL Hct (42-50) % MCV (78-100) fL MCH (26-32) pg MCHC (32-36) g/dL RDW (11.5-14.0) % Plt Count (150-450) x10^3/uL MPV (7.5-11.0) fL Sodium (137-145) mmol/L Potassium (3.5-5.1) mmol/L Chloride (98-107) mmol/L Carbon Dioxide (22-30) mmol/L Anion Gap (5-15) MEQ/L BUN (9-20) mg/dL Creatinine (0.66-1.25) mg/dL Estimated GFR ML/MIN Glucose (74-106) mg/dL POC Glucometer 84 125 H 102 (74 to 106) mg/dL Calcium (8.4-10.2) mg/dL Magnesium (1.6-2.3) mg/dL Total Bilirubin (0.2-1.3) mg/dL AST (17-59) U/L ALT (0-50) U/L Alkaline Phosphatase (38-126) U/L Serum Total Protein (6.3-8.2) g/dL Albumin (3.5-5.0) g/dL 01/19/24 Range/Units 21:05 WBC (4.0-10.5) x10^3/uL RBC (4.1-5.6) x10^6/uL Hgb (12.5-18.0) g/dL Hct (42-50) % MCV (78-100) fL MCH (26-32) pg MCHC (32-36) g/dL RDW (11.5-14.0) % Plt Count (150-450) x10^3/uL MPV (7.5-11.0) fL Sodium (137-145) mmol/L Potassium (3.5-5.1) mmol/L Chloride (98-107) mmol/L Carbon Dioxide (22-30) mmol/L Anion Gap (5-15) MEQ/L BUN (9-20) mg/dL Creatinine (0.66-1.25) mg/dL Estimated GFR ML/MIN Glucose (74-106) mg/dL POC Glucometer 95 (74 to 106) mg/dL Calcium (8.4-10.2) mg/dL Magnesium (1.6-2.3) mg/dL Total Bilirubin (0.2-1.3) mg/dL AST (17-59) U/L ALT (0-50) U/L Alkaline Phosphatase (38-126) U/L Serum Total Protein (6.3-8.2) g/dL Albumin (3.5-5.0) g/dL Radiology Exams: Radiology Procedures Category Date Time Status CHEST 2 VIEWS (PA AND LAT) Routine Exams 01/18/24 05:53 Completed Multi-Disciplinary Progress Notes: Multi-Disciplinary Progress Notes 01/19/24 10:19 Case Management Note by Rosemarie Webster S/W PATIENT ABOUT PLANS AT DC- PATIENT CONTINUES TO PLAN TO DC HOME WITH AND HHC AT TIME OF DC. PATIENT DECLINING A REHAB STAY AT THIS TIME. NO NEW NEEDS IDENTIFIED AT THIS TIME Initialized on 01/19/24 10:19 - END OF NOTE Assessment/Plan (1) GI bleed Current Visit: Yes Status: Acute Assessment & Plan: S: improved abdominal pain. mild discomfort. no n/v. no blood in bm. o nad nonlabroed resps nd, soft, minimal ttp no r/g. a/p: consistent with resolved diverticular bleed. no additional blood in bms. hgb similar. -diet as tolerated. -f/u 2-4 weeks in office. -please call with any new concerns. Code(s): K92.2 - GASTROINTESTINAL HEMORRHAGE, UNSPECIFIED
[2024-01-20 05:00] LABS: Hematocrit 29.8 % (42-50); Hemoglobin 9.2 g/dL (12.5-18.0); Mean Cell Volume 95.5 fL (78-100); Mean Corpuscular Hemoglobin 29.5 pg (26-32); Mean Corpuscular Hgb Concent. 30.9 g/dL (32-36); Mean Platelet Volume 10.2 fL (7.5-11.0); Platelet Count 199 x10^3/uL (150-450); Red Blood Count 3.12 x10^6/uL (4.1-5.6); Red Cell Distribution Width 13.7 % (11.5-14.0); White Blood Count 6.8 x10^3/uL (4.0-10.5)
[2024-01-20 05:27] LABS: ALBUMIN 3.2 g/dL (3.5-5.0); ANION GAP 8.7 MEQ/L (5-15); BILIRUBIN,TOTAL 0.6 mg/dL (0.2-1.3); Calcium 8.9 mg/dL (8.4-10.2); Creatinine 1 1.24 mg/dL (0.66-1.25); EST GLOMERULAR FILTRATION RATE 61.8 ML/MIN; Potassium 3.4 mmol/L (3.5-5.1); Total Protein 5.5 g/dL (6.3-8.2)
[2024-01-20 07:47] VITALS: RESP 18
[2024-01-20] MEDS: POTASSIUM CHLORIDE 20 mEq IN WATER 100ML 20 MEQ/100 ML BAG IV ONE (07:55)
[2024-01-20] MEDS ORDERED: Docusate Sodium 100 MG PO PRN (08:09)
[2024-01-20] MEDS: Sodium Chloride 0.9% 500 ML 500 ML IV SCH (08:10)
--- NOTE | 2024-01-20 09:26 | PCM.NOTE ---
Date and Time: 01/20/24920 Subjective Assessment: 01/17/24 is a 73 year old male with hx of DMII, HTN, CAD. He presented 01/16/24 with c/o abdominal pain x 1 week. Pain is tight across lower half of abdomen, associated with poor appetite and nausea. No vomiting or diarrhea. Also endorsed SOB and left sided chest tightness. In ER, imaging studies show BL pleural effusions, consolidation. Abd CT not remarkable. BNP 39K. Admitted for acute CHF. He again is c/o abd. pain and KUB shows gas. Gas -x added. Encouraged pt to get up in chair. UA negative for infection. K+ 3.1 and replaced today. Pt states he has not had a BM since Tuesday. Miralax added. He is getting Colace BID. Procal negative so IV antibiotics stopped. Continue IV lasix for CHF. He is on baseline oxygen at 3lNC. Trop x3 negative. He denies CP, SOB, N/V/D. 01/18/24 Pt resting in bed. He has the covers over his head. He explained he continues to have CP and abd. pain today. Per board turner nurse pt had episdoes of non- sustained v-tach. Nitro paste applied. CXR improved and no need for thoracentesis. Later this morning pt developed a GI bleed with large amount of bloody stool. Surgery consulted and they are coming in at 16:30 to do a limited c-scope. Cardiology consulted for CP this AM. Pt overall not feeling well. Will continue cardiology recommendations. Trop x3 negative. Will monitor H& H Q6. 01/19/24 Pt resting in bed. He explains he is finally starting to feel better. He continues to have some abd. pain. According to report from nurse last night pt did have an active bleed last night r/t diverticuli. Zosyn started last night. Hgb stable at 8.7. Pt reports he did continue to have bloody stools overnight. If sxs continue to improve will most likely d/c tomorrow. 01/20/24 Pt resting in bed. He is feeling better but having diarrhea today. Stop miralax and started stools softeners PRN. Probiotics added. He has had no bloody stools since previous night. Abd. pain and CP resolved. He is c/o pain from IV potassium, IV fluids added at low rate. K+ 3.4 cardiology would like it to be > 4.0. He did well with PT yesterday. He is on baseline 3LNC. He denies any other concerns at his time. - Review of Systems Constitutional: No Fever, No Chills Eyes: No Symptoms Ears, Nose, & Throat: No Symptoms Respiratory: No Cough, No Short Of Breath Cardiac: No Chest Pain, No Edema, No Syncope Abdominal/Gastrointestinal: Diarrhea, No Abdominal Pain, No Nausea, No Vomiting Genitourinary Symptoms: No Dysuria Musculoskeletal: No Back Pain, No Neck Pain Skin: No Rash Neurological: No Dizziness, No Focal Weakness, No Sensory Changes Psychological: No Symptoms Endocrine: No Symptoms Hematologic/Lymphatic: No Symptoms Immunological/Allergic: No Symptoms Objective Exam General Appearance: no apparent distress, alert Neurologic Exam: alert, oriented x 3, cooperative, normal mood/affect, nml cerebellar function, sensation nml, No motor deficits Skin Exam: normal color, warm, dry Eye Exam: PERRL, EOMI, eyes nml inspection Ears, Nose, Throat Exam: normal ENT inspection, pharynx normal, moist mucous membranes Neck Exam: normal inspection, non-tender, supple, full range of motion Respiratory Exam: normal breath sounds, lungs clear, No respiratory distress Cardiovascular Exam: regular rate/rhythm, normal heart sounds Gastrointestinal/Abdomen Exam: soft, No tenderness, No mass Extremity Exam: normal inspection, normal range of motion Back Exam: normal inspection, normal range of motion, No CVA tenderness, No v ertebral tenderness Male Genitalia Exam: deferred Rectal Exam: deferred OBJECTIVE DATA Vital Signs: Vital Signs - 24 hr Temp Pulse Resp BP Pulse Ox 01/20/24 07:47 97.5 F 62 18 131/72 93 L 01/20/24 07:26 93 L 01/20/24 04:00 97.5 F 68 20 137/71 97 01/19/24 23:49 97.7 F 62 20 118/62 98 01/19/24 19:39 99 01/19/24 19:13 97.5 F 65 18 134/64 99 01/19/24 16:00 96.3 F 63 16 140/73 99 01/19/24 12:00 97.3 F 61 18 142/66 92 L Pain Assessment - Last Documented Pain Intensity 7 Pain Scale Used 0-10 Pain Scale Intake and Output: Intake & Output 01/17/24 01/18/24 01/19/24 01/20/24 11:59 11:59 11:59 11:59 Intake Total 1060 1401 320 840 Output Total 1950 1800 1120 2700 Balance -840 -423 -800 -6570 Weight 59.8 kg 59.8 kg Lab Results: Lab Results-Last 24 Hours 01/19/24 01/19/24 01/19/24 Range/Units 05:02 11:22 15:52 WBC (4.0-10.5) x10^3/uL RBC (4.1-5.6) x10^6/uL Hgb (12.5-18.0) g/dL Hct (42-50) % MCV (78-100) fL MCH (26-32) pg MCHC (32-36) g/dL RDW (11.5-14.0) % Plt Count (150-450) x10^3/uL MPV (7.5-11.0) fL Sodium (137-145) mmol/L Potassium (3.5-5.1) mmol/L Chloride (98-107) mmol/L Carbon Dioxide (22-30) mmol/L Anion Gap (5-15) MEQ/L BUN (9-20) mg/dL Creatinine (0.66-1.25) mg/dL Estimated GFR ML/MIN Glucose (74-106) mg/dL POC Glucometer 125 H 102 (74 to 106) mg/dL Calcium (8.4-10.2) mg/dL Magnesium 1.9 (1.6-2.3) mg/dL Total Bilirubin (0.2-1.3) mg/dL AST (17-59) U/L ALT (0-50) U/L Alkaline Phosphatase (38-126) U/L Serum Total Protein (6.3-8.2) g/dL Albumin (3.5-5.0) g/dL 01/19/24 01/20/24 01/20/24 Range/Units 21:05 04:42 04:42 WBC 6.8 (4.0-10.5) x10^3/uL RBC 3.12 L (4.1-5.6) x10^6/uL Hgb 9.2 L (12.5-18.0) g/dL Hct 29.8 L (42-50) % MCV 95.5 (78-100) fL MCH 29.5 (26-32) pg MCHC 30.9 L (32-36) g/dL RDW 13.7 (11.5-14.0) % Plt Count 199 (150-450) x10^3/uL MPV 10.2 (7.5-11.0) fL Sodium 135 L (137-145) mmol/L Potassium 3.4 L (3.5-5.1) mmol/L Chloride 100 (98-107) mmol/L Carbon Dioxide 30 (22-30) mmol/L Anion Gap 8.7 (5-15) MEQ/L BUN 18 (9-20) mg/dL Creatinine 1.24 (0.66-1.25) mg/dL Estimated GFR 61.8 ML/MIN Glucose 85 (74-106) mg/dL POC Glucometer 95 (74 to 106) mg/dL Calcium 8.9 (8.4-10.2) mg/dL Magnesium (1.6-2.3) mg/dL Total Bilirubin 0.60 (0.2-1.3) mg/dL AST 23 (17-59) U/L ALT 12 (0-50) U/L Alkaline Phosphatase 49 (38-126) U/L Serum Total Protein 5.5 L (6.3-8.2) g/dL Albumin 3.2 L (3.5-5.0) g/dL 01/20/24 01/20/24 Range/Units 04:42 07:24 WBC (4.0-10.5) x10^3/uL RBC (4.1-5.6) x10^6/uL Hgb (12.5-18.0) g/dL Hct (42-50) % MCV (78-100) fL MCH (26-32) pg MCHC (32-36) g/dL RDW (11.5-14.0) % Plt Count (150-450) x10^3/uL MPV (7.5-11.0) fL Sodium (137-145) mmol/L Potassium (3.5-5.1) mmol/L Chloride (98-107) mmol/L Carbon Dioxide (22-30) mmol/L Anion Gap (5-15) MEQ/L BUN (9-20) mg/dL Creatinine (0.66-1.25) mg/dL Estimated GFR ML/MIN Glucose (74-106) mg/dL POC Glucometer 80 (74 to 106) mg/dL Calcium (8.4-10.2) mg/dL Magnesium 2.1 (1.6-2.3) mg/dL Total Bilirubin (0.2-1.3) mg/dL AST (17-59) U/L ALT (0-50) U/L Alkaline Phosphatase (38-126) U/L Serum Total Protein (6.3-8.2) g/dL Albumin (3.5-5.0) g/dL Multi-Disciplinary Progress Notes: Multi-Disciplinary Progress Notes 01/19/24 10:19 Case Management Note by Rosemarie Webster S/W PATIENT ABOUT PLANS AT DC- PATIENT CONTINUES TO PLAN TO DC HOME WITH AND HHC AT TIME OF DC. PATIENT DECLINING A REHAB STAY AT THIS TIME. NO NEW NEEDS IDENTIFIED AT THIS TIME Initialized on 01/19/24 10:19 - END OF NOTE Assessment/Plan (1) GI bleed Current Visit: Yes Status: Acute Code(s): K92.2 - GASTROINTESTINAL HEMORRHAGE, UNSPECIFIED (2) CHF exacerbation Current Visit: Yes Status: Acute Qualifiers: Heart failure type: unspecified Qualified Code(s): I50.9 - Heart failure, unspecified Code(s): I50.9 - HEART FAILURE, UNSPECIFIED (3) Hypokalemia Current Visit: Yes Status: Acute Code(s): E87.6 - HYPOKALEMIA (4) Gas bloat syndrome Current Visit: Yes Status: Acute Code(s): K92.89 - OTHER SPECIFIED DISEASES OF THE DIGESTIVE SYSTEM (5) Pleural effusion due to CHF (congestive heart failure) Current Visit: Yes Status: Acute Code(s): I50.9 - HEART FAILURE, UNSPECIFIED (6) CAD (coronary artery disease) Current Visit: No Status: Chronic Code(s): I25.10 - ATHSCL HEART DISEASE OF [place] CORONARY ARTERY W/O ANG PCTRS (7) Constipation Current Visit: Yes Status: Resolved Code(s): K59.00 - CONSTIPATION, UNSPE CIFIED (8) T12 compression fracture Current Visit: Yes Status: Acute Assessment & Plan: 1) GI bleed Current Visit: Yes Status: Acute Assessment & Plan: - developed this am 01/18/24 - Xarelto held yesterday evening as pt might have needed thoracentestis today but CXR improved- not needed - Continue to hold Xarelto - SCD's - Surgery consulted- gave order for fleets enema and will do a limited c-scope at 1630 - H& H q6 - Protonix 80 IV x1 started then 40 IV BID - Bleeding diverticuli seen per surgery - Zosyn started yesterday - sxs improving - Continued hematochezia last night per pt - Hgb stable 8.7 01/19 - Hgb stable 9.2 - No GI bleeding or blood in stools yesterday or last night. - Restart xarelto of ok with general surgery Code(s): K92.2 - GASTROINTESTINAL HEMORRHAGE, UNSPECIFIED (2) CHF exacerbation Current Visit: Yes Status: Acute Qualifiers: Heart failure type: unspecified Qualified Code(s): I50.9 - Heart failure, unspecified Assessment & Plan: - Lasix TID - Sxs improved - Will need to f/u with cardiology OP - Trop x3 negative - BNP on admission 32989 - continue home meds - Echo EF less than 30 % per emissions testing technician- reviewed by cardiology - echo from 06/07/15 shows EF 25-30% - pt would be a candidate for hospice - case management to discuss. - Trop x3 negative - Procal negative - cardiology consult 01/18 - per cardiology: start Jardiance, Continue IV lasix, Keep K+ >4 and Mg+ >2- at d/c lasix 40mg PO Qam, will need OP stress test with Dr. Potts - K+ and Mg+ ordered now 01/19 - Jardiance sent in to pharmacy today. Code(s): I50.9 - HEART FAILURE, UNSPECIFIED (3) Hypokalemia Current Visit: Yes Status: Acute Assessment & Plan: - K+ 3.1 - replaced - trend - resolved 01/19 - K+ 3.4- K-rider ordered - Per cardiology keep > 4 Code(s): E87.6 - HYPOKALEMIA (4) Gas bloat syndrome Current Visit: Yes Status: Acute Assessment & Plan: - Gas-x added - as seen per KUB Code(s): K92.89 - OTHER SPECIFIED DISEASES OF THE DIGESTIVE SYSTEM (5) Pleural effusion due to CHF (congestive heart failure) Current Visit: Yes Status: Acute Assessment & Plan: CT chest IMPRESSION: 1. Moderate bilateral pleural effusion with bilateral lower lobe subsegmental consolidation and diffuse interlobular septal thickening. Differential considerations would include infective etiology versus cardiogenic edema/CHF. Clinical correlation and follow-up are recommended. 2. Cardiomegaly with a mildly dilated pulmonary trunk, right and left pulmonary artery concerning for possible arterial hypertension. Please correlate clinically. 3. Multiple prominent and mildly enlarged mesenteric lymph nodes, presumably reactive. 4. Sclerosis and compression fracture of T12. -Lasix TID - On baseline O2 3lNC - fluid restriction - Xarelto held 01/18 - CXR PA/lateral chest improved with diminished cardiomegaly and vascular congestion. Previous bibasilar effusions/atelectasis have also moderately improved with mild residual. Again incidental CABG and left pacemaker. No new cardiopulmonary abnormalities - No need for thoracentesis at this time - On baseline oxygen 01/19 - Restart xarelto of ok with general surgery Code(s): I50.9 - HEART FAILURE, UNSPECIFIED (6) CAD (coronary artery disease) Current Visit: No Status: Chronic Assessment & Plan: - Trop x3 negative 01/18 - cardiology consult- see above orders under CHF - developed CP last night and nitro paste started 01/19 - CP resolved Code(s): I25.10 - ATHSCL HEART DISEASE OF [place] CORONARY ARTERY W/O ANG PCTRS (7) Constipation Current Visit: Yes Status: Resolved Assessment & Plan: - pt reports no BM since Tuesday - Miralax and colace - consider SS enema. - CT abd/pelvis: IMPRESSION: Gross bilateral pleural effusions with passive subsegmental collapse of both lower lobes.-same as prior study. Cardiomegaly. Mild ascites noted involving perihepatic space, there is perisplenic space and in the pelvis region-same as prior study. Multiple small uncomplicated diverticulosis involving descending and sigmoid colon.-same as prior study. 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 Unchanged from the prior. Prostate appears enlarged-static. No other acute interval changes is seen 01/18 - resolved Code(s): K59.00 - CONSTIPATION, UNSPECIFIED (8) T12 compression fracture Current Visit: Yes Status: Acute Assessment & Plan: - As seen on chest CT - Pt has no c/o pain in this area - F/u Op with neurosurgery- will need appointment Code(s): S22.080A - [place]GE COMPRESSION FRACTURE OF T11-T12 VERTEBRA, INIT (9) Diarrhea Current Visit: Yes Status: Acute Assessment & Plan: - Miralax stopped - Stool softeners PRN as this is how he takes at home. - Probiotics VTE: SCD's PPI: Protonix Next of KIN: D/C plan: tomorrow Code status: Full Code(s): R19.7 - DIARRHEA, UNSPECIFIED
[2024-01-20] MEDS: Acidophilus TABLET PO SCH (09:54)
--- NOTE | 2024-01-20 10:58 | PCM.DS ---
Discharge Summary Date of Admission: 01/17/24 13:28 Date of Discharge: 01/20/24 Admitting Physician: EUGENE JAIMES DO Consults: Consults on Case 01/18/24 09:33 Consult Surgery ROUTINE 01/18/24 09:43 Consult Cardiology ROUTINE Primary Care Provider: VICTORIA WALTON Allergies Allergies No Known Drug Allergies Allergy (Verified 01/16/24 02:36) Hospital Summary - Hospital Course Hospital Course: 01/17/24 is a 73 year old male with hx of DMII, HTN, CAD. He presented 01/16/24 with c/o abdominal pain x 1 week. Pain is tight across lower half of abdomen, associated with poor appetite and nausea. No vomiting or diarrhea. Also endorsed SOB and left sided chest tightness. In ER, imaging studies show BL pleural effusions, consolidation. Abd CT not remarkable. BNP 39K. Admitted for acute CHF. He again is c/o abd. pain and KUB shows gas. Gas -x added. Encouraged pt to get up in chair. UA negative for infection. K+ 3.1 and replaced today. Pt states he has not had a BM since Tuesday. Miralax added. He is getting Colace BID. Procal negative so IV antibiotics stopped. Continue IV lasix for CHF. He is on baseline oxygen at 3lNC. Trop x3 negative. He denies CP, SOB, N/V/D. 01/18/24 Pt resting in bed. He has the covers over his head. He explained he continues to have CP and abd. pain today. Per night monitor nurse pt had episdoes of non- sustained v-tach. Nitro paste applied. CXR improved and no need for thoracentesis. Later this morning pt developed a GI bleed with large amount of bloody stool. Surgery consulted and they are coming in at 16:30 to do a limited c-scope. Cardiology consulted for CP this AM. Pt overall not feeling well. Will continue cardiology recommendations. Trop x3 negative. Will monitor H& H Q6. 01/19/24 Pt resting in bed. He explains he is finally starting to feel better. He continues to have some abd. pain. According to report from nurse last night pt did have an active bleed last night r/t diverticuli. Zosyn started last night. Hgb stable at 8.7. Pt reports he did continue to have bloody stools overnight. If sxs continue to improve will most likely d/c tomorrow. 01/20/24 Pt resting in bed. He is feeling better but having diarrhea today. Stop miralax and started stools softeners PRN. Probiotics added. He has had no bloody stools since previous night. Abd. pain and CP resolved. He is c/o pain from IV potassium, IV fluids added at low rate. K+ 3.4 cardiology would like it to be > 4.0. He did well with PT yesterday. He is on baseline 3LNC. He denies any other concerns at his time. Will d/c home today. Discussed in detail diet and bowel regimen to prevent GI bleeding from diverticulosis. - Vitals & Intake/Output Vital Signs: Vital Signs Temperature 97.5 F 01/20/24 07:47 Pulse Rate 62 01/20/24 07:47 Respiratory Rate 18 01/20/24 07:47 Blood Pressure 131/72 01/20/24 07:47 O2 Sat by Pulse Oximetry 93 L 01/20/24 07:47 Intake & Output: Intake & Output 01/17/24 01/18/24 01/19/24 01/20/24 11:59 11:59 11:59 11:59 Intake Total 1060 1401 320 840 Output Total 1950 1800 1120 2700 Balance -890 -399 -800 -1860 Weight 59.8 kg 59.8 kg - Lab Result Diagrams: 01/20/24 04:42 01/20/24 04:42 Lab Results-Last 24 Hrs: Lab Results-Last 24 Hours 01/19/24 01/19/24 01/19/24 Range/Units 11:22 15:52 21:05 WBC (4.0-10.5) x10^3/uL RBC (4.1-5.6) x10^6/uL Hgb (12.5-18.0) g/dL Hct (42-50) % MCV (78-100) fL MCH (26-32) pg MCHC (32-36) g/dL RDW (11.5-14.0) % Plt Count (150-450) x10^3/uL MPV (7.5-11.0) fL Sodium (137-145) mmol/L Potassium (3.5-5.1) mmol/L Chloride (98-107) mmol/L Carbon Dioxide (22-30) mmol/L Anion Gap (5-15) MEQ/L BUN (9-20) mg/dL Creatinine (0.66-1.25) mg/dL Estimated GFR ML/MIN Glucose (74-106) mg/dL POC Glucometer 125 H 102 95 (74 to 106) mg/dL Calcium (8.4-10.2) mg/dL Magnesium (1.6-2.3) mg/dL Total Bilirubin (0.2-1.3) mg/dL AST (17-59) U/L ALT (0-50) U/L Alkaline Phosphatase (38-126) U/L Serum Total Protein (6.3-8.2) g/dL Albumin (3.5-5.0) g/dL 01/20/24 01/20/24 01/20/24 Range/Units 04:42 04:42 04:42 WBC 6.8 (4.0-10.5) x10^3/uL RBC 3.12 L (4.1-5.6) x10^6/uL Hgb 9.2 L (12.5-18.0) g/dL Hct 29.8 L (42-50) % MCV 95.5 (78-100) fL MCH 29.5 (26-32) pg MCHC 30.9 L (32-36) g/dL RDW 13.7 (11.5-14.0) % Plt Count 199 (150-450) x10^3/uL MPV 10.2 (7.5-11.0) fL Sodium 135 L (137-145) mmol/L Potassium 3.4 L (3.5-5.1) mmol/L Chloride 100 (98-107) mmol/L Carbon Dioxide 30 (22-30) mmol/L Anion Gap 8.7 (5-15) MEQ/L BUN 18 (9-20) mg/dL Creatinine 1.24 (0.66-1.25) mg/dL Estimated GFR 61.8 ML/MIN Glucose 85 (74-106) mg/dL POC Glucometer (74 to 106) mg/dL Calcium 8.9 (8.4-10.2) mg/dL Magnesium 2.1 (1.6-2.3) mg/dL Total Bilirubin 0.60 (0.2-1.3) mg/dL AST 23 (17-59) U/L ALT 12 (0-50) U/L Alkaline Phosphatase 49 (38-126) U/L Serum Total Protein 5.5 L (6.3-8.2) g/dL Albumin 3.2 L (3.5-5.0) g/dL 01/20/24 Range/Units 07:24 WBC (4.0-10.5) x10^3/uL RBC (4.1-5.6) x10^6/uL Hgb (12.5-18.0) g/dL Hct (42-50) % MCV (78-100) fL MCH (26-32) pg MCHC (32-36) g/dL RDW (11.5-14.0) % Plt Count (150-450) x10^3/uL MPV (7.5-11.0) fL Sodium (137-145) mmol/L Potassium (3.5-5.1) mmol/L Chloride (98-107) mmol/L Carbon Dioxide (22-30) mmol/L Anion Gap (5-15) MEQ/L BUN (9-20) mg/dL Creatinine (0.66-1.25) mg/dL Estimated GFR ML/MIN Glucose (74-106) mg/dL POC Glucometer 80 (74 to 106) mg/dL Calcium (8.4-10.2) mg/dL Magnesium (1.6-2.3) mg/dL Total Bilirubin (0.2-1.3) mg/dL AST (17-59) U/L ALT (0-50) U/L Alkaline Phosphatase (38-126) U/L Serum Total Protein (6.3-8.2) g/dL Albumin (3.5-5.0) g/dL Micro Results-Entire Visit: Accuchecks Date 01/20/24 Date 01/19/24 Time 07:46 - Procedures and Test Procedures and Tests throughout Hospitalization: Therapy Orders & Screens 01/16/24 02:34 Oxygen Nasal Cannula 2 lpm Comment: Diagnosis: Acute CHF 01/16/24 02:57 RT Screen per Nursing Assess ONCE Comment: Protocol Order Physician Instructions: Greater than 3 points order RT Admission Screen Reason For Exam: Triggered on Admission Diagnosis: CHF exacerbation/ Pneumonia Diagnosis: CHF exacerbation/ Pneumonia Pneumonia: Yes Home O2: Yes Asthma: No CHF: Yes Home Nebs/MDI: Yes Total Points: 16 ST Screen per Nursing Assess ONCE Comment: Protocol Order Physician Instructions: Greater than [address] Admission Screening Reason For Exam: Triggered on Admission Diagnosis: CHF exacerbation/ Pneumonia CVA/Dyshpagia/Aphasia: No Cognitive Deficits: No Dehydration/Nutrition Deficit: No Reflux: No Oral-Motor Difficulties: No Pneumonia: Yes Correction Resident: No Total Points: 5 01/16/24 05:39 Respiratory Therapy Assessment DAILY Comment: Diagnosis: CHF exacerbation/ Pneumonia 01/18/24 06:21 EKG STAT Comment: Diagnosis: CHF exacerbation/ Pneumonia 01/19/24 09:26 PT Eval & Treat (MD Order) ONCE Reason for Eval:: weakness from GI bleed, any home needs Diagnosis: CHF, PLUERAL EFFUSION 01/20/24 07:39 RT Miscellaneous Order ROUTINE Comment: Physician Instructions: Reason For Exam: eval for home o2 Diagnosis: CHF, PLUERAL EFFUSION Discharge Exam General Appearance: no apparent distress, alert Neurologic Exam: alert, oriented x 3, cooperative, normal mood/affect, nml cerebellar function, sensation nml, No motor deficits Eye Exam: PERRL, EOMI, eyes nml inspection Ears, Nose, Throat Exam: normal ENT inspection, pharynx normal, moist mucous membranes Neck Exam: normal inspection, non-tender, supple, full range of motion Respiratory Exam: normal breath sounds, lungs clear, No respiratory distress Cardiovascular Exam: regular rate/rhythm, normal heart sounds Gastrointestinal/Abdomen Exam: soft, No tenderness, No mass Male Genitalia Exam: deferred Rectal Exam: deferred Back Exam: normal inspection, normal range of motion, No CVA tenderness, No vertebral tenderness Extremity Exam: normal inspection, normal range of motion Skin Exam: normal color, warm, dry Final Diagnosis/Problem List - Final Discharge Diagnosis/Problem (1) GI bleed Current Visit: Yes Status: Acute Code(s): K92.2 - GASTROINTESTINAL HEMORRHAGE, UNSPECIFIED (2) CHF exacerbation Current Visit: Yes Status: Acute Code(s): I50.9 - HEART FAILURE, UNSPECIFIED (3) Hypokalemia Current Visit: Yes Status: Acute Code(s): E87.6 - HYPOKALEMIA (4) Gas bloat syndrome Current Visit: Yes Status: Acute Code(s): K92.89 - OTHER SPECIFIED DISEASES OF THE DIGESTIVE SYSTEM (5) Pleural effusion due to CHF (congestive heart failure) Current Visit: Yes Status: Acute Code(s): I50.9 - HEART FAILURE, UNSPECIFIED (6) CAD (coronary artery disease) Current Visit: No Status: Chronic Code(s): I25.10 - ATHSCL HEART DISEASE OF [place] CORONARY ARTERY W/O ANG PCTRS (7) Constipation Current Visit: Yes Status: Resolved Code(s): K59.00 - CONSTIPATION, UNSP ECIFIED (8) T12 compression fracture Current Visit: Yes Status: Acute Code(s): S22.080A - WEDGE COMPRESSION FRACTURE OF T11-T12 VERTEBRA, INIT (9) Diarrhea Current Visit: Yes Status: Acute Assessment & Plan: 1) GI bleed Current Visit: Yes Status: Acute Assessment & Plan: - developed this am 01/18/24 - Xarelto held yesterday evening as pt might have needed thoracentestis today but CXR improved- not needed - Continue to hold Xarelto - SCD's - Surgery consulted- gave order for fleets enema and will do a limited c-scope at 1630 - H& H q6 - Protonix 80 IV x1 started then 40 IV BID - Bleeding diverticuli seen per surgery - Zosyn started yesterday - sxs improving - Continued hematochezia last night per pt - Hgb stable 8.7 01/19 - Hgb stable 9.2 - No GI bleeding or blood in stools yesterday or last night. - Restart xarelto in 3 days per general surgery Code(s): K92.2 - GASTROINTESTINAL HEMORRHAGE, UNSPECIFIED (2) CHF exacerbation Current Visit: Yes Status: Acute Qualifiers: Heart failure type: unspecified Qualified Code(s): I50.9 - Heart failure, unspecified Assessment & Plan: - Lasix TID - Sxs improved - Will need to f/u with cardiology OP - Trop x3 negative - BNP on admission [id number] - continue home meds - Echo EF less than 30 % per mathematical engineering technician- reviewed by cardiology - echo from 06/07/15 shows EF 25-30% - pt would be a candidate for hospice - case management to discuss. - Trop x3 negative - Procal negative - cardiology consult 01/18 - per cardiology: start Jardiance, Continue IV lasix, Keep K+ >4 and Mg+ >2- at d/c lasix 40mg PO Qam, will need OP stress test with Dr. Potts - K+ and Mg+ ordered now 01/19 - Jardiance sent in to pharmacy today-this is costly per case management. - Discuss with cardiology options for medication since expensive Code(s): I50.9 - HEART FAILURE, UNSPECIFIED (3) Hypokalemia Current Visit: Yes Status: Acute Assessment & Plan: - K+ 3.1 - replaced - trend - resolved 01/19 - K+ 3.4- K-rider ordered - Per cardiology keep > 4 Code(s): E87.6 - HYPOKALEMIA (4) Gas bloat syndrome Current Visit: Yes Status: Acute Assessment & Plan: - Gas-x added - as seen per KUB Code(s): K92.89 - OTHER SPECIFIED DISEASES OF THE DIGESTIVE SYSTEM (5) Pleural effusion due to CHF (congestive heart failure) Current Visit: Yes Status: Acute Assessment & Plan: CT chest IMPRESSION: 1. Moderate bilateral pleural effusion with bilateral lower lobe subsegmental consolidation and diffuse interlobular septal thickening. Differential considerations would include infective etiology versus cardiogenic edema/CHF. Clinical correlation and follow-up are recommended. 2. Cardiomegaly with a mildly dilated pulmonary trunk, right and left pulmonary artery concerning for possible arterial hypertension. Please correlate clinically. 3. Multiple prominent and mildly enlarged mesenteric lymph nodes, presumably reactive. 4. Sclerosis and compression fracture of T12. -Lasix TID - On baseline O2 3lNC - fluid restriction - Xarelto held 01/18 - CXR PA/lateral chest improved with diminished cardiomegaly and vascular congestion. Previous bibasilar effusions/atelectasis have also moderately improved with mild residual. Again incidental CABG and left pacemaker. No new cardiopulmonary abnormalities - No need for thoracentesis at this time - On baseline oxygen 01/19 - Restart xarelto in 3 days per GS Code(s): I50.9 - HEART FAILURE, UNSPECIFIED (6) CAD (coronary artery disease) Current Visit: No Status: Chronic Assessment & Plan: - Trop x3 negative 01/18 - cardiology consult- see above orders under CHF - developed CP last night and nitro paste started 01/19 - CP resolved Code(s): I25.10 - ATHSCL HEART DISEASE OF [place] CORONARY ARTERY W/O ANG PCTRS (7) Constipation Current Visit: Yes Status: Resolved Assessment & Plan: - pt reports no BM since Tuesday - Miralax and colace - consider SS enema. - CT abd/pelvis: IMPRESSION: Gross bilateral pleural effusions with passive subsegmental collapse of both lower lobes.-same as prior study. Cardiomegaly. Mild ascites noted involving perihepatic space, there is perisplenic space and in the pelvis region-same as prior study. Multiple small uncomplicated diverticulosis involving descending and sigmoid colon.-same as prior study. 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 Unchanged from the prior. Prostate appears enlarged-static. No other acute interval changes is seen 01/18 - resolved Code(s): K59.00 - CONSTIPATION, UNSPECIFIED (8) T12 compression fracture Current Visit: Yes Status: Acute Assessment & Plan: - As seen on chest CT - Pt has no c/o pain in this area - F/u Op with neurosurgery- appointment made Code(s): S22.080A - WEDGE COMPRESSION FRACTURE OF T11-T12 VERTEBRA, INIT (9) Diarrhea Current Visit: Yes Status: Acute Assessment & Plan: - Miralax stopped - Stool softeners PRN as this is how he takes at home. - Probiotics Code(s): R19.7 - DIARRHEA, UNSPECIFIED - Discharge Discharge Date: 01/20/24 Disposition: HOME HEALTH SERVICE Condition: Stable Prescriptions: New Empagliflozin [Jardiance] 10 mg PO DAILY 20 Days #30 tablet Continue ramipriL [Altace] 10 mg PO BID Atorvastatin Calcium [Lipitor] 80 mg PO DAILY Amlodipine Besylate 10 mg [Norvasc 10 MG] 2.5 mg PO DAILY Fenofibrate 48 mg PO DAILY Magnesium Oxide 400 mg [Mag-Ox 400] 400 mg PO BID Terazosin HCl 5 mg PO BID Metoprolol Succinate 100 mg [Toprol Xl 100 MG] 100 mg PO DAILY Ezetimibe [Zetia] 10 mg PO DAILY Oxycodone HCl/Acetaminophen [Oxycodone-Acetaminophen 5-325] 1 each PO TIDPRN PRN PRN Reason: Pain Escitalopram Oxalate [Lexapro] 10 mg PO DAILY Metformin HCl [Metformin HCl ER] 500 mg PO DAILY Rivaroxaban [Xarelto] 15 mg PO HS [place]-3 Fatty Acids/Fish Oil [Fish Oil 1,000 mg Capsule] 1,000 mg PO DAILY Esomeprazole Magnesium [Nexium] 20 mg PO DAILY Lipase/Protease/Amylase [Creon Dr 36,000 Unit Capsule] 2 each PO TIDWMEALS Lipase/Protease/Amylase [Creon Dr 36,000 Unit Capsule] 1 each PO BID PRN PRN PRN Reason: Stomach Upset Instructions: High Fiber Diet, Diverticulosis (DC) Additional Instructions: LUIS CARLOS BENITE[facility]. THEY WILL CONTACT YOU TO MAKE APPT TO SEE YOU. THEIR PHONE # [phone]. Hold xarelto for 3 more days per general surgery. Follow up with: SAMANTHA ROBLES MD [ACTIVE STAFF] - (2 WEEK ) VICTORIA WALTON [Primary Care Provider] -
[2024-01-20] MEDS: TYLENOL 325 MG PO PRN (11:37)
[2024-01-20 12:11] VITALS: BP 122/70; PULSE 60; TEMP 97.3; O2SAT 98
[2024-01-20] MEDS: PATIENT OWN MEDICATION PO SCH (12:47)
[2024-01-20] MEDS ORDERED: XARELTO 10 MG TABLET PO SCH (22:00)
== END 2024-01-20 13:30 | disposition home health service (06) | DRG 377 ==
LOC: ED 19:36 → MED SURG 01-16 02:30 → OBSVTOIN 01-17 13:28
PROVIDERS: ADMIT Internal Medicine; ATTEND Internal Medicine
PROC: 0DJ08ZZ Inspection of Upper Intestinal Tract, Via Natural or Artificial Opening Endoscopic (ICD-10-PCS; principal; 2024-01-18)
PROC: 0DJD8ZZ Inspection of Lower Intestinal Tract, Via Natural or Artificial Opening Endoscopic (ICD-10-PCS; 2024-01-18)
DX: K92.2 Gastrointestinal hemorrhage, unspecified (principal); J18.9 Pneumonia, unspecified organism; S22.080A Wedge compression fracture of T11-T12 vertebra, initial encounter for closed fracture; I11.0 Hypertensive heart disease with heart failure; I50.9 Heart failure, unspecified; E11.9 Type 2 diabetes mellitus without complications; E87.6 Hypokalemia; K92.89 Other specified diseases of the digestive system; I25.10 Atherosclerotic heart disease of native coronary artery without angina pectoris; K59.00 Constipation, unspecified; R19.7 Diarrhea, unspecified; I25.2 Old myocardial infarction; D64.9 Anemia, unspecified; Z79.01 Long term (current) use of anticoagulants; Z79.899 Other long term (current) drug therapy; Z20.828 Contact with and (suspected) exposure to other viral communicable diseases; Z95.0 Presence of cardiac pacemaker; Z99.81 Dependence on supplemental oxygen
CPT/HCPCS: 0241U; 36000; 36415; 43235; 45330; 71045; 71046; 71250; 74018; 74177; 80048; 80053; 81001; 82150; 82947; 83036; 83690; 83735; 83880; 84134; 84145; 84484; 85014; 85018; 85025; 85027; 85610; 85730; 93005; 93268; 93306; 94760; 96374; 96375; 97161; 99285; G0378; Q3014; 99100; J0696; J1940; J2270; J2371; J2543; J2704; J3480; A9270-GY

== ENCOUNTER 2024-02-14 09:57 | Emergency (ER) | payer MEDICARE, OTHER ==
[2024-02-14 10:07] VITALS: TEMP 98
[2024-02-14] MEDS ORDERED: Sodium Chloride 0.9% 1000 ML 1,000 ML ONE (10:24)
[2024-02-14] MEDS: Sodium Chloride 0.9% 1000 ML 1,000 ML IV SCH (10:25)
--- NOTE | 2024-02-14 10:28 | ERPHSYRPT ---
- History of Present Illness Time Seen by Provider: 02/14/24 10:20 Source: patient Exam Limitations: no limitations Patient Subjective Stated Complaint: EMS states "He was sitting in his chair for the past 3 days and has not moved. I cut his underwear off to try and clean him up. His stated that she had an apointment in [place] today and the hospital would keep him anyway so she is going to [place]. He is weak." Triage Nursing Assessment: Pt presented alert and lethargic. Pt keeps falling asleep but will answer some questions. PT has skin tears on left arm, small lac on back, pressure ulcers on hips and coccyx. Physician History: Patient is a 73-year-old male presents to our ED via EMS for evaluation of generalized weakness. Patient has a history of hypertension diabetes coronary artery disease NE and CABG. RN reports patient has pressure ulcer to his coccyx and hips. Patient spends much time sitting and/or lying at home. Patient complains of abdominal pain. No chest pain or shortness of breath. No nausea vomiting or diaphoresis. Patient voices no other complaints or concerns at this time. Portions of this note were created with voice recognition technology. There may be grammatical, spelling, punctuation or sound alike errors Timing/Duration: today Severity: moderate Modifying Factors: Improves With: nothing Associated Symptoms: denies symptoms Allergies/Adverse Reactions: No Known Drug Allergies Allergy (Verified 01/16/24 02:36) Home Medications: Amlodipine Besylate 10 mg [Norvasc 10 MG] 2.5 mg PO DAILY 12/17/17 [History] Atorvastatin Calcium [Lipitor] 80 mg PO DAILY 12/17/17 [History] ramipriL [Altace] 10 mg PO BID 12/17/17 [History] Fenofibrate 48 mg PO DAILY 05/18/22 [History] Magnesium Oxide 400 mg [Mag-Ox 400] 400 mg PO BID 05/18/22 [History] Terazosin HCl 5 mg PO BID 05/18/22 [History] Escitalopram Oxalate [Lexapro] 10 mg PO DAILY 12/01/23 [History] Ezetimibe [Zetia] 10 mg PO DAILY 12/01/23 [History] Metformin HCl [Metformin HCl ER] 500 mg PO DAILY 12/01/23 [History] Metoprolol Succinate 100 mg [Toprol Xl 100 MG] 100 mg PO DAILY 12/01/23 [History] Oxycodone HCl/Acetaminophen [Oxycodone-Acetaminophen 5-325] 1 each PO TIDPRN PRN 12/01/23 [History] Rivaroxaban [Xarelto] 15 mg PO HS 12/01/23 [History] Esomeprazole Magnesium [Nexium] 20 mg PO DAILY 01/15/24 [History] [place]-3 Fatty Acids/Fish Oil [Fish Oil 1,000 mg Capsule] 1,000 mg PO DAILY 01/15/24 [History] Lipase/Protease/Amylase [Jelani Christie 36,000 Unit Capsule] 1 each PO BID PRN PRN 01/18/24 [History] Lipase/Protease/Amylase [Creariel Christie 36,000 Unit Capsule] 2 each PO TIDWMEALS 01/18/24 [History] Hx Tetanus, Diphtheria Vaccination/Date Given: Yes Hx Influenza Vaccination/Date Given: Yes Hx Pneumococcal Vaccination/Date Given: No Travel Risk - International Travel Have you traveled outside of the country in past 3 weeks: No - Emerging Infectious Disease Are you exhibiting symptoms associated with any current EIDs: Yes Symptoms: Abdominal Pain - Review of Systems Constitutional: No Symptoms, No Fever, No Chills Eyes: No Symptoms Ears, Nose, & Throat: No Symptoms Respiratory: No Symptoms, No Cough, No Dyspnea Cardiac: No Symptoms, No Chest Pain, No Edema, No Syncope Abdominal/Gastrointestinal: No Symptoms, No Abdominal Pain, No Nausea, No Vomiting, No Diarrhea Genitourinary Symptoms: No Symptoms, No Dysuria Musculoskeletal: No Symptoms, No Back Pain, No Neck Pain Skin: No Symptoms, No Rash Neurological: No Symptoms, No Dizziness, No Focal Weakness, No Sensory Changes Psychological: No Symptoms Endocrine: No Symptoms Hematologic/Lymphatic: No Symptoms Immunological/Allergic: No Symptoms All Other Systems: Reviewed and Negative - Past Medical History Pertinent Past Medical History: Yes Neurological History: No Pertinent History ENT History: No Pertinent History Cardiac History: Coronary Artery Disease, Hypertension, Myocardial Infarction (NE) Respiratory History: No Pertinent History Endocrine Medical History: Diabetes Type II Musculoskeletal History: No Pertinent History GI Medical History: Pancreatitis History: No Pertinent History Psycho-Social History: No Pertinent History Male Reproductive Disorders: No Pertinent History - Past Surgical History Past Surgical History: Yes Neuro Surgical History: No Pertinent History Cardiac: CABG, Pacemaker Respiratory: No Pertinent History Gastrointestinal: Hernia Repair Genitourinary: No Pertinent History Musculoskeletal: Other Male Surgical History: No Pertinent History Other Surgical History: feeding tube placement and removal Significant Family History: no pertinent family hx - Social History Smoking Status: Former smoker How long have you smoked: 50 yrs Exposure to second hand smoke: No Drug Use: none Patient Lives Alone: No - Nursing Vital Signs Nursing Vital Signs: Initial Vital Signs Temperature 98.0 F 02/14/24 09:58 Pulse Rate 88 02/14/24 09:58 Respiratory Rate 14 02/14/24 09:58 Blood Pressure 141/73 02/14/24 09:58 O2 Sat by Pulse Oximetry 91 L 02/14/24 09:58 Pain Scale Pain Intensity 0 - Physical Exam General Appearance: no apparent distress, alert Eye Exam: PERRL/EOMI, eyes nml inspection Ears, Nose, Throat Exam: normal ENT inspection, TMs normal, pharynx normal, moist mucous membranes Neck Exam: normal inspection, non-tender, supple, full range of motion Respiratory Exam: normal breath sounds, lungs clear, airway intact, No respiratory distress Cardiovascular Exam: regular rate/rhythm, normal heart sounds, normal peripheral pulses Gastrointestinal/Abdomen Exam: soft, normal bowel sounds, No tenderness, No mass Back Exam: normal inspection, normal range of motion, No CVA tenderness, No ve rtebral tenderness Extremity Exam: normal inspection, normal range of motion, pelvis stable, pedal edema Neurologic Exam: alert, oriented x 3, cooperative, normal mood/affect, nml cerebellar function, nml station & gait, sensation nml, No motor deficits Skin Exam: normal color, warm, dry, No rash Lymphatic Exam: No adenopathy SpO2 Interpretation: normal SpO2: 91 O2 Delivery: Room Air - Course Nursing assessment & vital signs reviewed: Yes EKG Interpreted by Me: RATE (78), A-fib, NORMAL AXIS, NORMAL INTERVALS Ordered Tests: Active Orders 24 hr Category Date Time Status Tax Evaluator STAT Care 02/14/24 10:21 Active EKG-ER Only STAT Care 02/14/24 10:19 Active Ji [Catheter-[place] Ji] STAT Care 02/14/24 11:03 Active IV Insertion STAT Care 02/14/24 10:19 Active Pulse Oximetry (ED) STAT Care 02/14/24 10:19 Active Tele-Health Consult ROUTINE Cons 02/14/24 11:05 Active ABDOMEN AND PELVIS W/0 CONTRAS [CT] Stat Exams 02/14/24 10:18 Completed HEAD WITHOUT CONTRAST [CT] Stat Exams 02/14/24 10:18 Completed BLOOD CULTURE Stat Lab 02/14/24 11:15 Received CBC W DIFF Stat Lab 02/14/24 10:19 Completed CMP Stat Lab 02/14/24 11:10 Results LIPASE Stat Lab 02/14/24 11:10 Results Lactic Acid Stat Lab 02/14/24 11:15 Completed Lactic Acid Stat Lab 02/14/24 13:26 Received NT PRO BNPII Stat Lab 02/14/24 11:10 Results TROPONIN Q4H Lab 02/14/24 11:10 Completed TROPONIN Q4H Lab 02/14/24 14:30 Ordered TROPONIN Q4H Lab 02/14/24 18:30 Ordered UA W/RFX UR CULTURE Stat Lab 02/14/24 11:02 Completed Medication Summary Generic Name Dose Route Start Last Admin Trade Name Freq PRN Reason Stop Dose Admin Sodium Chloride 1,000 mls @ 100 mls/hr 02/14/24 10:30 02/14/24 10:25 Sodium Chloride 0.9% 1000 Ml IV 03/15/24 10:29 100 mls/hr .Q10H GURU Administration Discontinued Medications Generic Name Dose Route Start Last Admin Trade Name Freq PRN Reason Stop Dose Admin Furosemide 40 mg 02/14/24 11:21 02/14/24 11:26 Furosemide 40 Mg/4 Ml Vial IV 02/14/24 11:22 40 mg STAT ONE Administration Furosemide Confirm 02/14/24 11:25 Furosemide 40 Mg/4 Ml Vial Administered 02/14/24 11:26 Dose 40 mg .ROUTE .STK-MED ONE Ceftriaxone Sodium/Dextrose 2 g in 50 mls @ 100 mls/hr 02/14/24 11:52 02/14/24 12:49 Rocephin 2 Gm-D5w 50ml Bag IV 02/14/24 12:21 100 ml/hr STAT STA 100 mls/hr Infusion Azithromycin 500 mg in 250 mls @ 250 mls/hr 02/14/24 11:52 02/14/24 12:33 Zithromax 500 Mg/ 250 Ml Nacl Premix IV 02/14/24 12:51 250 ml/hr STAT STA 250 mls/hr Administration Ceftriaxone Sodium/Dextrose Confirm 02/14/24 11:56 Rocephin 2 Gm-D5w 50ml Bag Administered 02/14/24 11:57 Dose 2 g in 50 mls @ ud IV .STK-MED ONE Azithromycin Confirm 02/14/24 12:32 Zithromax 500 Mg/ 250 Ml Nacl Premix Administered 02/14/24 12:33 Dose 500 mg in 250 mls @ ud IV .STK-MED ONE Nitroglycerin 1 gm 02/14/24 11:22 02/14/24 11:26 Nitroglycerin 1 Gm Packet TOP 02/14/24 11:23 1 gm STAT ONE Administration Nitroglycerin Confirm 02/14/24 11:25 Nitroglycerin 1 Gm Packet Administered 02/14/24 11:26 Dose 1 gm .ROUTE .STK-MED ONE Lab/Rad Data: Laboratory Result Diagrams 02/14/24 10:19 02/14/24 11:10 Laboratory Results 02/14/24 02/14/24 02/14/24 Range/Units 11:15 11:10 11:10 WBC (4.0-10.5) x10^3/uL RBC (4.1-5.6) x10^6/uL Hgb (12.5-18.0) g/dL Hct (42-50) % MCV (78-100) fL MCH (26-32) pg MCHC (32-36) g/dL RDW (11.5-14.0) % Plt Count (150-450) x10^3/uL MPV (7.5-11.0) fL Gran % (36.0-66.0) % Immature Gran % (Auto) (0.00-0.4) % Nucleat RBC Rel Count (0.00-0.1) % Eos # (Auto) (0-0.5) x10^3/uL Immature Gran # (Auto) (0.00-0.03) x10^3u/L Absolute Lymphs (auto) (1.0-4.6) x10^3/uL Absolute Monos (auto) (0.0-1.3) x10^3/uL Absolute Nucleated RBC (0.00-0.01) x10^3u/L Lymphocytes % (24.0-44.0) % Monocytes % (0.0-12.0) % Eosinophils % (0.00-5.0) % Basophils % (0.0-0.4) % Absolute Granulocytes (1.4-6.9) x10^3/uL Basophils # (0-0.4) x10^3/uL Sodium 137 (135-145) mmol/L Potassium 4.2 (3.5-5.1) mmol/L Chloride 101 (98-107) mmol/L Carbon Dioxide 27 (22-30) mmol/L Anion Gap 13.1 (5-15) MEQ/L BUN 38 H (9-20) mg/dL Creatinine 1.31 H (0.66-1.25) mg/dL Estimated GFR 57.8 ML/MIN Glucose 154 H (74-106) mg/dL Lactic Acid 2.0 (0.4-2.0) Calcium 9.3 (8.4-10.2) mg/dL Total Bilirubin 0.50 (0.2-1.3) mg/dL AST 28 (17-59) U/L ALT 16 (0-50) U/L Alkaline Phosphatase 57 (38-126) U/L Troponin I 0.022 (0.000-0.034) ng/mL NT-Pro-B Natriuret Pep Pending Serum Total Protein 5.8 L (6.3-8.2) g/dL Albumin 3.0 L (3.5-5.0) g/dL Lipase 39 (23-300) U/L Urine Color (Yellow) Urine Appearance (Clear) Urine pH (4.6-8.0) Ur Specific [place] (1.005-1.030) Urine Protein (Negative) Urine Glucose (UA) (Negative) mg/dL Urine Ketones (Negative) Urine Blood (Negative) Urine Nitrite (Negative) Urine Bilirubin (Negative) Urine Urobilinogen (0.2) mg/dL Ur Leukocyte Esterase (Negative) U Hyaline Cast (Auto) (0-2) /LPF Urine Microscopic RBC (0-5) /HPF Urine Microscopic WBC (0-5) /HPF Ur Epithelial Cells (None Seen) /HPF Urine Bacteria (None Seen) /HPF Urine Culture Reflexed (NO) Slides for Path Review 02/14/24 02/14/24 Range/Units 11:02 10:19 WBC 3.6 L (4.0-10.5) x10^3/uL RBC 2.49 L (4.1-5.6) x10^6/uL Hgb 7.2 L (12.5-18.0) g/dL Hct 23.4 L (42-50) % MCV 94.0 (78-100) fL MCH 28.9 (26-32) pg MCHC 30.8 L (32-36) g/dL RDW 13.9 (11.5-14.0) % Plt Count 142 L (150-450) x10^3/uL MPV 11.3 H (7.5-11.0) fL Gran % 88.8 H (36.0-66.0) % Immature Gran % (Auto) 0.3 (0.00-0.4) % Nucleat RBC Rel Count 0.0 (0.00-0.1) % Eos # (Auto) 0 (0-0.5) x10^3/uL Immature Gran # (Auto) 0.01 (0.00-0.03) x10^3u/L Absolute Lymphs (auto) 0.24 L (1.0-4.6) x10^3/uL Absolute Monos (auto) 0.15 (0.0-1.3) x10^3/uL Absolute Nucleated RBC 0.00 (0.00-0.01) x10^3u/L Lymphocytes % 6.7 L (24.0-44.0) % Monocytes % 4.2 (0.0-12.0) % Eosinophils % 0.0 (0.00-5.0) % Basophils % 0.0 (0.0-0.4) % Absolute Granulocytes 3.20 (1.4-6.9) x10^3/uL Basophils # 0 (0-0.4) x10^3/uL Sodium (135-145) mmol/L Potassium (3.5-5.1) mmol/L Chloride (98-107) mmol/L Carbon Dioxide (22-30) mmol/L Anion Gap (5-15) MEQ/L BUN (9-20) mg/dL Creatinine (0.66-1.25) mg/dL Estimated GFR ML/MIN Glucose (74-106) mg/dL Lactic Acid (0.4-2.0) Calcium (8.4-10.2) mg/dL Total Bilirubin (0.2-1.3) mg/dL AST (17-59) U/L ALT (0-50) U/L Alkaline Phosphatase (38-126) U/L Troponin I (0.000-0.034) ng/mL NT-Pro-B Natriuret Pep Serum Total Protein (6.3-8.2) g/dL Albumin (3.5-5.0) g/dL Lipase (23-300) U/L Urine Color Yellow (Yellow) Urine Appearance Clear (Clear) Urine pH 5.5 (4.6-8.0) Ur Specific [place] 1.015 (1.005-1.030) Urine Protein 30 (Negative) Urine Glucose (UA) Negative (Negative) mg/dL Urine Ketones Negative (Negative) Urine Blood Negative (Negative) Urine Nitrite Negative (Negative) Urine Bilirubin Negative (Negative) Urine Urobilinogen 0.2 (0.2) mg/dL Ur Leukocyte Esterase Negative (Negative) U Hyaline Cast (Auto) 3-5 A (0-2) /LPF Urine Microscopic RBC 0-2 (0-5) /HPF Urine Microscopic WBC 0-2 (0-5) /HPF Ur Epithelial Cells None Seen (None Seen) /HPF Urine Bacteria None Seen (None Seen) /HPF Urine Culture Reflexed NO (NO) Slides for Path Review YES - Progress Progress: improved Progress Note: I spoke to Dr. Harrington from [facility] at 11:50 AM. [facility] does not have neurology available therefore patient was not transferred. Case discussed with Dr. Dobson hospitalist at [facility] who accepts transfer at 12:21 PM. 02/14/24 12:22 73-year-old male presents to the emergency department for evaluation. Patient complains of abdominal pain, generalized weakness. Physical exam reveals skin tear to hands and an abrasion to the left upper back. Patient also has bilateral lower extremity 2+ pitting edema. CT head reveals a right cerebellar stroke. Teleneurologist consulted. Please see telemetry neurologist note for details. CT abdomen pelvis incidentally revealed pneumonia and congestive hea rt failure. Patient received Lasix Nitropaste. Blood cultures obtained. Patient received Rocephin and azithromycin for the pneumonia. Patient is on Xarelto. Her Xarelto will be held. In light of patient's cerebellar stroke we will hold aspirin as well as these types of strokes have a higher propensity of bleeding. Plan of care discussed with patient and his . They agree to transfer to [facility] for further evaluation and treatment. In light of patient's active congestive heart failure we held off on immediate blood transfusion. Vital stable. Patient has no shortness of breath at rest. Initial troponin negative. Patient is not a candidate for tPA as we do not know the precise time of his stroke. 02/14/24 13:37 Portions of this note were created with voice recognition technology. There may be grammatical, spelling, punctuation or sound alike errors Complexity problem addressed is high, threat to bodily function. Patient has pneumonia stroke and congestive heart failure No critical care time Complex of data reviewed and analyzed is extensive. Test ordered test reviewed results analyzed and correlated clinically with history and physical examination. Management discussed with neurologist as well as accepting physician at [facility] Dr. Dobson Risk of complication and or risk of morbidity/mortality of patient management is high. Patient requires transfer/hospitalization for higher level of care Vital stable. Time spent to discharge patient is approximately 30 minutes. Plan of care established for shared decision making. No social determinants of health present impede follow-up. Portions of this note were created with voice recognition technology. There may be grammatical, spelling, punctuation or sound alike errors Of note BNP is still pending 02/14/24 13:52 Counseled pt/family regarding: lab results, diagnosis - Departure Departure Disposition: Transfer Clinical Impression: Right cerebellar stroke, Cardiomegaly, Pleural effusion, CHF (congestive heart failure), Hiatal hernia, Diverticulosis, Renal cyst, left, Enlarged prostate, Osteopenia, Remote T12 fracture, Pneumonia, Leukopenia, Normocytic anemia Condition: Stable Critical Care Time: No Referrals: VICTORIA WALTON [Primary Care Provider] - Follow up/PCP as directed Instructions: Heart Failure
--- NOTE | 2024-02-14 11:01 | XRAY ---
Indication: Confusion. Stroke. Multiple contiguous axial images obtained through the head without contrast. Comparison: May 18, 2023 Right cerebellum superiorly demonstrates new small focus cytotoxic edema measuring at least 2.7 x 3.4 x 2.4 cm favoring acute ischemia. No acute hemorrhage/mass effect. Remaining brain again demonstrates age-appropriate global atrophy with minimal periventricular degenerative micro-ischemia. Fourth ventricle is midline without hydrocephalus. Bony calvarium intact. Visualized paranasal sinuses and mastoid air cells are clear. Impression: 1. New focus acute ischemia right cerebellum as detailed. 2. Atrophy and degenerative micro-ischemia within normal limits for patient's age. Comment: Telephone report given to ordering clinician, Dr. Brown at 1055 hrs. on February 14, 2024.
--- NOTE | 2024-02-14 11:07 | XRAY ---
Indication: Pain. Diarrhea. Multiple contiguous axial images obtained through the abdomen and pelvis without contrast. Comparison: December 15, 2023 Study slightly degraded by respiration artifact throughout. Lung bases again demonstrates cardiomegaly and incompletely visualized moderate bilateral effusions slightly less than before. New diffuse bilateral patchy consolidating/nonconsolidating airspace opacities. Stable small hiatal hernia. Noncontrasted stomach and bowel loops appear nonobstructed again with scattered descending and sigmoid diverticulosis. Grossly stable small perihepatic and pelvic free fluid. No walled off fluid collection or free air. Again chronic pancreatitis calcifications, tiny hepatic/splenic calcification granulomas, nonobstructing bilateral renal micro-calculi, left renal cysts, enlarged prostate gland, and extensive arteriosclerotic calcifications. Urinary bladder unremarkable for noncontrast exam. Osseous structures again demonstrates osteopenia, degenerative changes, and remote T12 compression fracture. Impression: 1. New diffuse bilateral consolidating/nonconsolidating airspace disease. 2. Again cardiomegaly and bibasilar effusions favoring cardiac decompensation/CHF versus fluid overload. Grossly stable small abdominal/pelvic free fluid presumed related. 3. Chronic findings including hiatal hernia, colonic diverticulosis, chronic pancreatitis calcifications, nonobstructing bilateral micro-calculi, left renal cysts, enlarged prostate gland, extensive arteriosclerotic disease, chronic bony findings, and old granulomatous disease.
[2024-02-14] MEDS ORDERED: NITRO-BID 2% UD PACKETS ONE (11:25)
[2024-02-14] MEDS ORDERED: Lasix 40 MG/4 ML ONE (11:25)
[2024-02-14] MEDS: NITRO-BID 2% UD PACKETS TOP ONE (11:26)
[2024-02-14] MEDS: Lasix 40 MG/4 ML IV ONE (11:26)
[2024-02-14 11:40] LABS: Basophil (Absolute #) 0 x10^3/uL (0-0.4); Eosinophil (Absolute #) 0 x10^3/uL (0-0.5); Hematocrit 23.4 % (42-50); Hemoglobin 7.2 g/dL (12.5-18.0); IMMATURE GRAN # 0.01 x10^3u/L (0.00-0.03); IMMATURE GRAN % 0.3 % (0.00-0.4); Lymphocyte (Absolute #) 0.24 x10^3/uL (1.0-4.6); Lymphocytes % 6.7 % (24.0-44.0); Mean Corpuscular Hemoglobin 28.9 pg (26-32); Mean Corpuscular Hgb Concent. 30.8 g/dL (32-36); Mean Platelet Volume 11.3 fL (7.5-11.0); Monocyte (Absolute #) 0.15 x10^3/uL (0.0-1.3); Monocytes % 4.2 % (0.0-12.0); Neutrophil % 88.8 % (36.0-66.0); Platelet Count 142 x10^3/uL (150-450); Red Blood Count 2.49 x10^6/uL (4.1-5.6); Red Cell Distribution Width 13.9 % (11.5-14.0); White Blood Count 3.6 x10^3/uL (4.0-10.5)
[2024-02-14 11:51] LABS: Appearance Clear (Clear); Bacteria None Seen /HPF (None Seen); Bilirubin Negative (Negative); Blood Negative (Negative); Epithelial Cells None Seen /HPF (None Seen); Glucose, Urine Negative (Negative); Ketones Negative (Negative); Leukocyte Esterase Negative (Negative); Nitrite Negative (Negative); Ph 5.5 (4.6-8.0); Protein,Urine Dip 30 (Negative); RBC 0-2 /HPF (0-5); Specific Gravity 1.015 (1.005-1.030); Urobilinogen 0.2 mg/dL (0.2); WBC 0-2 /HPF (0-5)
[2024-02-14 11:55] LABS: ADD URINE CULTURE? NO (NO)
[2024-02-14] MEDS ORDERED: ROCEPHIN 2 Gm-D5w 50ML BAG** 2 G/50 ML IVPB IV ONE (11:56)
[2024-02-14] MEDS: ROCEPHIN 2 Gm-D5w 50ML BAG** 2 G/50 ML IVPB IV STA (11:59)
[2024-02-14 12:02] LABS: ANION GAP 13.1 MEQ/L (5-15); BILIRUBIN,TOTAL 0.5 mg/dL (0.2-1.3); Calcium 9.3 mg/dL (8.4-10.2); Creatinine 1 1.31 mg/dL (0.66-1.25); EST GLOMERULAR FILTRATION RATE 57.8 ML/MIN; Potassium 4.2 mmol/L (3.5-5.1); Total Protein 5.8 g/dL (6.3-8.2)
[2024-02-14 12:23] VITALS: O2SAT 91
[2024-02-14] MEDS ORDERED: Zithromax 500 MG/ 250 ML NaCl Premix 500 MG/250 ML IVPB IV ONE (12:32)
[2024-02-14] MEDS: Zithromax 500 MG/ 250 ML NaCl Premix 500 MG/250 ML IVPB IV STA (12:33)
[2024-02-14 13:04] VITALS: PULSE 78
[2024-02-14 13:27] LABS: Slide Review 1 YES
[2024-02-14 13:44] VITALS: RESP 25
[2024-02-14 14:06] VITALS: BP 113/61
== END 2024-02-14 14:09 | disposition short-term general hospital (02) ==
LOC: ED 09:57
DX: I63.9 Cerebral infarction, unspecified (principal); R53.1 Weakness; J90 Pleural effusion, not elsewhere classified; I11.0 Hypertensive heart disease with heart failure; I50.9 Heart failure, unspecified; K44.9 Diaphragmatic hernia without obstruction or gangrene; K57.90 Diverticulosis of intestine, part unspecified, without perforation or abscess without bleeding; N28.1 Cyst of kidney, acquired; N40.0 Benign prostatic hyperplasia without lower urinary tract symptoms; M85.80 Other specified disorders of bone density and structure, unspecified site; M84.48XA Pathological fracture, other site, initial encounter for fracture; Z87.311 Personal history of (healed) other pathological fracture; J18.9 Pneumonia, unspecified organism; D72.819 Decreased white blood cell count, unspecified; D64.9 Anemia, unspecified; E11.9 Type 2 diabetes mellitus without complications; Z79.84 Long term (current) use of oral hypoglycemic drugs; Z79.01 Long term (current) use of anticoagulants; Z79.899 Other long term (current) drug therapy
CPT/HCPCS: 36000; 36415; 51702; 70450; 74176; 80053; 81001; 83605; 83690; 83880; 84484; 85025; 87040; 93005; 93041; 94760; 96365; 96367; 96374; 99285; J0456; J0696; J1940; A9270-GY